=== PATIENT | female | born 1970 | race Caucasian/White ===

== ENCOUNTER 2022-02-18 15:47 | Emergency (ER) | payer OTHER ==
--- OUTSIDE RECORDS SUMMARY | 2022-02-18 15:50 | XMS REPORT | Continuity of Care Document ---
:1970 Author Organization [facility] t Address [address] [place] [address] Care Team Providers Name Role Phone JAMIE Attending Clinician Unavailable Jamie MOY Attending Clinician Payers Payer Name Policy Type Policy Number Effective Date Expiration Date [facility] [id number] Problems This patient has no known problems. Allergies, Adverse Reactions, Alerts Allergy Allergy Status Severity Reaction(s) Onset Inactive Treating Comm ents Source Name Type Date Date Clinician Oxycodon Propensi Active Percodan [facility] ty to 5-25 College n adverse 00:00: of reaction 00 Medicin s to e drug Codeine Propensi Active [facility] ty to 3-23 College adverse 00:00: of reaction 00 Medicin s to e drug Opioid Propensi Active [facility] Analgesi ty to 3-23 College cs adverse 00:00: of reaction 00 Medicin s to e drug Penicill Propensi Active [facility] ins ty to 3-23 College adverse 00:00: of reaction 00 Medicin s to e drug MORPHINE DRUG Active N/V 2019- Univers [facility]I 01-22 ity of 00:00: [place] 00 [facility] PENICILL DRUG Active Unknown-Cmnt Un tisha IN INGREDI 01-22 ity of 00:00: [place] 00 Medical Branch OXYCODON DRUG Active N/V 2019- Univers E 01-22 ity of HCL-OXYC 00:00: [place] ODONE- 00 Medical A Branch Morphine Propensi Active Nausea Univer s ty to and/or 01-22 ity of adverse Vomiting 00:00: [place] reaction 00 Medical s Branch Penicill Propensi Active Unknown - Was told U tim in ty to See comments 01-22 as a ity of adverse 00:00: child [place] reaction 00 Medical s Branch Oxycodon Propensi Active Nausea Univer s e ty to and/or 01-22 ity of Hcl-Oxyc adverse Vomiting 00:00: [place] odone-As reaction 00 Medica l a s Branch Codeine Propensi Active Nausea Univers ty to and/or 01-22 ity of adverse Vomiting 00:00: [place] reaction 00 Medical s Branch CODEINE DRUG Active N/V Univers INGREDI 01-22 ity of 00:00: [place] 00 Medical Branch Social History Social Habit Start Date Stop Date Quantity Comments Source History [facility] Alcohol Std Drinks of Med icine History [facility] Alcohol Binge of Medicine History [facility] Alcohol Comment of Medici ne Alcohol intake 2022-02-01 2022-02-01 Ex-drinker [facility] Col lege 00:00:00 00:00:00 (finding) of Medicine Cigarette 2021-12-21 2021-12-21 [facility] pack-years 00:00:00 00:00:00 of Medicine Tobacco use and 2021-12-21 2021-12-21 Smokeless tobacco [facility] exposure 00:00:00 00:00:00 non-user of Medicine Exposure to 2021-10-11 2021-10-[address] [facility] e SARS-CoV-2 (event) 00:00:00 09:45:00 of Med icine History [facility] 2020-10-19 2020-10-19 1 [facility] ge Alcohol Frequency 00:00:00 00:00:00 of Medi cine Sex [birth year] [facility] [employer]lege 00:00:00 00:00:00 of Medicine Smoking Status Start Date Stop Date Source Unknown if ever smoked [facility] Never smoked tobacco [facility] Lana ege of Medicine Medications Ordered Filled Start Stop Current Ordering Indication Dosage Frequency Signature Comments Components Source Medication Medication Date Date Medication? Clinician (SIG) Name Name melecioadilsonamanda- 2022-0 Yes 1{tbl} Take 1 [facility] acetaminoph 7-06 Tablet by Col lege en-caffeine 13:57: mouth of (FIORICET, 31 every 6 Medici n ESGIC) hours as e 50-325-40 needed for MG per Headaches. tablet cyclobenzap 2-0 Yes 5mg Take 1 [facility] rine 7-06 Tablet by [place] (FLEXERIL) 00:00: mouth of 5 MG tablet 00 daily as Medi simone needed. e meloxicam 2022-0 Yes 15mg Take 1 [facility] (MOBIC) 15 7-06 Tablet by Lana ege MG tablet 00:00: mouth of 00 daily. Medicin e leflunomide 2-0 Yes 20mg Take 1 [facility] (ARAVA) 20 7-06 Tablet by Lana ege MG tablet 00:00: mouth of 00 daily. Medicin e Adalimumab 2-0 Yes 40mg Inject 0.4 [facility] (HUMIRA 7-06 mL into College PEN) 40 00:00: the skin of MG/0.4ML 00 every 14 Medicin PNKT days. e Adalimumab 2022-0 Yes 40mg Inject 0.4 [facility] (HUMIRA 7-06 mL into [place] PEN) 40 00:00: the skin of MG/0.4ML 00 every 14 Medicin PNKT days. e butalbital- 2021-0 Yes 1{tbl} Take 1 [facility] acetaminoph 5-25 Tablet by Col lege en-caffeine 14:51: mouth of (FIORICET, 16 every 6 Medici n ESGIC) hours as e 50-325-40 needed for MG per Headaches. tablet leflunomide 2022-0 Yes 20mg Take 1 [facility] (ARAVA) 20 5-25 Tablet by Lana ege MG tablet 00:00: mouth of 00 daily. Medicin e omeprazole 2022-0 Yes [id number] 40mg Take 1 [facility] (PRILOSEC) 5-25 capsule by Col lege 40 MG 00:00: mouth of capsule 00 daily. Medicin e meloxicam 2022-0 Yes 15mg Take 1 [facility] (MOBIC) 15 5-25 Tablet by Lana ege MG tablet 00:00: mouth of 00 daily. Medicin e omeprazole 2022-0 Yes [id number] 40mg Take 1 [facility] (PRILOSEC) 5-25 capsule by Col lege 40 MG 00:00: mouth of capsule 00 daily. Medicin e leflunomide 2021-2021- No 20mg Take 1 [place] [facility] (ARAVA) 20 5-25 -06 Tablet by Col lege MG tablet 00:00: 00:00 mouth of 00 :00 daily. Medicin e meloxicam 2021-2021- No 15mg Take 1 [facility] (MOBIC) 15 5-25 07-06 Tablet by Col lege MG tablet 00:00: 00:00 mouth of 00 :00 daily. Medicin e butalbital- Yes 1{tbl} Take 1 [facility] acetaminoph 3-29 Tablet by Col lege en-caffeine 15:28: mouth of (FIORICET, 29 every 6 Medici n ESGIC) hours as e 50-325-40 needed for MG per Headaches. tablet leflunomide 0 Yes 20mg Take 1 [facility] (ARAVA) 20 3-03 Tablet by Lana ege MG tablet 00:00: mouth of 00 daily. Medicin e leflunomide 2021-0 2021- No 20mg Take 1 [place] [facility] (ARAVA) 20 3-03 05-25 Tablet by Col lege MG tablet 00:00: 00:00 mouth of 00 :00 daily. Medicin e butalbital- 0 Yes 1{tbl} Take 1 [facility] acetaminoph 3-01 Tablet by Col lege en-caffeine 13:20: mouth of (FIORICET, 02 every 6 Medici n ESGIC) hours as e 50-325-40 needed for MG per Headaches. tablet meloxicam 0 Yes Take 1 or [place] [facility] (MOBIC) 7.5 3-01 2 pills Colle ge MG tablet 00:00: orally of 00 once a day Medicin e methotrexat 2021-0 Yes [id number] 20mg Take 8 [facility] e 3-01 Tablets by [place] (RHEUMATREX 00:00: mouth of ) 2.5 MG 00 every 7 Medicin tablet days. e folic acid 0 Yes [id number] 1mg Take 1 [facility] (FOLVITE) 1 3-01 Tablet by Col lege MG tablet 00:00: mouth of 00 daily. Medicin e meloxicam 0 Yes Take 1 or [place] [facility] (MOBIC) 7.5 3-01 2 pills Colle ge MG tablet 00:00: orally of 00 once a day Medicin e methotrexat 2021-0 Yes [id number] 20mg Take 8 [facility] e 3-01 Tablets by [place] (RHEUMATREX 00:00: mouth of ) 2.5 MG 00 every 7 Medicin tablet days. e folic acid 2021-0 Yes [id number] 1mg Take 1 [facility] (FOLVITE) 1 3- Tablet by Col lege MG tablet 00:00: mouth of 00 daily. Medicin e meloxicam 2021-0 2021- No Take 1 or [facility] (MOBIC) 7.5 3- 05-25 2 pills Lana ege MG tablet 00:00: 00:00 orally of 00 :00 once a day Medicin e methotrexat 2021-0 2021- No [id number] 20mg Take 8 [facility] e 3- 05-25 Tablets by [place] (RHEUMATREX 00:00: 00:00 mouth of ) 2.5 MG 00 :00 every 7 Medicin tablet days. e folic acid 2021-0 2021- No [id number] 1mg Take 1 [facility] (FOLVITE) 1 3- 05-25 Tablet by Co llege MG tablet 00:00: 00:00 mouth of 00 :00 daily. Medicin e meloxicam 2021-0 Yes Take 1 or [place] [facility] (MOBIC) 7.5 1-24 2 pills Colle ge MG tablet 00:00: orally of 00 once a day Medicin e methotrexat 2021-0 Yes 10mg Take 4 [facility] e 1-24 Tablets by [place] (RHEUMATREX 00:00: mouth of ) 2.5 MG 00 every 7 Medicin tablet days. e methotrexat 2021-0 Yes [id number] 15mg Take 6 [facility] e 1-24 Tablets by [place] (RHEUMATREX 00:00: mouth of ) 2.5 MG 00 every 7 Medicin tablet days. e folic acid 2021-0 Yes [id number] 1mg Take 1 [facility] (FOLVITE) 1 1-24 Tablet by Col lege MG tablet 00:00: mouth of 00 daily. Medicin e methotrexat 2021- No [id number] 15mg Take 6 [facility] e 08-22 Tablets by [place] (RHEUMATREX 00:00: 00:00 mouth of ) 2.5 MG 00 :00 every 7 Medicin tablet days. e meloxicam 2021- No Take 1 or [facility] (MOBIC) 7.5 08-22 2 pills Lana ege MG tablet 00:00: 00:00 orally of 00 :00 once a day Medicin e folic acid 2021- No [id number] 1mg Take 1 [facility] (FOLVITE) 1 08-22 Tablet by Co llege MG tablet 00:00: 00:00 mouth of 00 :00 daily. Medicin e methotrexat 2021- No 10mg Take 4 [place] [facility] e 08-22 Tablets by [place] (RHEUMATREX 00:00: 00:00 mouth of ) 2.5 MG 00 :00 every 7 Medicin tablet days. e methotrexat 2021- No [id number] 10mg Take 4 [facility] e 10-22 Tablets by [place] (RHEUMATREX 00:00: 00:00 mouth of ) 2.5 MG 00 :00 every 7 Medicin tablet days. e folic acid 2021- No [id number] 1mg Take 1 [facility] (FOLVITE) 1 10-22 Tablet by Co llege MG tablet 00:00: 00:00 mouth of 00 :00 daily. Medicin e ibuprofen 2020- No 600mg Take 600 [facility] (MOTRIN) 3-23 03-23 mg by [place] 200 mg 21:51: 00:00 mouth of tablet 18 :00 every 6 Medicin hours as e needed for Pain. omeprazole Yes [id number] 40mg Take 1 [facility] (PRILOSEC) 3-23 capsule by Col lege 40 MG 00:00: mouth of capsule 00 daily. Medicin e naproxen Yes [id number] 500mg Take 1 [facility] (NAPROSYN) 3-23 Tablet by Lana ege 500 MG 00:00: mouth 2 of tablet 00 times Medicin daily e (with meals). omeprazole 2020-0 Yes [id number] 40mg Take 1 [facility] (PRILOSEC) 3-23 capsule by Col lege 40 MG 00:00: mouth of capsule 00 daily. Medicin e naproxen 2020-0 Yes [id number] 500mg Take 1 [facility] (NAPROSYN) 3-23 Tablet by Lana ege 500 MG 00:00: mouth 2 of tablet 00 times Medicin daily e (with meals). omeprazole 2020-0 Yes [id number] 40mg Take 1 [facility] (PRILOSEC) 3-23 capsule by Col lege 40 MG 00:00: mouth of capsule 00 daily. Medicin e omeprazole 2020-0 Yes [id number] 40mg Take 1 [facility] (PRILOSEC) 3-23 capsule by Col lege 40 MG 00:00: mouth of capsule 00 daily. Medicin e omeprazole 2020-0 2021- No [id number] 40mg Take 1 [facility] (PRILOSEC) 3-23 05-25 capsule by Co llege 40 MG 00:00: 00:00 mouth of capsule 00 :00 daily. Medicin e naproxen 2020-0 2021- No [id number] 500mg Take 1 [facility] (NAPROSYN) 3-23 03-01 Tablet by Col lege 500 MG 00:00: 00:00 mouth 2 of tablet 00 :00 times Medicin daily e (with meals). predniSONE 2020-0 1- No [id number] Take 3 [facility] (DELTASONE) 3-23 04-14 Tablets by Mary Alice pino 5 MG tablet 00:00: 04:59 mouth of 00 :00 daily for Medicin 7 days, e THEN 2 Tablets daily for 7 days, THEN 1 Tablet daily for 7 days. Vital Signs Vital Name Observation Time Observation Value Comments Source Systolic blood 2022-02-01 18:57:00 121 mm[Hg] [facility] pressure Medicine Diastolic blood 2022-02-01 18:57:00 85 mm[Hg] [facility] Medicine Heart rate 2022-02-01 18:57:00 85 /min [facility] Body temperature 2022-02-01 18:57:00 36.61 [facility] Respiratory rate 2022-02-01 18:57:00 16 /min [facility] Body height 2022-02-01 18:57:00 149.9 cm [facility] C [facility] Body weight 2022-02-01 18:57:00 92.262 kg [facility] C ollege of Medicine BMI 2022-02-01 18:57:00 41.08 kg/m2 [facility] ollege of Medicine Oxygen saturation in 2022-02-01 18:57:00 97 /min [facility] of Arterial blood by Medicine Pulse oximetry Systolic blood 2021-12-21 19:51:00 110 mm[Hg] [facility] of pressure Medicine Diastolic blood 2021-12-21 19:51:00 78 mm[Hg] [facility] Medicine Heart rate 2021-12-21 19:51:00 90 /min [facility] ollege of Medicine Body temperature 2021-12-21 19:51:00 36.61 Brun[facility] Respiratory rate 2021-12-21 19:51:00 13 /min [facility] Body height 2021-12-21 19:51:00 149.9 cm [facility] ollege of [facility] Body weight 2021-12-21 19:51:00 91.808 kg [facility] ollege of [facility] BMI 2021-12-21 19:51:00 40.88 kg/m2 [facility] ollege of Medicine Oxygen saturation in 2021-12-21 19:51:00 93 /min [facility] of Arterial blood by Medicine Pulse oximetry Systolic blood 2021-10-25 20:26:00 114 mm[Hg] [facility] pressure Medicine Diastolic blood 2021-10-25 20:26:00 82 mm[Hg] [facility] pressure Medicine Heart rate 2021-10-25 20:26:00 100 /min [facility] C ollege of Medicine Body height 2021-10-25 20:26:00 149.9 cm [facility] C ollege of Medicine Body weight 2021-10-25 20:26:00 92.534 kg [facility] C ollege of Medicine BMI 2021-10-25 20:26:00 41.20 kg/m2 [facility] C ollege of Medicine Oxygen saturation in 2021-10-25 20:26:00 97 /min [facility] of Arterial blood by Medicine Pulse oximetry Systolic blood 2021-09-27 19:13:00 126 mm[Hg] [facility] pressure Medicine Diastolic blood 2021-09-27 19:13:00 84 mm[Hg] [facility] Medicine Heart rate 2021-09-27 19:13:00 79 /min [facility] ollege of [facility] Body temperature 2021-09-27 19:13:00 36.89 Brunilda [facility] Body weight 2021-09-27 19:13:[facility] BMI 2021-09-27 19:13:00 42.54 kg/m2 [facility] ollege of [facility] Oxygen saturation in 2021-09-27 19:13:00 99 /min [facility] of Arterial blood by Medicine Pulse oximetry Systolic blood 2021-08-22 14:49:00 128 mm[Hg] [facility] Medicine Diastolic blood 2021-08-22 14:49:00 88 mm[Hg] [facility] Medicine Heart rate 2021-08-22 14:49:00 89 /min [facility] ollege of [facility] Body temperature 2021-08-22 14:49:00 36.44 Brunilda [facility] Respiratory rate 2021-08-22 14:49:00 16 /min [facility] Body weight 2021-08-22 14:49:00 93.985 kg [facility] BMI 2021-08-22 14:49:00 41.85 [facility] Oxygen saturation in 2021-08-22 14:49:00 96 /min [facility] Arterial blood by Medicine Pulse oximetry Systolic blood 2020-10-19 20:40:00 114 mm[Hg] [facility] Medicine Diastolic blood 2020-10-19 20:40:00 81 mm[Hg] [facility] Medicine Heart rate 2020-10-19 20:40:00 91 /min [facility] ollege of Medicine Respiratory rate 2020-10-19 20:40:00 16 /min [facility] Body height 2020-10-19 20:40:00 149.9 cm [facility] Body weight 2020-10-19 20:40:00 95.981 kg [facility] BMI 2020-10-19 20:40:00 42.74 kg/m2 [facility] Oxygen saturation in 2020-10-19 20:40:00 98 /min [facility] Arterial blood by [facility] Pulse oximetry Diastolic blood 2020-01-23 17:11:00 84 mm[Hg] Unive rsity of pressure [facility] Heart rate 2020-01-23 17:11:00 108 /min [facility] Body temperature 2020-01-23 17:11:00 37.44 [facility] 2020-01-23 17:11:00 22 /min [facility] height 2020-01-23 17:11:00 149.9 cm Universi ty [facility] Body weight 2020-01-23 17:11:00 90.719 kg Universi ty [facility] BMI 2020-01-23 17:11:00 40.40 kg/m2 [facility]i [facility] Oxygen saturation in 2020-01-23 17:11:00 99 /min [facility] Arterial blood by [facility] Pulse oximetry Branch Systolic blood 2020-01-23 17:11:00 150 mm[Hg] Univer sit of [facility] Procedures This patient has no known procedures. Plan of Care Planned Activity Planned Date Details Comments Source Future Scheduled 2022-05-04 COMPREHENSIVE METABOLIC Expected: [facility] Test 00:00:00 PANEL [code = 76916-9] 05/04/2022, of Mi dicine Expires: 08/04/2022 Future Scheduled 2022-05-04 C-REACTIVE PROTEIN Expected: [facility] Test 00:00:00 [code = 1988-5] 05/04/2022, of Medicine Expires: 08/04/2022 Future Scheduled 2022-05-04 CBC W/AUTO DIFF WITH Expected: [facility] Test 00:00:00 PLATELETS [code = 05/04/2022, of Medicin e 74498-1] Expires: 08/04/2022 Future Scheduled 2022-05-04 SEDIMENTATION RATE Expected: [facility] [employer] Test 00:00:00 MODIFIED KATELYNN 05/04/2022, of Medic ine [code = 4537-7] Expires: 08/04/2022 Future Scheduled 2022-02-03 COMPREHENSIVE METABOLIC Expected: [facility] College Test 00:00:00 PANEL [code = 37611-0] 02/03/2022, of Me dicine Expires: 06/23/2022 Future Scheduled 2022-02-03 C-REACTIVE PROTEIN Expected: [facility] [employer] Test 00:00:00 [code = 1988-5] 02/03/2022, of Medicine Expires: 06/23/2022 Future Scheduled 2022-02-03 CBC W/AUTO DIFF WITH Expected: [facility] [facility] Test 00:00:00 PLATELETS [code = 02/03/2022, of Medicin e 50025-6] Expires: 06/23/2022 Future Scheduled 2022-02-03 SEDIMENTATION RATE Expected: [facility] [employer] Test 00:00:00 MODIFIED KATELYNN 02/03/2022, of Medic ine [code = 4537-7] Expires: 06/23/2022 Future Scheduled 2022-02-01 Screening for malignant [facility] Test 14:52:55 neoplasm of colon of Medicin e (procedure) [code = 745677607] Future Scheduled 2022-02-01 Screening for malignant [facility] Test 14:52:55 neoplasm of breast of Medici ne (procedure) [code = 752764401] Future Scheduled 2022-02-01 COVID-19 Vaccine (#1) [facility] Test 14:52:55 [code = COVID-19 of Medicine Vaccine (#1)] Future Scheduled 2022-02-01 TETANUS SHOT (ADULT) [place] [facility] Test 14:52:55 [code = TETANUS SHOT of Medi cine (ADULT)] Future Scheduled 2022-02-01 BMI FOLLOW UP PLAN [facility] [employer] Test 14:52:55 [code = BMI FOLLOW UP of Med icine PLAN] Future Scheduled 2022-02-01 Human immunodeficiency [facility] Test 14:52:55 virus screening of Medicine (procedure) [code = 726808093] Future Scheduled 2022-02-01 Screening for malignant [facility] College Test 14:52:55 neoplasm of cervix of Medici ne (procedure) [code = 520197416] Future Scheduled 2022-02-01 ZOSTER VACCINE (1 of 2) [facility] Test 14:52:55 [code = ZOSTER VACCINE of Me dicine (1 of 2)] Future Scheduled 2022-02-01 FLU VACCINE > 6 MONTH[facility] 14:52:55 [code = FLU VACCINE > 6 of M edicine MONTHS] Future Scheduled 2021-12-[address] [facility] Test 15:36:00 neoplasm of colon of Medicin e (procedure) [code = 916013380] Future Scheduled 2021-12-[address] [facility] Test 15:36:00 neoplasm of breast of Medici ne (procedure) [code = 870371160] Future Scheduled 2021-12-21 COVID-19 Vaccine (#1) [facility] College Test 15:36:00 [code = COVID-19 of Medicine Vaccine (#1)] Future Scheduled 2021-12-21 TETANUS SHOT (ADULT) [facility] Test 15:36:00 [code = TETANUS SHOT of Medi cine (ADULT)] Future Scheduled 2021-12-21 BMI FOLLOW UP PLAN [facility] College Test 15:36:00 [code = BMI FOLLOW UP of Med icine PLAN] Future Scheduled 2021-12-21 Human immunodeficiency [facility] Test 15:36:00 virus screening of Medicine (procedure) [code = 075387875] Future Scheduled 2021-12-[address] [facility] Test 15:36:00 neoplasm of cervix of Medici ne (procedure) [code = 644855745] Future Scheduled 2021-12-21 ZOSTER VACCINE (1 of 2) [facility] Test 15:36:00 [code = ZOSTER VACCINE of Me dicine (1 of 2)] Future Scheduled 2021-12-21 FLU VACCINE > 6 MONTH[facility] 15:36:00 [code = FLU VACCINE > 6 of M edicine MONTHS] Future Scheduled 2021-11-25 COMPREHENSIVE METABOLIC Expected: [facility] Test 00:00:00 PANEL [code = 37497-9] 11/25/2021, of Me dicine Expires: 04/27/2022 Future Scheduled 2021-11-25 C-REACTIVE PROTEIN Expected: [facility] Test 00:00:00 [code = 1988-5] 11/25/2021, of Medicine Expires: 04/27/2022 Future Scheduled 2021-11-25 CBC W/AUTO DIFF WITH Expected: [place] [facility] Test 00:00:00 PLATELETS [code = 11/25/2021, of Medicin e 57406-1] Expires: 04/27/2022 Future Scheduled 2021-11-25 SEDIMENTATION RATE Expected: [facility] [employer] Test 00:00:00 MODIFIED [facility]25[facility], of Medic ine [code = 4537-7] Expires: 04/27/2022 Future Scheduled 2021-10-28 COMPREHENSIVE METABOLIC Expected: [facility] Test 00:00:00 PANEL [code = 39698-6] 10/28/2021, of Me dicine Expires: 03/30/2022 Future Scheduled 2021-10-28 C-REACTIVE PROTEIN Expected: [facility] [employer] Test 00:00:00 [code = 1988-5] 10/28/2021, of Medicine Expires: 03/30/2022 Future Scheduled 2021-10-28 CBC W/AUTO DIFF WITH Expected: [place] [facility] Test 00:00:00 PLATELETS [code = 10/28/2021, of Medicin e 85937-6] Expires: 03/30/2022 Future Scheduled 2021-10-28 SEDIMENTATION RATE Expected: [facility] [employer] Test 00:00:00 MODIFIED 10/28/2021, of Medic ine [code = 4537-7] Expires: 03/30/2022 Future Scheduled 2021-10-25 Screening for malignant [facility] Test 16:10:58 neoplasm of colon of Medicin e (procedure) [code = 297509557] Future Scheduled 2021-10-25 Screening for malignant [facility] Test 16:10:58 neoplasm of breast of Medici ne (procedure) [code = 004860289] Future Scheduled 2021-10-25 COVID-19 Vaccine (1) [facility] Test 16:10:58 [code = COVID-19 of Medicine Vaccine (1)] Future Scheduled 2021-10-25 TETANUS SHOT (ADULT) [facility] [facility] Test 16:10:58 [code = TETANUS SHOT of Medi cine (ADULT)] Future Scheduled 2021-10-25 BMI FOLLOW UP PLAN [facility] [facility] [employer] Test 16:10:58 [code = BMI FOLLOW UP of Med icine PLAN] Future Scheduled 2021-10-25 Human immunodeficiency B [facility] Test 16:10:58 virus screening of Medicine (procedure) [code = 045145244] Future Scheduled 2021-10-[address] [facility] Test 16:10:58 neoplasm of cervix of Medici ne (procedure) [code = 522856695] Future Scheduled 2021-10-25 FLU VACCINE > 6 MONTHS B [facility] Test 16:10:58 [code = FLU VACCINE > 6 of M edicine MONTHS] Future Scheduled 2021-10-25 ZOSTER VACCINE (1 of 2) [facility] Test 16:10:58 [code = ZOSTER VACCINE of Me dicine (1 of 2)] Future Scheduled 2021-09-[address] [facility] Test 13:17:36 neoplasm of colon of Medicin e (procedure) [code = 363272876] Future Scheduled 2021-09-[address] [facility] Test 13:17:36 neoplasm of breast of Medici ne (procedure) [code = 581065373] Future Scheduled 2021-09-27 COVID-19 Vaccine (1) [facility] Test 13:17:36 [code = COVID-19 of Medicine Vaccine (1)] Future Scheduled 2021-09-27 TETANUS SHOT (ADULT) [facility] Test 13:17:36 [code = TETANUS SHOT of Medi cine (ADULT)] Future Scheduled 2021-09-27 BMI FOLLOW UP PLAN [facility] Test 13:17:36 [code = BMI FOLLOW UP of Med icine PLAN] Future Scheduled 2021-09-27 Human immunodeficiency B [facility] Test 13:17:36 virus screening of Medicine (procedure) [code = 132105335] Future Scheduled 2021-09-[address] [facility] Test 13:17:36 neoplasm of cervix of Medici ne (procedure) [code = 251873754] Future Scheduled 2021-09-27 FLU VACCINE > 6 MONTHS B [facility] Test 13:17:36 [code = FLU VACCINE > 6 of M edicine MONTHS] Future Scheduled 2021-09-27 ZOSTER VACCINE (1 of 2) [facility] Test 13:17:36 [code = ZOSTER VACCINE of Me dicine (1 of 2)] Future Scheduled 2021-09-22 COMPREHENSIVE METABOLIC Expected: [facility] Test 00:00:00 PANEL [code = 32291-3] 09/22/2021, of Me dicine Expires: 02/19/2022 Future Scheduled 2021-09-22 C-REACTIVE PROTEIN Expected: [employer] Test 00:00:00 [code = 1987-5] 09/22/2021, of Medicine Expires: 02/19/2022 Future Scheduled 2021-09-22 CBC W/AUTO DIFF WITH Expected: [employer] Test 00:00:00 PLATELETS [code = 09/22/2021, of Medicin e 07141-5] Expires: 02/19/2022 Future Scheduled 2021-09-22 SEDIMENTATION RATE Expected: [employer] Test 00:00:00 MODIFIED WESTERGREN 09/22/2021, of Medic ine [code = 4537-7] Expires: 02/19/2022 Future Scheduled 2021-08-22 COMPREHENSIVE METABOLIC Ordered: [facility] [employer] Test 09:57:22 PANEL [code = 03685-2] 08/22/2021 of Me dicine Future Scheduled 2021-08-22 C-REACTIVE PROTEIN Ordered: [employer] Test 09:57:22 [code = 1988-5] 08/22/2021 of Medicine Future Scheduled 2021-08-22 CBC W/AUTO DIFF WITH Ordered: [employer] Test 09:57:22 PLATELETS [code = 08/22/2021 of Medicin e 58544-0] Future Scheduled 2021-08-22 SEDIMENTATION RATE Ordered: [employer] Test 09:57:22 MODIFIED WESTERGREN 08/22/2021 of Medic ine [code = 4537-7] Future Scheduled 2021-08-22 QUANTIFERON TB GOLD Ordered: [employer] Test 09:57:22 PLUS 4 TUBES [code = 08/22/2021 of [facility] 49418-7] Future Scheduled 2021-08-22 Screening for malignant [facility] [employer] Test 08:49:58 neoplasm of colon of Medicin e (procedure) [code = 089683619] Future Scheduled 2021-08-22 Screening for malignant [employer] Test 08:49:58 neoplasm of breast of Medici ne (procedure) [code = 552118837] Future Scheduled 2021-08-22 COVID-19 Vaccine (1) [employer] Test 08:49:58 [code = COVID-19 of Medicine Vaccine (1)] Future Scheduled 2021-08-22 TETANUS SHOT (ADULT) [facility] Test 08:49:58 [code = TETANUS SHOT of Medi cine (ADULT)] Future Scheduled 2021-08-22 BMI FOLLOW UP PLAN [facility] Test 08:49:58 [code = BMI FOLLOW UP of Med icine PLAN] Future Scheduled 2021-08-22 Human immunodeficiency B [facility] Test 08:49:58 virus screening of Medicine (procedure) [code = 028947497] Future Scheduled 2021-08-[address] [facility] Test 08:49:58 neoplasm of cervix of Medici ne (procedure) [code = 124002428] Future Scheduled 2021-08-22 FLU VACCINE > 6 MONTHS B [facility] Test 08:49:58 [code = FLU VACCINE > 6 of M edicine MONTHS] Future Scheduled 2021-08-22 ZOSTER VACCINE (1 of 2) [facility] Test 08:49:58 [code = ZOSTER VACCINE of Me dicine (1 of 2)] Diagnostic Test 2020-11-19 COMPREHENSIVE METABOLIC Expected: [facility] Pending 00:00:00 PANEL [code = 86565-7] 11/19/2020, of Me dicine Expires: 04/21/2021 Diagnostic Test 2020-11-19 CBC W/AUTO DIFF WITH Expected: [facility] Pending 00:00:00 PLATELETS [code = 11/19/2020, of Medicin e 64940-1] Expires: 04/21/2021 Future Scheduled CCP AB (IGG/IGA) [code Ordered: [facility] Test = 36339-9] 10/19/2020 of Medicine Future Scheduled SEDIMENTATION RATE Ordered: [facility] Test MODIFIED WESTERGREN 10/19/2020 of Medic ine [code = 4537-7] Future Scheduled COMPREHENSIVE METABOLIC Ordered: [facility] Test PANEL [code = 94043-7] 10/19/2020 of Me dicine Future Scheduled CBC W/AUTO DIFF WITH Ordered: [facility] Test PLATELETS [code = 10/19/2020 of Medicin e 08385-2] Future Scheduled C-REACTIVE PROTEIN Ordered: [facility] Test [code = 1988-5] 10/19/2020 of Medicine Future Scheduled HEPATITIS B SURFACE AB Ordered: [facility] Test QUANT [code = 85455-8] 10/19/2020 of Me dicine Future Scheduled HEPATITIS B SURFACE Ordered: [facility] or [place] Test ANTIGEN [code = 5196-1] 10/19/2020 of M edicine Future Scheduled HEPATITIS C ANTIBODY Ordered: [employer] Test [code = 98884-9] 10/19/2020 of Medicine Future Scheduled Screening for malignant [facility] Test neoplasm of breast of Medici ne (procedure) [code = 482608653] Future Scheduled TETANUS SHOT (ADULT) [employer] Test [code = TETANUS SHOT of Medi cine (ADULT)] Future Scheduled Hepatitis C screening [employer] Test (procedure) [code = of Medic ine 580166696] Future Scheduled [facility] Test virus screening of Medicine (procedure) [code = 546774058] Future Scheduled Screening for malignant [facility] Test neoplasm of cervix of Medici ne (procedure) [code = 443551799] Future Scheduled FLU VACCINE > 6 MONTHS [employer] Test [code = FLU VACCINE > 6 of M edicine MONTHS] Future Scheduled XR HAND BILATERAL 1 Occurrences [employer] Test (COMPLETE) [code = [place] [address]] 10/19/2020 until 10/19/2021 Future Scheduled XR FOOT BILATERAL 1 Occurrences [employer] Test (COMPLETE) [code = [place] [address]-1] 10/19/2020 until 10/19/2021 Future Scheduled XR CHEST PA AND LATERAL 1 Occurrences [facility] [employer] Test [code = 77923-9] starting of Medicine 10/19/2020 until 10/19/2021 Encounters Start End Encounter Admission Attending Care Care Encounter Source Date/Time Date/Time Type Type Clinicians Facility Department ID 2022-02-01 2022-02-01 Office SHAHEEN ESPINOSA [id number] [facility] 13:45:46 16:24:16 Visit [employer] 350.1.13.21 College Y 0.2.7.2.686 of [id number] Medi simone 370 e 2021-12-21 2021-12-21 Office SHAHEEN Espinosa [id number] [facility] 15:00:00 15:34:36 Visit [employer] 350.1.13.21 College Y 0.2.7.2.686 of [id number] Medi simone 370 e 2021-10-25 2021-10-25 Office [facility] [id number] [facility] 16:00:00 16:11:02 Visit [employer] 350.1.13.21 College Y 0.2.7.2.686 of [id number] Medi simone 370 e 2021-09-27 2021-09-27 Office [facility] [id number] [facility] 13:00:00 14:13:06 Visit [employer] 350.1.13.21 College Y 0.2.7.2.686 of [id number] Medi simone 370 e 2021-08-22 2021-08-22 Office [facility] [id number] [facility] 09:15:00 10:36:22 Visit [employer] 350.1.13.21 College Y 0.2.7.2.686 of [id number] Medi simone 370 e 2020-10-25 2020-11-05 Outpatient [facility] [id number] [facility] 12:06:09 09:24:06 Colleg e of Medicin e 2020-10-25 2020-10-28 Outpatient [facility] [id number] [facility] 12:06:32 11:08:06 Colleg e of Medicin e 2020-10-25 2020-10-28 Outpatient [facility] [id number] [facility] 12:05:45 11:06:54 Colleg e of Medicin e 2020-10-19 2020-10-19 Office [facility] [id number] [facility] 15:35:50 16:53:50 Visit [employer] 350.1.13.21 College Y 0.2.7.2.686 of [id number] Medi simone 370 e 2020-01-23 2020-01-23 Emergency [facility] [id number] [employer] 12:13:59 14:51:00 [place] 350.1.13.10 i ty of [place] 4.2.7.2.686 [facility] [id number] [facility] [address] 2020-01-23 2020-01-23 Emergency X [facility] ERT [id number] [employer] 12:13:59 12:13:59 ity of [facility] Results This patient has no known results.
[2022-02-18 16:51] LABS: Absolute Lymphocytes (CBC) 1.7 K/uL (0.7-4.9); Hematocrit 42.6 % (36.0-45.0); Lymphocytes % 19.5 % (15.3-44.8); MPV 7.6 fL (7.6-11.3); RBC Red Blood Cell Count 5.13 M/uL (3.86-4.86)
[2022-02-18] MEDS ORDERED: HYDROMORPHONE HCL 0.5 MG/0.5 ML INJ ONE (17:00)
[2022-02-18] MEDS ORDERED: NA CHLORIDE 0.9% 1,000 ML ONE (17:01)
[2022-02-18 17:55] LABS: Albumin 3.4 g/dL (3.4-5.0); Bilirubin Total 0.3 mg/dL (0.2-1.0); Potassium 3.8 mmol/L (3.5-5.1); Protein, Total 6.9 g/dL (6.4-8.2)
[2022-02-18] MEDS ORDERED: ONDANSETRON 4 MG/2 ML VIAL ONE (17:58)
[2022-02-18 18:16] LABS: Urine Blood Trace-lysed (Negative); Urine Glucose Negative (Negative); Urine Protein Negative (Negative); Urine Specific Gravity >=1.030 (1.005-1.030)
--- NOTE | 2022-02-18 18:37 | RAD REPORT ---
EXAM DESCRIPTION: RAD - Chest Single View - 02/18/2022 6:29 pm CLINICAL HISTORY: epigastric pain COMPARISON: No comparisons FINDINGS: Lines: None. Lungs: No evidence of edema or pneumonia. Pleural: No significant pleural effusions or pneumothorax. Cardiac: The heart size is within normal limits. Bones: No acute fractures. Other: IMPRESSION: No acute cardiopulmonary disease.
[2022-02-18 18:42] LABS: Urine Bacteria 20-50 /HPF (<20); Urine Mucus 1+ /HPF (None Seen); Urine RBC <5 /HPF (None Seen)
--- NOTE | 2022-02-18 20:00 | RAD REPORT ---
EXAM DESCRIPTION: CTAbdomen Pelvis W Contrast - 02/18/2022 7:33 pm CLINICAL HISTORY: Epigastric pain COMPARISON: No comparisons TECHNIQUE: CT of the abdomen and pelvis was performed. All CT scans are performed using dose optimization technique as appropriate and may include automated exposure control or mA/KV adjustment according to patient size. FINDINGS: Lower chest: No acute abnormality. Liver: No acute abnormality or suspicious lesions. Biliary: No biliary ductal dilatation. Stomach: No significant focal abnormality. Duodenum: No significant focal abnormality. Pancreas: No significant abnormality. Spleen: No significant abnormality. Adrenal: No suspicious lesions. Kidney/ureter: No hydronephrosis. No renal calculi. Too small to characterize and/or benign appearing renal lesions are noted. Retroperitoneum: No retroperitoneal adenopathy. Vascular: No aneurysm. Bowel: No significant focal abnormality. Normal appendix. Peritoneum: No ascites or free air. Small fat containing umbilical hernia. Bladder: Grossly unremarkable. Reproductive: No adnexal masses. Bones: No acute fracture. Other: n/a IMPRESSION: No acute intra-abdominal or pelvic finding. Normal appendix.
[2022-02-18] MEDS ORDERED: FENTANYL CITR 100 MCG/2 ML ONE (20:08)
[2022-02-18] MEDS ORDERED: LIDOCAINE VISCOUS 2% SOLN 15 ML UDC ONE (20:24)
[2022-02-18] MEDS ORDERED: NA CHLORIDE 0.9% 50 ML ONE (20:24)
[2022-02-18] MEDS ORDERED: CEFTRIAXONE 1000 MG/VIAL ONE (20:24)
[2022-02-18] MEDS ORDERED: MAGNES/ALUMIN/SIMET 30ML UCUP ONE (20:24)
--- NOTE | 2022-02-18 21:43 | ER ---
Nurse's Notes [facility] Name: Gabrielle Felix Age: 51 yrs Sex: Female : 1970 Arrival Date: 02/18/2022 Time: 15:49 Bed 16 Private MD: Lucas Michel E Diagnosis: Epigastric pain Presentation: 02/18 16:16 Chief complaint: Patient states: started having sever cramping after eating at [employer] tp1 at 2pm, [place] 10/10 epigastric pain. CO nausea, but denies vomiting and diarrhea. Coronavirus screen: Vaccine status: Patient reports being unvaccinated. Ebola Screen: Patient denies exposure to infectious person. Patient denies travel to an Ebola-affected area in the 21 days before illness onset. Initial Sepsis Screen: Does the patient meet any 2 criteria? No. Patient's initial sepsis screen is negative. Does the patient have a suspected source of infection? No. Patient's initial sepsis screen is negative. Risk Assessment: Do you want to hurt yourself or someone else? Patient reports no desire to harm self or others. Onset of symptoms was February 18, 2022 at 14:00. 16:16 Method Of Arrival: Ambulatory tp1 16:16 Acuity: JENNIFER 3 tp1 Triage Assessment: 16:19 General: Appears in no apparent distress. uncomfortable, Behavior is calm, cooperative. tp1 Pain: Complains of pain in epigastric area Pain radiates to back Pain currently is 10 out of 10 on a pain scale. Quality of pain is described as crampy. GI: Abdomen is round non-distended, Reports nausea. 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 - Social history:: Smoking status: Patient denies any tobacco usage or history of. Screenin:47 Abuse screen: Denies threats or abuse. Denies injuries from another. Nutritional jg9 screening: No deficits noted. Tuberculosis screening: No symptoms or risk factors identified. Fall Risk None identified. Assessment: 16:48 GI: Bowel sounds present X 4 quads. Abd is soft X 4 quads Abd is non tender X 4 quads jg9 Reports upper abdominal pain, nausea, Pain is 10 out of 10 on a pain scale. 17:50 Reassessment: Patient reports nausea and not feeling well after getting pain jg9 medication-patient does not use pain medication frequently. 19:40 Reassessment: Patient reports pain returning to epigastric area; Provider notified. lp1 19:40 Reassessment:. General: Appears uncomfortable, Behavior is restless. Neuro: Level of lp1 Consciousness is awake, alert, obeys commands. Respiratory: Respiratory effort is even, unlabored. Derm: Skin is pink, warm \T\ dry. 21:52 Reassessment: Patient appears in no apparent distress at this time. Patient appears to lp1 be more comfortable at this time; states readiness for discharge. Vital Signs: 16:16 BP 109 / 87; Pulse 99; Resp 18; Temp 98.1; Pulse Ox 100% on R/A; Weight 92.08 kg; tp1 Height 4 ft. 11 in. (149.86 cm); Pain 10/10; 19:15 BP 110 / 80; Pulse 102; Resp 18; Pulse Ox 94% on R/A; lp1 20:15 BP 131 / 93; Pulse 92; Resp 18; Pulse Ox 100% on R/A; lp1 21:30 BP 140 / 95; Pulse 91; Resp 18; Pulse Ox 98% on R/A; Pain 4/10; lp1 16:16 Body Mass Index 41.00 (92.08 kg, 149.86 cm) tp1 ED Course: 15:49 Patient arrived in ED. mr 15:50 Lucas Michel MD is Private Physician. mr 16:19 Triage completed. tp1 16:28 Shelli Pickering, KINGSLEY is Primary Nurse. jg9 16:29 Sebastian Agee PA is PHCP. cp 16:29 Concetta Markham is Attending Physician. cp 16:30 Inserted saline lock: 20 gauge in left antecubital area, using aseptic technique. Blood jg9 collected. 16:47 Arm band placed on right wrist. jg9 16:48 Patient has correct armband on for positive identification. Bed in low position. Call j9 light in reach. Side rails up X 1. 18:31 XRAY Chest (1 view) In Process Unspecified. EDMS 19:35 CT Abd/Pelvis - IV Contrast Only In Process Unspecified. EDMS 20:17 No provider procedures requiring assistance completed. lp1 21:30 US Abdomen Limited In Process Unspecified. EDMS 21:43 Lucas Bonilla MD is Referral Physician. cp 21:54 IV discontinued, No redness/swelling at site. Pressure dressing applied. lp1 Administered Medications: 16:59 Drug: Dilaudid (HYDROmorphone) 0.5 mg Route: IVP; Site: left antecubital; j9 17:49 Follow up: Response: Marked relief of symptoms; RASS: Drowsy (-1) 9 16:59 Drug: NS 0.9% 500 ml Route: IV; Rate: bolus; Site: left antecubital; j9 17:49 Follow up: IV Status: Completed infusion; IV Intake: 500ml j9 17:49 Drug: NS 0.9% 500 ml Route: IV; Rate: 125 ml/hr; Site: left antecubital; j9 18:05 Drug: Zofran (Ondansetron) 4 mg Route: IVP; Site: left antecubital; 9 18:15 Follow up: Response: No adverse reaction; Nausea is decreased 9 20:05 Drug: fentaNYL (PF) 25 mcg Route: IVP; Site: left antecubital; lp1 20:30 Follow up: Response: Pain is decreased lp1 20:26 Drug: Rocephin (cefTRIAXone) 1 grams Route: IV; Rate: calculated rate; Site: left lp1 antecubital; 21:15 Follow up: IV Status: Completed infusion; IV Intake: 50ml lp1 20:26 Drug: GI Cocktail without - (Maalox Suspension 30 ml, Lidocaine Liquid 2 % 15 lp1 ml) Route: PO; 21:51 Follow up: Response: No adverse reaction lp1 21:51 Not Given (Patient Refused; Reports she will take her medication at homee): Ketorolac lp1 15 mg IVP once Medication: 20:17 VIS not applicable for this client. lp1 Point of Care Testing: Urine : 18:15 hCG Reading: Negative; Control Reading: Positive; jg9 Intake: 17:49 IV: 500ml; Total: 500ml. jg9 21:15 IV: 50ml; Total: 550ml. lp1 Outcome: 21:43 Discharge ordered by . cp 21:54 Discharged to home ambulatory, with friend. lp1 21:54 Condition: good 21:54 Discharge instructions given to patient, Instructed on discharge instructions, follow up and referral plans. medication usage, Demonstrated understanding of instructions, follow-up care, medications, Prescriptions given X 2. 21:59 Patient left the ED. lp1 Signatures: Dispatcher [employer] CINDYGA HandyRupa Laura RN RN lp1 Sebastian Agee PA PA cp Parker, Tiffany, RN RN tp1 Shelli Pickering RN RN jg9 Corrections: (The following items were deleted from the chart) 21:54 19:40 Reassessment: Patient reports pain returning to epigastric area; Provider lp1 notified lp1
--- NOTE | 2022-02-18 21:43 | EDPHYS ---
Physician Documentation [facility] Name: Gabrielle Felix Age: 51 yrs Sex: Female : 1970 Arrival Date: 02/18/2022 Time: 15:49 Bed 16 Private MD: Lucas Michel E ED Physician Concetta Markham HPI: 02/18 17:15 This 51 yrs old Female presents to ER via Ambulatory with complaints of Abdominal Pain. cp 17:15 The patient presents with abdominal pain in the epigastric area. cp 17:15 Onset: The symptoms/episode began/occurred suddenly, today. The symptoms radiate to cp back. Associated signs and symptoms: Pertinent positives: nausea, Pertinent negatives: chest pain, constipation, diarrhea, fever, shortness of breath, vomiting. 17:15 The symptoms are described as constant. Patient reports pain started suddenly while cp eating at [employer] this afternoon. 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 - Social history:: Smoking status: Patient denies any tobacco usage or history of. ROS: 17:20 Constitutional: Positive for body aches, chills, fever, poor PO intake. cp 17:20 Eyes: Negative for injury, pain, redness, and discharge. cp 17:20 ENT: Negative for drainage from ear(s), ear pain, sore throat, difficulty swallowing, difficulty handling secretions. 17:20 Cardiovascular: Negative for chest pain, edema, palpitations. 17:20 Respiratory: Negative for cough, shortness of breath, wheezing. 17:20 Abdomen/GI: Positive for abdominal pain, nausea, Negative for vomiting, diarrhea, constipation. 17:20 Back: Negative for injury or acute deformity. 17:20 Neuro: Negative for altered mental status, dizziness, headache, weakness. cp 17:20 All other systems are negative. Exam: 17:25 Constitutional: The patient appears in no acute distress, alert, awake, cp non-diaphoretic, non-toxic, well developed, well nourished. 17:25 Head/Face: Normocephalic, atraumatic. cp 17:25 Eyes: Periorbital structures: appear normal, Conjunctiva: normal, no exudate, no injection, Sclera: no appreciated abnormality, Lids and lashes: appear normal, bilaterally. 17:25 ENT: External ear(s): are unremarkable, Nose: is normal, Mouth: Lips: moist, Oral mucosa: pink and intact, moist, Posterior pharynx: Airway: no evidence of obstruction, patent. 17:25 Chest/axilla: Inspection: normal, Palpation: is normal, no crepitus, no tenderness. 17:25 Cardiovascular: Rate: normal, Rhythm: regular. 17:25 Respiratory: the patient does not display signs of respiratory distress, Respirations: normal, no use of accessory muscles, no retractions, labored breathing, is not present, Breath sounds: are clear throughout, no decreased breath sounds, no stridor, no wheezing. 17:25 Abdomen/GI: Inspection: obese Bowel sounds: active, all quadrants, Palpation: soft, in all quadrants, moderate abdominal tenderness, in the epigastric area, voluntary guarding, is elicited in the epigastric area. 17:25 Back: ROM is normal, CVA tenderness, is absent. cp 17:25 Neuro: Orientation: to person, place \T\ time. Mentation: is normal. Vital Signs: 16:16 BP 109 / 87; Pulse 99; Resp 18; Temp 98.1; Pulse Ox 100% on R/A; Weight 92.08 kg; tp1 Height 4 ft. 11 in. (149.86 cm); Pain 10/10; 19:15 BP 110 / 80; Pulse 102; Resp 18; Pulse Ox 94% on R/A; lp1 20:15 BP 131 / 93; Pulse 92; Resp 18; Pulse Ox 100% on R/A; lp1 21:30 BP 140 / 95; Pulse 91; Resp 18; Pulse Ox 98% on R/A; Pain 4/10; lp1 16:16 Body Mass Index 41.00 (92.08 kg, 149.86 cm) tp1 MDM: 16:44 Patient medically screened. cp 21:42 Data reviewed: vital signs, nurses notes, lab test result(s), radiologic studies, CT cp scan, plain films. 21:42 Test interpretation: by ED physician or midlevel provider: plain radiologic studies. 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 Response to treatment: the patient's symptoms have markedly improved after treatment. Special discussion: Based on the patient's Hx, exam, and Dx evaluation, there is no indication for emergent surgery or inpatient Tx. It is understood by the patient/guardian that if the Sx's persist or worsen they need to return immediately for re-evaluation. 02/18 16:29 Order name: CBC with Diff; Complete Time: 18:09 02/18 16:29 Order name: CMP; Complete Time: 18:09 02/18 16:29 Order name: Lipase; Complete Time: 18:09 02/18 16:29 Order name: Urine Microscopic Only; Complete Time: 19:12 02/18 19:12 Interpretation: Normal except: UBACT 20-50; ANGELITO Cx 1+. 02/18 18:16 Order name: Urine Dipstick-Ancillary; Complete Time: 18:20 [facility] 02/18 16:47 Order name: XRAY Chest (1 view); Complete Time: 19:12 02/18 18:11 Order name: CT Abd/Pelvis - IV Contrast Only; Complete Time: 20:13 02/18 18:45 Order name: Urine Culture [facility] 02/18 20:56 Order name: US Abdomen Limited 02/18 16:29 Order name: IV Saline Lock; Complete Time: 16:47 02/18 16:29 Order name: Labs collected and sent; Complete Time: 16:47 02/18 16:29 Order name: Urine Dipstick-Ancillary (obtain specimen); Complete Time: 18:15 02/18 16:29 Order name: Urine Test (obtain specimen); Complete Time: 18:15 02/18 16:56 Order name: Labs - recollect needed: recollect green top/ hemolyzed; Complete Time: eb 17:49 Administered Medications: 16:59 Drug: Dilaudid (HYDROmorphone) 0.5 mg Route: IVP; Site: left antecubital; jg9 17:49 Follow up: Response: Marked relief of symptoms; RASS: Drowsy (-1) j9 16:59 Drug: NS 0.9% 500 ml Route: IV; Rate: bolus; Site: left antecubital; jg9 17:49 Follow up: IV Status: Completed infusion; IV Intake: 500ml j9 17:49 Drug: NS 0.9% 500 ml Route: IV; Rate: 125 ml/hr; Site: left antecubital; jg9 18:05 Drug: Zofran (Ondansetron) 4 mg Route: IVP; Site: left antecubital; jg9 18:15 Follow up: Response: No adverse reaction; Nausea is decreased j9 20:05 Drug: fentaNYL (PF) 25 mcg Route: IVP; Site: left antecubital; lp1 20:30 Follow up: Response: Pain is decreased lp1 20:26 Drug: Rocephin (cefTRIAXone) 1 grams Route: IV; Rate: calculated rate; Site: left lp1 antecubital; 21:15 Follow up: IV Status: Completed infusion; IV Intake: 50ml lp1 20:26 Drug: GI Cocktail without - (Maalox Suspension 30 ml, Lidocaine Liquid 2 % 15 lp1 ml) Route: PO; 21:51 Follow up: Response: No adverse reaction lp1 21:51 Not Given (Patient Refused; Reports she will take her medication at homee): Ketorolac lp1 15 mg IVP once Point of Care Testing: Urine : 18:15 hCG Reading: Negative; Control Reading: Positive; jg9 Disposition Summary: 02/18/22 21:43 Discharge Ordered Location: Home cp Problem: new cp Symptoms: have improved cp Condition: Stable cp Diagnosis - Epigastric pain cp Followup: cp - With: Lucas Bonilla MD - When: 2 - 3 days - Reason: Recheck today's complaints Discharge Instructions: - Discharge Summary Sheet cp - Abdominal Pain, Adult cp - Gastroesophageal Reflux Disease, Adult cp Forms: - Medication Reconciliation Form cp - Thank You Letter cp - Antibiotic Education cp - Prescription Opioid Use cp Prescriptions: - Carafate 1 gram Oral Tablet - take 1 tablet by ORAL route 4 times per day take on an empty stomach, beginning cp on waking and last dose at bedtime. Dissolve tablet in small amount warm water prior to ingestion; 100 tablet; Refills: 0, Product Selection Permitted - Zofran 4 mg Oral Tablet - take 1 tablet by ORAL route every 12 hours As needed; 20 tablet; Refills: 0, cp Product Selection Permitted Signatures: Dispatcher [employer] EDEmily Roberto, RN RN lp1 Sebastian Agee PA PA Haydee Chu Tiffany RN RN tp1 Shelli Pickering RN RN jg9 Concetta Markham2
--- NOTE | 2022-02-18 22:10 | RAD REPORT ---
EXAM DESCRIPTION: US - Abdomen Exam Limited - 02/18/2022 9:28 pm CLINICAL HISTORY: EPIGASTRIC PAIN COMPARISON: Abdomen Pelvis W Contrast dated 02/18/2022 FINDINGS: The gallbladder demonstrates no gallstones. No pericholecystic fluid or gallbladder wall t hickening. The common bile duct is normal measuring 4 mm. Small gallbladder polyps, largest measuring 5 millimeters. The liver demonstrates no findings of intrahepatic biliary dilatation. IMPRESSION: Negative for cholelithiasis, acute cholecystitis, or biliary duct dilatation. Small 5 mm gallbladder polyp. Recommend six-month follow-up right upper quadrant ultrasound.
[2022-02-18 22:35] VITALS: TEMP 98.1
[2022-02-18 22:41] VITALS: BP 140/95; O2SAT 98
== END 2022-02-18 21:59 | disposition home or self-care (01) ==
LOC: ER 15:47
DX: R10.13 Epigastric pain (principal); R11.0 Nausea; Z88.0 Allergy status to penicillin; Z88.5 Allergy status to narcotic agent
CPT/HCPCS: 96365; 96361; 87088; 85025; 87086; 36415; 83690; 80053; 74177; 71045; 76705; 96375; 99284; Q9967; J3010; J1170; J7030; J2405; 81003; 81015

== ENCOUNTER 2023-06-08 08:49 | Observation (INO) | payer BC, OTHER ==
--- OUTSIDE RECORDS SUMMARY | 2023-06-08 08:55 | XMS REPORT | Continuity of Care Document ---
:1970 Author Organization [facility] t Address [address] [place] [address]. [address] [place] [address] Care Team Providers Name Role Phone YARI ZHANG Attending Clinician Unavailable Vicente MOY, Yari Barnes Attending Clinician Ken Mims MD Attending Clinician Fritz RANDALL, Vasu Stock Attending Clinician CHARITY AYALA Attending Clinician Unavailable Charity Ayala MD Attending Clinician Unavailable Kishore MOY MPH, Tristan Ni Attending Clinician [phone] TRISTAN NOVAK Attending Clinician Unavailable LIZ HERNANDEZ Attending Clinician Unavailable YARI ZHANG Admitting Clinician Unavailable Payers Payer Name Policy Type Policy Number Effective Date Expiration Date S lissette [facility] POS [id number] 2021 00:00:00 [employer] CHOICE Problems Condition Condition Condition Status Onset Resolution Last Treating Co mments Source Name Details Category Date Date Treatment Clinician Date Morbid Morbid Disease [facility]ur[facility] Obesity, Obesity, Disease Recurre [facility] Class III, Class III, nce Jessica kes BMI BMI Medical 40-49.9 40-49.9 Center (morbid (morbid obesity) obesity) Rheumatoid Rheumatoid Disease Recurre [facility] arthritis arthritis nce [facility] Metabolic Metabolic Disease Active [facility] syndrome syndrome [facility] Elevated Elevated Disease Active [facility] liver liver [facility] enzymes enzymes [facility] Hyperlipid Hyperlipid Disease Active [facility] emia emia [facility] Prediabete Prediabete Disease Active [facility] s [facility] Allergies, Adverse Reactions, Alerts Allergy Allergy Status Severity Reaction(s) Onset Inactive Treating Comm ents Source Name Type Date Date Clinician Pregabal Drug Active Nausea And [facility] Int[facility]iting 3[facility] Strawber Drug Active Itching, [facility] ry Allergy Rash 15 [facility] PREGABAL Allergy Active Med N\\T\\V [facility] IN 3-15 [facility] Center STRAWBER Allergy Active Med Itching [facility] RY 3-15 [facility] Codeine Drug Active Other (See 2021-[address] Intolera Comments) 2- vity [facility] Center Hydrocod Drug Active Other (See 2021-[address] one Intolera Comments) 2- vity [facility] Center Morphine Drug Active Other (See 2021-[address] [facility] Allergy Comments) 2- speak [facility] Center Penicill Drug Active Other (See 2021-07 "was told [facility] in Allergy Comments) 2-21 by mom Terrence 00:00: never to Medical 00 take it" Center unknown reactions CODEINE Allergy Active Med Other 2021-[address] [facility] -21 [facility] HYDROCOD Allergy Active Med Other 2021-[address] [facility] ONE - [facility] Center MORPHINE Allergy Active Med Other 2021-[address] [facility] -21 [facility] Center PENICILL Allergy Active Med Other 2021-[address] [facility] IN - [facility] 00:[facility]: Medical 00 Center Codeine Propensi Active 2021-[address] [facility] ty to 09-19 [facility] adverse 00:00: Medical reaction 00 Center s Hydrocod Propensi Active 2021-[address] [facility] [facility] one ty to 2-21 [facility] adverse 00:00: Medical reaction 00 Center s Morphine Propensi Active 2021-[address] [facility] ty to 2-21 [facility] adverse 00:00: Medical reaction 00 Center s Penicill Propensi Active 2021-[address] [facility] in ty to 2-21 [facility] adverse 00:00: Medical reaction 00 Center s Codeine Propensi Active Nausea 2020-0 [facility] ty to and/or 01-22 ity of adverse Vomiting 00:00: [place] reaction 00 Medical s Branch CODEINE DRUG Active N/V 2020-0 [facility] INGREDI 01-22 ity of 00:00: [place] 00 Medical Branch MORPHINE DRUG Active N/V 2020-0 [facility] INGREDI 01-22 ity of 00:00: [place] 00 Medical Branch PENICILL DRUG Active Unknown-Cmnt 2020-0 Un tisha IN INGREDI 01-22 ity of 00:00: [place] 00 Medical Branch OXYCODON DRUG Active N/V 2020-0 Univers E 01-22 ity of HCL-OXYC 00:00: [place] ODONE- 00 Medical A Branch Morphine Propensi Active Nausea 2020-0 Univer s ty to and/or 01-22 ity of adverse Vomiting 00:00: [place] reaction 00 Medical s Branch Penicill Propensi Active Unknown - 2019-0 Was told U nivers in ty to See comments 01-22 as a ity of adverse 00:00: child [place] reaction 00 Medical s Branch Oxycodon Propensi Active Nausea 2020-0 Univer s e ty to and/or 01-22 ity of Hcl-Oxyc adverse Vomiting 00:00: [place] odone-As reaction 00 Medica l a s Branch Family History Family Member Diagnosis Comments Start Date Stop Date Source Natural father Diabetes [facility] Natural mother Lung disease [facility] Natural mother Sjogren's syndrome [facility] Paternal uncle Bone cancer [facility] Social History Social Habit Start Date Stop Date Quantity Comments Source History SDOH [facility] Alcohol Comment Medical C enter History SDOH [facility] Alcohol Std Drinks Medica l Center History SDOH [facility] Alcohol Binge Medical Lisa ter Exposure to 2022-10-14 2022-10-[address] [facility] SARS-CoV-2 (event) 00:00:00 11:51:00 Medica Center Alcohol intake 2022-10-24 2022-10-[address] [facility] 00:00:00 00:00:00 non-drinker Medical [facility] r (finding) Tobacco use and 2022-07-19 2022-07-[address] [facility] exposure 00:00:00 00:00:00 non-user Medical Center History SDOH 2022-07-19 2022-07-[address] [facility] Alcohol Frequency 00:00:00 00:00:00 [facility] Center Sex Assigned At [address] [facility] Jessica kes 00:00:00 00:00:00 [facility] Center Smoking Status Start Date Stop Date Source Unknown if ever smoked [facility] Never smoked tobacco [facility] Medications Ordered Filled Start Stop Current Ordering Indication Dosage Frequency Signature Comments Components Source Medication Medication Date Date Medication? Clinician (SIG) Name Name ondansetron 2022- No 4mg Take [address] [facility] (ZOFRAN-ODT 3-30 -28 tablet (4 Jessica kes ) 4 MG 15:32: 00:00 mg total) Medic al disintegrat 01 :00 by mouth Cent er ing tablet every 8 (eight) hours as needed for Nausea. ondansetron 2022- No 4mg Take [address] [facility] (ZOFRAN-ODT 3-30 03-28 tablet (4 Jessica kes ) 4 MG 15:32: 00:00 mg total) Medic al disintegrat 01 :00 by mouth Cent er ing tablet every 8 (eight) hours as needed for Nausea. ondansetron 2022- No 4mg Take [address] [facility] (ZOFRAN-ODT 3-30 03-28 tablet (4 Jessica kes ) 4 MG 15:32: 00:00 mg total) Medic al disintegrat 01 :00 by mouth Cent er ing tablet every 8 (eight) hours as needed for Nausea. ondansetron 2022- No 4mg Take [address] [facility] (ZOFRAN-ODT 3-30 03-28 tablet (4 Jessica kes ) 4 MG 15:32: 00:00 mg total) Medic al disintegrat 01 :00 by mouth Cent er ing tablet every 8 (eight) hours as needed for Nausea. ondansetron 2023-0 2023- No 4mg Take [address] [facility] (ZOFRAN-ODT 3-30 03-28 tablet (4 Jessica kes ) 4 MG 15:32: 00:00 mg total) Medic al disintegrat 01 :00 by mouth Cent er ing tablet every 8 (eight) hours as needed for Nausea. ondansetron 2023-0 2023- No 4mg Take [address] [facility] (ZOFRAN-ODT 3-30 03-28 tablet (4 Jessica kes ) 4 MG 15:32: 00:00 mg total) Medic al disintegrat 01 :00 by mouth Cent er ing tablet every 8 (eight) hours as needed for Nausea. ondansetron 2023-0 2023- No 4mg Take [address] [facility] (ZOFRAN-ODT 3-30 03-28 tablet (4 Jessica kes ) 4 MG 15:32: 00:00 mg total) Medic al disintegrat 01 :00 by mouth Cent er ing tablet every 8 (eight) hours as needed for Nausea. ondansetron 2023-0 2023- No 4mg Take [address] [facility] (ZOFRAN-ODT 3-30 03-28 tablet (4 Jessica kes ) 4 MG 15:32: 00:00 mg total) Medic al disintegrat 01 :00 by mouth Cent er ing tablet every 8 (eight) hours as needed for Nausea. ondansetron 2023-0 2023- No 4mg Take [address] [facility] [facility] (ZOFRAN-ODT 3-30 03-28 tablet (4 Jessica kes ) 4 MG 15:32: 00:00 mg total) Medic al disintegrat 01 :00 by mouth Cent er ing tablet every 8 (eight) hours as needed for Nausea. ondansetron 2023-0 2023- No 4mg Take [address] [facility] (ZOFRAN-ODT 3-30 03-28 tablet (4 Jessica kes ) 4 MG 15:32: 00:00 mg total) Medic al disintegrat 01 :00 by mouth Cent er ing tablet every 8 (eight) hours as needed for Nausea. ondansetron 2023-0 2023- No 4mg Take [address] [facility] (ZOFRAN-ODT 3-30 03-28 tablet (4 Jessica kes ) 4 MG 15:32: 00:00 mg total) Medic al disintegrat 01 :00 by mouth Cent er ing tablet every 8 (eight) hours as needed for Nausea. omeprazole 2023-0 Yes 40mg Take 1 [facility] (PriLOSEC[facility] 3-29 [facility] 40 MG 15:32: (40 mg Medical capsule 38 total) by Center mouth as needed. omeprazole 2023-0 Yes 40mg Take 1 [facility] (PriLOSEC) 3-29 capsule [facility] 40 MG 15:32: (40 mg Medical capsule 38 total) by Center mouth as needed. omeprazole 2023-0 Yes 40mg Take 1 [facility] (PriLOSEC) 3-29 capsule [facility] 40 MG 15:32: (40 mg Medical capsule 38 total) by Center mouth as needed. omeprazole 2023-0 Yes 40mg Take 1 [facility] (PriLOSEC) 3-29 [facility] 40 MG 15:32: (40 mg Medical capsule 38 total) by Center mouth as needed. omeprazole 2023-0 Yes 40mg Take 1 [facility] (PriLOSEC) 3-29 [facility] 40 MG 15:32: (40 mg Medical capsule 38 total) by Center mouth as needed. omeprazole 2023-0 Yes 40mg Take 1 [facility] (PriLOSEC) 3-29 capsule [facility] 40 MG 15:32: (40 mg Medical capsule 38 total) by Center mouth as needed. omeprazole 2023-0 Yes 40mg Take 1 [facility] (PriLOSEC) 3-29 capsule [facility] 40 MG 15:32: (40 mg Medical capsule 38 total) by Center mouth as needed. omeprazole 2023-0 Yes 40mg Take 1 [facility] (PriLOSEC) 3-29 [facility] 40 MG 15:32: (40 mg Medical capsule 38 total) by Center mouth as needed. omeprazole 2023-0 Yes 40mg Take 1 [facility] (PriLOSEC) 3-29 [facility] 40 MG 15:32: (40 mg Medical capsule 38 total) by Center mouth as needed. omeprazole 2023-0 Yes 40mg Take 1 [facility] (PriLOSEC) 3-29 [facility] 40 MG 15:32: (40 mg Medical capsule 38 total) by Center mouth as needed. omeprazole 2023-0 Yes 40mg Take 1 [facility] (PriLOSEC) 3-29 [facility] 40 MG 15:32: (40 mg Medical capsule 38 total) by Center mouth as needed. scopolamine 0 2023- No 1.5mg Place [address] (TRANSDERM- 3-29 03-28 patch (1.5 L ukes SCOP) 1 mg 00:00: 23:59 mg total) M edical over 3 days 00 :00 onto the Cent er patch skin every third day. scopolamine 2022-0 2023- No 1.5mg Place [address] (TRANSDERM- 3-29 03-28 patch (1.5 L ukes SCOP) 1 mg 00:00: 23:59 mg total) M edical over 3 days 00 :00 onto the Cent er patch skin every third day. scopolamine 2022-0 4- No 1.5mg Place [address] (TRANSDERM- 329 03-28 patch (1.5 L ukes SCOP) 1 mg 00:00: 23:59 mg total) M edical over 3 days 00 :00 onto the Cent er patch skin every third day. scopolamine 2022-0 4- No 1.5mg Place [address] (TRANSDERM- 3-29 03-28 patch (1.5 L ukes SCOP) 1 mg 00:00: 23:59 mg total) M edical over 3 days 00 :00 onto the Cent er patch skin every third day. scopolamine 2022-0 4- No 1.5mg Place [address] (TRANSDERM- 3-29 03-28 patch (1.5 L ukes SCOP) 1 mg 00:00: 23:59 mg total) M edical over 3 days 00 :00 onto the Cent er patch skin every third day. scopolamine 2022-0 2024- No 1.5mg Place [address] (TRANSDERM- 3-29 03-28 patch (1.5 L ukes SCOP) 1 mg 00:00: 23:59 mg total) M edical over 3 days 00 :00 onto the Cent er patch skin every third day. scopolamine 2022-0 4- No 1.5mg Place [address] (TRANSDERM- 3-29 03-28 patch (1.5 L ukes SCOP) 1 mg 00:00: 23:59 mg total) M edical over 3 days 00 :00 onto the Cent er patch skin every third day. scopolamine 2023-0 2024- No 1.5mg Place [address] (TRANSDERM- 3-29 03-28 patch (1.5 L ukes SCOP) 1 mg 00:00: 23:59 mg total) M edical over 3 days 00 :00 onto the Cent er patch skin every third day. scopolamine 2023-0 2024- No 1.5mg Place [address] (TRANSDERM- 3-29 03-28 patch (1.5 L ukes SCOP) 1 mg 00:00: 23:59 mg total) M edical over 3 days 00 :00 onto the Cent er patch skin every third day. scopolamine 2023-0 2024- No 1.5mg Place [address] (TRANSDERM- 3-29 03-28 patch (1.5 L ukes SCOP) 1 mg 00:00: 23:59 mg total) M edical over 3 days 00 :00 onto the Cent er patch skin every third day. scopolamine 2023-0 2024- No 1.5mg Place [address] (TRANSDERM- 3-29 03-28 patch (1.5 L ukes SCOP) 1 mg 00:00: 23:59 mg total) M edical over 3 days 00 :00 onto the Cent er patch skin every third day. gabapentin 2023-0 2023- No 600mg Q.5D Take [address] [facility] (NEURONTIN) 3-28 capsules [place] es 300 MG 00:00: 23:59 (600 mg Medical capsule 00 :00 total) by Center mouth in the morning and 2 capsules (600 mg total) before bedtime. Do all this for 30 days. gabapentin 2023-0 2023- No 600mg Q.5D Take [address] [facility] (NEURONTIN) 3- 04-28 capsules [place] [facility] 300 MG 00:00: 23:59 (600 mg Medical capsule 00 :00 total) by Center mouth in the morning and 2 capsules (600 mg total) before bedtime. Do all this for 30 days. gabapentin 2023-0 2023- No 600mg Q.5D Take [address] [facility] (NEURONTIN) 3- 04-28 capsules [place] [facility] 300 MG 00:00: 23:59 (600 mg Medical capsule 00 :00 total) by Center mouth in the morning and 2 capsules (600 mg total) before bedtime. Do all this for 30 days. gabapentin 2023-0 2023- No 600mg Q.5D Take [address] [facility] (NEURONTIN) 10-25-28 capsules [place] [facility] 300 MG 00:00: 23:59 (600 mg Medical capsule 00 :00 total) by Center mouth in the morning and 2 capsules (600 mg total) before bedtime. Do all this for 30 days. gabapentin 2023-0 2023- No 600mg Q.5D Take [address] [facility] (NEURONTIN) 10-25- capsules [place] [facility] 300 MG 00:00: 23:59 (600 mg Medical capsule 00 :00 total) by Center mouth in the morning and 2 capsules (600 mg total) before bedtime. Do all this for 30 days. gabapentin 2023-0 2023- No 600mg Q.5D Take [address] [facility] (NEURONTIN) 10-25- capsules [place] [facility] 300 MG 00:00: 23:59 (600 mg Medical capsule 00 :00 total) by Center mouth in the morning and 2 capsules (600 mg total) before bedtime. Do all this for 30 days. gabapentin 2023-0 2023- No 600mg Q.5D Take [address] [facility] (NEURONTIN) 10-25- capsules [place] [facility] 300 MG 00:00: 23:59 (600 mg Medical capsule 00 :00 total) by Center mouth in the morning and 2 capsules (600 mg total) before bedtime. Do all this for 30 days. gabapentin 2023-0 2023- No 600mg Q.5D Take [address] [facility] (NEURONTIN) 10-25-28 capsules [place] [facility] 300 MG 00:00: 23:59 (600 mg Medical capsule 00 :00 total) by Center mouth in the morning and 2 capsules (600 mg total) before bedtime. Do all this for 30 days. gabapentin 2023-0 2023- No 600mg Q.5D Take [address] [facility] (NEURONTIN) 10-25-28 capsules [place] [facility] 300 MG 00:00: 23:59 (600 mg Medical capsule 00 :00 total) by Center mouth in the morning and 2 capsules (600 mg total) before bedtime. Do all this for 30 days. gabapentin 2023-0 2023- No 600mg Q.5D Take [address] [facility] (NEURONTIN) 10-25-28 capsules [place] [facility] 300 MG 00:00: 23:59 (600 mg Medical capsule 00 :00 total) by Center mouth in the morning and 2 capsules (600 mg total) before bedtime. Do all this for 30 days. gabapentin 2023-0 2023- No 600mg Q.5D Take [address] [facility] (NEURONTIN) 10-25-28 capsules [place] [facility] 300 MG 00:00: 23:59 (600 mg Medical capsule 00 :00 total) by Center mouth in the morning and 2 capsules (600 mg total) before bedtime. Do all this for 30 days. acetaminoph 2023-0 2023- No 1000mg Take [address] en 10-25 04-08 tablets [facility] (TYLENOL) 00:00: 23:59 (1,000 mg Me dical 500 MG 00 :00 total) by Center tablet mouth every 6 (six) hours for 10 days. acetaminoph 2023-0 2023- No 1000mg Take [address] en 10-25 04-08 tablets [facility] (TYLENOL) 00:00: 23:59 (1,000 mg Me dical 500 MG 00 :00 total) by Center tablet mouth every 6 (six) hours for 10 days. acetaminoph 2023-0 2023- No 1000mg Take [address] en 10-25 04-08 tablets [facility] (TYLENOL) 00:00: 23:59 (1,000 mg Me dical 500 MG 00 :00 total) by Center tablet mouth every 6 (six) hours for 10 days. acetaminoph 2023-0 2023- No 1000mg Take [address] en 10-25 04-08 tablets [facility] (TYLENOL) 00:00: 23:59 (1,000 mg Me dical 500 MG 00 :00 total) by Center tablet mouth every 6 (six) hours for 10 days. acetaminoph 2023-0 2023- No 1000mg Take [address] en 10-25 04-08 tablets [facility] (TYLENOL) 00:00: 23:59 (1,000 mg Me dical 500 MG 00 :00 total) by Center tablet mouth every 6 (six) hours for 10 days. acetaminoph 2023-0 2023- No 1000mg Take [address] en 10-25 04-08 tablets [facility] (TYLENOL) 00:00: 23:59 (1,000 mg Me dical 500 MG 00 :00 total) by Center tablet mouth every 6 (six) hours for 10 days. acetaminoph 2023-0 2023- No 1000mg Take [address] en 10-25 04-08 tablets [facility] (TYLENOL) 00:00: 23:59 (1,000 mg Me dical 500 MG 00 :00 total) by Center tablet mouth every 6 (six) hours for 10 days. acetaminoph 2023-0 2023- No 1000mg Take [address] en 10-25 04-08 tablets [facility] (TYLENOL) 00:00: 23:59 (1,000 mg Me dical 500 MG 00 :00 total) by Center tablet mouth every 6 (six) hours for 10 days. acetaminoph 2023-0 2023- No 1000mg Take [address] en 10-25 04-08 tablets [facility] (TYLENOL) 00:00: 23:59 (1,000 mg Me dical 500 MG 00 :00 total) by Center tablet mouth every 6 (six) hours for 10 days. acetaminoph 3-0 2023- No 1000mg Take [address] en 10-25 04-08 [facility] (TYLENOL) 00:00: 23:59 (1,000 mg Me dical 500 MG 00 :00 total) by Center tablet mouth every 6 (six) hours for 10 days. acetaminoph 2023-0 2023- No 1000mg Take [address] en 10-25 04-08 [facility] (TYLENOL) 00:00: 23:59 (1,000 mg Me dical 500 MG 00 :00 total) by Center tablet mouth every 6 (six) hours for 10 days. ondansetron 3-0 2023- No 8mg Take [address] [facility] (ZOFRAN-ODT 10-25 04-05 tablet (8 Jessica kes ) 8 MG 00:00: 23:59 mg total) Medic al disintegrat 00 :00 by mouth 2 Ce nter ing tablet (two) times daily as needed for Nausea for up to 7 days. ondansetron 2023-0 2023- No 8mg Take [address] [facility] (ZOFRAN-ODT 3-29 04-05 tablet (8 Jessica kes ) 8 MG 00:00: 23:59 mg total) Medic al disintegrat 00 :00 by mouth 2 Ce nter ing tablet (two) times daily as needed for Nausea for up to 7 days. ondansetron 3-0 3- No 8mg Take [address] [facility] (ZOFRAN-ODT 3-29 04-05 tablet (8 Jessica kes ) 8 MG 00:00: 23:59 mg total) Medic al disintegrat 00 :00 by mouth 2 Ce nter ing tablet (two) times daily as needed for Nausea for up to 7 days. ondansetron 3-0 3- No 8mg Take [address] [facility] (ZOFRAN-ODT 3-29 04-05 tablet (8 Jessica kes ) 8 MG 00:00: 23:59 mg total) Medic al disintegrat 00 :00 by mouth 2 Ce nter ing tablet (two) times daily as needed for Nausea for up to 7 days. ondansetron 3-0 3- No 8mg Take [address] [facility] (ZOFRAN-ODT 3-29 04-05 tablet (8 Jessica kes ) 8 MG 00:00: 23:59 mg total) Medic al disintegrat 00 :00 by mouth 2 Ce nter ing tablet (two) times daily as needed for Nausea for up to 7 days. ondansetron 3-0 3- No 8mg Take [address] [facility] (ZOFRAN-ODT 3-29 04-05 tablet (8 Jessica kes ) 8 MG 00:00: 23:59 mg total) Medic al disintegrat 00 :00 by mouth 2 Ce nter ing tablet (two) times daily as needed for Nausea for up to 7 days. ondansetron 3-0 3- No 8mg Take [address] [facility] (ZOFRAN-ODT 3-29 04-05 tablet (8 Jessica kes ) 8 MG 00:00: 23:59 mg total) Medic al disintegrat 00 :00 by mouth 2 Ce nter ing tablet (two) times daily as needed for Nausea for up to 7 days. ondansetron 2023-0 2023- No 8mg Take [address] [facility] (ZOFRAN-ODT 3-29 04-05 tablet (8 Jessica kes ) 8 MG 00:00: 23:59 mg total) Medic al disintegrat 00 :00 by mouth 2 Ce nter ing tablet (two) times daily as needed for Nausea for up to 7 days. ondansetron 2023-0 2023- No 8mg Take [address] [facility] (ZOFRAN-ODT 3-29 04-05 tablet (8 Jessica kes ) 8 MG 00:00: 23:59 mg total) Medic al disintegrat 00 :00 by mouth 2 Ce nter ing tablet (two) times daily as needed for Nausea for up to 7 days. ondansetron 2023-0 2023- No 8mg Take [address] [facility] (ZOFRAN-ODT 3-29 04-05 tablet (8 Jessica kes ) 8 MG 00:00: 23:59 mg total) Medic al disintegrat 00 :00 by mouth 2 Ce nter ing tablet (two) times daily as needed for Nausea for up to 7 days. ondansetron 2023-0 2023- No 8mg Take [address] [facility] (ZOFRAN-ODT 3-29 04-05 tablet (8 Jessica kes ) 8 MG 00:00: 23:59 mg total) Medic al disintegrat 00 :00 by mouth 2 Ce nter ing tablet (two) times daily as needed for Nausea for up to 7 days. ondansetron 2023-0 2023- No 4mg Take [address] [facility] (ZOFRAN-ODT 3-28 03-28 tablet (4 Jessica kes ) 4 MG 14:48: 00:00 mg total) Medic al disintegrat 12 :00 by mouth Cent er ing tablet every 8 (eight) hours as needed for Nausea. omeprazole 2023-0 Yes 40mg Take 1 [facility] (PriLOSEC[facility] 3-28 [facility] 40 MG 11:12: (40 mg Medical capsule 35 total) by Center mouth as needed. omeprazole 2023-0 Yes 40mg Take [address] (PriLOSEC) 3-15 by mouth [facility] 40 MG 11:34: as needed Medical capsule 54 . Center ondansetron 2023-0 Yes 4mg Take [address] (ZOFRAN-ODT 3-15 by mouth Luke s ) 4 MG 11:34: every 8 Medical disintegrat 54 (eight) Cente r ing tablet hours as needed for Nausea. omeprazole 2021-07 Yes 40mg QD Take [address] (PriLOSEC) 2-21 by mouth [facility] 40 MG 12:31: daily. Medical capsule [address] [place] [address] omeprazole 2021-07 Yes 40mg QD Take [address] (PriLOSEC) 2-21 by mouth [facility] 40 MG 12:31: daily. Medical capsule [address] [place] [address] omeprazole 2021-07 Yes 40mg QD Take [address] (PriLOSEC) 2-21 by mouth [facility] 40 MG 12:31: daily. Medical capsule [address] [place] [address] omeprazole 2021-07 Yes 40mg QD Take [address] (PriLOSEC) 2-21 by mouth [facility] 40 MG 12:31: daily. Medical capsule [address] [place] [address] omeprazole 2021-07 Yes 40mg QD Take [address] (PriLOSEC) 2-21 by mouth [facility] 40 MG 12:31: daily. Medical capsule [address] [place] [address] omeprazole 2021-07 Yes 40mg QD Take [address] (PriLOSEC) 2-21 by mouth [facility] 40 MG 12:31: daily. Medical capsule [address] [place] [address] golimumab 2021-07 Yes 50mg Inject [address] [facility] [address] (Simponi) 1-22 mg [facility] 50 mg/0.5 00:00: subcutaneo Me dical mL PnIj 00 usly every Center 30 (thirty) days . golimumab 2021-07 Yes 50mg Inject [address] [facility] [address] (Simponi) 1-22 mg [facility] 50 mg/0.5 00:00: subcutaneo Me dical mL PnIj 00 usly every Center 30 (thirty) days . golimumab 2021-07 Yes 50mg Inject [address] [facility] [address] (Simponi) 1-22 mg [facility] 50 mg/0.5 00:00: subcutaneo Me dical mL PnIj 00 usly every Center 30 (thirty) days . golimumab 2021-07 Yes 50mg Inject [address] [facility] [address] (Simponi) 1-22 mg [facility] 50 mg/0.5 00:00: subcutaneo Me dical mL PnIj 00 usly every Center 30 (thirty) days . golimumab 2021-07 Yes 50mg Inject [address] [facility] [address] (Sim[place]oni) 1-22 mg [facility] 50 mg/0.5 00:00: subcutaneo Me dical mL PnIj 00 usly every Center 30 (thirty) days . golimumab 2021-07 Yes 50mg Inject [address] [facility] [address] (Sim[place]oni) 1-22 mg [facility] 50 mg/0.5 00:00: subcutaneo Me dical mL PnIj 00 usly every Center 30 (thirty) days . golimumab 2021-07 Yes 50mg Inject [address] [facility] ([place]oni) 1-22 mg [facility] 50 mg/0.5 00:00: subcutaneo Me dical mL PnIj 00 usly every Center 30 (thirty) days . golimumab 2021-07 Yes 50mg Inject [address] [facility] ([place]) 1-22 mg [facility] 50 mg/0.5 00:00: subcutaneo Me dical mL PnIj 00 usly every Center 30 (thirty) days . golimumab 2021-07- No 50mg Inject [address] ([place]) 1- 03-29 mg [facility] 50 mg/0.5 00:00: 00:00 subcutaneo M edical mL PnIj 00 :00 usly every Center 30 (thirty) days . golimumab 2021-07- No 50mg Inject [address] ([place]) 1-22 03-29 mg [facility] 50 mg/0.5 00:00: 00:00 subcutaneo M edical mL PnIj 00 :00 usly every Center 30 (thirty) days . golimumab 2021-07- No 50mg Inject [address] ([place]) 1-22 03-29 mg [facility] 50 mg/0.5 00:00: 00:00 subcutaneo M edical mL PnIj 00 :00 usly every Center 30 (thirty) days . golimumab 2021-07- No 50mg Inject [address] ([place]) 1-22 03-29 mg [facility] 50 mg/0.5 00:00: 00:00 subcutaneo M edical mL PnIj 00 :00 usly every Center 30 (thirty) days . golimumab 2021-07- No 50mg Inject [address] ([place]) 1-22 03-29 mg [facility] 50 mg/0.5 00:00: 00:00 subcutaneo M edical mL PnIj 00 :00 usly every Center 30 (thirty) days . golimumab 2021-07- No 50mg Inject [address] ([place]) 1- 03-29 mg [facility] 50 mg/0.5 00:00: 00:00 subcutaneo M edical mL PnIj 00 :00 usly every Center 30 (thirty) days . golimumab 2021-07- No 50mg Inject [address] ([place]) 1- 03-29 mg [facility] 50 mg/0.5 00:00: 00:00 subcutaneo M edical mL PnIj 00 :00 usly every Center 30 (thirty) days . golimumab 2021-07- No 50mg Inject [address] ([place]) 1- 03-29 mg [facility] 50 mg/0.5 00:00: 00:00 subcutaneo M edical mL PnIj 00 :00 usly every Center 30 (thirty) days . golimumab 2021-07- No 50mg Inject [address] ([place]) - 03-29 mg [facility] 50 mg/0.5 00:00: 00:00 subcutaneo M edical mL PnIj 00 :00 usly every Center 30 (thirty) days . golimumab 2021-07- No 50mg Inject [address] ([facility] 1- 03-29 [facility] mg/0.5 00:00: 00:00 subcutaneo M edical mL PnIj 00 :00 usly every Center 30 (thirty) days . golimumab 2021-07- No 50mg Inject [address] ([facility]) - 03-29 [facility] mg/0.5 00:00: 00:00 subcutaneo M edical mL PnIj 00 :00 usly every Center 30 (thirty) days . Vital Signs Vital Name Observation Time Observation Value Comments Source HEIGHT 2022-10-24 06:00:00 149.9 cm WEIGHT 2022-10-24 06:00:00 90.4 kg HEIGHT 2022-10-11 11:39:00 149.9 cm WEIGHT 2022-10-11 11:39:00 93.441 kg HEIGHT 2022-10-24 06:00:00 149.9 cm WEIGHT 2022-10-24 06:00:00 90.4 kg HEIGHT 2022-10-11 11:39:00 149.9 cm WEIGHT 2022-10-11 11:39:00 93.441 kg HEIGHT 2022-10-24 06:00:00 149.9 cm WEIGHT 2022-10-24 06:00:00 90.4 kg HEIGHT 2022-10-11 11:39:00 149.9 cm WEIGHT 2022-10-11 11:39:00 93.441 kg Diastolic blood 2020-01-23 17:11:00 84 mm[Hg] Unive rsity [facility] Heart rate 2020-01-23 17:11:00 108 /min [facility] Body temperature 2020-01-23 17:11:00 37.44 [facility] 2020-01-23 17:11:00 22 /[facility] Body height 2020-01-23 17:11:00 149[facility]9 [facility] Body weight 2020-01-23 17:11:00 90.719 kg [facility] BMI 2020-01-23 17:11:00 40.40 kg/m2 [facility] Oxygen saturation in 2020-01-23 17:11:00 99 /min [facility] Arterial blood by [facility] Pulse oximetry Branch Systolic blood 2020-01-23 17:11:00 150 mm[Hg] Univer sity [facility] Heart rate 2022-10-25 12:03:23 83 /min [facility] Respiratory rate 2022-10-25 12:03:23 18 /min [facility] Oxygen saturation in 2022-10-25 12:03:23 95 /min [facility] Arterial blood by Medical nt Pulse oximetry Body temperature 2022-10-25 12:03:04 36.72 Brunilda [facility] Systolic blood 2022-10-25 12:02:15 99 mm[Hg] [facility] Diastolic blood 2022-10-25 12:02:15 60 mm[Hg] [facility] Heart rate 2022-10-24 15:13:00 102 /min [facility] Body temperature 2022-10-24 15:05:00 35.83 Brunilda [facility] Respiratory rate 2022-10-24 15:04:53 19 /min [facility] Oxygen saturation in 2022-10-24 15:04:53 96 /min [facility] Arterial blood by Medical Ce nter Pulse oximetry Systolic blood 2022-10-24 15:04:00 113 mm[Hg] [facility] Diastolic blood 2022-10-24 15:04:00 76 mm[Hg] [facility] Body height 2022-10-24 06:00:00 149.9 cm [facility] Body weight 2022-10-24 06:00:00 90.4 kg [facility] BMI 2022-10-24 06:00:00 40.23 kg/m2 [facility] HEIGHT 2022-10-11 11:39:00 149.9 cm WEIGHT 2022-10-11 11:39:00 93.441 kg Body height 2022-10-11 11:39:00 149.9 cm [facility] Body weight 2022-10-11 11:39:00 93.441 kg [facility] BMI 2022-10-11 11:39:00 41.61 kg/m2 [facility] Systolic blood 2022-07-19 11:45:00 135 mm[Hg] [facility] Diastolic blood 2022-07-19 11:45:00 84 mm[Hg] [facility] Heart rate 2022-07-19 11:45:00 83 /min [facility] Body temperature 2022-07-19 11:45:00 36.61 Brunilda [facility] Body height 2022-07-19 11:45:00 149.9 cm [facility] Body weight 2022-07-19 11:45:00 94.212 kg [facility] BMI 2022-07-19 11:45:00 41.95 kg/m2 [facility] Oxygen saturation in 2022-07-19 11:45:00 98 /min [facility] Arterial blood by Medical Ce nter Pulse oximetry Procedures Procedure Date / Time Performing Clinician Source Performed LAPAROSCOPY, WITH TARUN-EN-Y 2022-10-24 11:30:00 MatYari liz [facility] GASTROENTEROSTOMY [facility] EGD 2022-10-24 11:30:00 MatYari liz [facility] (ESOPHAGOGASTRODUODENOSCOPY) [facility] TISSUE EXAM 2022-10-24 08:23:00 MatYari liz [facility] LAPAROSCOPY, WITH TARUN-EN-Y 2022-10-24 07:30:00 MatYari liz [facility] GASTROENTEROSTOMY [facility] EGD 2022-10-24 07:30:00 MatjessicarYari [facility] (ESOPHAGOGASTRODUODENOSCOPY) [facility] LAPAROSCOPY, WITH GASTRIC 2022-10-24 07:20:00 MattarYarii katherine [facility] BYPASS [facility] Center EGD 2022-10-24 07:20:00 MattarYariil [facility] (ESOPHAGOGASTRODUODENOSCOPY) [facility] POCT , URINE 2022-10-24 06:13:00 Yadiel Malcolm [facility] POCT-GLUCOSE METER 2022-10-24 05:55:[address] [facility] HEMOGLOBIN 2022-10-12 12:52:00 Sae [facility] ELECTROLYTES 2022-10-12 12:52:00 Quevedo [facility] BUN AND CREATININE W/RATIO 2022-10-12 12:52:00 Marilyn Quevedo [facility] ECG 12-LEAD 2022-10-12 12:49:47 [facility] ECG 12-LEAD 2022-10-12 12:49:47 Unknown, [facility] ECG 12-LEAD 2022-10-12 12:49:47 Unknown, [facility] COMPREHENSIVE METABOLIC 2022-07-19 13:17:00 [facility] BILIRUBIN, DIRECT 2022-07-19 13:17:00 [facility] CBC W/PLT COUNT & AUTO 2022-07-19 13:17:00 Kishore [facility] HEPATITIS A ANTIBODY, IGG 2022-07-19 13:17:00 Tristan Novak [facility] HEPATITIS A ANTIBODY, IGM 2022-07-19 13:17:00 Abbie Novakse [facility] HEPATITIS B SURFACE ANTIGEN 2022-07-19 13:17:00 [facility] HEPATITIS B SURFACE ANTIBODY 2022-07-19 13:17:00 Ottoniel Novak [facility] HEPATITIS B CORE ANTIBODY, 2022-07-19 13:17:00 Kishore [facility] HEPATITIS C ANTIBODY 2022-07-19 13:17:00 [facility] IRON, TIBC, % SAT. (WITHOUT 2022-07-19 13:17:00 [facility] F[facility] FERRITIN 2022-07-19 13:17:00 [facility] CERULOPLASMIN 2022-07-19 13:17:00 Kishore [facility] ANTI-NUCLEAR ANTIBODY (NIDHI) 2022-07-19 13:17:00 Kishore [facility] ACTIN (SMOOTH MUSCLE) 2022-07-19 13:17:00 [facility] IGG [facility] MITOCHONDRIA M2 ANTIBODY 2022-07-19 13:17:[address] [facility] (IGG) [facility] ALPHA FETOPROTEIN (AFP), 2022-07-19 13:17:00 AlbanroselineTristan lao I [facility] TUMOR MARKER [facility] NIDHI TITER AND PATTERN 2022-07-19 13:17:00 DionyemmettTristan [facility] S [facility] CBC W/PLT COUNT & AUTO 2022-07-19 13:17:00 [facility]jim [facility] DIFFERENTIAL [facility] PROTHROMBIN TIME/INR 2022-07-19 13:13:00 [facility] [id number]\\, SERUM 2022-07-19 13:13:00 [facility] Plan of Care Planned Activity Planned Date Details Comments Source Future Scheduled 2025-05-22 Lipid panel (procedure) [facility] 00:00:00 [code = [id number]] Medical Ce nter Future Scheduled 2025-05-22 Lipid panel (procedure) [facility] 00:00:00 [code = [id number]] Medical Ce nter Future Scheduled 2025-05-22 Lipid panel (procedure) [facility] 00:00:00 [code = [id number]] Medical Ce nter Future Scheduled 2025-05-22 Lipid panel (procedure) [facility] 00:00:00 [code = [id number]] Medical Ce nter Future Scheduled 2025-05-22 Lipid panel (procedure) [facility] 00:00:00 [code = [id number]] Medical Ce nter Future Scheduled 2025-05-22 Lipid panel (procedure) [facility] 00:00:00 [code = 14973137] Medical Ce nter Future Scheduled 2025-05-22 Lipid panel (procedure) [facility] 00:00:00 [code = 96904188] Medical Ce nter Future Scheduled 2025-05-22 Lipid panel (procedure) [facility] 00:00:00 [code = [id number]] Medical Ce nter Future Scheduled 2025-05-22 Lipid panel (procedure) [facility] 00:00:00 [code = [id number]] Medical Ce nter Future Scheduled 2025-05-22 Lipid panel (procedure) [facility] 00:00:00 [code = 67702422] Medical Ce nter Future Scheduled 2025-05-22 Lipid panel (procedure) [facility] 00:00:00 [code = 97780799] Medical Ce nter Future Scheduled 2025-05-22 Lipid panel (procedure) [facility] 00:00:00 [code = 56616401] Medical Ce nter Future Scheduled 2025-05-22 Lipid panel (procedure) [facility] 00:00:00 [code = 37168731] Medical Ce nter Future Scheduled 2025-05-22 Lipid panel (procedure) [facility] 00:00:00 [code = [id number]] Medical Ce nter Future Scheduled 2025-05-22 Lipid panel (procedure) [facility] 00:00:00 [code = 00496929] Medical Ce nter Future Scheduled 2025-05-22 Lipid panel (procedure) [facility] 00:00:00 [code = 46214624] Medical Ce nter Future Scheduled 2025-05-22 Lipid panel (procedure) [facility] 00:00:00 [code = 44910994] Medical Ce nter Future Scheduled 2025-05-22 Lipid panel (procedure) [facility] 00:00:00 [code = 10933867] Medical Ce nter Future Scheduled 2025-05-22 Lipid panel (procedure) [facility] 00:00:00 [code = [id number]] Medical Ce nter Future Scheduled 2023-10-[address] [facility] 00:00:00 Counseling and Screening Med ical Center (12+) [code = Tobacco Cessation Counseling and Screening (12+)] Future Scheduled 2023-10-[address] [facility] 00:00:00 Counseling and Screening Med ical Center (12+) [code = Tobacco Cessation Counseling and Screening (12+)] Future Scheduled 2023-10-[address] [facility] 00:00:00 Counseling and Screening Med ical Center (12+) [code = Tobacco Cessation Counseling and Screening (12+)] Future Scheduled 2023-10-[address] [facility] 00:00:00 Counseling and Screening Med ical Center (12+) [code = Tobacco Cessation Counseling and Screening (12+)] Future Scheduled 2023-10-[address] [facility] 00:00:00 Counseling and Screening Med ical Center (12+) [code = Tobacco Cessation Counseling and Screening (12+)] Future Scheduled 2023-10-[address] [facility] 00:00:00 Counseling and Screening Med ical Center (12+) [code = Tobacco Cessation Counseling and Screening (12+)] Future Scheduled 2023-10-[address] [facility] 00:00:00 Counseling and Screening Med ical Center (12+) [code = Tobacco Cessation Counseling and Screening (12+)] Future Scheduled 2023-10-[address] [facility] 00:00:00 Counseling and Screening Med ical Center (12+) [code = Tobacco Cessation Counseling and Screening (12+)] Future Scheduled 2023-10-[address] [facility] 00:00:00 Counseling and Screening Med ical Center (12+) [code = Tobacco Cessation Counseling and Screening (12+)] Future Scheduled 2023-10-[address] [facility] 00:00:00 Counseling and Screening Med ical Center (12+) [code = Tobacco Cessation Counseling and Screening (12+)] Future Scheduled 2023-10-[address] [facility] 00:00:00 Counseling and Screening Med ical Center (12+) [code = Tobacco Cessation Counseling and Screening (12+)] Future Scheduled 2023-10-[address] [facility] 00:00:00 Counseling and Screening Med ical Center (12+) [code = Tobacco Cessation Counseling and Screening (12+)] Future Scheduled 2023-10-[address] [facility] 00:00:00 Counseling and Screening Med ical Center (12+) [code = Tobacco Cessation Counseling and Screening (12+)] Future Scheduled 2023-07-[address] [facility] 00:00:00 Counseling and Screening Med ical Center (12+) [code = Tobacco Cessation Counseling and Screening (12+)] Future Scheduled 2023-07-[address] [facility] 00:00:00 Counseling and Screening Med ical Center (12+) [code = Tobacco Cessation Counseling and Screening (12+)] Future Scheduled 2023-07-[address] [facility] 00:00:00 Counseling and Screening Med ical Center (12+) [code = Tobacco Cessation Counseling and Screening (12+)] Future Scheduled 2023-07-[address] [facility] 00:00:00 Counseling and Screening Med ical Center (12+) [code = Tobacco Cessation Counseling and Screening (12+)] Future Scheduled 2023-07-[address] [facility] 00:00:00 Counseling and Screening Med ical Center (12+) [code = Tobacco Cessation Counseling and Screening (12+)] Future Scheduled 2023-07-[address] [facility] 00:00:00 Counseling and Screening Med ical Center (12+) [code = Tobacco Cessation Counseling and Screening (12+)] Future Scheduled 2023-03-30 INFLUENZA VACCINE (Season [facility] 00:00:00 Ended) [code = INFLUENZA Med ical Center VACCINE (Season Ended)] Future Scheduled 2023-03-30 INFLUENZA VACCINE (Season [facility] 00:00:00 Ended) [code = INFLUENZA Med ical Center VACCINE (Season Ended)] Future Scheduled 2023-03-30 INFLUENZA VACCINE (Season [facility] 00:00:00 Ended) [code = INFLUENZA Med ical Center VACCINE (Season Ended)] Future Scheduled 2023-03-30 INFLUENZA VACCINE (Season [facility] 00:00:00 Ended) [code = INFLUENZA Med ical Center VACCINE (Season Ended)] Future Scheduled 2023-03-30 Influenza Vaccine (Season [facility] 00:00:00 Ended) [code = Influenza Med ical Center Vaccine (Season Ended)] Future Scheduled 2023-03-30 Influenza Vaccine (Season [facility] 00:00:00 Ended) [code = Influenza Med ical Center Vaccine (Season Ended)] Future Scheduled 2023-03-30 Influenza Vaccine (Season [facility] 00:00:00 Ended) [code = Influenza Med ical Center Vaccine (Season Ended)] Future Scheduled 2023-03-30 Influenza Vaccine (#1[facility] [code = Influenza Vaccine Me dical Center (#1)] Future Scheduled 2023-03-30 Influenza Vaccine (#1) [facility]00 [code = Influenza Vaccine Me dical Center (#1)] Future Scheduled 2023-03-30 Influenza Vaccine (#1) [facility]:00 [code = Influenza Vaccine Me dical Center (#1)] Future Scheduled 2023-03-30 Influenza Vaccine (#1) [facility]00 [code = Influenza Vaccine Me dical Center (#1)] Future Scheduled 2022-07-[address] [facility] 00:00:00 (12+) [code = DEPRESSION Med ical Center SCREENING (12+)] Future Scheduled 2022-07-[address] [facility] 00:00:00 (12+) [code = DEPRESSION Med ical Center SCREENING (12+)] Future Scheduled 2022-07-[address] [facility] 00:00:00 (12+) [code = DEPRESSION Med ical Center SCREENING (12+)] Future Scheduled 2022-07-[address] [facility] 00:00:00 (12+) [code = DEPRESSION Med ical Center SCREENING (12+)] Future Scheduled 2022-07-[address] [facility] 00:00:00 (12+) [code = DEPRESSION Med ical Center SCREENING (12+)] Future Scheduled 2022-07-[address] [facility] 00:00:00 (12+) [code = DEPRESSION Med ical Center SCREENING (12+)] Future Scheduled 2022-07-[address] [facility] 00:00:00 (12+) [code = DEPRESSION Med ical Center SCREENING (12+)] Future Scheduled 2022-07-[address] [facility] 00:00:00 (12+) [code = DEPRESSION Med ical Center SCREENING (12+)] Future Scheduled 2022-07-[address] [facility] 00:00:00 (12+) [code = DEPRESSION Med ical Center SCREENING (12+)] Future Scheduled 2022-07-[address] [facility] 00:00:00 (12+) [code = DEPRESSION Med ical Center SCREENING (12+)] Future Scheduled 2022-07-[address] [facility] 00:00:00 (12+) [code = DEPRESSION Med ical Center SCREENING (12+)] Future Scheduled 2022-07-[address] [facility] 00:00:00 (12+) [code = DEPRESSION Med ical Center SCREENING (12+)] Future Scheduled 2022-07-[address] [facility] 00:00:00 (12+) [code = DEPRESSION Med ical Center SCREENING (12+)] Future Scheduled 2022-07-[address] [facility] 00:00:00 (12+) [code = DEPRESSION Med ical Center SCREENING (12+)] Future Scheduled 2022-07-[address] [facility] 00:00:00 (12+) [code = DEPRESSION Med ical Center SCREENING (12+)] Future Scheduled 2022-07-[address] [facility] 00:00:00 (12+) [code = DEPRESSION Med ical Center SCREENING (12+)] Future Scheduled 2022-07-[address] [facility] 00:00:00 (12+) [code = DEPRESSION Med ical Center SCREENING (12+)] Future Scheduled 2022-07-[address] [facility] 00:00:00 (12+) [code = DEPRESSION Med ical Center SCREENING (12+)] Future Scheduled 2022-07-[address] [facility] 00:00:00 (12+) [code = DEPRESSION Med ical Center SCREENING (12+)] Future Scheduled 2022-03-30 INFLUENZA VACCINE (#1) [facility]00 [code = INFLUENZA VACCINE Me dical Center (#1)] Future Scheduled 2022-03-30 INFLUENZA VACCINE (#1) [facility]:00 [code = INFLUENZA VACCINE Me dical Center (#1)] Future Scheduled 2022-03-30 INFLUENZA VACCINE (#1) [facility]:00:00 [code = INFLUENZA VACCINE Me dical Center (#1)] Future Scheduled 2022-03-30 INFLUENZA VACCINE (#1) [facility]:00:00 [code = INFLUENZA VACCINE Me dical Center (#1)] Future Scheduled 2022-03-30 INFLUENZA VACCINE (#1) [facility]:00:00 [code = INFLUENZA VACCINE Me dical Center (#1)] Future Scheduled 2022-03-30 INFLUENZA VACCINE (#1) [facility]:00:00 [code = INFLUENZA VACCINE Me dical Center (#1)] Future Scheduled 2022-03-30 INFLUENZA VACCINE (#1) [facility]:00:00 [code = INFLUENZA VACCINE Me dical Center (#1)] Future Scheduled 2022-03-30 INFLUENZA VACCINE (#1) [facility]:00:00 [code = INFLUENZA VACCINE Me dical Center (#1)] Future Scheduled 2022-03-30 INFLUENZA VACCINE (#1) [facility]:00:00 [code = INFLUENZA VACCINE Me dical Center (#1)] Future Scheduled 2021-12-07 SHINGLES VACCINES ([address] [facility] 00:00:00 2) [code = SHINGLES Medical Center VACCINES (1 of 2)] Future Scheduled 2021-12-07 SHINGLES VACCINES ([address] [facility] 00:00:00 2) [code = SHINGLES Medical Center VACCINES (1 of 2)] Future Scheduled 2021-12-07 SHINGLES VACCINES ([address] [facility] 00:00:00 2) [code = SHINGLES Medical Center VACCINES (1 of 2)] Future Scheduled 2021-12-07 SHINGLES VACCINES ([address] [facility] 00:00:00 2) [code = SHINGLES Medical Center VACCINES (1 of 2)] Future Scheduled 2021-12-07 SHINGLES VACCINES ([address] [facility] 00:00:00 2) [code = SHINGLES Medical Center VACCINES (1 of 2)] Future Scheduled 2021-12-07 SHINGLES VACCINES ([address] [facility] 00:00:00 2) [code = SHINGLES Medical Center VACCINES (1 of 2)] Future Scheduled 2021-12-07 SHINGLES VACCINES ([address] [facility] 00:00:00 2) [code = SHINGLES Medical Center VACCINES (1 of 2)] Future Scheduled 2021-12-07 SHINGLES VACCINES ([address] [facility] 00:00:00 2) [code = SHINGLES Medical Center VACCINES (1 of 2)] Future Scheduled 2021-12-07 SHINGLES VACCINES ([address] [facility] 00:00:00 2) [code = SHINGLES Medical Center VACCINES (1 of 2)] Future Scheduled 2021-12-07 SHINGLES VACCINES ([address] [facility] 00:00:00 2) [code = SHINGLES Medical Center VACCINES (1 of 2)] Future Scheduled 2021-12-07 SHINGLES VACCINES ([address] [facility] 00:00:00 2) [code = SHINGLES Medical Center VACCINES (1 of 2)] Future Scheduled 2021-12-07 SHINGLES VACCINES ([address] [facility] 00:00:00 2) [code = SHINGLES Medical Center VACCINES (1 of 2)] Future Scheduled 2021-12-07 SHINGLES VACCINES ([address] [facility] 00:00:00 2) [code = SHINGLES Medical Center VACCINES (1 of 2)] Future Scheduled 2021-12-07 SHINGLES VACCINES ([address] [facility] 00:00:00 2) [code = SHINGLES Medical Center VACCINES (1 of 2)] Future Scheduled 2021-12-07 SHINGLES VACCINES ([address] [facility] 00:00:00 2) [code = SHINGLES Medical Center VACCINES (1 of 2)] Future Scheduled 2021-12-07 SHINGLES VACCINES ([address] [facility] 00:00:00 2) [code = SHINGLES Medical Center VACCINES (1 of 2)] Future Scheduled 2021-12-07 SHINGLES VACCINES ([address] [facility] 00:00:00 2) [code = SHINGLES Medical Center VACCINES (1 of 2)] Future Scheduled 2021-12-07 SHINGLES VACCINES ([address] [facility] 00:00:00 2) [code = SHINGLES Medical Center VACCINES (1 of 2)] Future Scheduled 2021-12-07 SHINGLES VACCINES ([address] [facility] 00:00:00 2) [code = SHINGLES Medical Center VACCINES (1 of 2)] Future Scheduled 2021-12-07 SHINGLES VACCINES ([address] [facility] 00:00:00 2) [code = SHINGLES Medical Center VACCINES (1 of 2)] Future Scheduled 2021-07-[address] [facility] 00:00:00 (12+) [code = DEPRESSION [facility] SCREENING (12+)] Future Scheduled 2016-12-07 Lipid panel (procedure) [facility] 00:00:00 [code = 35516751] Medical Ce nter Future Scheduled 1992-12-07 Screening for malignant [facility] 00:00:00 neoplasm of cervix Medical C enter (procedure) [code = 669006634] Future Scheduled 1992-12-07 Screening for malignant [facility] 00:00:00 neoplasm of cervix Medical C enter (procedure) [code = 559495440] Future Scheduled 1992-12-07 Screening for malignant [facility] 00:00:00 neoplasm of cervix Medical C enter (procedure) [code = 779255349] Future Scheduled 1992-12-07 Screening for malignant [facility] 00:00:00 neoplasm of cervix Medical C enter (procedure) [code = 358531708] Future Scheduled 1992-12-07 Screening for malignant [facility] 00:00:00 neoplasm of cervix Medical C enter (procedure) [code = 140143027] Future Scheduled 1992-12-07 Screening for malignant [facility] 00:00:00 neoplasm of cervix Medical C enter (procedure) [code = 170610551] Future Scheduled 1992-12-07 Screening for malignant [facility] 00:00:00 neoplasm of cervix Medical C enter (procedure) [code = 800787992] Future Scheduled 1992-12-07 Screening for malignant [facility] 00:00:00 neoplasm of cervix Medical C enter (procedure) [code = 379916941] Future Scheduled 1992-12-07 Screening for malignant [facility] 00:00:00 neoplasm of cervix Medical C enter (procedure) [code = 830362760] Future Scheduled 1992-12-07 Screening for malignant [facility] 00:00:00 neoplasm of cervix Medical C enter (procedure) [code = 068796126] Future Scheduled 1992-12-07 Screening for malignant [facility] 00:00:00 neoplasm of cervix Medical C enter (procedure) [code = 688536704] Future Scheduled 1992-12-07 Screening for malignant [facility] 00:00:00 neoplasm of cervix Medical C enter (procedure) [code = 828822552] Future Scheduled 1992-12-07 Screening for malignant [facility] 00:00:00 neoplasm of cervix Medical C enter (procedure) [code = 673507250] Future Scheduled 1992-12-07 Screening for malignant [facility] 00:00:00 neoplasm of cervix Medical C enter (procedure) [code = 734796581] Future Scheduled 1992-12-07 Screening for malignant [facility] 00:00:00 neoplasm of cervix Medical C enter (procedure) [code = 891810008] Future Scheduled 1992-12-07 Screening for malignant [facility] 00:00:00 neoplasm of cervix Medical C enter (procedure) [code = 023142007] Future Scheduled 1992-12-07 Screening for malignant [facility] 00:00:00 neoplasm of cervix Medical C enter (procedure) [code = 743503219] Future Scheduled 1992-12-07 Screening for malignant [facility] 00:00:00 neoplasm of cervix Medical C enter (procedure) [code = [id number]] Future Scheduled 1992-12-07 Screening for malignant [facility] 00:00:00 neoplasm of cervix Medical C enter (procedure) [code = 728688106] Future Scheduled 1992-12-07 Screening for malignant [facility] 00:00:00 neoplasm of cervix Medical C enter (procedure) [code = [id number]] Future Scheduled 1990-12-07 DTAP/TDAP/TD VACCINES ([address] [facility] 00:00:00 - Tdap) [code = [facility] Cent [facility] DTAP/TDAP/TD VACCINES (1 - Tdap)] Future Scheduled 1990-12-07 DTAP/TDAP/TD VACCINES ([address] [facility] 00:00:00 - Tdap) [code = [facility] Cent er DTAP/TDAP/TD VACCINES (1 - Tdap)] Future Scheduled 1990-12-07 DTAP/TDAP/TD VACCINES ([address] [facility] 00:00:00 - Tdap) [code = [facility] Cent [facility] DTAP/TDAP/TD VACCINES (1 - Tdap)] Future Scheduled 1990-12-07 DTAP/TDAP/TD VACCINES ([address] [facility] 00:00:00 - Tdap) [code = [facility] Cent [facility] DTAP/TDAP/TD VACCINES (1 - Tdap)] Future Scheduled 1990-12-07 DTAP/TDAP/TD VACCINES ([address] [facility] 00:00:00 - Tdap) [code = [facility] Cent er DTAP/TDAP/TD VACCINES (1 - Tdap)] Future Scheduled 1990-12-07 DTAP/TDAP/TD VACCINES ([address] [facility] 00:00:00 - Tdap) [code = [facility] Cent [facility] DTAP/TDAP/TD VACCINES (1 - Tdap)] Future Scheduled 1990-12-07 DTAP/TDAP/TD VACCINES ([address] [facility] 00:00:00 - Tdap) [code = [facility] Cent [facility] DTAP/TDAP/TD VACCINES (1 - Tdap)] Future Scheduled 1990-12-07 DTAP/TDAP/TD VACCINES ([address] [facility] 00:00:00 - Tdap) [code = [facility] Cent [facility] DTAP/TDAP/TD VACCINES (1 - Tdap)] Future Scheduled 1990-12-07 DTAP/TDAP/TD VACCINES ([address] [facility] 00:00:00 - Tdap) [code = [facility] Cent [facility] DTAP/TDAP/TD VACCINES (1 - Tdap)] Future Scheduled 1990-12-07 DTAP/TDAP/TD VACCINES ([address] [facility] 00:00:00 - Tdap) [code = [facility] DTAP/TDAP/TD VACCINES (1 - Tdap)] Future Scheduled 1990-12-07 DTAP/TDAP/TD VACCINES ([address] [facility] 00:00:00 - Tdap) [code = [facility] Cent [facility] DTAP/TDAP/TD VACCINES (1 - Tdap)] Future Scheduled 1990-12-07 DTAP/TDAP/TD VACCINES ([address] [facility] 00:00:00 - Tdap) [code = [facility] DTAP/TDAP/TD VACCINES (1 - Tdap)] Future Scheduled 1990-12-07 DTAP/TDAP/TD VACCINES ([address] [facility] 00:00:00 - Tdap) [code = [facility] DTAP/TDAP/TD VACCINES (1 - Tdap)] Future Scheduled 1990-12-07 DTAP/TDAP/TD VACCINES ([address] [facility] 00:00:00 - Tdap) [code = [facility] DTAP/TDAP/TD VACCINES (1 - Tdap)] Future Scheduled 1990-12-07 DTAP/TDAP/TD VACCINES ([address] [facility] 00:00:00 - Tdap) [code = [facility] Cent er DTAP/TDAP/TD VACCINES (1 - Tdap)] Future Scheduled 1990-12-07 DTAP/TDAP/TD VACCINES ([address] [facility] 00:00:00 - Tdap) [code = [facility] er DTAP/TDAP/TD VACCINES (1 - Tdap)] Future Scheduled 1990-12-07 DTAP/TDAP/TD VACCINES ([address] [facility] 00:00:00 - Tdap) [code = [facility] DTAP/TDAP/TD VACCINES (1 - Tdap)] Future Scheduled 1990-12-07 DTAP/TDAP/TD VACCINES ([address] [facility] 00:00:00 - Tdap) [code = [facility] Cent er DTAP/TDAP/TD VACCINES (1 - Tdap)] Future Scheduled 1990-12-07 DTAP/TDAP/TD VACCINES ([address] [facility] 00:00:00 - Tdap) [code = [facility] er DTAP/TDAP/TD VACCINES (1 - Tdap)] Future Scheduled 1990-12-07 DTAP/TDAP/TD VACCINES ([address] [facility] 00:00:00 - Tdap) [code = [facility] DTAP/TDAP/TD VACCINES (1 - Tdap)] Future Scheduled 1989-12-07 HEPATITIS C SCRE[facility]ING [facility] 00:[facility]:00 [code = HEPATITIS C [facility] SCREENING] Future Scheduled 1986-12-[address] Human immunodeficiency [facility]00 virus screening [facility] (procedure) [code = [id number]] Future Scheduled 1986-12-[address] Human immunodeficiency [facility]:00 virus screening [facility] (procedure) [code = 715160573] Future Scheduled 1986-12-[address] Human immunodeficiency [facility] 00:[facility]:00 virus screening [facility] (procedure) [code = [id number]] Future Scheduled 1986-12-[address] Human immunodeficiency [facility] 00:00:00 virus screening [facility] (procedure) [code = 651990945] Future Scheduled [address] [facility] 00:00:00 Counseling and Screening [facility] ical Center (12+) [code = Tobacco Cessation Counseling and Screening (12+)] Future Scheduled 1972-06-09 COVID-19 VACCINE (#1) [facility] [code = COVID-19 VACCINE [facility] (#1)] Future Scheduled 1972-06-09 COVID-19 VACCINE (#1) [facility]:00 [code = COVID-19 VACCINE [facility] (#1)] Future Scheduled 1972-06-09 COVID-19 VACCINE (#1) [facility]:00:00 [code = COVID-19 VACCINE [facility] (#1)] Future Scheduled 1972-06-09 COVID-19 VACCINE (#1) [facility]:00 [code = COVID-19 VACCINE [facility] (#1)] Future Scheduled 1972-06-09 COVID-19 VACCINE (#1) [facility]:00 [code = COVID-19 VACCINE [facility] (#1)] Future Scheduled 1972-06-09 COVID-19 VACCINE (#1) [facility]:00 [code = COVID-19 VACCINE [facility] (#1)] Future Scheduled 1972-06-09 COVID-19 VACCINE (#1) [facility]:00 [code = COVID-19 VACCINE [facility] (#1)] Future Scheduled 1972-06-09 COVID-19 VACCINE (#1) [facility]:00 [code = COVID-19 VACCINE [facility] (#1)] Future Scheduled 1972-06-09 COVID-19 VACCINE (#1) [facility]:00 [code = COVID-19 VACCINE [facility] (#1)] Future Scheduled 1972-06-09 COVID-19 VACCINE (#1) [facility]:00:00 [code = COVID-19 VACCINE [facility] (#1)] Future Scheduled 1972-06-09 COVID-19 VACCINE (#1) [facility]:00 [code = COVID-19 VACCINE [facility] (#1)] Future Scheduled 1972-06-09 COVID-19 VACCINE (#1) [facility]:00 [code = COVID-19 VACCINE [facility] (#1)] Future Scheduled 1972-06-09 COVID-19 VACCINE (#1) [facility]:00 [code = COVID-19 VACCINE [facility] (#1)] Future Scheduled 1972-06-09 COVID-19 VACCINE (#1) [facility]:00:00 [code = COVID-19 VACCINE [facility] (#1)] Future Scheduled 1972-06-09 COVID-19 VACCINE (#1) [facility]:00 [code = COVID-19 VACCINE [facility] (#1)] Future Scheduled 1972-06-09 COVID-19 VACCINE (#1) [facility]:00 [code = COVID-19 VACCINE [facility] (#1)] Future Scheduled 1972-06-09 COVID-19 VACCINE (#1) [facility]:00 [code = COVID-19 VACCINE [facility] (#1)] Future Scheduled 1972-06-09 COVID-19 VACCINE (#1) [facility]:00 [code = COVID-19 VACCINE [facility] (#1)] Future Scheduled 1972-06-09 COVID-19 VACCINE (#1) [facility]:00:00 [code = COVID-19 VACCINE [facility] (#1)] Future Scheduled 1972-06-09 COVID-19 VACCINE (#1) [facility]:00 [code = COVID-19 VACCINE [facility] Center (#1)] Future Scheduled 1971 Screening for malignant [facility] 00:00:00 neoplasm of colon Medical Ce nter (procedure) [code = 472305164] Future Scheduled 1971 Sigmoidoscopy [code = [facility] Sigmoidoscopy] [facility] Future Scheduled 1971 Screening for malignant [facility] 00:00:00 neoplasm of breast Medical C enter (procedure) [code = 518265412] Future Scheduled 1971 CT Colonography (combo) [facility] 00:00:00 [code = CT [facility] ([facility])] Future Scheduled 1971 Screening for malignant [facility] 00:00:00 neoplasm of colon Medical Ce nter (procedure) [code = 818669301] Future Scheduled 1971 Screening for malignant [facility] 00:00:00 neoplasm of colon Medical Ce nter (procedure) [code = 543330991] Future Scheduled 1971 Screening for malignant [facility] 00:00:00 neoplasm of colon Medical Ce nter (procedure) [code = 580130445] Future Scheduled 1971 Screening for malignant [facility] 00:00:00 neoplasm of colon Medical Ce nter (procedure) [code = 474833851] Future Scheduled 1971 Sigmoidoscopy [code = [facility] Sigmoidoscopy] [facility] Future Scheduled 1971 Screening for malignant [facility] 00:00:00 neoplasm of breast Medical C enter (procedure) [code = 050749403] Future Scheduled 1971 CT Colonography (combo) [facility] 00:00:00 [code = CT Colonography [facility] (combo)] Future Scheduled 1971 Screening for malignant [facility] 00:00:00 neoplasm of colon Medical Ce nter (procedure) [code = 059573584] Future Scheduled 1971 Screening for malignant [facility] 00:00:00 neoplasm of colon Medical Ce nter (procedure) [code = 233591488] Future Scheduled 1971 Screening for malignant [facility] 00:00:00 neoplasm of colon Medical Ce nter (procedure) [code = 619211691] Future Scheduled 1971 Screening for malignant [facility] 00:00:00 neoplasm of colon Medical Ce nter (procedure) [code = 774956407] Future Scheduled 1971 Sigmoidoscopy [code = [facility] S[facility]oidoscopy] [facility] Future Scheduled 1971 Screening for malignant [facility] 00:00:00 neoplasm of breast Medical C enter (procedure) [code = 691565602] Future Scheduled 1971 CT Colonography (combo) [facility] 00:00:00 [code = CT [facility] ([facility])] Future Scheduled 1971 Screening for malignant [facility] 00:00:00 neoplasm of colon Medical Ce nter (procedure) [code = 782874307] Future Scheduled 1971 Screening for malignant [facility] 00:00:00 neoplasm of colon Medical Ce nter (procedure) [code = 298179572] Future Scheduled 1971 Screening for malignant [facility] 00:00:00 neoplasm of colon Medical Ce nter (procedure) [code = 488533882] Future Scheduled 1971 Screening for malignant [facility] 00:00:00 neoplasm of colon Medical Ce nter (procedure) [code = 708498085] Future Scheduled 1971 Sigmoidoscopy [code = [facility] Sigmoidoscopy] [facility] Future Scheduled 1971 Screening for malignant [facility] 00:00:00 neoplasm of breast Medical C enter (procedure) [code = 706203637] Future Scheduled 1971 CT Colonography (combo) [facility] 00:00:00 [code = CT Colonography [facility] (combo)] Future Scheduled 1971 Screening for malignant [facility] 00:00:00 neoplasm of colon Medical Ce nter (procedure) [code = 437105608] Future Scheduled 1971 Screening for malignant [facility] 00:00:00 neoplasm of colon Medical Ce nter (procedure) [code = 667453547] Future Scheduled 1971 Screening for malignant [facility] 00:00:00 neoplasm of colon Medical Ce nter (procedure) [code = 839950584] Future Scheduled 1971 Screening for malignant [facility] 00:00:00 neoplasm of colon Medical Ce nter (procedure) [code = 276807781] Future Scheduled 1971 Sigmoidoscopy [code = [facility] S[facility]oidoscopy] [facility] Future Scheduled 1971 Screening for malignant [facility] 00:00:00 neoplasm of breast Medical C enter (procedure) [code = 096332646] Future Scheduled 1971 CT Colonography (combo) [facility] 00:00:00 [code = CT [facility] ([facility])] Future Scheduled 1971 Screening for malignant [facility] 00:00:00 neoplasm of colon Medical Ce nter (procedure) [code = 044083483] Future Scheduled 1971 Screening for malignant [facility] 00:00:00 neoplasm of colon Medical Ce nter (procedure) [code = 116130051] Future Scheduled 1971 Screening for malignant [facility] 00:00:00 neoplasm of colon Medical Ce nter (procedure) [code = 949262889] Future Scheduled 1971 Screening for malignant [facility] 00:00:00 neoplasm of colon Medical Ce nter (procedure) [code = 984501025] Future Scheduled 1971 Sigmoidoscopy [code = [facility] S[facility]oscopy] [facility] Future Scheduled 1971 Screening for malignant [facility] 00:00:00 neoplasm of breast Medical C enter (procedure) [code = 674919877] Future Scheduled 1971 CT Colonography (combo) [facility] 00:00:00 [code = CT [facility] ([facility])] Future Scheduled 1971 Screening for malignant [facility] 00:00:00 neoplasm of colon Medical Ce nter (procedure) [code = 002747571] Future Scheduled 1971 Screening for malignant [facility] 00:00:00 neoplasm of colon Medical Ce nter (procedure) [code = 750944497] Future Scheduled 1971 Screening for malignant [facility] 00:00:00 neoplasm of colon Medical Ce nter (procedure) [code = 482608317] Future Scheduled 1971 Screening for malignant [facility] 00:00:00 neoplasm of colon Medical Ce nter (procedure) [code = 363099599] Future Scheduled 1971 Sigmoidoscopy [code = [facility] S[facility]oidoscopy] [facility] Future Scheduled 1971 Screening for malignant [facility] 00:00:00 neoplasm of breast Medical C enter (procedure) [code = 584392188] Future Scheduled 1971 CT Colonography (combo) [facility] 00:00:00 [code = CT Colonography [facility] (combo)] Future Scheduled 1971 Screening for malignant [facility] 00:00:00 neoplasm of colon Medical Ce nter (procedure) [code = 824041895] Future Scheduled 1971 Screening for malignant [facility] 00:00:00 neoplasm of colon Medical Ce nter (procedure) [code = 975169625] Future Scheduled [address] Screening for malignant [facility] 00:00:00 neoplasm of colon Medical Ce nter (procedure) [code = 722224990] Future Scheduled 1971 Screening for malignant [facility] 00:00:00 neoplasm of colon Medical Ce nter (procedure) [code = 497139100] Future Scheduled 1971 Sigmoidoscopy [code = [facility] Sigmoidoscopy] [facility] Future Scheduled 1971 Screening for malignant [facility] 00:00:00 neoplasm of breast Medical C enter (procedure) [code = 183035665] Future Scheduled 1971 Screening for malignant [facility] 00:00:00 neoplasm of breast Medical C enter (procedure) [code = 004466679] Future Scheduled 1971 CT Colonography (combo) [facility] 00:00:00 [code = CT [facility]ography [facility] (combo)] Future Scheduled 1971 Screening for malignant [facility] 00:00:00 neoplasm of colon Medical Ce nter (procedure) [code = 430178326] Future Scheduled 1971 Screening for malignant [facility] 00:00:00 neoplasm of colon Medical Ce nter (procedure) [code = 252802706] Future Scheduled 1971 Screening for malignant [facility] 00:00:00 neoplasm of colon Medical Ce nter (procedure) [code = 542422226] Future Scheduled 1971 Screening for malignant [facility] 00:00:00 neoplasm of colon Medical Ce nter (procedure) [code = 375358881] Future Scheduled 1971 Sigmoidoscopy [code = [facility] S[facility]oidoscopy] [facility] Future Scheduled 1971 Screening for malignant [facility] 00:00:00 neoplasm of breast Medical C enter (procedure) [code = 572204034] Future Scheduled 1971 CT Colonography (combo) [facility] 00[facility]00:00 [code = CT [facility] ([facility])] Future Scheduled 1971 Screening for malignant [facility] 00:00:00 neoplasm of colon Medical Ce nter (procedure) [code = 880552492] Future Scheduled 1971 Screening for malignant [facility] 00:00:00 neoplasm of colon Medical Ce nter (procedure) [code = 427558325] Future Scheduled 1971 Screening for malignant [facility] 00:00:00 neoplasm of colon Medical Ce nter (procedure) [code = 797484074] Future Scheduled 1971 Screening for malignant [facility] 00:00:00 neoplasm of colon Medical Ce nter (procedure) [code = 195658236] Future Scheduled 1971 Sigmoidoscopy [code = [facility] S[facility]oidoscopy] [facility] Future Scheduled 1971 Screening for malignant [facility] 00:00:00 neoplasm of breast Medical C enter (procedure) [code = 790969049] Future Scheduled 1971 CT Colonography (combo) [facility] 00:00:00 [code = CT [facility] ([facility])] Future Scheduled 1971 Screening for malignant [facility] 00:00:00 neoplasm of colon Medical Ce nter (procedure) [code = 210643615] Future Scheduled 1971 Screening for malignant [facility] 00:00:00 neoplasm of colon Medical Ce nter (procedure) [code = 058670662] Future Scheduled 1971 Screening for malignant [facility] 00:00:00 neoplasm of colon Medical Ce nter (procedure) [code = 022324464] Future Scheduled 1971 Screening for malignant [facility] 00:00:00 neoplasm of colon Medical Ce nter (procedure) [code = 920912909] Future Scheduled 1971 Sigmoidoscopy [code = [facility] S[facility]oidoscopy] [facility] Future Scheduled 1971 Screening for malignant [facility] 00:00:00 neoplasm of breast Medical C enter (procedure) [code = 457839371] Future Scheduled 1971 CT Colonography (combo) [facility] 00:00:00 [code = CT [facility] (com[facility])] Future Scheduled 1971 Screening for malignant [facility] 00:00:00 neoplasm of colon Medical Ce nter (procedure) [code = 791535389] Future Scheduled 1971 Screening for malignant [facility] 00:00:00 neoplasm of colon Medical Ce nter (procedure) [code = 327417816] Future Scheduled 1971 Screening for malignant [facility] 00:00:00 neoplasm of colon Medical Ce nter (procedure) [code = 944270647] Future Scheduled [address] Screening for malignant [facility] 00:00:00 neoplasm of colon Medical Ce nter (procedure) [code = 443053871] Future Scheduled 1971 Sigmoidoscopy [code = [facility] S[facility]oidoscopy] [facility] Future Scheduled 1971 CT Colonography (combo) [facility] 00:00:00 [code = CT [facility] (com[facility])] Future Scheduled 1971 Screening for malignant [facility] 00:00:00 neoplasm of breast Medical C enter (procedure) [code = 936373831] Future Scheduled 1971 CT Colonography (combo) [facility] 00:00:00 [code = CT [facility] (com[facility])] Future Scheduled 1971 Screening for malignant [facility] 00:00:00 neoplasm of colon Medical Ce nter (procedure) [code = 376819995] Future Scheduled 1971 Screening for malignant [facility] 00:00:00 neoplasm of colon Medical Ce nter (procedure) [code = 973295389] Future Scheduled [address] Screening for malignant [facility] 00:00:00 neoplasm of colon Medical Ce nter (procedure) [code = 657128083] Future Scheduled 1971 Screening for malignant [facility] 00:00:00 neoplasm of colon Medical Ce nter (procedure) [code = 746063559] Future Scheduled 1971 Sigmoidoscopy [code = [facility] S[facility]oidoscopy] [facility] Future Scheduled 1971 Screening for malignant [facility] 00:00:00 neoplasm of breast Medical C enter (procedure) [code = 259277848] Future Scheduled 1971 CT Colonography (combo) [facility] 00:00:00 [code = CT Colonography [facility] (combo)] Future Scheduled 1971 Screening for malignant [facility] 00:00:00 neoplasm of colon Medical Ce nter (procedure) [code = 025589916] Future Scheduled 1971 Screening for malignant [facility] 00:00:00 neoplasm of colon Medical Ce nter (procedure) [code = 591728138] Future Scheduled [address] Screening for malignant [facility] 00:00:00 neoplasm of colon Medical Ce nter (procedure) [code = 640189198] Future Scheduled [address] Screening for malignant [facility] 00:00:00 neoplasm of colon Medical Ce nter (procedure) [code = 652329535] Future Scheduled 1971 Sigmoidoscopy [code = [facility] S[facility]oidoscopy] [facility] Future Scheduled 1971 Screening for malignant [facility] 00:00:00 neoplasm of breast Medical C enter (procedure) [code = 740078701] Future Scheduled 1971 CT Colonography (combo) [facility] 00:00:00 [code = CT [facility]ography [facility] (combo)] Future Scheduled 1971 Screening for malignant [facility] 00:00:00 neoplasm of colon Medical Ce nter (procedure) [code = 437899823] Future Scheduled 1971 Screening for malignant [facility] 00:00:00 neoplasm of colon Medical Ce nter (procedure) [code = 480722694] Future Scheduled [address] Screening for malignant [facility] 00:00:00 neoplasm of colon Medical Ce nter (procedure) [code = 836527166] Future Scheduled 1971 Screening for malignant [facility] 00:00:00 neoplasm of colon Medical Ce nter (procedure) [code = 476676239] Future Scheduled 1971 Sigmoidoscopy [code = [facility] S[facility]oidoscopy] [facility] Future Scheduled 1971 Screening for malignant [facility] 00:00:00 neoplasm of breast Medical C enter (procedure) [code = 601151255] Future Scheduled 1971 CT Colonography (combo) [facility] 00:00:00 [code = CT Colonography [facility] (combo)] Future Scheduled 1971 Screening for malignant [facility] 00:00:00 neoplasm of colon Medical Ce nter (procedure) [code = 524779001] Future Scheduled 1971 Screening for malignant [facility] 00:00:00 neoplasm of colon Medical Ce nter (procedure) [code = 888619213] Future Scheduled 1971 Screening for malignant [facility] 00:00:00 neoplasm of colon Medical Ce nter (procedure) [code = 827985626] Future Scheduled 1971 Screening for malignant [facility] 00:00:00 neoplasm of colon Medical Ce nter (procedure) [code = 034788453] Future Scheduled 1971 Sigmoidoscopy [code = [facility] S[facility]oidoscopy] [facility] Future Scheduled 1971 Screening for malignant [facility] 00:00:00 neoplasm of colon Medical Ce nter (procedure) [code = 671303861] Future Scheduled 1971 Screening for malignant [facility] 00:00:00 neoplasm of breast Medical C enter (procedure) [code = 519773604] Future Scheduled 1971 CT Colonography (combo) [facility] 00:00:00 [code = CT Colonography [facility] (combo)] Future Scheduled 1971 Screening for malignant [facility] 00:00:00 neoplasm of colon Medical Ce nter (procedure) [code = 109686380] Future Scheduled 1971 Screening for malignant [facility] 00:00:00 neoplasm of colon Medical Ce nter (procedure) [code = 362301401] Future Scheduled 1971 Screening for malignant [facility] 00:00:00 neoplasm of colon Medical Ce nter (procedure) [code = 326430412] Future Scheduled 1971 Screening for malignant [facility] 00:00:00 neoplasm of colon Medical Ce nter (procedure) [code = 266260320] Future Scheduled 1971 Sigmoidoscopy [code = [facility] S[facility]oidoscopy] [facility] Future Scheduled 1971 Screening for malignant [facility] 00:00:00 neoplasm of breast Medical C enter (procedure) [code = 490819227] Future Scheduled 1971 CT Colonography (combo) [facility] 00:00:00 [code = CT Colonography [facility] (combo)] Future Scheduled 1971 Screening for malignant [facility] 00:00:00 neoplasm of colon Medical Ce nter (procedure) [code = 751847138] Future Scheduled 1971 Screening for malignant [facility] 00:00:00 neoplasm of colon Medical Ce nter (procedure) [code = 330030993] Future Scheduled 1971 Screening for malignant [facility] 00:00:00 neoplasm of colon Medical Ce nter (procedure) [code = 281937850] Future Scheduled 1971 Screening for malignant [facility] 00:00:00 neoplasm of colon Medical Ce nter (procedure) [code = 513201498] Future Scheduled 1971 Sigmoidoscopy [code = [facility] S[facility]oidoscopy] [facility] Future Scheduled 1971 Screening for malignant [facility] 00:00:00 neoplasm of colon Medical Ce nter (procedure) [code = 814653857] Future Scheduled 1971 Screening for malignant [facility] 00:00:00 neoplasm of colon Medical Ce nter (procedure) [code = 129939360] Future Scheduled 1971 Screening for malignant [facility] 00:00:00 neoplasm of colon Medical Ce nter (procedure) [code = 603734484] Future Scheduled 1971 Sigmoidoscopy [code = [facility] Sigmoidoscopy] [facility] Future Scheduled 1971 Screening for malignant [facility] 00:00:00 neoplasm of breast Medical C enter (procedure) [code = 742885286] Future Scheduled 1971 CT Colonography (combo) [facility] 00:00:00 [code = [facility] ([facility])] Future Scheduled 1971 Screening for malignant [facility] 00:00:00 neoplasm of colon Medical Ce nter (procedure) [code = 011776357] Future Scheduled 1971 Screening for malignant [facility] 00:00:00 neoplasm of colon Medical Ce nter (procedure) [code = 486953837] Future Scheduled 1971 Screening for malignant [facility] 00:00:00 neoplasm of colon Medical Ce nter (procedure) [code = 693308145] Future Scheduled 1971 Screening for malignant [facility] 00:00:00 neoplasm of colon Medical Ce nter (procedure) [code = 537269859] Future Scheduled 1971 Sigmoidoscopy [code = [facility]] [facility] Future Scheduled 1971 Screening for malignant [facility] 00:00:00 neoplasm of breast Medical C enter (procedure) [code = 034960618] Future Scheduled 1971 CT Colonography (combo) [facility] 00:00:00 [code = CT Colonography [facility] (combo)] Future Scheduled 1971 Screening for malignant [facility] 00:00:00 neoplasm of colon Medical Ce nter (procedure) [code = 382023635] Future Scheduled 1971 Screening for malignant [facility] 00:00:00 neoplasm of colon Medical Ce nter (procedure) [code = 683087064] Future Scheduled 1971 Screening for malignant [facility] 00:00:00 neoplasm of colon Medical Ce nter (procedure) [code = 194652533] Encounters Start End Encounter Admission Attending Care Care Encounter Source Date/Time Date/Time Type Type Clinicians Facility Department ID 2022-10-24 2022-10-25 Inpatient [facility] Surgery [id number] [facility] 05:03:00 15:32:00 SAMER 2022-10-24 2022-10-25 [facility] [id number] 05:03:00 15:32:[address] [facility] 2022-10-24 2022-10-25 [facility] [id number] 05:03:00 15:32:[address] [facility] 2022-10-24 2022-10-[address] [facility] [id number] 07:30:00 11:31:00 Event [facility] 2022-10-24 2022-10-24 Anesthesia Ken Mims [facility] [id number] 07:30:00 11:31:00 Event Fritz [facility] 2022-10-24 2022-10-[address] [facility] [id number] 07:30:00 11:15:00 [facility] 2022-10-24 2022-10-[address] [facility] [id number] 07:30:00 11:15:00 [facility] 2022-10-24 2022-10-24 Travel [facility] [id number] [facility] 00:[facility]00 00:00:00 [facility] 2022-10-24 2022-10-24 Travel [facility] [id number] [facility] 00:[facility] 00:00[facility]00 [facility] 2022-10-12 2022-10-12 Outpatient EL JAMIE, SLEH [facility] [id number] [facility] 12:13:33 23:59:00 [facility] 2022-10-12 2022-10-[address] [facility], [facility] [id number] 12:13:33 23:59:00 Encounter [facility] 2022-10-12 2022-10-12 [facility], [facility] [id number] 12:13:33 23:59:00 Encounter [facility] 2022-10-12 2022-10-12 Outpatient EL SLEH SLEH [id number] [facility] 12:12:07 12:12:07 2022-10-12 2022-10-12 [facility] [id number] 12:11:44 12:12:[address] [facility] 2022-10-12 2022-10-12 [facility] [id number] 12:11:44 12:12:[address] [facility] 2022-10-12 2022-10-12 Outpatient NALINI ZHANG, SLE SLEH [id number] [facility] 12:11:44 12:12:00 [facility] 2022-10-12 2022-10-12 Orders [facility] [id number] 00:00:00 00:00:00 Only [facility] 2022-10-12 2022-10-12 Orders [facility] [id number] 00:00:00 00:00:00 Only [facility] 2022-10-11 2022-10-11 [facility] [id number] 10:00:00 10:00:[address] [facility] 2022-10-11 2022-10-11 Travel [facility] [id number] [facility] 00:[facility]00 00:00:00 [facility] 2022-10-11 2022-10-11 Travel [facility] [id number] [facility] 00:[facility] 00:00:00 [facility] 2022-07-19 2022-07-19 Office Kishore [facility] [id number] 11:00:00 12:00:00 Visit [facility] 2022-07-19 2022-07-19 Office NALINI Novak [facility] [id number] 11:00:00 12:00:00 Visit [facility] 2022-07-19 2022-07-19 Outpatient NALINI NOVAK [facility] [id number] [facility] 10:35:07 10:35:07 TRISTAN 2022-06-01 2022-06-01 Outpatient HERNANDEZ, MHSE MHSE [id number] 13:33:00 20:20:00 [facility] 2020-01-23 2020-01-23 Emergency [facility] [id number] [facility] 12:13:59 14:51:00 [place] [id number] i [facility] [id number] [facility] [id number] [address] 2020-01-23 2020-01-23 Emergency X [facility] ERT [id number] [facility] 12:13:59 12:13:59 ity of [facility] Results Test Description Test Time Test Comments Results Result Comments Source Tissue Exam 2022-10-25 14:45:35 Test Item Value Reference Range Interpretation Comme nts Case Report (test code = 104) Surgical Pathology Report Case: [id number] Authorizing Provider: Yari Zhang MD Collected: 10/24/2022 08:23 AM Ordering Location: [facility] Received: 10/24/2022 11:19 AM SERVICES Pathologist: Dorene Khan MD Specimens: A) - Biopsy, Liver, LIVER BIOPSY B) - Biopsy, Liver, LIVER BIOPSY DIAGNOSIS (test code = 3220) t4lxoISsTOMnq2ixHBYrxNQbMtHiQuHfXrTbMp qMSiVGzgpoAlFAbhkAhiPVZzVYAcFM0fmQvmhFf2 jApvDQBycpW4dTFeZOipn8wuNHT2m9lvvsibSCWt IZsbTs0zxFQqrBrtPaGmHPHrDCd3iX16QGQnlP7b gCSnIQv9CXCvkGIwgiOlQsQfINKxnBJvfGC7LLKu TV9cwrymQFsiJGunOHYxgxJ4ILCnuURtS3YrCFGz GI6ionwsYOH4IJmrNIYnQPH8JtBjMTQhk8Dbzrf9 MjBccGFyZFxwbGFpblxmczIwIEEuICBMSVZFUiwg AiUUYM4ZNO5GMZDLEGCCN4GFIYCLU2NLELrgOIBt ELT8Ow1duYhlGYvelMd5MGRloMUoAJ2ljWcnNPQw q9TpOSThfOPqvZanmtohKUDvWE2kbPPbdBAsgh5o vPMgoQ5gaKBkfE96c3l7gC5hBXTiuSZdsFhuSDHn lTpqHNBqqS3lVYVhNM0dUOlpdQB7a3O3vQMoLJMj abCvMG2faFDueU8wcDpitkLxyiKsQD5xORAvm23e fTLcVM2LyfGcDYJigmt4qASjZDWnwTevs57aYWJr AEYcbX4eiARygrCnn7NnFWxvLUWwJC3kEPWuK18u DymmTP97MNYqptScgZFkigKtDQ5pEGLth94gaFHr AL9JccYehGcohAIkF8WwhJZhzPYxx1BxxwAzo3Dm ZFxwYXJccGFyIEIgTElWRVIsIFJBTkRPTSBORUVE RLGjU16OOCLGDN8IM2clQm4VDXVUS2TDAvAVAUOg kiUfANsnndMcXV7mgUSheTDgWHsvVWX2vTyry9Ot pMZty4IxetZjVBEbC1lpFK0kYJPuwMIzxkK0MHMl TUWhCJRtguXpFOXufn30OQW2TqJzz8P6AZF8BYTe GRMbx3pqJXJdlCLzBvSmTrXvVfDpGwlmsGQtCTFh EjKis7lrw311nILjq4egCKRwUdW0aTTbEIJppCBr Z701AMIkPZwsi1bgf1YuPDScmIHng2C6VHQXslvu aFn8vJlcM99vu5L2SuffD2zxDKTgXNDqB4EoCK3u KLKuZer2NZH7FPE4UAHeFLZlR8KoQG8sROPjuKBk JFr3p2cnkZgzJMLaVYZ6f6xvOYyubvKeQB6jmc3l mCv2b2bazlWqPRPkPSXmbCMBLYLaR3GjgCfwBh9r lGx6rYarGruqIGL5Olj6VY8sxq14pfo8rOdnAUVn lpxnQaM8JQvaCFMiangaFXv6YPdlIWEwsOL4VRAu kDGaS3LhIPTaME0jlvi5RXP5ZDssNCLeXfL6UUYw uSLdWGFefWmgIUcgs003SOD3SkBzFO7bX6Myv2B8 aG9ceMSzUQZulVRqOqYjZVVhga8gsXSlSLytp9El GUB8dyM6wDOwiTHmTCJoEvR9KCzhWL4jxg10JXUc DRP7jf0ffZSkjJdpolCouELrXXiqW2VuIUXxe848 QWGyS6ApDKIeo0O1qyVqZtCsGULzfCE2opP5QBBs OG5cexvba1axTZyxTAvgEYBfhfE8jrD1NFCklFEz D3WkyI5nMIGiDI9nnwjby0xaGEE9ADdjOJVhVFA5 FsNeWZCwv0Cemfd2WeOgb5WzeKVhBWmeA08qt783 FPRvafZjR8weuKXdwcrxgPJnecnpPCnbtyN4OJWn QIvkchufFDVcQAneN5bgJyQeBTNgvOjbKTuqn9Xz NFKrFNCkUnBywHFoINQaOql4GSZdfIHnJJNwOyWj F4oujesyRxEGTWYft0rtD7dxdGZOzSZiZ0ZhOCib jeVjTTabSRplLhEaXKb6KW50YuIpOOVxdh07 CPT Code(s) (test code = 1007) w1mzfUTaCDGxtHEaGDUuZWmkbhVlPVHcnKYw Z3Bh yrumYPhgNQ0zCE3gkXvdfNRxrBAzSOUcIzEqt7yh c602sFVgw4woPRCNowwvbVw8bBpeH84es6E4Brmi P50kjFFeJCN6DXUuXMLbwLAdLHFyEDI7HCAhcZNk P5grONElUZ4khdtrTUmrWJpdUADsdPC6WOTxxBDl W8QdDHPySBpnTYKqqld2WyQuBy5vfNUprRuoZCce COSnFQYaGCeeBRPbAnUaSKaiFGzeoWIgYPs1XcEw eDRccGFyfQ== CLINICAL HISTORY (test code = 3356) p2xffCCgHTFxoOOpLJKkHQfwflKkTXP fzUJiC6Qg ihfwWXrfRM4fZR3cnQamiLMejLBkNQNlEoYfh8oq y761pFKax2sqNOYFPPigGABUUJl5k4fcZTBHmmva eVv3dRyeS01kq3M8KuygS51fuSRcPRX2VDXvEWDw bGIaLIGvNMA6JDQqnGLaG6inPAGvMG6iouyfYZdy OJquSPKbvAD8FHKwaPXaH8UsWRAaTZrkEBImitn6 EgCgQv7lyCElmYgsXVeuEYNyAWZjSGlaKTAtWPNj SdZbSQ5oWzogOB0wXFSwsFyiRSYbEHQjAON2V7Wo vwTxWTmwhblcxtifAe3haJInCHJxCBnbFJD4SGZ9 LtTjUYsnCYPnTOMnvXuhO7QemODwEOXdjYvkB1Dd sPGpBERhxMtaFUaaUEXqMVZ9kDTaDCHxt5AkYXwv dGlzXHBhcn0= GROSS DESCRIPTION (test code = r7qyrUTuYJIrlTKSZCFcKXUpIX1qtBqmrJd3 cGd [id number]) [file] DQpcbHRycGFyXGxpbjBccmluMFxzYjMwXGVwaWNY v1SbTVWJQfxuyiUcOCDwJ3AlgmRqYGCcMSIdXDby PeHdDCYbe8e0yGU4nQCfaVJ1aOPxpCogFtPsDL2v dBYqYZ7jWWhySPrrtlMgq3FaSB26zJUlhpHxzdLg VoDvy1GwvEwmcFp0BFXaNXqpWDQxAK1cMEYmTByo ZSghscz8aNM7MB6gqfLdQJJoQpHxlIqvk5GoMSIb gcGwWAOSuLIuo6OfN2jbHE4ggPLyS6a8UW2tcT7k wzFeXLLlU2zsOYLZmgDrIKZ1eB5gccFjqlKov7Ad oOc2sLZlXJuty7FkAN6ifWtjYTXklhFLCkopVdEe RDEvQ9twYbYxSJguvLPcKB0WIIJpFkYaJVUkB9nq CBKqTQ2ME7xxmRIwOCVSjjO0hbckQPzSTEIOLHSg NCOFTRyniY8PAMEixOMNDVG6RA3sVTlqTCQtC5Tm J3RxroR0x6keeShoz0GwtHBzLY6ckCAaAU1JIEEw cmQgDQpcZnMyMiANCn0= MICROSCOPIC DESCRIPTION (test code = p4sytBLuQVRpyFRgRILmIXpptuSoRR [place] [id number]) [file] MNEaBWZvue0mMeSiKGSpet8= SPECIAL STUDIES (test code = 3376) l3omrZHwVUAhy9wcYXOaeRWqCgWcTjZr ZnRuYmpc tLGzJRqowqTkAEwtb7JxZ9FdPlJnQTvmgjYaBCBv AghqmifbAJLvYCV5woQrYJAdARcrYBHoMGxtXh4o dSHfcMnaFmDhNBAyf7uzwgEPninhdWg3q9dcODQm GnH3jRIzTNszE5hwceUcsFFhK5YjlJIczWo1e6fs AvFxXqK7dDEqUNjcE6lhpaOjbHQtRHXiPRu4sD64 GKWihK8ivQNjEWdnuvVkMoQ7HHqnLMQsLeJ0OIYk xSGeAEGlI3pmUDVeJHwrQMScKBajxFTdWRX6vPsw v8C2hQNwlCIqqQfaYaEsYtLfTsJFj8HqLUq5fAxd F5IjHCBoLnE5ePEvISOhFXyfLIHfBVRihcX0gSxw efLsh40dkCPxXNIiKMRgYfBdhDucOAFwJTZTx7Oy yPpnYHI2vIb5sIdfDoqcIHH2Zro2LS1tch49maf6 yQbmMKIactipXpO8FWmfXJZarpuzKWk4UTodYESd wOI9XNTtxGUwT4SkVEBrUZ3katp8MMF0OSocZZAa HqB7MPVxbLMdXCDkwNhcQIpij905HWB7RvDtUK9h D6Dok0K5uT9olEXfNNAplFGsYjWwXBJlya9sqTVo VXdaj6KzAJA2phW8tPSnnLByNXLnUS83Ldbkx5Zj Qgkcx3LyL66hjOM8CSkmk4ruSU1sEkP4aoMzXIef p5jilE9kQfZ2DYivLG4aZF1dXONelX8fknkoIYZb OnCtulunYMCdiHeayjLnHw0olVtdVYR0BZxyG0qj lU9iEsK5JBpsL3wwgL6sAMz3CTvgqWF4TYTveP2m RP5jydcgn2ynVPyaYQnrBZRjzmH5rjU1LPSmgDWf O8PkqS1pQKEsEY6nyagdi6eyUVD0ICuuTVXgAFU7 KpKwSCJxk5Kevwz2StLpl1NksQShPJgdU91fq826 NAWyilPqD2xfnFZhxysphPIzwtgmOTmmlfO4FCPa XHBsYWluXGYxXGZzMjJcbGFuZzEwMzNcaGljaFxm OBewEbGcLLEuZNgeX7rbIhZiT7CtOYFjFdMiXStv UYptmYHrxYNzxDF1eI3cYI5wDCMmiACtE8JzBBAj tcJxoTPaWWB7uHXcdFQhZX6zTLdvbGQuu9luy4Hq F3ohvVmwkQD2KX4rEIEdKZXfWIcoi9LmsY9lUltj zJSaqpfgNNgtkuJdCBhjbrojFHQrWDhfO9xaNlCq TOBepYmgWChsf3DrYJQpQWHyZogmxiKpUMh0jgUy UJOqzwotMYAojYrnvB7cFjErKgCfClopPM7iEBTe O5unqANfGXAiBSSjU8acXrOxuK6uzTjsTNnyZxVt KpCeUwMGc523op3rHTFiyHJtohTAtHHhbP6iSRhu PVddGCuokTIgOZkuw8sxKEVzv0r5kANbAOVkgpDl g1uiFWngivXlBFDhaCUfuXRiHLIit34vOOcpuLtc eGgmIZEhm3VfbDkiw5LvEqNlRNahv0JkI40wuUUl bTOhsZsoRICywrJoMXLtf05kl5hdSBUrYuU0jHAz tLY3gBNvdWRgd2RuaSisAOWrf5yyGIGwdz2csygl qLLoo3QinO8lnpiqEVqkxAUaolCoESBvu1e6nQEh CJUmTUXfTIuvwIb6ZZXxt009te2qurO7gDGcWVT9 YWlsYWJsZSBhcmUgZXZhbHVhdGVkXHBsYWluXGYx XGZzMjJcbGFuZzEwMzNcaGljaFxmMVxkYmNoXGYx TQhpJ4eeVcUyX5JuQVEeNcGrdGPzX1hhkOItHZKr YWluXGYxXGZzMjJcbGFuZzEwMzNcaGljaFxmMVxk HaHxLXOdZBrdE0xfSiScG6VkMXEtQtEzFKgttGXi efntKRjgauTlMXihzdmqWJLdFMfqH0abFeEqRMBb hWduXDrnr1ZjPXKjVGFgWbsymrZsNDh7wxOrAMIl icswkQYvqlxiOEtgqyQzFTqskuqkBIZsRQxfU5qo [file] IcusZMS9bV== Gross assessment was performed at (test [facility] enter, code = 2777) Department of Pathology, [address] [place] [id number], Technical component was performed at [facility] er, (test code = 2778) Department of Pathology, [address] [place] [id number], Professional component was performed at [facility] enter, (test code = 2779) Department of Pathology, [address] [place] [id number], [facility] [id number] 14:45:35 Test Item Value Reference Range Interpretation Comments Case Report (test code Surgical Pathology = 104) Report Case: [id number] Authorizing Provider: Yari Zhang MD Collected: 10/24/2022 08:23 AM Ordering Location: [facility] Received: 10/24/2022 11:19 AM SERVICES Pathologist: Dorene Khan MD Specimens: A) - Biopsy, Liver, LIVER BIOPSY B) - Biopsy, Liver, LIVER BIOPSY DIAGNOSIS (test code = b5ixoYDrPDOuq2uhKBJltFT 3220) uZzEwMzNcZnRuYmpcdWMxIH tccnRmMVxlcGljMTAyMDVcY F0zxUrnrZz1sRoiERUwweN2 oVKcSPtfo5jzLPM2r0tcmrc dRZQdUQufMc2gwFPipSppIs YdCCViJNw0eB53ESCxuM8yp YPrCKh4SCAmvXHjevAoHpPu SVOwcREorKA8RSYbEK9jcyk nECmgMHbeKUTcxgE7NITohB PrS4QzSKWxCK7eiehcMKS9S UkmEEGnTPT1BwBwGQViv3Hs lht6BhOouKRdJGrmlRFemlg mczIwIEEuICBMSVZFUiwgUk RPEZ6TAK4ERFZZNHRRT1UGA BVLF4FPSSseWUMxZTI9Mr1m oLlzZXnapAo4JEGrdUYtPB2 oeCwwMYDha5RbPJYabYHhfT tnsutmMGJzWB7rqPBudDQiu t3osYWerN3puOUwhG34d5j4 pK7gQNInsAOcdPpiSIChcSg sADRyyV7sZZDhQZ3cESmnrY J7t3D3yMUoYIMcwyGpTU6ub IHmpP6umPnhapGfpqUrGX8y KYIig24emSPgOJ9FrsUaNAQ zvmu0kUOlLFWsnJzfg11pWC UfFGCjbV5udUCzimXtd5SjY ZxySNThZV1vMWTkJ12aIlbi CB42KMZrvkHwhJAyczVlJY1 tAIDxg45mbYIaOL4QuoFqqT luuKWtW2EtdNRvdPMpk5Xnx lWqh8RbBPzbUZLmaFHnGIQz TElWRVIsIFJBTkRPTSBORUV RVMGjK46TWSEUUH8IX9lrJa 2FWSNCV6RVYgSKBSZlslHrC YbaheSsPP4lkEAbsOUsRBrt YHM3xFoip6FneTZgy0DdykQ kYLSpK8ixTY2oTHWfwSNgbv O1EZWmYVJqVDFjtlPpNYQhm b61CBB5AlAjf4Z4QSU2HNXf GVSkc8nuEYGuhFLvArJkWtX cZnRuYmpcdWMxXGRlZmYwe1 yxj717nGHyk6swUGFhZoQ4s NIgJZUlhTZlO225HALaLWkb k4ter0DjRIHirYQox2R2OKB AxhlegQb5nIffG13bm3H9Ee iiA9iuXYSsXKFiF2LrTI5mO NPlLav8DTM4MOC6XREwSATr B3RqUX2oICMgoEBuPLp0l6o yfSbcODOhBEI7g9ajPOqydp SjCE9qcq3wqBj0u2vbngHfW NQjUDOajWRKQGToJ2SjaCrx Do2laEy0eGmbDbkaDGB6Nra 3MA6fye95wat1gIwcJOUbmi eyYgM7KVmuQUWmchueCKx7O AjoBGLpyRO2NUHdwQIyA8Bm RSBuDO9mtck9VLI1XLqpGHD nCiO4WCGcrFKbDKYalSgwXJ fwl772PIG7JiHzJJ4sT6Tmu 2G9tH2caYVnBTDqaDHzGbZr SYFoco5wmTCgUNeen1VrJRJ 2qeA0vUTnqHAvZTErIaA5HQ ewKN9jqt03NHAzXZC7pt3ig CZlbAtjkmGwoOZdVUvnS5Lv OIAmi153GGMyU4SyHSDad1G 6lhUjNfItPUKtiIO1idH8FG MbZY6mmitqr8qlQCsgKDubF OBoerL9idG1CHCdmKJfU9Gc yZ8fLOAyBH4kbwxrn3sxWUY 6FBwbSPDpGBE4QoAkDAIhx6 Kcljj7BnMlj6QbaDLpBFzdS 90tx473ALBntrZkQ4qwoNKv ysdyvEWkjtavCNtschH5BLS cIYbqbvttMDClYVokD9rwQc AiWZEooCavBBouo6JaHBJqA SZvKoNmyBSlDMFgJlh5CNBz rOInOGNeMgTgN2fvjwgoFpW NOVXgp0keI3pghNLEkESgF5 QgUGhvbmUgTGluZTogNzEzL Za7ZX62UqWlPGJyql38 CPT Code(s) (test code m5lbhANcAOAqxAWuQTAsMOn = 3357) ewgErYCXaaGIhK8GitgjmYE meOT9yCT6zsVbuwBAduOOiV ISoCfRay4dye348iCRfp0zg NQXGyxpwbNt0yGvuX80hk8G 9SgxwX76rcDOjDYA0DBBpAB RsrYRfLYNsRAA7XCWtuLRtH 7czPCNfHC1bkmeiEIdaLJtz UGXmySO9YDPtmAEzJ2ZvPMS zNVipDXBgywb0SbRwUe1zsB VyeTcyMFxwYXJkXHBsYWluX GZzMjAgODgzMDdccGFyIDg4 MzEzeDRccGFyfQ== CLINICAL HISTORY (test k8vmbZMvVMJrpCDlDLZpWYg code = 3356) sixBqJRTzyBXjS0OuzgmtAJ joFH8lMZ4lcMbklDMlgSMnF WAsHyRnh4yvl802wDHmv6ix CKWCXRutOMTRFGi8x6wfKZZ QdsihaYi5cRxvI38po4I8Vi oyN15ltVHuXXQ7WZGcGZFge ZHqFHIzMKV0TFDjeOJyS3yv SBVbCD2rwrhdLEvkIGqxMWS khUX9DPDseGZeM2XyPMFyVI vsRKRqvcj8KtVcVo0dlADeh TcyMFxwYXJkXHBsYWluXGYx SQWeWmFyGX3pZpjnZQ9sKET gpDfoSIBaCUCjNEN7K5Gish CmLGqwfyyuytxkYx3tiRRqU ZHtQXecXMQ7CNT6LaSmFSdy TEDtLBGiqYedO1RiwRPvRSC doQhlF8XsfTHsCZNyrIbnLR poUUIjPKD7pPVqUSCzl2UjQ WdpdGlzXHBhcn0= GROSS DESCRIPTION d6dxvPBpLCUmyTXYEJOwCCD (test code = oBJ0sjUplbKt4wQlvCMQfyn [id number]) S3sAPzUMwzq4yjWMA2e1cul xGYAivmWZKvQV0pVTtsARRm OE1tBzKgBFOxWaYaVYHhtPA rfeBrLxHnEIIneNTefJA6NG HnEF3zdfmxFEjgVJxcUEZeo pS2HOKnvYGzK3GiESWiVC6l rupwMKR6BAQEUyilLf0ywQO ibHtcZjFcZmNoYXJzZXQwXG HnbVlyVSVbLUu1bH8HOswwS 38fc4K5Vve2SOIlYRWyV4Xn NW8sQIHriVJrI17QZupjCRQ 5KXIPJphaRizciOdff9CciU BcXHNnIFxcaWQgNTEwMDAgX CfrBiQMZfOkUyS8ElY5QpR2 OkX7QXp7LTIZKEMiHAI8QqM 8FuS3UGk2WWRfFV6eQZybcB GtPBswSsfcVNeeC521UJmzK UCpP4BuF3CnPLogPoNqIHmo ZEMyKHLpHYdxAIUkR3QFSFP jSKWxKMe2IcSdLAy5XJfdN9 GDGIRcRKEzIxi2FSw1KtD5M Vy9KMOMJo0aMcFiKIedXFLj VSH6CVyhRYehkUPxRKwko8I aUhAaFBBxRErdyvU4GZSomf DrNSbdgJwupP0yZrPdEmXCG fICzT9at9scRDylbqKnUBFx dvXZXepzPHYqCC6JCMMbZFo rTHHdNxRrfXMtO1vtNEXyQ8 7dk9QSz1LpOE6HGXy4ihUhg bwnqW9uJHDivxEoYYohV9Ay EHPuIuHiYuUyRIx8NLZotN3 vGh3feVUtxA7gbGEjFVwqYC C6xVVaFSFgNSFaKEAeAB87S CdCNHMgbmFtZSwgbWVkaWNh bCByZWNvcmQgbnVtYmVyIGF jZKMpcDylDdAzGOr8C7Lnf9 YjbRveePn2OSHtAZizYBBkK R0tUXVdEOsePPgqrui6mKT3 CV3jt30tfSB6pKRteSVvY55 aFPRnpCRaqYQ8MLEqfF4ydR 36gaYnwnZEKV4ogOTjSS0KH HBhciANClxzYTMwXGVwaWNY i8VmPZRVSyqhOkUuDkSkNeL QMzpofJdcVeTezVKzCeQ2RF LruKYeSXE9TY7ovMbhXIXsZ Tm3UTuvSXXcR0CxW6TfTLra ZyBcXGlkIDUxMDAyIFxcZGI xS9GSWZPbUJVbKMd2MlFfTE k3EDasQ2CBRQJjGTPxCkl9U CXxAjD2CBk8JMUSEb0mEcKc RwO9MGJsHTE6LAwnTYuszML rFWkse9JkAeJvOBYcDRcjdn P3FCMxfePjr1JjKFJeELFoQ 3koWwZoZKIZQkSfSZBpq4Sn kYucTZt8DGZqvXEeFY6DZEK vxwZbRIjeuBduvI3euNJgY5 hcZnMyMlxlcGljTmVzdERvY zEgDQpcbHRycGFyXGxpbjBc bfjuZMckLtMdJSTusHFSx2U fMOMBAyahliEoNBTwY9Icbj VkIGZyZXNoIGxhYmVsZWQgd 4v8aBU2sYPepYX5cJHtxAdd SrCkVU8kfBKxBY6nHZvmSDd exmXxl5AlEX63pSXuamUffu XmXeTpv9MisKrubLp0JJFvC JekLPQsEH0qIXUlDIeqDFzp eal5jXP7YZ2ksjFuFJXsJsY urIyej2ZqOHFdzpEbPTWRxA Kzf1YxG7weRF3qjVFwB9c8V O1rmZ9vfpVhNGAuV7ycOOUJ xqNfCOX4nH4dqzVwouMhr3U oiRk8fZXfMSgji0KuRT8lyM kuXHBhciANClxzYjBcZXBpY 1puEgJoEVojuFJeHG8RLLXg XsSkWUNgD9fjGCTfUO9NQ2o jtQMbLBKCmvJ0qqxdGKwKEB PFKVFbNQYXKLkjmA2UJCHwx WNZPSF7TM8eYAlbXYSbE1Rl L1BepyY1h9tllEkie6YawEX uKY5eiLAyGF1SFIGplsXdIS pcZnMyMiANCn0= MICROSCOPIC b9iwuFMlFDTxyCVqXAOfNOd DESCRIPTION (test code jcbChRNEtuTQcB9YpgnuuMI = 3371) gtJO7dCT2epMpsbMLncOLoL BMaEmFew6zin031lRJry7sr BZIHkufyhQz4lEytJ31jc0R 4FbvlJ36yfPGsVVW8MMQyQK TvpYTqZBChKSG1YOEaoWLjY 3zeKRUfSP7knexlSPgrZLbu XWDvmUU4XUCygDOeG2NgNXQ jCDogPQTeqqm1LtEkQb5rlS VyeTcyMFxwYXJkXHBsYWluX TAaHlXcF5hkE7pzLPSiHY71 SOX5AeKpzSO2pRQuHFgzqlN dOCMcahWmf5t9gYOffUNye9 mlkJS5VJr2PUUrzA9xwHPfT QBhrDFvpzBqnuLdrYQjt2Cn yrMgYFtvvLL6dGCjqWLxCW0 kxYydUG5aQIIkNAYiWZzkBK 1spATqhJBbqi9jiBBnbY6bw OHouy18ZBBasK48s5y7kF1c IGFwcHJveGltYXRlbHkgMTA jdQ6vOQNeDG4eGFQpKJIiFY KeyG6hgADqtgEewrYxg10tr jDslWu8TScqQKAoGHIdWG76 bsIrSNBryoPwMMHhzB9hYJY ow79rGKASzbSwYDUzxgm7iE LhHQTviLngn41tEUXvZLRla E4ztIBeuaHkd9VzPK2eOQQd JGQnWXesVS9fbFZyiE3klWj nzsJnsqBdAA1gUHKnp96aE6 0syZHhk1TrPW4qSNc3sVGro 3X2hUWlCLagx8Qeb3T2oWEn RLzgaRhrG8Dgb2paYZywVFN kMK6zS3MbnXeqM6MaYaTkSB oaegEqvRFwuFqbYYXeeK50q 92fNOJcWYRtcXK5HOAyk59l yz61AXHgjD1csKsfSROnjsZ sOJvyynVseCjiyoH3a58fMg NjCI2pbBMcJATlCMX2jlQjm Z52rvRvuKilHF7badAeXXGh ZmljIHBvcnRhbCBpbmZsYW1 qFHZqb30eOJDJpZIhUOEdgf OetjBlcQanwIBmG0NbgUVzd vHsovDsI0KplZSwKUHjxKrn OI6zpAZmEdBdLKgzSOQhlUN gZHVjdHMgYXQgdGhlIHBvcn CyjOR8ysbcRZUjwVZiWTGxC AFdIUYtNRGrDOHwyjHxZD2t NQHviNJhfw3jMYRvqCPuukA avW61zwUkxxEnhQlruLXyO8 JvbEUxcIVgb5Nkfo6cQZXye YmgfYzkdlPnfGOihvWyaA70 rbNizsVtXAT7ZFIkiMDfMRK tSvLCCOXydlZzcM2aSmTxTH FTRCBzdGFpbiBpcyBuZWdhd Qu1NAHdn2DcINuwxMUrJVAs yvHftZW6yTSnrdUgxS9roQi hkz7xXKxww42cz3PvvF6bkB QixhGcWCSnmwMeYx6cWPzdG 4NgWMYuMFZhrh9nRfKvQSQk cn0= SPECIAL STUDIES (test t9mzfIJvPDUcb8buSFGtgWE code = 3376) uZzEwMzNcZnRuYmpcdWMxIH ribyFsLXvvb4EdW7DbPjBjH FxhbnNpXGRlZmxhbmcxMDMz UZF0asGpXMYnHBhrLALbQPv pTh4gwFBdaIdlEiVoAWIrw9 dtzdBRnkjctNa4q7liOKGcF sY1iCTtSPryV9jicuHxxKGu G3GmsOTfsJy7t2pkCwNkCeH 1vCHuVKtjV2jshfGxwZMfWR IqVCb1mW94MAGmlT8hmALjN AntpsLjPvH0XGgfICSbSpZ1 KVMsuJGxYSSqG1hkVSBxPRy cFFNuPKsmxCGoAEC3vEdki7 H6dFWtaCFmmQzgSfUfNnIwQ zKCx2AySNu7hXpnZ6SbIOGt MaI7sWZiXZEzBWmrJUNoRGD egiX1hEyuweEkn65acRMuRA YwXGZzMjBcbGkwXHJpMCBDb 9FezKwqWOG7uPf5gEddFmmr JQH0Ghq8YI3jqy32ksn7aLp aSWVnsxogAxT9KUdoHBVgyl wpJJy0OPrdCHEyvJA4VZHfc VKmD5YePVYvXS1nlti0HZH1 PSikDJBlRyM9OSFukRDnHHQ txSbkAFnsa756SFS9VqDfEM 4sQ8Uwz9I5wK2fnETyIPAvp QGaWcZtCSLjss3ozIDpDAym k4BvKSO8pxR4vPPozMOsIVQ fHB15Qjuyz0GtUslxw6StC4 8yrRW1SPczy0dxCN6tBgU6l yAzUUncd5bvmQ4mVtL6FXtk OF9zIJ1lTLYtlM0fiqafCOF nYnJkcmhlYWRccGdicmRyZm 2daXmlJOO1YKmlY3rgxG7vL lL6RWoeN9ouzH4bNMw4BLmr wMK1XJKewO9cMV8fnccsh5v xJFgrQIbwBJHtdvJ1wxX4IN ZlvEFuK0WieD1sCUVoBZ7wi jldx3kjTBS3AGlkAWKrFAY1 JdUaRZIiw6Ilree8WaNco4H gwMVhDGxtT14sp560ESJitr MvX3aclTAbdmhpzYOqocagD OdfogR1MQNzKEJjZSmkKWIi XGZzMjJcbGFuZzEwMzNcaGl jaFxmMVxkYmNoXGYxXGxvY2 lmPaEqA6RbHIVtMzGjKJwwN EjjwJSgpNYslOF3fI8eFQ5p EHShxPNbY6AwCVIohgWkrYA uYVG7iHRguXKnIV4fBHwelM Apn8tpf3MrV1yttQuzsBI1R W2gPRDpHOXfSSupp3ZceF4a LlxwbGFpblxmMVxmczIyXGx ralyfNCJlEBdgK2srFsDfRU OuwZttGIvgu4CvNYPoFZZnP rdblrLhZUi1baMwGKBrehwh NCRbkZyrnQ1tZpDqMhCaUii pNP2fVMPgF0bhrINpOSZkAE LiH7lfOkZasV4ypEqtIUavH pTgNjKfPeSBz238do6nUROe tTThlqQHiPYukM0dXSlaKFc nEFeuaBFdVCpym6ewQEKja9 q9oMBbTSGxssKrl1aiGJbfi bPxJEKjhYPrjTGyRJMwk08s TPssdJgriQnjIGBwc3JjzLa al5GfMvJeRTbjq8TnF65cdM JvbCBzbGlkZXMgcnVuIGFsb 50hn8dpGXDpNhT2rMQxkHS5 gZTeqTRxf8OibCafQPDog0c eSTErdi3sblnaoAUxn8XbhJ 5pbmcuIEludGVybmFsIHBvc 7p2cNXtONZaLSJsBNdijGx8 HPWbo120ef0mynO9cEQaJLD 2YWlsYWJsZSBhcmUgZXZhbH VhdGVkXHBsYWluXGYxXGZzM jJcbGFuZzEwMzNcaGljaFxm GZfwOrLpTUShFHlsG7whHkH iH5UoAFTaYnEynYRmZ6gywY FyXHBsYWluXGYxXGZzMjJcb GFuZzEwMzNcaGljaFxmMVxk TqAjYUApIFdfB2xcWyArX2V yXGZzMjIgIFxwbGFpblxmMV xmczIyXGxhbmcxMDMzXGhpY 3hmMqJrNJMpiYznXCwfl3Yf LCGpWUAnLwmecfIaSRj8jwD oXHBhclxwbGFpblxmMVxmcz BfCLwiyqehIBXzVHlgI8zrP oPjAJUriVpoGXpma1YcGTMf IFJnDlioiuQyMJumyICot5r tf6XdJ8karSjesAV3DZMeX7 lbbMDtnIQ4GVM7lU0rXFhql hYkXFPcb0VpRCBwFCNlVgB0 gE3fYZP6ZpGLwRclRRMqMQl uXGYxXGZzMjJcbGFuZzEwMz NcaGljaFxmMVxkYmNoXGYxX UaeK2xrVuGcA8PtDFVeIfSn zWfrCAjzIZs5PokpjDRfqdp mMVxmczIyXGxhbmcxMDMzXG ssN7loLkZwLEEnuDfqVSiky 2NoXGYxXGNmMlxmczIyIHMg TZIijKDptTYNCT18AXAlHNP kzXeqzS0onPZZVDHafqO2i6 V1RZvpZRJyHRr1LCyvtzFmH XYfqU0nEVBwRU6xXXn5mmFk KUDba7DxTF7mSPVwgUQjLGE 5JRWrq3OaV5Xua4UdSBBaYO Ojuu1enoDfLwQUbYXwFUCvy q18DNFaYH1aF1dvQTHbWGFx szCdoGNjv5KgGUFvtEJ0zPZ gXH4RZrHOa36xGHCdZPBDoi VlPVTmrLkrnSL5adJ1jI6gY iBUaGUgRkRBIGhhcyBkZXRl om5yksCnLZFeFXVyp0MbxEZ ywRBvoqKmD1Obc3NaXRDunv 99TSeocIYkki60IC6yL4Yas 4QeoW5dYIyvJOWgg7CejKIo wXOyLKTvd3AzJ4sxcrekEVb hrWNhbT0hNOXqFKw1OIPwp0 LxYTBkk0BmFrSrvcYoEEWwO WWvEXLfuR08NBN6vPjurFdn dxHdQK8sITDvtwIbHWRoPEU ibU5pPJruheZmSBQhdwZ4p7 V0VVxvVCCydcTlQnkzIJR3n pUwrvQ1aEOoO8vwpdplWVtp PCMyo8ChvY9geRCLsDRwk0U ktPQfpRLPkVHhXE7wgpOwCM 1bFDQ2IWsvOPAYVPEzVGvfG LVuVIF1LBxqKkjtZMK9lvQl QSKib5HwZSilR2apG68feNs saPd9sIEuuCvdyUBdfZBsKE CxjdH4y8N5AYTtq7GffrfiH HBsYWluXGYyXGZzMjJcbGFu ZzEwMzNcaGljaFxmMlxkYmN xCXPyICilN6mtRyDwQoJgNj msCCF8uN== Gross assessment was [facility] performed at ([facility], code = 2777) Department of Pathology, [address] [place] [id number], Technical component [facility] was performed at ([facility], code = 2778) Department of Pathology, [address] [place] [id number], Professional component [facility] was performed at ([facility], code = 2779) Department of Pathology, [address] [facility], [place] [address], [facility] [id number] 14:45:35 Test Item Value Reference Range Interpretation Comments Case Report (test code Surgical Pathology = 104) Report Case: [id number] Authorizing Provider: Yari Zhang MD Collected: 10/24/2022 08:23 AM Ordering Location: [facility] Received: 10/24/2022 11:19 AM SERVICES Pathologist: Dorene Khan MD Specimens: A) - Biopsy, Liver, LIVER BIOPSY B) - Biopsy, Liver, LIVER BIOPSY DIAGNOSIS (test code = [id number] [id number]) uZzEwMzNcZnRuYmpcdWMxIH tccnRmMVxlcGljMTAyMDVcY R0odYwnqVh3bTtcTFBuijL8 jIOrWRavc7rzCCR7w6vyyso lVVMyAMbvNv9xlGHdiMqlKn UmTNXiVRe0gF41XMKxeF8ds FPdNBq6WRGhkFBsnnRfByBw HQGfzBOifMH8DRSzFI7iogc eUIywPJjkRHJnjvS7PEMfgK FkU6ByVPIpSU4ysbbkFSI9V SupWHLfYBT9YaFpCXSbd1Cb fef2NmQitQQoCQtwjBMarlr mczIwIEEuICBMSVZFUiwgUk RRUC9SOF1BOWPTMCYQN2QCY RQJO6TRPZrnRWZuMNV4Gt8h yBaxJFurwIj6SBKjsUEyLI2 nwPltAPEpu4LlYSWmeDQceR svexqxRCScJT3lwSJfrFRsg h6utAXxaQ6bhIZakA80u9r6 iV4nWKGqyKIreJyiPATmmOk fNANblF1hWAMuQN5bOZciaQ F7j3D9qRIrUWLvvcUqWO5ng DYnbN7soStfceRultHtCK3a YVEmz75ffHFeDN9CyvNwLDX jgjn4dZVfURZuaCrwt65wMT CxZLJwkE0jjUZnpsPsp0CcJ QcaXTQrKD6dQVDpG88dYqac SC28PAHdfiJxkLHvynLqDJ4 kPZAez75msVTvPZ9MtnDpnF rvvYIqJ5IjiIXyxKFiy0Pot dCax2YmSWchXPXztEAfIJNe TElWRVIsIFJBTkRPTSBORUV JXSUtX08MKQYLQB2DU6fsBk 0QVIGMK0TKAoKIBWCmelGdK ElzalVqEX3foTZguZLdIIvc QWH5xRmaz8FooEOwr8XtbqP zHLYfR2ueZM0dKWKjkZFhyg K8UFBiFJZnLMLvloKkZJMfi i94SIQ8EnOty7O5MGL4NFNb QCDee8feYUIwbHOmEmXbFqB cZnRuYmpcdWMxXGRlZmYwe1 gie867aGFnz9gzLDZlGeT4e QPnRCSrpNKiX231WORaBLox l2iqk0YzUYNblKPaq1H3UHJ DjxkdbNy9zExkL24hu3Y9Hq hoQ2rkNPDkYLUrY4OrKD5cI ANaGtv7EDH1RVQ5XAXqUQTs T9HvBM9aUCFkzHWbGVx6b6c ifYfzNFVeZPU4x4fhLLqxux GaVK3zoe5lgNo7l6hifkQjP QAtLZSxyEZMWAPqI7VpsBvd Bm8fnMy2pZhfYxfvLLL6Gcg 4PA3iir62cyd9lPjgUNJpwc giFaL4QKarEKVidnkxVBp2D IdfEQQkhNH8QIUlfWXtT1Sz QISmVC5ccum1FRV4BEjgCOB gWqR4MCPeuHNpVRQyhOuiLJ fea430RVJ6VwUzVW6dH7Jpg 7S6dP8kjUVnRBCevQYrLxPf HYRyub2zrQEhTYrmk4SiSYV 7zlM9eHKtzPYbMAZqHpB9QU gePP7fgp41AVRpQWF5nd4dq WKedZqjjjOpgMJyGNjpY9Ue IUXgu872FXWtO8IxHHXqx3Q 3ghZoIwEtCQKhxKR6frY3FO WhHO5qeahjb3fsONglDMebX VBfagN0fnN9EIGfaLEzU0Us wG1vUEWjWD0fyaytn6osKMW 5BKxrMJRcTKI8ToUhDUJyo2 Qlrrq0IlZcv7NtnVAsYIvyY 86iq876RTViwxAkJ1dbaMVv qljykPNrjdwtLFsxfnU6YXG qEIejudxzEAReOYtsV9wrUb GgLUBasAwgCHwla4KvWMLeD OLgTrJsyJUwMTNtMzs3MLPh dLAuSZPkYoWqG4dewwhxYfV DALXax1enC2lvzUNEjYVdO8 QgUGhvbmUgTGluZTogNzEzL Bm6QK02DsWmLMYpzg76 CPT Code(s) (test code u1kccEHaQCOgrAYbDVOkRHm = 3357) ripWfUHJtfKHtX2CdggfyPR brPY9xTS4aoOqdeINqhFGrU IUlLkPeg2fzg100gJOzx7te UCEKmtoxuHn9aQojQ88jv6H 3LhpjZ89ogFBdXGT3ZFXrGA GgwPTtZWSzZAZ5ADGmbFBuD 7jmVIIaWQ7baxzkRVvqBErl OOGwiVF1PLQseOVeM2LyCJE tCChkKXCtywx7UkUvJh4wfP VyeTcyMFxwYXJkXHBsYWluX GZzMjAgODgzMDdccGFyIDg4 MzEzeDRccGFyfQ== CLINICAL HISTORY (test b0cbiXAiEBFedARiAOOqBXm code = 3356) jvbPbLLJalKKvJ3FbecorYS kzAJ6iKG4fiGwvhXTuxDDzH XOtHyTzy3mhb967dIMkd7mb NGCGNSudNFJFWPj8x9glRLJ LrsbzwOo1uWklQ12wa0B6Ye uaB79swXZqWAQ6WEZmHISaa YGtQNStPQQ3VUCvaKRqV0qh CESsTL1psouzFNplNNinEUM zgPN2TARflSWqC2UhUDXrRM bsFSJfeje1FqVzKd2gbMLdr TcyMFxwYXJkXHBsYWluXGYx EVHyUmHmBC3yYcruXO7qAMB dyBbpOTVcTBAtUUW1M5Kozz KpKYgxebaxoowuUu6maIRuZ AJoIOweZCS1IBP5LcAjQVaj MWUoKYPzhWwtF2PwwLDrDFM qpVdiW5SzhNRhZKUsoAumZV ivJMImJLQ4iNGfRAInt6AxN WdpdGlzXHBhcn0= GROSS DESCRIPTION y0xzsDOaGRDmaWPBMUMzUKE (test code = mKC9qyOonrRe9vCkkFVEgyb [id number]) Z6wGHlAWywa8vvROF1o0wro gSCUjglSXZcUJ5cEDnwRCUi CP6aRmPoLZJkQjWyJDCqfVF gwsYuOaUqTABbhBXlrDS7SG QqRA7hfdzrNAzuMLseUWKkx aI6KWMwyDEdJ8JtLOXoPJ4x vcgiKFS5FDSUHusfFh2ieHY ibHtcZjFcZmNoYXJzZXQwXG GtzPshATQjASu3cL0WUlozT 03gq1Q3Kvs7ZMWbKRUnD6Vl YD5gEZTidZOtZ10RTzvfATQ 7WCLQQfpaWuriwBqmp8ArxR BcXHNnIFxcaWQgNTEwMDAgX LesYlQYVgTeXkU0CkR0OkY1 JiZ5JOw3XTJOLRXqDZA0XvL 5SfQ9CJt9XBJgIE8eOEtnuO LtYSqoSfxiWQinC093EUxdU CNeI0XcD1EvWRqkCbBhIPjy WUMxZJOfEIxcUGNyI9MAVQW kLDKqTKp5RgCiZUl5AKxtP0 VQTRBwFJLpChp5PZy9SfN0E Tv4RXVXXs4fYyWnVSzsMPBr IRZ5UXryQOfhbYZxCShch6G tBkEdVJUwAAfokhO6RUBdeh WfCXjulAbmeI9yWmQsAuHCP aKKeC1gn4hvUDoyghXkUEDd kkHDDtfiEVBtAJ2SVPUlJIg dTAPfNeSoxEYaW5qnZWDcD5 3rd9EZj1YkSC7HWDj9qxNgh uudzO8uTBOdmpNwMKpwW7Qj LOUkTbDfKiKpUIr1DROmtB6 eHc8daTInmV5opONlJOktKT L6vLElZLTnSEIuARZuOJ86Z CdCNHMgbmFtZSwgbWVkaWNh bCByZWNvcmQgbnVtYmVyIGF jBJPtaYwrVhOkDOt1L4Nzo7 DilLhwkFg0BKJtZGgaPMMoU U4jAWOeDKddNTpkppe2pET0 AQ0wa86gsMP5xVWicPHoN00 iTXCitJYyaPQ1DZNixC3jkA 66bwVuyvSHWN0lbAZoOP3WH HBhciANClxzYTMwXGVwaWNY q3AjOAHOPjbhPqFdZpJoJcA XKkgkkGqkLwWyjVYfTlL3SG CddHYrQAJ1YU1hsOvuZTUnQ Bg3POxcBKFhM8TdD4DcUKck ZyBcXGlkIDUxMDAyIFxcZGI nB6YFDCOlSEWxDCa1ZoYgZT s2IWgnY9AGAHBoRKRyGhi3R GQcOdC3QRh9YHDLEk0jSsIc AwN7PGRtDVQ2HVqgJMgspCA wVTacr9EjWvGmDGOwMKgizp S9JFYrucUew3XqIDIwGPSsN 3hsNuUzDWJGRpHbXHHgn5Ck iKkqXNp9JSEdvSNwDR2LXKA mpmMgGUsbtJfoqI9cfBCbM8 hcZnMyMlxlcGljTmVzdERvY zEgDQpcbHRycGFyXGxpbjBc lrueZHpwIiOoGYFyuOPDw5B lRYOJJvtlhjCmMRDfL9Tatx VkIGZyZXNoIGxhYmVsZWQgd 6y4fTQ1sSXbjIL4bPUyeBqp YyJxYZ0blMXnWE7rBVmsKBi oeuNrk7WgEP73rWPgbwXvbv TvNbTkm4HuvLsqxUz4TLFjL CauGEYhNQ1nOLYlEHotIWns fkc4mNU1HZ8stkVnSPTcAaW wpDzkd4StTDMqsnYpDCAMdN Iqy7WaO8gcQF8nlOVwR5e4H G6guM7kfhRxTXTfV6qdLORJ tqYuCIN7cJ0twxOnzoEtf2B ufCt1rNAoZQqti0NwJC4ndR kuXHBhciANClxzYjBcZXBpY 1wnHcNjMAjaiQFdGQ2VTBDm FuCtIXGfE7tdQSYlZK8YK1u jfGZpXRNDtxN6buxoTFpWVK OAWSQmZONNZCynpE8MDWNsp GDLDAH0BQ3kGVkpHRIwA2Lx J0RvryK9q9vjfJapa9QhsNC pSG1vbBPqSD5BJQItryXjMV pcZnMyMiANCn0= MICROSCOPIC d8vthAMzHALubXQcQCKpCEs DESCRIPTION (test code zneLxUFMklWZoF0XqgdlhBR = 3371) cqHZ0sXE4ugAqsnPRjxMGkZ QSsRsVyv4zay508rDMzs5nn EFJFqrozhYn4bCspW84bg5H 2EfbzZ67evDZzFOM5WIFpQY CdmQRgJLXgLQO6WIEblCLgQ 0ryWLIiSJ6rfosiXCfzJFhm DBUhbRD2DFYetHLrU2IoBHV iQRjcJTMwvzo0HnQvOg6flY VyeTcyMFxwYXJkXHBsYWluX RYeXpJmG5xcC9xcJPKqJI89 UXG4RmHuiQK2gHSsUOzkpuZ bHKRsuiHcd8d4rJVcgVTcb7 wyhYY0LLy6RDHjaG7auOXaS COzhYElqkIsgrJieQHfr7Yu skPiURwebTR5yDHkbPHmJV8 ewXlmJR3dYVRbBPAoDVkwGQ 5isABfrDLjek5rrPYhyZ4uw RBoju76QILonR96j1l0wO9o IGFwcHJveGltYXRlbHkgMTA uyT1yLBRlPS8qCIUkXNLvAT UjhN9kkAYiccSaosNop15mn nRoaWp4CSjsWVWnNJBlAQ06 oySeZFOakbSyLZHctF4nAPP id76jVKPQhwOuJNYrlns3wS OxQEWwkVhym92cHNEwWSPxm Y1paQBttrIpt2EhED2nJTNm IZKrPNjrXD9ytMGpeA6jeOq pgwGgspIoYL5uVACav92rW6 2qtKZcb3RlUP6lAMk0rPUod 9G1iQBkMSznl8Olv9Q1vXQs ZVjqxCfoA8Ywp0zySVinLBS zOO7bB2FnfFlhN9RtYgWtJA gsnnZveMZpsAinAMBxyH52g 74hKAOgOXOhiIU0YKVji02g gm12EZHirX1ljViaHDQmgkD kQUzmoiInqOdxvrQ8r52hXu XrTK4sjTOySTQmXAX2lvFtj S70eoYzrFrlLL1hvpTnHUCf ZmljIHBvcnRhbCBpbmZsYW1 sCHEry51eZDWYvMZzGCJsur AolzRlqQharCDrX9CgbMFvn xOtssPaU1YyaXHbRRWprOww NL9xgGKtKcXmOYomHYOmiHF gZHVjdHMgYXQgdGhlIHBvcn HtnRK9blvbNTYttTPvHYShY DOgSSQvCOMfZTNbofDdRJ0w SAStzIQsod5gCIUluQWpxaV ycY34xpVjpfJwhNxoxPXsX3 SlbIBjkUJjb0Cruq0dGQOrb SiqmZbqnzWxaJUbvsIstC79 ppZwacXcJPY6STFfrKXgXYR wGmZSQXOaidTygB5lEcJnTR FTRCBzdGFpbiBpcyBuZWdhd Xr7NTElf8MhRXwonZVgJAIw moVkiKY5lLEtqrLoaW6lbOy ppt9cZQwdt27bz4XioF6fcF JmqnXmKTBerwSvLp3mYCheE 3BhSNYeWQKpho0tNeFwJABf cn0= SPECIAL STUDIES (test y7pvmIZzOTVbp5iwHECnoWI code = 3376) uZzEwMzNcZnRuYmpcdWMxIH neehXmETxpl0IjJ6GjBuOnI FxhbnNpXGRlZmxhbmcxMDMz EXK6xvFpACHkMJeqPOXiJBs oJi0hqVFhqSklAiHoDWTdf6 kityIIkmhniCt0x0czYORyL wI3oFJuZSevC2oratJhxFCr P3LpvEHeaEt4g3pyPaNeDxF 1nMStCOtrJ7jgzyXnqCPqMS PsLDu5dJ94ICTlqJ9oyBNaQ FmhczCtUzC0NJfpCGQyZxC5 DVXxtOQbUHStR5rlGPDuUQy nAFSlDThqsIHyCBO9yYvds5 D0qLZehAXjpFlnUrZmMmXpV dBKz3KjKYy4kBdeW1KeWRKk ZzM9jXEmLYYmCLovDWAyOUS uzuW3nRhmahAix89uaLWlYG YwXGZzMjBcbGkwXHJpMCBDb 4KfoXwfLOQ0uNz9kOpmTnpz JKC2Fkq8MU4ppf94ewk0aWm gUCUccthwCaL6LNjuLPYdru otYFe9COxwISNnvUZ1DXCou OJiY3OwGTMoPB9ajcj1AJO8 ETflGINlSsF0AKVkeFJjJXL rhGmwJJrfr895JNK2RtPvLG 5bM6Toq2G5oQ9pwZQeNHQdd UEuFiLjYNWfdm9owISnTAqh z9YrFJZ5rkT9tUKeuWQjICB cFP02Raclm0EbNeqve5RtM4 7cjFY2IHzrd1gtII3hWpV9s rYlFGhwm1dowA5nHzE2EQos LX3iHM8bVDRlaZ0kftswXRI nYnJkcmhlYWRccGdicmRyZm 5tsDknZNW5KKvqO2xlkP3iS aD1DGquD9jelX7fJFs1RGqv rHA6STYzqR3vAI4gxulut2g tOBopVYdfSUDiykD4pnI8RP XrbPNfE9GviJ9gXFAhNL6es bazc1trFZA7SRciXYIrVNR2 SgDuZVYxt1Qvmjo7DrCoi6F lsNUjDOevM22dh427ZBWtew XpH3dxjZXvjudhgFKlfbovK KczwrZ1VLSsKWMyCZisNBTc XGZzMjJcbGFuZzEwMzNcaGl jaFxmMVxkYmNoXGYxXGxvY2 auQnVaX4YdCDVsWxCdEPdtF UjvkLWlwGZllHJ9mA8tFF6n XJBagCBoA0LbEVWugoMqoMO cNFC5hWGtiYLkDO7tUMmvtU Rbc9evz5BiB2vqaMqvcWA1C I7sYGFiNFDpRJart5GrhJ4q LlxwbGFpblxmMVxmczIyXGx cwypeGKSeSWboH2qwYuTyDA YohCmpQYoip4ViMIGiZSDeY aqredYiOCa7avRgPPHmcjgu GGHntFenvP4oRfBrFhZzLlw oJK0cTVKaK8itbUZwGGQsZF IfD8bwSyEfrG8imLsxLJtrS sViKqNjCiBHq501fx6rHBEn cSOnugIRnNSpxU6qWBmeJDg sMVqpiMFlDSnsq1uwVHAev2 k1xQRdOFUvpbJct5vyMBfik tVbVVYtzFTpiMPcSJPdj56r BGfmkZymiKxtOGXvy6KtzLn zp7ArGhZtLIxmi6HdL81mqK JvbCBzbGlkZXMgcnVuIGFsb 41pc8zmPJFlWkF0jDTvcJK0 kGLhtEMzu8UyfDkqWONcj8u rHCWvvg9kgfaetPPlo4EbgC 5pbmcuIEludGVybmFsIHBvc 2l7oZSlTVEdIXHcGNeuiPy3 RRQda549hn5mziY7xXYhGRN 2YWlsYWJsZSBhcmUgZXZhbH VhdGVkXHBsYWluXGYxXGZzM jJcbGFuZzEwMzNcaGljaFxm LFvoMnQgJTXuTHvcF4ywDcC oC9GnHHHjXbJqjOHfI4wfsC FyXHBsYWluXGYxXGZzMjJcb GFuZzEwMzNcaGljaFxmMVxk SfGtLTVjXRceQ6vwZkSyV7S yXGZzMjIgIFxwbGFpblxmMV xmczIyXGxhbmcxMDMzXGhpY 7vxEqFvOCXwsFabQZgan8Eq AUVjSGBgAttktaTpJNq8oxN oXHBhclxwbGFpblxmMVxmcz WjHKmwfguyPMAnIRztF2mqV oKyAWAysZnzOJlbq0PkICPn FSNxHrquipDdDChuyXSrs4n od9NoX7rqdPtwyKS9CJQdV8 retKFmoQE3YAM6oQ9mXZskx iYeWAJgh5IyKLAmTFNhAuX2 vO5tSDW3SdWPnZtcHBUwQNa uXGYxXGZzMjJcbGFuZzEwMz NcaGljaFxmMVxkYmNoXGYxX LrvI4efUyXdM7ZrYHHmJsIi tWqnSJvxNCh0IxgvuPBszvz mMVxmczIyXGxhbmcxMDMzXG ahA1ovMyJeWYXbpHaeELnsa 2NoXGYxXGNmMlxmczIyIHMg FWYqcZIkgFJVIJ76AAImAUZ utRzscT0ybGBJQQSwwbL1t6 K9IIbmOZOqFFa6EDpjriGvR VRlrG6vXJTiRJ1cWLv7qzIx EFQeq0NsFG4rQFSzsBObWTX 3RFXhm6LmN2Kjs6UoQYMxVE Umwy8ddyFuYzYJcWMoFNFet r62VPCjHL5dD4xvYPZxXZLw aiIbvIVns8LsVGImwTZ0iQE gZH2XBjVBw72yIZVnANSMgl WuHRGahTwhuAS2ovV7qR7tB iBUaGUgRkRBIGhhcyBkZXRl yl7yaqWjHMYkYROqy1ZhyRV guLFbegDoJ9Zgc2DfBIZdxh 73XQgkgGGpaa16JN0dM1Tlu 2EpnW9fZVkwLSJhm2HfmJUr cRHsMNSvy4EyN5wxldncRBy xySRflL3oSQWhZMt8HTUoc2 TiNSKsx5XkMkByraBdIVVoU IJcQAVamH64YNF6wGpmbLry fyPdCK1aEDXsnxAsQVDxFJZ viL9rHRevvpBcCINnbgY7v3 C9MLgkFACkxdSiWcviPCD9g qLxwqU6cTTlS0fgqxinIRuf INQoq7GbuT2gbIQIlPEow4I efAXjdRGQxYLoNL7yhnVqHB 9pDZD8YYdlSDQCNMCrNIjhI UWhOJT1JDxzMmoiCSN2zpSi MHVzg2QwTLhpK7ydX57uhWs rsUj1wCHgmRfazYJgtFUoEQ UtvmM1z5R3ULWgk5HcohsfJ HBsYWluXGYyXGZzMjJcbGFu ZzEwMzNcaGljaFxmMlxkYmN gTLIjCBggJ7poYiQaSoPgIv zrTAK8yA== Gross assessment was [facility] performed at ([facility], code = 2777) Department of Pathology, [address] [place] [id number], Technical component [facility] was performed at ([facility], code = 2778) Department of Pathology, [address] [place] [phone], Professional component [facility] was performed at ([facility], code = 2779) Department of Pathology, [address] [place] [id number], [facility] [id number] 14:45:35 Test Item Value Reference Range Interpretation Comments Case Report (test code Surgical Pathology = 104) Report Case: [id number] Authorizing Provider: Yari Zhang MD Collected: 10/24/2022 08:23 AM Ordering Location: [facility] Received: 10/24/2022 11:19 AM SERVICES Pathologist: Dorene Khan MD Specimens: A) - Biopsy, Liver, LIVER BIOPSY B) - Biopsy, Liver, LIVER BIOPSY DIAGNOSIS (test code = [id number] 3220) uZzEwMzNcZnRuYmpcdWMxIH tccnRmMVxlcGljMTAyMDVcY Y6rkNwpcNg0qSowDMJeoqI8 lMYgQBwrx9dpYUS9k8rbjbk lXPWyCFhmMi7boIMnbWiiLq ObBLNhYHh1kE42DCMplB6tj OZaTSu2RMYaiMOnrjGvBhWo VFYykJTtcUT2LONwHO3qsxx hMTvkKHufGBYphuP1AZOftP IgJ6DrTFKzMV3nltyoXZA6I WvwQFZwKCK0RcPeZUTsz3Ck cij4JuLhgHCqMJqlcQMdinu mczIwIEEuICBMSVZFUiwgUk UZSY5HCP0HPEAXDDYPM4XCG KGMY4YNZDjyLOAgJBX4Ps7f aCvbJFgkuXc3USAezQEpFI3 zhMaiPOJak5RuDBNzyONnkQ zelzdrDPNrEB5umZQodFXlw z8skBIqaH4ncUQknB87s8r8 hU5mISXucJKqrXrtTMFxtTa xINBlgQ5gPCIsYP6sXXdaaZ I6e6O1fSRyNKOzqlKqMB2ja QPzbH3zqUsrguYggjUvWX7o EEBpg56wkIArMF1FxoKnLPV joif2bGUxEHCxfKmgu46eVD SxOFFidI3gpBOnefByb2OzH NdmRGMxCK4bMAScI45hPnxq PC44CSJenxIsqPNpxnYfXD5 rJYFvn73apKSlOH2GvfNvcY ywgRDlV3DitXKgxLXas2Rwp aBgv8RfOFrcZPIheEIuLQYn TElWRVIsIFJBTkRPTSBORUV FTSEsL08KVRIKLH0RN9opZg 6YSDEKF0XWJwRNVYNxctLzZ LvsxiGqEK5tlYUugOMqAYhx KIX0uZezn3AwsTWes4GoxtK qCGPeI5wbAY0zHUBzkNBfbp A3XDXgXZLrOKLiaeQuYRIki h79ERI0AtUhj3V3XXU3VEFz QCTrc3nlDXRlgWDyAoHaPdC cZnRuYmpcdWMxXGRlZmYwe1 idz773kZUfl5hkKFXjEgO2u GUbZMIheWLkE222BGRvGDec z7lyw2FgZDForEHbo8D3PTK WtebrzHp5nDhzC25ip1I3Fz xuP0vuCUDxQKWhJ3DnIY6sY TRxKqe5ETO9SBO2WBUzJWBi Q4WbCG0jRUTkzFUxAAp4n2o yqYefTTZgCHJ3f4gfQKuudn WiLD8tsh9zdWy9a4jbakNpW RMxYVIqtHQVJDBdX9IrhQid Qw7ajCp1qGcqOddlKTU0Ihe 8TE8auu59vwl2sJqcSAWkpo ydVkS5TNhfWRYzerurEHz3Q LvaGEKpcWK0CXSoqJTeR9Kw NIWtOW9zslc1DCP7JUhxUTN uMqW2UBPrfOZmUMWfwZpvME ewd714MWR0DfNjLI9gI8Ltv 0S9cX2acTMaGSFjfVSeBnIv MDXwfh0lzEPoHRlwr6NsECA 8frV4vALgqHDxYMVvLkZ4AN wwOZ8qvb92MDNlZAJ6ot7ib LYujNnbheZohHTcKZirO9Ki IXYiq141MLZjB9ZyJUIge3N 1ejQhUyTdWQOiaVE0dwL3WB RoHP8ofkzug7pbBQyjCMwpQ AYfbqJ0ipX5LIOcuPQjG8Cz iM1pRCQtKD2ybuwxc1lrRJS 7SBnjIEBjZVY2BzEcIJLgi2 Vvxjf0RvCbt0NrvHSnDKuvG 51nx850XGHmcbFnV1qrmBQo jccmgRUeriojEKkxosR8OQH oGZblymhhNLMjWUnmL2mrHs WsQDJsxIfaVUndl8AhKNYfK SWzUoQrxJKqQTQqDlz8XTCo mQVkPOBeBaBuY2ruyhvqZhA OPCIkr9mhR1ihyKPCrZOvW5 QgUGhvbmUgTGluZTogNzEzL Iq4DQ80LkEnGSOyml13 CPT Code(s) (test code r8pfhKRfLYJbsRYfFAYiROc = 3357) ezxLdNWYyhJMlR8JvwucpDZ gvKR5cJL3vmBftvCQtpOVzO VNcGbYiz3hhb541jPZlb8ei OWBKyoupgZp2kGjdK73lj8O 7AqvqY81jeGXqMMK6RZCtPS EaqNCgTAJjRCP5WEGgeGUhL 6thPWFwLU9uszbuGSgaQSre VFXfvVV5QHWmwVIkF2PhFXF gLDueCRGqxbw9SsFrLz7xyD VyeTcyMFxwYXJkXHBsYWluX GZzMjAgODgzMDdccGFyIDg4 MzEzeDRccGFyfQ== CLINICAL HISTORY (test d1hccORsJBSndUFvZCFxWAt code = 3356) yuyMuLDGmrQDzJ8ZjhmxuAO ilDD3dER1uiIbdxKBxhRYnT IYhBnOpl5oqh775rYEth3hn JQWXIJuaFXROHQb3t8fcQID MlzhufKa0tOgoK63hz6T6Qu msS09cvCDbNWM7OTIgGHKiy EZcOENbLZH0FYUimGQyS2ho EDJyPR1dukahBUwfRQmaPLG joMG9BXZrsRKoO6KsCAVhLG ptPZBnuel7HvNkLe1ycWAas TcyMFxwYXJkXHBsYWluXGYx JVXgKtDjPL0dFhtmLD9qLCY swRmxNYIxFHZmZLU6D1Idgb VzAQurwlqyyxteNt9fcQCpP MEdPQjxWWO6QNY0JyNhCRbk FVGxRUAegGvcS1FhoSLaQHJ pbYnoE4PkdZYbSQGlqAwkJN sqSYJdYCF1yNPvWKYsa4YzK WdpdGlzXHBhcn0= GROSS DESCRIPTION u8nerVPfRWMeeXAUVGDhUKM (test code = sSU6ckZwhtVs4uHvjIOHrrq [id number]) C8jFNxBQiki8boITW5f9xxh rMUYyboQEDbOQ7tPCqmWEZe QM1fKkAmBLTzPcWyLHHctZS niuWbEcEuXTRrpWMgrEL7VW CuXJ9autftPQwlWSgvRTDbb sU7RQOisUNdB0WrLLClOA6c zdxkFJZ0HGWJXcjkGp6xlFN ibHtcZjFcZmNoYXJzZXQwXG NshJkvKKJvCVn0hE3SRstqH 52xq8J8Qzt5NVNmGRDrH0Ye EN2aXPWymENdL04IAnubVOQ 5CNDRDquqNfcveYlkt4XqdM BcXHNnIFxcaWQgNTEwMDAgX RrkZsTNUsIxXqQ0GaQ0MbG3 RnU1ADe1LKMBSFIsGOX7FmH 2PvB9IAj5WISlIZ8tWCmxdY KdPLerRdclBBqkW226RPeiP EVxO2IxM9ZoGBabLjKkBFwm NCNtENClHGuxGGIqM4BFEJZ hXXAgLCr5UyPkKSe4HXxxD3 LZJHTjYKBhZho6YOd5TkE2Z Yo4WKEISw7oYuLgMPfcMQFq DDQ0PZdvXMwgxTUjYZzde6Q xPiFhTPQjZPlmhqB7ZPXdge JvETzfgIbreB2zTdOaCcAAU rUUvM0qd3amJNftmeSlXMZv hbUKHxgnZIGnGA0QBDOeHQg fTUPvYhZedRAdY8cdDWIbT5 0ha7QKf1JyDB7UXZp6eoKge ergfP1sHDDmysOoAFeiD9Up BPJhOyYbWiEtTZd6ZCOwbC0 nUh8qiDRtfM2hpWUiBRvxEB Q6gISzZWIrFEGuWOMuZU91N CdCNHMgbmFtZSwgbWVkaWNh bCByZWNvcmQgbnVtYmVyIGF bLERrdNshDcAuEEu3Z5Nua5 KosPxydYu2CBRdIDqvUSPvG K7zUZVcJTtyEFqkidr3eUD9 UN5zx23woUS6qCYdvFLqB59 cZJOyyZEcvHL3WKSxdU7fnE 02kvCwbvROKG7ysVTtRQ4SX HBhciANClxzYTMwXGVwaWNY s6QpFVJRVmwfFtXeMzHvPjU CTdjeaTgrSdMknEXhYcJ6GR IxqTKqSXE3VC1dwLixZIIgX Ef0OWynKNNgP6TsR4RhMKzx ZyBcXGlkIDUxMDAyIFxcZGI sY4KOWVNeMGQvQSb7NzNtOT g0KVnsM3FNVPIzBYNnIfi9I DJwIpZ6GDw8BJAGAq9rGhVp SeB1WKLbXBE1TXleKIjasYV uBTrec3JjXoOiWAWcBGqliy R0QEEsaqWnf3NwXVVlDKBuI 3vhRlBoAIKVYiYcZJYle7Ui jDouIKn6TMDahEJvSF3WFEY exxTcZVjtsYyroK8yyIIuU8 hcZnMyMlxlcGljTmVzdERvY zEgDQpcbHRycGFyXGxpbjBc yhmuAGszJjUhTAUyaUPLs4N aSXXYSeonddPjKEPbI3Yiey VkIGZyZXNoIGxhYmVsZWQgd 0t8dWA5pIBzlPC9zJPjjIkp JwSoFA5biALmYG7nJHhqBWe fnkZrq6LnTG22yJSueoQsje CcXdHqu7MphAelbXc7WGKkE WahAUMzUC4cAMXlFGizBYrv oks5eRQ6RC3jjaYgBPPzFwU uxUozj4NjJYFlrtPrEEEWpP Qym5BfK5wzDQ8nhRAiK4h0M R4ybJ9fnmVpANYuK9tuRLYK rfXbRHB4cQ0uweSvvqTvm0D fkUh8qWEqKDwjv7GlVO7wkO kuXHBhciANClxzYjBcZXBpY 8loYuSqUAhtoZPbVX7QXZZr FiUjLGZlT0fuHQMbJS7JT5n kkFLyURWVcvL3ykiyBXcOHX RGIIWkAXRVHNhalA8BPAQeq MNSNDK3AX5tJKjzUBIaW1Lj S3PzvjD2q7iguRbyl7CftYZ fFZ4spYDkTZ8FCEPemgWwSB pcZnMyMiANCn0= MICROSCOPIC a3tbgPIjXTLulBMlSTXrGQr DESCRIPTION (test code ljpWxADSlfKIrE9EagnslMP = 3371) uqSI5lTM6afZsebLXxhAIxS UIgYeJgp8fch727tZUwh0bl LDBPfotuyWp3xEhrJ82vg7Y 3JcehN70uzFFaIRG8GSMeMQ JdlCNkHNYwGPX2EKGtpCYaS 2xfFBAdEE6hhblkHKzjTVxy TKGnuHK3PKJitMYeE9IoVPY gIMdfEJJrfey1FaHmTt8elL VyeTcyMFxwYXJkXHBsYWluX WMbXwJjW1sgX1qjEUUjDB91 QHU0EqNnxDF4xCLnKEoevtP nIDJfbeLxx9s9qHMdkTXfl5 iapLH2LJp9IXCvuY5tcGUoX CVwjLHwkuCwmcEncAFau8Dz kuFgSZsghPJ2iWTpfSSaLK4 xpEneAM8bWNJiFGSoSMiaCS 5iwBEkdNKdam1twQDujF3uo RZqfu95SFFuxU94p1s5uB0q IGFwcHJveGltYXRlbHkgMTA owZ7gQXLdXE6kIOWeLEXhSN QmiL8lpCRyhwMohkRjd87ab qAisJw6IKwmYGVdTUIiIG12 vaEdAIJzehDgJOZamD4jFAZ os94iNAGLewMsIKIrdtw8nR ZlZDDdxFvdh57aZIEoJHDwa W6qpXTbddBro3ExWZ0sQTDn HMGvNPsiUJ0obHEcbE0rrVd hnmNfvjKmIZ4aGXGno65yB0 3oiVNzy2RcPJ3iNPr3bXPrn 5J4kOSbHIwgh3Smy8E5qSEk ATjksBrgE9Mtn3zbBTpsTRV pVL4pB6VbgEwyG9DxQwTfRE ifuhXyuLOeaZfyCKKjqH12h 95sVHEuBCRrcFB6UHMrv93l qc85ZWAtuY7eiXuwLDOhlrP fMJmjqvJgyMfvgcW3r66lYf AySQ4siFHzNNOdXVS9snLuv M77bfPkkHnpJT3nmnJoPANz ZmljIHBvcnRhbCBpbmZsYW1 eQHGzf63aBNQZyBGfONVhbz GmwvGbkYbqaIUyB1GapOKxd vHxpdSeV3NebABgSZHyrFmg UC9ojXTxQlPcYWmkFZXrqNL gZHVjdHMgYXQgdGhlIHBvcn XdbAN5degdCSNrfRCsHIHfY KEjEEJjVQQtDYMkkiFlNZ1d MQOsbVKodw9nNRHygUSckmZ qvR46asIzuaDhxBvqrATgJ5 MxoUGcqYGtm4Bedm6zPACdj KmdvFzytjQmwHTxzvEwmM99 vkNfnfZwNLH0CYUrwFPgMHZ iXaDSJUGlllVlwK6zIwJhPG FTRCBzdGFpbiBpcyBuZWdhd Cp7DNPff2UqZLqjyDMgXUEb mnUcnMN4mWCuxeKmgO9irFm itc5uJCuyf43jh6FmdY1whX JaggLxYTKystNbNq8fUXijT 0JzSWCiAAAxkv9qBnYzPPBb cn0= SPECIAL STUDIES (test m2kkwMQbTEYjn9gjIENqjTF code = 3376) uZzEwMzNcZnRuYmpcdWMxIH vineUaTLsew7EpR7JrEmNsF FxhbnNpXGRlZmxhbmcxMDMz COG7czMsFGPjTAjyGGScCTd uVe2xaPWsvBnhHrRgZYFof5 ccdsCGakwilVy7d1deZSHoV kM9iBJoPKivJ6rcrvYfzKNf Z8BblCUgjNz8w9adXmOzCbW 9jMLlZGgzX7sbfyMmqYJoWD AwGIn6dS13XNDrkT0hlUEvB VvvfaZlScW0IPygQZNrGcZ6 FMDlyGYyHNYjP6mkPQBtSFb jOVIdRWkvoLUsNHW1iTusb9 C1nIFcfHTcnDzkSsFgHmZdN pLVy2XkUAu2cBfgP1EaQKUu TkD4iPHeAKKrXZuoGCDpZOP solD3hOruepBhn64jfRKxBF YwXGZzMjBcbGkwXHJpMCBDb 9HrlEsqZKH1eAy4oEroJfci YHP1Fcg9FF8cnk76ebe2qFm oTRXgbgdzYvJ7IAizZKTepn xvAHy6DKczCILoiOR8JHJlp XBlI6KuJZAsFU5onrr0QVR3 ENkaWEJsIzX4BWBprQQwZUL wpKzmKGout496BGQ6BcAiPF 5fO9Uwl4P3lL1aqUWaBUKbx VIlIzTyKFYqfc0yaQZoCCaw a5OcAEJ0peS7gTOxxUNzYNO kLG43Qsyhj4YaUztcq4CyY6 9jzHV8OLajn8pvOI1hKfB6c sOlGPpkc2onnS7eGkF0IWra MY9xGF3yYZUarF9iyvauMNU nYnJkcmhlYWRccGdicmRyZm 7gyVwzTIW0MVatB2canF5aR kV3RRarA4rmsH0tNBf7CBec dAS8PVFywZ2yAR5ymhlrm8j uMVbpAQogPLXypyD5dhR6JS LdxKMxJ5DgqF4lQUZrEW4rt oair0kdLFQ7KYmxJIDlTUQ4 XiHqRUIfl4Hnjkw8EeIys3O rzRZhFFupL19ed370MOVary OfV1rlnQYdgspurZGhzvifK BqvytR0CVQwHRPwVBmuQZYu XGZzMjJcbGFuZzEwMzNcaGl jaFxmMVxkYmNoXGYxXGxvY2 nrPdYhU3ZsVJZiTkPvQKszI KewlREutBPqaFC6nJ1zTY9f LAZfsBIxY0LtJEYmthTgxDS aQAV9oVOlgLFmTL9dIGcexS Zyx6sia0QkF6niyNbplAD1M D0tVTVoUXKvFXkjv7XinB8q LlxwbGFpblxmMVxmczIyXGx ymvyqHXJlINwhY0wwXeBbMO AbiJhrVXptb2WvRXZbSWGjY vuzjdCdSIk0wzTrCODowfex QMFixDmvaO7pWpAtPsRkFlq kEQ4xHCGdT2jtuVZcZDOyAT OnD3hjRbBbsA1qoVdnAAykX wChJzOrGvYDy422io7tXQBr xVXtnqFPhJOjzZ7yYGuoAQb mAEvxfQDgNVycm8umDIDdw1 e1zVGqJIKetfBzy8dpYRxkz qHiRDRfzSZqpYJjPGTag52s ZMadhOtduGehJNAlb6NufYk ob9PtFwRwVCbno8UwA17njO JvbCBzbGlkZXMgcnVuIGFsb 65xz4wlOLLuTfN2nGIgkDO1 oMAezYAtu9DluSwsMSBms9t vQPCzdp8lghowtMPla8ZhrX 5pbmcuIEludGVybmFsIHBvc 9y9nQRgSUAoPXKlZZwrxMp1 GXDgg182ie3roeG7tWIbIAX 2YWlsYWJsZSBhcmUgZXZhbH VhdGVkXHBsYWluXGYxXGZzM jJcbGFuZzEwMzNcaGljaFxm TJeyMxKsVQQuMLaoW4vcZfD mA5WxEXUjGyQwnEAhA8jseV FyXHBsYWluXGYxXGZzMjJcb GFuZzEwMzNcaGljaFxmMVxk LeOiVPBfXNnmR9lbMyMyP4O yXGZzMjIgIFxwbGFpblxmMV xmczIyXGxhbmcxMDMzXGhpY 9zdQkQhHESnuAvlDHuch3Wx DDPgJGJqZcvqapAkMFw9mhW oXHBhclxwbGFpblxmMVxmcz GqMBulxmqqSYCmVBwjW3biN nTuZWPztWvvLMikx0XsIRAo LWGpDtrqckWyWToubIFky0x oo0IlL6pqpQukvWK0POPcL8 gclYEjrWJ4YGR8nI4jTNkqh yCdKXWck8AtJNAnCZMfZsM1 oV5cHWX5EkIRuYscBKOkUHh uXGYxXGZzMjJcbGFuZzEwMz NcaGljaFxmMVxkYmNoXGYxX VtmQ6pdNlQdB5BcQAOuWuMr pBhqZKneZGs9DgfzlRSxnin mMVxmczIyXGxhbmcxMDMzXG jhX7iyEiGuYDIckQlyPLdeg 2NoXGYxXGNmMlxmczIyIHMg BVKueHFlhNTWKP86UUCtJLF lsJtnsO0qcKJPJEQjdcO5g7 Q5ZEoyGRPdMUz6MQuufqGbP HOvoN3vNKNwIX2bFTi5eeUh BSAeu0RjXG7dTZCotGZwTQY 3SZIrg2GlP3Pxl2UpXRKcYW Ufwo8iohYlSrWMnGGySOZmg u98TTReEE8xT3ctMHVrFJTt guFjvKBzr8NuIFPjuZG2kOP cFX3TVpBVr16mIEXtZEJDcm CeIVCcdAxaePM7tyM3gM8lC iBUaGUgRkRBIGhhcyBkZXRl za5zljMcWZBvHSHpo7FpgMQ yaBSairNnB8Seb9IkWASicm 83DQrxjYDejc72LR2oW7Wlj 2SfdS1kDDwtPMXjc3PiuBOz qJYoZIVpw0WfA3aykjpdYWf pdLEcdR7nHSAlFWf4AFSba1 GxEEWua5OlHjIbjxGyAUTyB UWnKFNqtU58ECL1pXlapDsh ccSqZO1sAAZfdcMyOCZcMTU oeE2dWIuarkObJYLnrjO5x9 I4QSozYYBiqmRxQiwiOYJ2w fYthwS5mZAzQ5xaktikQIcr CXJrx4LbaQ3smWJNcKHwj3C mcHUonCDNuCFnDC1nowPwKK 8qTTU7TIerCBFGDMEqCVjoQ QVhMXZ6GPksEyyzMVJ2qvWh ABQur7FiUJdzL3zyA99rkMh jhKk6kIScvFxjwZAlrFFkPM AqkyG1b9Y5EVUam4TstiuvQ HBsYWluXGYyXGZzMjJcbGFu ZzEwMzNcaGljaFxmMlxkYmN zSLVlDAdoY4hvJbMaWcOmPy [id number]== Gross assessment was [facility] performed at ([facility], code = 2777) Department of Pathology, [address] [place] [address], Technical component [facility] was performed at ([facility], code = 2778) Department of Pathology, [address] [place] [id number], Professional component [facility] was performed at ([facility], code = 2779) Department of Pathology, [address] [place] [address], [facility] [id number] 14:45:35 Test Item Value Reference Range Interpretation Comments Case Report (test code Surgical Pathology = 104) Report Case: [id number] Authorizing Provider: Yari Zhang MD Collected: 10/24/2022 08:23 AM Ordering Location: [facility] Received: 10/24/2022 11:19 AM SERVICES Pathologist: Dorene Khan MD Specimens: A) - Biopsy, Liver, LIVER BIOPSY B) - Biopsy, Liver, LIVER BIOPSY DIAGNOSIS (test code = x4eekZKdRBZmy4ubTPBngQU 3220) uZzEwMzNcZnRuYmpcdWMxIH tccnRmMVxlcGljMTAyMDVcY W4qnOdehMq7bVuqGEPmltX4 jTAnMPstm8dmMWJ0k2smtcb sZTQkDLltHg6azFQugMdgXa BqHWOrJZx7hK75QYMapI0nl RBaZZt3DYUbiMTaumVoUcHp KYCluDFriEQ1FHTrUB9mvyr mPJwtDSeiEJArdbE7QVZliR QxV8KwDTAwEV8cewngVUQ2P MjrRIDdQTQ0YvVqXUXee5Bv lkg1QsGuxEKtPPsuxDEgojx mczIwIEEuICBMSVZFUiwgUk IGPO3FYR6JFWUWFMZRM0JML LCLG3GNPZlbDUCrGEZ2Jg5f rArmLSjmgRg1JVKokLZkCR0 vlPlsBCDzx7LySDNuzTYqlS madtqkEVFzJN6qaIVafVFzw t3saGAvuZ9qsHYwvX28s2d6 eG9hXPBqfRErlJxsUEBpfIn bLURicU9cYWUoJT6wGIitqS X5c3P7fWTlFCGuzvOtXQ3zo IVyhB9irZuifuQgmvRyWM5r PKPwa48lzIOyJA4DjqZfMWD valw5wALsJCVlxJvxw28iPD OkCUVyrJ9vkUPbyuBzf3LrZ SeaMSTjHB0wEGTaV27mQmps US83AVVfwvUucVYrufVhMC0 nCTIps62ruCDtCJ1WtrBrtF safGNtC8TreXXuqQKln1Fdd eNcv3CvKNeySJAmiRFuYGVx TElWRVIsIFJBTkRPTSBORUV DDZFxY01DNQENGM5TW1pjXz 8QEVOXI3KZTzPIJCMzgePfQ ElfvwJmBP1uuQHgdYQpIVqa RCB1rTech7HdnARke4BamaO tPLGdH2ipWP7iJMNsoBKjhy Z3MFQvLUYnSRLmvrVnHCOrg s53DZA1GnTtg4G7WDL6SRNm RWMes8qsQTHpoCDhYbJaZmV cZnRuYmpcdWMxXGRlZmYwe1 evq493pASjm7agGIZiDmM2v JNaSBCkxPQgT913OYLgBNli z1syw1DcSFXtbCWjg0T9DMU XoixnzXd3pCctD41db7G8Bk rmS5wuHCCkBNPgF7WiLT7cV CWxAmx0CQF8QVT5AEMhKKPb B4FxAY5lBYFlkVVuDUs3s1r xaAjkJQTjWAF2h9mlHWkmjk IuCT5soj3nxDa7o8vqxlVoT EBdXKBasTFFRBTaS7JkbYzc Ry6kpNa8fLcyRktwRET5Vho 7ZQ6kba23eeu5vYcmZRIybc zjXjK3EVjeHZTvbyjsBIb1T LyoFKWwjFL7NGSexLWyJ9Xk UFVxRV4dxqr1APR6ACjxPMO sMaK5SDQcsXGfQOZcfZlrIM kcx487OKV5SmDxXN1nX3Uhu 0C9mG6jfMAbTCXviBKkZdQd TQEhsi2ptSVwVBufb1NtOIA 5jfB5hZPfbPBfQSZtIoF5DR qkJA1vkz09PFCxWGX2ap8re AKehZctmqYfqTToLUxsL8Wv DCUfa142MTLtR9GmNSJol8S 0whNhBzIcXOYgeIR2enO3UV IjDA6zmrtri4jrCJteTJheR KYmeaM3guE2HWVktXRrS3Ej dX7hCRUsGO7ljaqnd0ltCBG 3BZojMBNnWGN4RbLjZBXnw0 Yonxy1EkUug1RbkQVaDAzkG 69sn826BECsgcLtB4klmGQh afuwtNTuxkjmXFlpzwT0NMK aXKgxraifEHWoXXkhQ7tcLy NqWLThtIypEAfiz6KzNYYbQ HPxKsVmrTEaOPPwVmz9IOHn fRRkNBXtHwYtP0jjtscoVdG SHGUae5lkQ8yrdHKRcCKjE6 QgUGhvbmUgTGluZTogNzEzL Zo5JI45LuLxHLUxku87 CPT Code(s) (test code x3hjjTKiVMPbvILlNFNcOWq = 3357) ssyVbKXAwsZViK0BcobkzLL gaHE8nIQ6dqSgyjHPisOWlW BFmHhHyp2ujk452tXXtj2df EHJCdmslwDw5aUbxE63ho7I 2PrxiA48veBHxTVW8HNHqWS DrsNZtDVOeCHH6EKDohALyA 0ibDDMoHP4ppimsSBnjYYlz LYBknZJ3LBNjtESoK2BhLNJ wEOxtNFRsarm0HjCwYp9ynS VyeTcyMFxwYXJkXHBsYWluX GZzMjAgODgzMDdccGFyIDg4 MzEzeDRccGFyfQ== CLINICAL HISTORY (test r3nmbKUeGOWitTPmAZEfMGi code = 3356) hhvOoEBHicSAzP6DirpucJG vwGM5nQZ4rxGekwPJrpRDxU MLhOuKho4xqz305gHSsy7gi DTVWWMatVICSAMb2t8oaDZV SozgxoCq6lPrrL16jq4K6Ol fuW41wrQUgAOB7MOLpAVPvw HEwKYMjZIL6DGPlpNBdD2bg TRSgCV3jupenUQonGQadKMZ gwNI0EPJafFEvW8WzCSPlHH jaAIHbxda4PgQcYq0vrQUtm TcyMFxwYXJkXHBsYWluXGYx UTBsQwZfUU9rEpuaRX2cPRY axQkbFETpPAEgTYO7G9Uizt FhLZjystrowfktSv8keZPcJ LZjWRwbQGH0EMW6ZsHmFBwf PMTvWJKtzWutI7JfdBDaAEU ojYldM4MwpSKwTJJoiJuiCW geFCSlWBR5qLZdJCSaj6SuI WdpdGlzXHBhcn0= GROSS DESCRIPTION n4jweTUvGUXjqQJKTHPjVZN (test code = kBH9uoZtkqEj2gBqxJDXxri [id number]) H8sMWvVUwfb8uzWFV8l1wzh rEUHgtlQSBxYD9kIXmsDOYp WI3bFoUpKRVwIlZyEZGvoWU gseSpQjSgODApcNKfrYC1JM KcHN4cycdcXLisBEyuPCRdj fZ1FDQovDCrF0BoFCMnVX7z lmrwXKH4JQNWCvfpLa7kfMQ ibHtcZjFcZmNoYXJzZXQwXG QbfQnkLGGlRMh7qS9NMpnmW 67uf5L2Rxl8GGDwCBVzF1Uu MB2eIUSowAXqK90SAzveEPA 9HAQIZbziTkgixQfvs1IcbX BcXHNnIFxcaWQgNTEwMDAgX RkbStFTMaCbAnZ7PvO7WpZ9 QtG8HPd4RNIEYRGjBZP9BuY 8YqF8VVb2UBLeKX2gQAdieS GlNHoaRejzYMvoA572VTyqW IPjR7CcT8YtVMblTuFlYSef LLRsTKCrPXxvPDMqH0KAKEF bOZEiNTl4LbCjUMb7QKlyP3 OEPGTtOIGkPgv0EUk4SeB2W Sh4DUDQHy8vCrCrYNsuSNQh OYO7JBhdSThxqNMiKGbzj3I dCmToHERfZCdxpqZ0IPVjoj ZcGFbhvExjeD3hHfLqKmCGX xLVaK2hb9gvKQnybxLuSXJi qbNAEpepZNUmPZ4NYVEiCRd bZYXsIrAxqKKcP6snWOSfU0 0qz6KPr9AuTC3KSTt8rsNwb vvoaP7cYXCficFyGQnpH4Rz RCSeRtIlSpHgXWp3FMLadO7 qQe1xaIXnaZ4bhGCsLZjrJN U1eGRbCVFcCCZlBCRaLO09H CdCNHMgbmFtZSwgbWVkaWNh bCByZWNvcmQgbnVtYmVyIGF pMYKbcHafQbHtWAb2B3Lyd9 GsvZgxhLr2NZSfXXcmTTBwK B5xVERkFRkgSMxvaxq2oVT6 IN3tu59goRW1vUPicSKaH25 oPPJmhDXltVF6QBFmqL5ejB 83qwMhgmGYLA2wwTPoZQ9TN HBhciANClxzYTMwXGVwaWNY l0ArFADVOzcgMnImMnVmEuZ QQvyvsUpdHdUgzEQuOkF4SJ DrcPKvKAW3YU9yxCodTUUxP Pf8VMqjQZXlE5CfU8HqOYlw ZyBcXGlkIDUxMDAyIFxcZGI jC1OVEWPnBIOdXDg9SeOcVM r3SJmjK7EYQKIaSHTsYzb8Z PLqOtE6AMs4YARTXe1pJgBm KtL6BAGiIEA6XGnaRMuazKJ eRApxe7QeZiKiCPVpTAyjro V2UKGqidAyo1AvKSIxFLBbN 0kmWvWbHVFDZzVxZVOke0Ld rWnsMCa3HYBqeCZcYS7TRUX hgxLoXZxvoTudaK7icTZoU1 hcZnMyMlxlcGljTmVzdERvY zEgDQpcbHRycGFyXGxpbjBc ngaaVZzeYbLnKSAjpIVQa5U nZWGGDinitiQjDCDvF2Gega VkIGZyZXNoIGxhYmVsZWQgd 3n8kIA0zJYqgOY7dXHcjKtg HbSpDV7qvVCwRC1zAJzjNQw enxUxx5ReFO39jNGxbbIjpp HvCmIvf5WnnOffhBg8LRZzK MaeWSWbRZ0eVEIuNGnsSMei rev5dIT5WR3sgeSuKQNnWuO qtXhxh7SlGVBetbBbGUIZgW Ihr5CiC4jgRY3piOSyU6x0U I0mnY2fyoBcSUXeK4lePOQP ueMuZCQ1kY9gycQpfbYeo0C syKx0xADrTLyma1GxPV3qxS kuXHBhciANClxzYjBcZXBpY 8feZeNpSLcesWApIS8CCPNx RzZgCDNuS0cbRTTeBZ9NF8q qbFGySYZHzqU9dhsqNEkYNP NXJVMsNUENXTdocU4RKZTzc FDKLIG0YX0kXDdrYFUqI3Nw H9JdeyX4a1krdKunk3JptDC dLB4rrOOdYS4TLOBpypQuVY pcZnMyMiANCn0= MICROSCOPIC u3dtcMGyUESvoTVzBUXoKPv DESCRIPTION (test code tqbAkCACflBEcH4PghjxcDB = 3371) bsGW1vQB6lgZgjeYJiwMSwW FJuYdMro3xoc112eHZsx7rm YJLDaydezGr8qDclY62cz9L 8FygkF36jrOGtKMA2PDTfYW VfeKJsMPLxNYL3EZZgkIAyM 5frZHSuVU9xifsqHHdrGMok OZDdxZN3EOSdgSAzZ9SuPVL kKTxxTSYzpvf2CaRvIk3coO VyeTcyMFxwYXJkXHBsYWluX ZZsQqFaP0imY0pnCTJvPG74 MRQ6FxJqbQT2iFWqSYmhkhH iPDJsytAzs5u3sZZdfLEfd6 jvpZA7OJj1DUAevP6vhCDuX BWuhIMwzaKphtQirVCbw8Uz fyDwEZfggYP2vWYfkBTdTT9 cyItoRD3vNWBuRYQsNAvqIM 4klFUemTTrvn0aaZYzcD0kz ZEcqp55ZWGvjA71g3q7sX4q IGFwcHJveGltYXRlbHkgMTA wuH7xGIPvRH4qHRFgQVDnWR FxxC4axLXkxhSmgoHgx94bs wLduPf0TWglKQJxTTQoJG18 gfNqXDUowlEsMHGmhE6gJHW eb31sZLPOcoJgLXIqgbn5jS PkWUOkmZlce14qSLPnBBTsd F8afCQhsvYhq5YwXY6vCFDj TYJlGEjeDE5jjPDqsO7pnCx mznIchtPjQX3wYMUny02fJ7 9ydKOrw0VvMD9yQVx7nQSba 5F8mAIpNOmtn8Uwu6I6kPGv PVpepIpjV4Qpp4dbLUtwRXC tDQ6vZ3TfzDupE6JqFoDtSQ bgxgDpzHLvlVbsQXHahE87d 01rJWJdGZJhmRQ3WIEdi64h vk17AZYugO5shHceZZWxhiI tPKyuofXihTtiufI9t36wOa RaBG1zrPOoCGQuDTG6rgGqe Z12tmNnyJujSY2qpvJiCBFh ZmljIHBvcnRhbCBpbmZsYW1 fWKGxi87hFGFUqBKuULSxnc VgwyNvrSbayOEpR4MuwBRku iZtycNgH6MabBVtRSGidQpf XV2kwEUbLrOtIIfiTYSisGU gZHVjdHMgYXQgdGhlIHBvcn CigEP6dimhWLTvfZMmWMQgC HFuQUWrKPYwPZIvblYoEH8z KADwkZHexs1sKMHzmRKdxgS qrP15elFrzsHspCyvgYSwM9 DnzBBsqENiu5Eddo6aFQDfo YqztXhjysLykXTsmdMtlP58 mrLgpvNwHHO4ULFymUHzAJL dMkSBZNEyhnWmiC1tDfBsPW FTRCBzdGFpbiBpcyBuZWdhd Eb2XFOpr1VwDEqmqGOyOUQl zjXthFJ8iKYvcaZyeG5sqAf why9sQUoke93ly6DrtN7qcG SjymYnDMZwsiWlQh9nWTzkB 9WbIEOvZSThbz5eLlZmCKOa cn0= SPECIAL STUDIES (test c8lchLUfNGIij2ieWGHovHR code = 3376) uZzEwMzNcZnRuYmpcdWMxIH vuozCwRFflf1AbB2VzKiSxP FxhbnNpXGRlZmxhbmcxMDMz GKW8jlHkOPVaHOrpIECsWRf cHn1oaJIrzVvvXiZoWWRzz6 hywlVTmsegaGr0c1qoBDPfW tH4vNDwNJljU9vflgCgxXCn W9TnpMYkzId1e7rnBnUkPjL 8aUShZWtfU6jzdlXbyYNzZU OpJQw1pC01POLutK2daGGmG IxlarOgIbB5ENjkTKSlUkL5 NKYyfFXrWEBvY0ypQUViBEv hDNZfXCasxSGmMVD2mEbra3 A0jZPbhUBweQdcMbMuYmNzY iFGn0CeYAk8sCzaA5OdUYEe MyG3sXWmSYPzCGqtOVPaPTN fawF2nLjcdhDyt79uxQXiRP YwXGZzMjBcbGkwXHJpMCBDb 7JteYwiQTC9hDf0cVkrBqkn WUM6Cej1EC6jgx69aej0iQd tVTOctnkdYqG0YOhsFBHgsy puAFd9DCqeIZMvzLL2UWOqq XKaT8ZvLSNsLO3mhiz9ITI6 HUxsWWItVqM1BMYzmFBnLKK beFhsOTefl646YZN5DdBsQD 8zR8Oow1B9eE3vfZAnIADsg YAsPrSwQDGgdd0xkJXcTLow f2QhNYJ6jqM0qRKdxYMzJFK sJY52Ouxag2EsIqzub3HjN2 8ueXX4UEvsf4xqZA1pEiU9p ySiOJvps9vbpD4aVnN5YFbm MT1hZQ8lFLYzaT4hflvwRUZ nYnJkcmhlYWRccGdicmRyZm 1ptUfsRJR9CEjjM8pgcT5kI qU3JRiaW7eguQ5dHMn7SChz rTG7EAMyxM4iZQ3mbunez8d dEOnqARxzNNYrmmX4zuX1TS MreTBkR2BfzN0rNDAmZA3uo lxjo3jcXZJ4QWyrXKJoYZI4 LhLvSSAab2Oxvvu8ZaXnm2P fbOPmSGckS78rg353IVLfes HkT4rsdRGybrhozXZouvkkT RcpyxX4URLdBPHsTEzrCTJz XGZzMjJcbGFuZzEwMzNcaGl jaFxmMVxkYmNoXGYxXGxvY2 gmXsYbX6WiPFUeTrKrSQrdT AczuYJxmJNbmTR7bC0dPD7n IVMlkFLsB0JyIMDrmiRtyVK hGZE1bVJauMOnQJ9wUIucwP Ban9rfv2FfW8ntpKhnnYC9G C4rYBCeTNGfYHvsi1FbbE4e LlxwbGFpblxmMVxmczIyXGx hzstsEPPfSSxbA3uwUsWkXI EcnTjrSXgxg6MgMFDyFJXfM pngfnEoAEj7onSiHGLyfqob QJRrjBgftD6zOgFbMsKwMyy sVH7uMYHdS9svcAMnJBGlPM FyQ5qlGoCblV8boIilLSlfB xMkTnPeOtSRc442cx9eWMGo dACkblTSiCTlrD9eKGmyIXz uHVaggNOaFHrzk0pjWZGav5 d7lTOiHASfxmIbq8hyDQywe vJhKVGmmVPxmDFfCKQuu02n KWuhoFddvGfnCJDbj7XkiQd xy0NuXgQhEAffm8NdY94jjF JvbCBzbGlkZXMgcnVuIGFsb 54ip0wsDZVbSrY5oZMezKU2 tIAxcAOys1XvyIgcXXPfw7q bCLBhha5wsscsvYDpi6QinJ 5pbmcuIEludGVybmFsIHBvc 8e8wMIrBHCvWAPvQMkhxOw8 WSSnm899ml6lthF7zGNaCMQ 2YWlsYWJsZSBhcmUgZXZhbH VhdGVkXHBsYWluXGYxXGZzM jJcbGFuZzEwMzNcaGljaFxm HIyuEsRyFHCsGEepF9lgMhD sM8NeFGVyLwXlwMAcX0ebnY FyXHBsYWluXGYxXGZzMjJcb GFuZzEwMzNcaGljaFxmMVxk LtQtATCaGAbvE2vwBjRtI1I yXGZzMjIgIFxwbGFpblxmMV xmczIyXGxhbmcxMDMzXGhpY 0jtPtUtJQGdqJyhZEbvt7Sl UBDlTLXwPjnvsqXhREo2qsF oXHBhclxwbGFpblxmMVxmcz YdHVtsvfybWMLsBTnpR7swS yQpJGAxoPsdKBlkq3IjIEBn SMStMtzzocQkAJnlyLErx8i xy4UiS4rvuHhcuPV6ORJyG4 rydQChoSY6NRJ9qQ1zWBxkp vDwTOFyj5ZzJBWbQEBqThS9 oJ8bSMB3XhQItSfmPZClGHw uXGYxXGZzMjJcbGFuZzEwMz NcaGljaFxmMVxkYmNoXGYxX MmnO4dtXeFtL1VcDZKdFyDk qVykDOeaNNy5AmpkgTXpopf mMVxmczIyXGxhbmcxMDMzXG lvL4lbHrDvTPCfbAzlPHbzp 2NoXGYxXGNmMlxmczIyIHMg XPUupJPprHGNIM52NNDvKZC crRpooU2ldYLCHHVjyaC1d0 G4LLadURLtQVa6VXdugvMkY KOxgL4bKBBtKP5nAYx5keWd NQZvw0JiAO0uSICdwOMrAHF 4EAAek6QrX9Eze6OqAIDrZH Qsob1mycDpZfKSsBCsUTMzd s49LRAxDX0pY5exBHHiTQXt yvQitILgx1AvQHYgpHY4pZH jAC9RGpSVd05oYXTfZMVJrv HvIRIjmIfquAX4moZ9jT1mE iBUaGUgRkRBIGhhcyBkZXRl fh4cwhDySSArRQEov4GjhFW cwVHtzoCjX3Hpt5XwGGDykc 35JLkepOKbqj33IU9aB4Ycf 4YzbZ5yODuiYWVwt6XchEJc fIPwACApm0KuW8nqrxxiOEb mfKYnbG2tWXHbJEa8FQHfg7 CuORDrg8XvXnEtwcJuGLOpU NUlJJCkuA33CJS0cEbvuVsg xrJsEC2dRQUjsgIaWNQzQMQ dgS4wSTbiftNaGIYtsrF0z1 N2WObgHQLwibGtDdhdPVD3u jBxngJ5fVVtV3vpujyaLUnx NRGhi4WhsP6roUXAiAPvg7M vwHGbwYXVuAFcKZ3kiyEiIP 8uTEW7ULphXHBRHLMiQSrxF SVyXWD4IWtdNddaDVG9yiRn GBCto8LhIQvhB2ycY53ekLd dqEj7cYYdnDurtXXajFSkYS ZmbkQ5m5H8TXTqk0UfnszbH HBsYWluXGYyXGZzMjJcbGFu ZzEwMzNcaGljaFxmMlxkYmN hZAIuLOmcG0fqNhVyHoShFf qbYYS3rF== Gross assessment was [facility] performed at ([facility], code = 2777) Department of Pathology, [address] [place] [address], Technical component [facility] was performed at ([facility], code = 2778) Department of Pathology, [address] [place] [address], Professional component [facility] was performed at ([facility], code = 2779) Department of Pathology, [address] [place] [address], [facility] [id number] 14:45:35 Test Item Value Reference Range Interpretation Comments Case Report (test code Surgical Pathology = 104) Report Case: [id number] Authorizing Provider: Yari Zhang MD Collected: 10/24/2022 08:23 AM Ordering Location: [facility] Received: 10/24/2022 11:19 AM SERVICES Pathologist: Dorene Khan MD Specimens: A) - Biopsy, Liver, LIVER BIOPSY B) - Biopsy, Liver, LIVER BIOPSY DIAGNOSIS (test code = [id number] 3220) uZzEwMzNcZnRuYmpcdWMxIH tccnRmMVxlcGljMTAyMDVcY T0zvKqxxWc2pMumDGYdqlX1 aDBoGFsxt7yfKEV9z2xboit sYZHaHMzyRq8enFOwdVvpFc ZzONQtRMw9qE92LQLctM6rt PPwSCc4WZMtoQUgyzQtZjNz NFRjdUStcHC0ZPXoXB7njiw cHDphPZfiUHGcreM9RPTreO KtZ4JcAZUfAU7wmmngOLD3Q LmkCRLrCUM7TxJxSQSqk6Fa hgm8IrNsbTWkEReroAWjvdv mczIwIEEuICBMSVZFUiwgUk PZCO3XYK2JQXDTUREJA3AXE YMPZ8MENSekNARaDIB3Sz5u bJcjVKcghKh4JYMtiVOuTU1 sgFrbGQXzi3QgMNOieYQqpF epfdnlNTCaFA7euDGnoMJqi z5arPWcjU3brDJfxP68e8b9 jK7eAKFyzYEfxIwfUMHpjVt tRROflJ7yNPUhPX7yWBeokR H5d4D1rXOaAIOxphLgFC9dt PSfpQ8obVnblhGiuwEwYD8s VWNry83elIMmNZ5BlaHnNQN tqhf4xRKbCZKdvQzxm19mFH FpRAZtpL8waGGdxxPkv3NdI XahAOOmPD6eQRStV58jKdqn UY59IGDsxiSejNPomrXeKW3 iFMWmb14idMCpVO0IihJneG shfOFiW2CpcXUyuRPwu5Pea dGby4GiMIqzKRGduADeSUJo TElWRVIsIFJBTkRPTSBORUV XNCAaH12ITLVKLN9JL1zhYc 7CDWCEK0NTYfMRXAIvblJmV IbdhvDyFU3jkRSrbFLmDVjy ACE6fSfhr9VarPQyp2NnkmN mAMJmU9bzJU3fILZhaEBbyk B2UPMzDYBfPQZevwKiOSHeb u85CSO3FsKvy1N3OEN5VWZj EDUoz0ugSWKbuUBbFiPmDmW cZnRuYmpcdWMxXGRlZmYwe1 rsu045aZGqs0yhRGBsUoF1t CAbBBDhtLOaY468HPZpOUee z5kyw4KwHPDyfSWtu4Z4VYP LzajctJx5eIowG62sv2V3Fl cqI7kjDUYvQSSsV6NuFG0mS SBbBus1FLY7TEE4FJEuFREb A5CcSO6oUOWheDDlTAi3i8f fxWbpPMQjSHI7q8xkBOaxgg RkGU9rbg7btEs3h3mzbuCbH GLjGIIqqAANPTZcI9MkwPsu Oa0mkAg9vUnmLqqkHQZ9Ptg 3YI1jrx74vjq2sKhtNIPuol dhEsI9ELfuILIaxhprOAq3D GniPXHnbFO0JKYywAZiW0Ae TXRkYT4dwdy0UTY6WDtyVUB gDqP5PHTkpYUxYMMzbNgnVA ejp974LAX3HrZzCF6kK7Mcl 5W4kO8naGHmWIXyrKYtGvVb QGGxlk3eePWpJLeed7CgAIL 2bgL8qBNtkQOfIZLoBzK5LI ixBB1nfn05BYHwRRT7ya7ml BPezKrlvdSvbJOjFNzsD9Ap CXJza389XRUyK4JqXKMvy6C 1uvKcIyHqGFGcyVD4ghI0WF SiLE7mymkxr3rvRTihSSkyG MMoyzS0bpM8XZLpeFKdO8Gf yQ2vBUClYP2ohehjs1ajLSU 9MFdwVLCeTIG6ObJcCSExt3 Xrswt7HgPgg0LrmZSeSDqvH 74aw513ZSIvayMsQ1oaxJAg drijwJPstczzAErbqhB9KNL yCSpzccdxYFSuPBwsP0pjYc YmTSJllMalCTplq8HoBVYwS IAqHtNbfDKwVBSoNuw1CQCu eONfTVHkPmLlN6rwoffgKjG UOBLhw4afN4mkbJQTcUDeA9 QgUGhvbmUgTGluZTogNzEzL Jz4XU99AzCwYIWeed80 CPT Code(s) (test code g5ymgBNpKANhgLLeIXPtSZn = 3357) kvlCqHRQrtEYhL7AoonsbRP nbGV1nWS1hhQymcPSmnLJvL XRuBeWbl6xyy702mZZcr1if NAEHfnuceIr4iSjjG14ib8J 8XgcyR78jgSQnNUJ5WFOnWD QffZIgCFUvCYG7JQVsfUApX 5shUKPwVQ0ytbarUIjwLHps KTSczMB5SKPtlQRkH6LlFVP jVVvzDGDdsbi6DgUoBj5euH VyeTcyMFxwYXJkXHBsYWluX GZzMjAgODgzMDdccGFyIDg4 MzEzeDRccGFyfQ== CLINICAL HISTORY (test d3cymUZtIVKlpNDqXCMxBAw code = 3356) zbhAfXZFaxDTkT8TppbgbLY psEJ2kEN3bkLbioWKsmRJzP HZyMxDpw2lkn577pXJdn6hc VXNUNNydEVUTYXm0i9tsCGT PuoxugKe6hWquC26mn8U6Lo aiN89gwLCwGDA6NWSvFVFjp HTgNAMsXIA9OKCfyWIeT1mm PKZbHG5mjonnUKrzZXxnHER lbWA8EMZdqSSbE1BaPCJrZY hpRMCvrja2QnSgNh9ouITge TcyMFxwYXJkXHBsYWluXGYx OIEkEqChZN9kAapbBU7hLRS hyCniPGYcWRZsQPL0F8Rgnk MjZWjhyfhdtqmaYe5vyWGgC KYxETthRAZ8LGV4UmScWXhu GHJnHVGqpSqlF9HvzRMtTSA dhIprM5IgqYVgBJWsyLyyQC bsETJuWKL1eWIkPSXkb5QkR WdpdGlzXHBhcn0= GROSS DESCRIPTION l4fliEAhCDYkwTPURILoGDE (test code = rRN3mzOiivYl3oJufDUMzzq 2500407474) W0jEPeQGbcn5eeOUS2e4tag bZYHujmCDIyEZ4zXExcPPEk AB9rZpDwMOVvKaGiNLRmbGE kigEgTbTaRMTfpLOviKG7JT LhBV5kefngSCkgZEtxUNYgr oU4STQnzDZxY3EaOYGeJO9d khwpIIR3GPZCDvohDu3bgNA ibHtcZjFcZmNoYXJzZXQwXG VugHkmRGWjGSv4dJ2JKhryX 63bp2N6Nth9EJJzXMZfB5Po PF0qAUWjuCYzI92PKpwiWCQ 0TXGZIgdwJdncrKgsq3BxuB BcXHNnIFxcaWQgNTEwMDAgX EkjJjFVZbAsJzT7DhA0BmR5 DlV6YWp7ECULYFPsUVK4BrA 7IxM3BVe9NDFuGM2cRJfnxQ YfPLbsJhkuZZwoZ966NRhtL GFcV9YvM6MqWLlfNoZtRTuw YWZkCXXgFGttIDKjS3UZJYV xJQHcJDl3SkXaLHw4DYqxA2 WCBGTkZFSxWys0ECk0EuH5K Ne7MKPESy9kMxRsHVmiWVPk MCR9ISjeWJxhbPBeSQhfj7M mCoLsMWAcNErcpbP0NBNtgw PwMWwgqUhcwY1zArLqWpASD tUPlY5st4zfOAkdqoPpBRCx gkAVMkiqTRMzDA8JTRTtKGq bINEpFjOfhIBpL6rtWZVhY4 3yc1ZEx1IrQN4DCMw5crOrl avzbD1aZPSnlkFrZJbgF1Ou CMSeFlVwBxZjFVc9LSBynK3 wJv1ciEQuvH9wlHEtYLxeLF B2sEEcHASwPJYzFTLhAU00H CdCNHMgbmFtZSwgbWVkaWNh bCByZWNvcmQgbnVtYmVyIGF mMLLoqQigLbPeOIy9L1Xen8 AwfZbuhIh0MNYrIUzrQQYeQ N0qIRFlODaqQQlyivh5kUY0 ZT9yc19dkND8oJZtnMNiC53 eQNEuzAFpvPC0FWKwkC5jcC 08hlBavwIYWQ0rzFCwID7MS HBhciANClxzYTMwXGVwaWNY t7IbQAJGKspzDaQfRjHpLsB JLbiqcIykPhDxmKDkNpE9XY VicOLnLEX9GD5tmOvuZXBoW Uj1MPidYBUgN0ToN8XmCYlr ZyBcXGlkIDUxMDAyIFxcZGI nZ8XXLJWgYYFvXVa7UgPmKH l6TAddW0BTZMJsJUUtObk2F HGaLgK7KAh7QASRDb0qLcPh QuK1ETKuCNS0XEgbMPpztDK pGKphw9GoLnAkFUSkNBoywf X2EKPnwjJem9PyLJEgZUJzB 1rlNhHmPYYJYuSlGFHlf6Yl nRcjFBv3ITJcgTGaPO9EGKE aagCqHGstrOiijR5taWCoF9 hcZnMyMlxlcGljTmVzdERvY zEgDQpcbHRycGFyXGxpbjBc wxafIByqDsCbOQOydDVGb9O qFFZEKmxootQyOSBmQ3Fseg VkIGZyZXNoIGxhYmVsZWQgd 9k0pRB6uHJvnSC8rNKmxTqc RxNeGB9ioOLbCO7rQUglVDc wpcPtu7AaLX12qEGbwdPygo SqHwHui9DfnZxptSs3ZBBqN OdeIMHrGY0lSRCtUUesKJpa znx7qLO9OU9gocDtCPHtYgF gfJthq4BwCIKonuAjQXDGbH Ejm3NxS4iiLC2dkWAqG1b2M A6swC3viaZkUYPqN7rtOOZY brLxTLP0gG7rimTyknNbi5B qiGv7zDPyKJijc2ZlFE8svB kuXHBhciANClxzYjBcZXBpY 4quWuBhBQrodJRoPN2UNLZs PrWiSLPuY0usSURtRN7LN7p ipEAoAIDBrgH3htldYIjFFU XMVPGwWCTORLfdbW3RRRTzv JLSGBD4HD7pESmtQFBmL7Ji N8MzemM6u0jttHaym9XdvPA xPD9wgADoKO9SGGZwbnPdRC pcZnMyMiANCn0= MICROSCOPIC p7bvmKHkUCBtlBLuFOGwFKb DESCRIPTION (test code wpdLeEYHdtJLgG1DsjybiQV = 3371) uvZL2yRJ7efYkdgDBdfNGeW VRkUqAcz9mas012qXAvs7on UUBZnwjdbTr4qDuoD28pk1D 9LxnaE85anWTiYTS5VZDhLW UijPOcNVVuLEM0OEEvqMNkO 8ozZXIgQD3ccbhcHKotTTqd YPXguYR1AWAtrUWuJ7HkZVD qLCcwWKMhihm8DfKeVt2ynW VyeTcyMFxwYXJkXHBsYWluX JMaFcBrD7htQ0zsAMPqDR12 VBL8LrYqkLQ1hAJdEHeuntL oPCMepyIzv4q9pLNwdPDkd4 fcdWG7OUu3SOWkhR6aeJVcE SFjvPQnipAehdIzsVSlk1Zs yiOyXXspaTW7vIKqgEVbXA8 myKpyZD0aRPPzADDzFTtlML 6klTWdyDRlpg5wdWPcoY3ka QKasn20GCBjtI60i1f9lP9f IGFwcHJveGltYXRlbHkgMTA zdR6jRQHwLD1uSKVtDALsWU BrkL0heEGpwhLmyqAsk98na sUtlNx9VIbxLHCpRENfEU03 fyMfWAYzreTlKVDrpV1bRML ec36cAVOYopUlAVWsddk4lO MoDBAvnQrni04qKBSmAHKza R0tuEVawiSmc7SiNA2fNJQc NYVvBWtlLF5wuWQtwD4nzKs qrxUcurFeUL7bVJGpo41gG9 6thJAaf4NlNI7nPMf8aGMbs 7U5iOZxHGjhh1Wsk2D4bRNd YYoceVawP6Rgg2qoDApoYCL eTF9tS4MzxIjbR5WsObLbVY lqznSwtUQdoAgnSQCpwC31u 47xLWQnNFOfpGJ0AOMzk51g kp38JSUbkK3aeRlpJTJefuC gOLupazMriTlgkwD2g40xMq SsLI5brRLnNRBxEQU1skSyw S46tgTsgAhhHV1ahpSxZIYb ZmljIHBvcnRhbCBpbmZsYW1 bQWNvf26yWWFFyTGvEDAgym WzxwDvlShrbLHdF7OsoCGsh oIfjhEyZ6VjtOCqMCVqzUsl NR7bfRGtHeBuLMzsAQYjcSE gZHVjdHMgYXQgdGhlIHBvcn RqpOP4rtbkHGIxrTLgUWCsO FHcTVDqJPVdNRRsslPnTU9w ZEAlgIHoia3vWAWjuSWikeY yvA79qwLdtkJlyDgyhFWuQ1 CybKLgeZLfj1Xmbj2cGQVtn KqxlIngejPruBIfcxZysE82 mlKulzLoAVA1VAHlaLEkYLB wXaCGJDPvbrCkdM9wTkQrAP FTRCBzdGFpbiBpcyBuZWdhd Jp5RQDgc5PzADirkLRiHDIu pdTsyBO0nEVanlMyzV5ptWx zcp7eLJvsr25oi4KpzV5smX LvuqCqWUXtdnAmLm7eIByzL 0KgQADiRXRjmw5dOjJjWECh cn0= SPECIAL STUDIES (test p6fvaELoDOSce5aoMLIrmZD code = 3376) uZzEwMzNcZnRuYmpcdWMxIH ueikFtTIhgz6UyC5PzUnRyZ FxhbnNpXGRlZmxhbmcxMDMz UXZ8cpRjGBIkEByvROBzJXq cIe9dtZIazVksJaUbHIZxh2 lainCMlhvgyAo3x8koROWmB uY2fBCvDFhrF9uhynLgfRHh P2CfiFTcxDg3z7wgIvEoZsU 6nPUgPFutH3tiesZnbXGlTK CxEAt6tB38YVShxE9poKDeC YwzpoSdRpS8FDzmUMGpAoU7 XOXunVTrFIQaC6amJSEjRAy yUUKpDDmyeNSxCUC3kEtel8 E6oTPntMRfbFdbJpCkWmXpU iQDp0QrXQe7vRefH6MdTIVc XpO9cHDwFJGpXBiuFQTqDNJ vuzH8zNsbpsKig45qhSAiXQ YwXGZzMjBcbGkwXHJpMCBDb 2PoqDxzEAR4vUy7dIepHuhd YRI2Stw8YZ5xza11vqw4fKc lGWBnxdmsKmU0ECetEYNwaq wzOPr3AScrWYBxvOM7DTEda SCjW6AcIRLrKB1pqhv9FBN6 NHiuYVYtCsW2DWJnsNTfEEC nwPksFFldc093TVX3YpMmIF 7oH8Hpc4P3sS7ssBXpBFQkl MGrEvApBNWvqk2cwLQuQMkj w0VcLDM8csH0aWLkvARpMOP kQC07Klrwh8HmOcyku4ZeW0 3eqNI2ZSrkb5hzVN4uFjJ2q cVlOUadq9mnjG8oTtR9THfa UQ0eTX7aGHFnoU5spontEEO nYnJkcmhlYWRccGdicmRyZm 7ezSnoMTN0ZRdmY8xbhY7dR gV8ZFeiA8wguE1zCDh6PCxi eJC7PSLhfH0vBT4iuzzab7p hXHmlGSweLGTjymA5iyM8VI DmdKFqE2YhpV3xFXIrXP6yv teco2faMUS6PDqoANUtOSX3 IsYkAWEif7Amicx2KuOxr3U fmZTbXBziK64pp932NLWyhg YtM1kmjDEgwydeuEEfdavkU WtdleJ6WPNjGMLhLKkzODUv XGZzMjJcbGFuZzEwMzNcaGl jaFxmMVxkYmNoXGYxXGxvY2 jeCdCwD3KlJSPmZnGfFWtyH TpvgQDfpXGulRS3vC7mRN0g CYQibTAaO8KyBWHnxnHxhTB tWOG7uDLfhKKtBV6uVBkzwS Jbh1jyp9PlU3fxsZftdRF3A K4fPTPpAWJkDJtcs8BnjJ3g LlxwbGFpblxmMVxmczIyXGx mllddLOPyVOwoE1wzNaHuWI WqkFmxEWbwy3ViPCCoLJQxD hkhnjOvASx5dhXvYFOwznsq GIIyqGbwoN2sWnEyYhUbJjg xLX1pCUXjE9lrfOWwIEKpIZ FvQ8ldBfQrwF8owPxbQKqrS zCxCxWsWtYRx988kk3dTXGs zHUfzmXMrAXddJ7mXVwsDGf zPDekkMZwVTlke9vsWCCel8 m7fBAeWMXpjwLvd2bpMPmmq xQbRUHsnPLnmTMsRKKrk96r BDjkeLtutVgnZMJos0MgqXv qu5QnWyHgJDgxt3DyJ38wqP JvbCBzbGlkZXMgcnVuIGFsb 00cr1dyMFXlKdE2iFTgpZW9 mBWxaVEtg9AfuAirMHOho2l cZXZvvw2iofeptOCom7KvnB 5pbmcuIEludGVybmFsIHBvc 5p1eQXgLSVnQAYiNCtxsOi5 MYLii562kl9ocbD0vMXhWJU 2YWlsYWJsZSBhcmUgZXZhbH VhdGVkXHBsYWluXGYxXGZzM jJcbGFuZzEwMzNcaGljaFxm GSsmZdYaQTUhLGkvB5fwNwL lT3VqVSEqMrFqbDOnH5qehZ FyXHBsYWluXGYxXGZzMjJcb GFuZzEwMzNcaGljaFxmMVxk VeXgABYlCXheB4veWbKrR9E yXGZzMjIgIFxwbGFpblxmMV xmczIyXGxhbmcxMDMzXGhpY 9biJoIbAUEqyYeyJUqcz4Hc FWRdOXJzWjjcfiTrCXp7kyD oXHBhclxwbGFpblxmMVxmcz JyBVnkhqreTADtUTouW8dwO rApKAGwqAnbNUnej7XlNOGg DPIcFzlcrdNqYCfudDUvb7e jr2NrU7rsqYrkaGD7EVMrX5 ijmZWfeTM9QDH8qG7dLZnsk mDyMWYhh2PvUABwHTAvFbP4 eO5xSWC2SnSRxBprDZSvEHo uXGYxXGZzMjJcbGFuZzEwMz NcaGljaFxmMVxkYmNoXGYxX PpsR5ulYlLhL0SqWCNqNvJy sZnhMIadWKl9KmtamTVzoqe mMVxmczIyXGxhbmcxMDMzXG wqP1ngLbBcGRPsmYeoSOspz 2NoXGYxXGNmMlxmczIyIHMg IHYstSDxkSMNPP15ARUrOSS okFqbvW0gtUXCELOnsaT6q7 N2GIkoKTRdGIg3IXlgbjHyL ESosT4rKMCmRP4lGTs5hkGg KZGzs4McGQ7jXPHhzRWwHYS 0ZVNfd6UtW6Wse9AqNZTeGL Crha6unaIsSuIBxHEeJZFyb e70RKUoSB4aC3asRIBaTUXu diQriZXzk7BoZKGrwUA1hCH zHQ7LJtDIy48uHCQkHPOJch XcECQfwIikgOY3tpE0rP3hU iBUaGUgRkRBIGhhcyBkZXRl jb2eqdYqYPGpSOBda9SrwWD kaPGkxmIjC9Pav6OpVXClnk 60ZXkgmFTazv81HY5sM8Xoh 2PfcX4aYFcsPUUcg1ImuFBl lLBhVFDco0IdP7oogwzsMKu kkJJfkL8iVTOvBRc5BUNgx0 DwBCMyn8UzYbDzagCeHKVmQ TYhWYWxxX29LUU4bGvtrRuq pqHdZB7tBJMitqRdQPLvIZS zuW5yOLmbazKuKBOcsmG7n8 M8IOklKUStthGfAepoBGR8y kGwuzD4sSDsA9eyaukcUEkg WIXtr8PbjP4mcZITgYWki5I zdXXaaCAWfLJjHV5dyfWuFE 1gXBS4CQhzOCDVEWDfWCqzF QCtTIM0ZJrzHjdjBXN0fkGo UCOhx7BnKBfkP7ovN41tvVd qbPt2aJEgvJuyaQEpqEGqHE TpytI9o4V2NAQai8HwvmmxU HBsYWluXGYyXGZzMjJcbGFu ZzEwMzNcaGljaFxmMlxkYmN iCQHvPHnaE8ihJrMuMjVzEs veJEH8aR== Gross assessment was [facility] performed at ([facility], code = 2777) Department of Pathology, [address] [place] [address], Technical component [facility] was performed at ([facility], code = 2778) Department of Pathology, [address] [place], [place] [id number], Professional component [facility] was performed at ([facility], code = 2779) Department of Pathology, [address] [place], [place] [id number], [facility] [id number] 14:45:35 Test Item Value Reference Range Interpretation Comments Case Report (test code Surgical Pathology = 104) Report Case: [id number] Authorizing Provider: Yari Zhang MD Collected: 10/24/2022 08:23 AM Ordering Location: [facility] Received: 10/24/2022 11:19 AM SERVICES Pathologist: Dorene Khan MD Specimens: A) - Biopsy, Liver, LIVER BIOPSY B) - Biopsy, Liver, LIVER BIOPSY DIAGNOSIS (test code = [id number] 3220) uZzEwMzNcZnRuYmpcdWMxIH tccnRmMVxlcGljMTAyMDVcY C7rwQvorXf3nCbvVRIgrhB3 eKPoNFrfw4eaZJY6u0oaokw pDPKcAGvhKt8hrHIwoVmyUi KyRNMnNDd7gN76NKNkhP2lz AFpPYy8WDLgeCHhpvPkNbNo FWBaiKLuzJN5OLFdLR4vxse uGGwmOAgfACNcgeV9PTUkrH JjD6NzUDJeWA8ckmhhPES3O HikLQUbIAL0YbZxODPzn4Cx bea8UoYsjIEzQVxjwLUkxgp mczIwIEEuICBMSVZFUiwgUk RYFH8OIS9HBKQEPBPHX4VEW AVTG6QLCJyeGSTeQPT3Gq6c yDzxVUpeeSq1BFJxlWBpVE5 psNwiMEEdp4KsCZUpzTQvpG xmwjvwXRHmUF3poYKixZKgw x6jpDJxsR6wgUCmgI57g1c9 iI6pTNGpkYTxcTkdOOAujQg kFVTauE5nDEKmDA2jZFydvS J8v1N5bPKiUYFcxgPzXY6tn YTaaP4zkMtvdbCupwPqDQ0i GGYbn49tkXGuLC6ApiFgUWK ssss9rBLfUPVswAdmb95kUN NzVBFrrA8ywMHnzyRdf6FaT ArcGGIiOC3cOPRcP28iOjgz BA41HUCbvaLlwCUallHuAW9 aWKBfl95qqERjJM8GxgFuhT vdvPHuC9KkaHZxkWGsd7Dcy oZwg4MoMXibCGIgyRNxBRZp TElWRVIsIFJBTkRPTSBORUV XLLJwU19AFZZQIF8AM4heAu 3CEJYPU9IRRdMMJLLzeyYaD AoklwAqAX0onBJrtIRqLDvr NKU7mSnkr0BquHKcq9RsrnL wZPRyJ4qgWH8tVAFheTKlms U0YAArFAZdRONrovDkFCPly h52FWU8GoTlp8Y7JVO5JWLo MGWsk5imMKOvgOUrKnPjIiV cZnRuYmpcdWMxXGRlZmYwe1 fcc378nJZza8slJOSoQlP7m ZUgXHMaiENkR558HVLlGDek z8tsp0PbRFSfmKCll1W2WKK LzagbtQb2sAgvU53sr6B2Tl bgA2lnVULbKGUzK9QsPW9uA LAlLuk5RES1DZN2SJUuFFMq O2WvWK2lUACqpZYxSPc3o2f vrSonBJKwMWT8j5nzLLusvh YzJA5ogy7ggPx3x6ztujMwS PQuEFCkzXZXULCsL9CgcZpg Qk8ucHg9vVtvFxlsRYF6Pnn 2ZV1fyf90hmv9yFfyYDGbhq mjJiC0CZlaYUKqiwnbCXi9X MbmRIMblCS0FJVmrFFfD7Gd HYGqLZ5yuvs6JMO4RFvyXOG dJsW2WXXqlTZfKBQedZzdHK jnm705UZF9SwLfBY5gC8Tjj 8Z6rG1oqJMfVLFbkZYfPuZe DTBmmz0mtEAsRMesx2FwYUA 7ngT2uMMbxBZyVOSvOpO8PJ xfWR8jkl32SCXcWYS5tz1mm HEsaVugjrOatMDiSUfbM8Dk YDCpy735VKZrD6KcBDLqk7T 9chQcEdQbVARihYT0lsR2EJ BvWS8gbseyo5taHWmwBLeyY HZioeS1qpU3MSSjuHNuW2Gn eX4lLJCcOF6hmammy2pbLMO 0NJxrFWWvYNE8KrWfZCHav9 Jodji4AoLtp4HftAKaTCkaS 21dq882IJEkyrPjJ8dzlCBb ajqodYFsjmejYKzrpsB2HTB dOHwadnakQTZtODfiA2lxYm PfTQMbeCjeSGegt9FcPVXlP HFiAkKcoFWwTTOyMah6ORLw tNLzCQDzWlAqI8yydvjlBlK KXYLtn3qgA8rzmUPKoYQjA2 QgUGhvbmUgTGluZTogNzEzL Uz0PA59PfQqUCDpad74 CPT Code(s) (test code p4lfjZTcLEBqmHEjNIMnOKd = 3357) umpHaIQUmnFQtL3JfjviqSO njQH2gCC5dsOegmVIpnPGmK DScAeLhg2pdf988oLGxm0jj DPWQmlxvqHg7mMzpP78tv1T 1BacgA68bdNXwQLK7NSSdMG IlnEVpEJOhXZM6TNVrmWZdE 6axOTFiSQ4lbfrdGFkbZVuc DTOgzZG0ERReoETcN5FiBSB pLQymPTEfwox0MxRrIq0hmR VyeTcyMFxwYXJkXHBsYWluX GZzMjAgODgzMDdccGFyIDg4 MzEzeDRccGFyfQ== CLINICAL HISTORY (test f0umrFQhPNFjeBLvBZVwOVx code = 3356) swfRvITTgfZIaT7ShpnngTT trWV8mBY0ezRieyHRjlVCjG YGhEdPmx0ojh855kGNvs7pc VDNJAOvgEEZQKUi0m7acSCV SkondrVh3oMdmM35nd2B2Cd clK25ezRIdQSG8YUPyZOYsq HVpNHDfJJA9NLApeDRgF7lp BEBaYB9oarkwYLaqAYgaYKD mpYP3PDVpzLLrF6RrJDAdQT bpLNQynmt4UjBuDq2poJXxi TcyMFxwYXJkXHBsYWluXGYx NPPsKoAdNN5zAzhbWX4bACI weHclXKLkBSSzJNT9M3Qsak NbRWcrphoszmveOs4tlNAfG NJsVPwcEGP2YQU9PuXtXWak BSZlVYWwxYieB0YvbRGtMUC oeZmkS6IxuZOgHYRedXqwXS ulRZAiOUS3mGIrYOVeu7PyV WdpdGlzXHBhcn0= GROSS DESCRIPTION g6ehrQFbALMxrYMZLFKgQGM (test code = oZC7mbEeqfGb1nEyqGWYbkj [id number]) B3iWTbZKavd3ytXEH7q4efw fCUHdbcGBEdEW0uFBzqTQQs FW5bTmLwPYMmMqCwKIKnvIW aiwNsMkBsRRTnoWOczHE4GG IjVL5fmecgCLjnRSarIDHmk bV5WURljJRuW0EoZGFjWP1h roevGTD8FTSMNtibNv8txTV ibHtcZjFcZmNoYXJzZXQwXG VfpBwiPNZsLNe1uR6CMpzpH 86vo6A4Dxm8LCRaXWBpS1Sx HW4wMUItaZUuW05ZBmuxNPV 6MEAULdimLifamLerk0PhoY BcXHNnIFxcaWQgNTEwMDAgX LviXrLLZjOuKlT0RoV5OrB9 MwK4ATx4SMDPDOFxJPL1PoY 9LeI8CTu7JRBiHE2qTFuejH NnYNpaLcpuOUreF387PQajA HKvI2AnI4PoPCsyVfUbRUll VHGiKURgDOeqAMIaF9XGNDR cINOtMKh7PqQfAUh9XLirB5 RRNZUjILRtPpw5QEk4VjY7S Wp7XTSZCu8jTjOpYBbkHGOz RTC8TOruZRrbzUBnQHzcs5G oQuYdRFRgDRghciU6YWOfoc WnEVsbgIakwX5wNxCaHbFCM gSChI2zf6jbTIyclrGgLUUu afRPKweaRCGkHP5JIPFoDRl lVXZfMiJtjRNnD8yiAOMaO9 5tx6ONp4PgBQ8HJTl2gjRng inziS0nOURwhyRuZTrlJ3Sz DFHyKdPiUgYdWYy3ERWjhP6 yXk7luCMnbY9omBAhYNfmXL H1mMCqQJKmTRWlMSRzAY78L CdCNHMgbmFtZSwgbWVkaWNh bCByZWNvcmQgbnVtYmVyIGF zVJWdzKayFfSqSYv2K2Zwh8 ZnuYrurHn2KDQfWNaySXHhA J6qPSJkKNyvXYcobjp8kMK0 IX2tp86jyJN3dQTpoZLpB80 gKJGtaZUnwQX6GMFrfV6ldW 08fnDcuiWVNR2txUWeNO3ZQ HBhciANClxzYTMwXGVwaWNY r1TjKKKYNulfLfMpVyMvTrP RXoabhNhrWnKesLCtMiZ0CI StzTRvCHU2QV9meIziBAMsR En4GCtoAURrD0UmS4WxOZda ZyBcXGlkIDUxMDAyIFxcZGI fM8NNSNXhBCLkUQn4MdNiZT w3DTttM4QFZVHdVTIxOut4A DFhChB2DGc2FDSCIf8uPlZd QfS5XXRySXH2OZkeNFrnxHW gLVrtn1ArKtQfGKRtLHftak D6KGYaqgTra6DlMDVqTKBcH 6exIfVoCGETSfIiFATir8Wp dSmkHVl2PRQdoLAuBS8BWRP qtuGsDRcvqOlocJ7hbVLlN4 hcZnMyMlxlcGljTmVzdERvY zEgDQpcbHRycGFyXGxpbjBc phqsVIocPeBzWIAzhECOk7O lTLDBVmjmslCbPMKpC5Nzyx VkIGZyZXNoIGxhYmVsZWQgd 6c0lNS9zBGerRL0sMVhmNko EjFoJD1hfKKnRH0dEEgzNIk glgUgx5JhAB78zUOvldHyin EtMmEqi9UalMuzrAx3BZKpH YdgLCPpUZ1bWEZaXZcgKLbv gwo9yBG7PJ2rulJxGZQbMgZ lbPwxk9ZxXPXlitKxCETTtN Iva2NvF4zzDU6qrPZuC1y6W K6tzM8nlgWlHLBrF4ksKDIH stHnNNN5hU8itfBzoiGrx0B vwWy8vEJgVBrsj4WoPQ9fuN kuXHBhciANClxzYjBcZXBpY 8fzExHfVLhqrZZzQC8AFLAd YxUiSXGbE9faILUhQD1AN1u tiOWcBVLWvcI2cfvkJQfRMM CKNWFoJQJQJAwnhU0NOFUwv RHXBLY6JY3eBRqaNNFyW5Kg X6QncsE9s6irqOipp0GrhFV vDI4jgMIvMU6NGFTwniQwQI pcZnMyMiANCn0= MICROSCOPIC n3bdsOFrLXFeoWBsZNTrKJz DESCRIPTION (test code ukbFrGIDbzTOuU6SlfytrUP = 3371) qlTX9aIX6syOnljWWrwQRoZ GXyMpBau6mnj034hFQth3ws MZDZwscurDz3mGwwJ13fr1J 8ZqbdK03lqJFbIOM2AAIeFK MlmQElGOKkNKN2SBKcgQHyV 0kaJLZyTY0mniwwUHxxHMaa HTNeuFS8RHPshYYcM4AfKIN rEPhuKCEgqwl9QkLvGx0ltS VyeTcyMFxwYXJkXHBsYWluX SBmVbCeZ9ypK8mnXGEhTG33 NMP0LbOvzXU5cXToROwpwmJ zHMXbvfEhk1v9hWHewQYcu6 mihAO0HUa2EOVkxQ2ioUSdD DCpvMBnojMcsgRwcCTvh8Jw iuChYVipaGZ4bAYncKBrOU7 diRpvUO2mOQNpVVTpPGreHC 1ogVPfoLFpkh9upCOnzM8rj AIpxp78CCKolI03n8z1jX7w IGFwcHJveGltYXRlbHkgMTA qrK7sLHSnLK2rKEWeTHAnUM PesA8afOFwrlGbxcHie43qv yHaeKc3WNnkCDKuDTDePB64 wcBoQRXklpJiYIYxiB8fHGG tw97oTQYOkwTcZEZilfq1xA WuKTHojCwoo56pIRTqXYXkq U0meAMuvjRrb6IlIL3vBBVl IGNdTEfuGK8wtCKrwR7yoUz ysbTtgpAqKV4wIIHdz22wR1 3sxSPij6TjSC1cZIe6iVUbf 1A3aZKdQFdfx6Vyd6B4nTOj ZZwdaGpqL7Kah3lkSJzpVKB qTU9mE8KurZwmV0UcHkAyIC cmhrBeuXRrzWriZMYamC48g 12kQRPvTBQmlIZ4XOGux24f lo98TIMmqE4plIjkDRDkqqT qWLkrmpEwjRnlteF1t20fGd GzMH5azWNbIQWqHBW0xzHlp L62tqMyvJytAC2tqcHjVZZc ZmljIHBvcnRhbCBpbmZsYW1 kGWPgj04bGKCViZRyCQNsvx WmsrCcyTyfpNUwJ5CxfBCvz wKbrxHqQ9ItlMRtGEKcwWly TU0awKGgSxIyVVeaJHTtfWB gZHVjdHMgYXQgdGhlIHBvcn IviRC7zsidLGSpsBDbWXTsZ YQgTLMdKYKlSZGwxnJgUK8p KSIisTLbvc4yISRprLOsqbZ oeH03ucCruvEhrYdvnCQlY4 RtoBBvtMSzg9Vrmk9qETXur WyedDoaanAvdVNvtsSvqK12 lvGxtqJmTWT0RSLxaTTyVEE oKnIYMIIweqNdpX7zMnGjPT FTRCBzdGFpbiBpcyBuZWdhd Ec1NLGnf5ZbFRqthZJeMILp iyKcqQQ3xQXjazGknU2msYi ptg3rBHfka91qz0YbkT5hpI AxwuXfCFMsjvOtVa8yAKyuA 2NlYYInQKOvuw1cAbFfXTIf cn0= SPECIAL STUDIES (test r5prqXBpBEZvt7isDPYebWA code = 3376) uZzEwMzNcZnRuYmpcdWMxIH wkllDiHQuzh9KtS0HgZgPzX FxhbnNpXGRlZmxhbmcxMDMz MNZ0teXrTHAwLSizOWZmRVz kUb4trDDenCajLiRcQZHnh7 jldjKZhtyhxHf1l1qsVQQpK sN0xMVkYRzcW8snrdZlrZDj H6PebABiwJs7z2diOgMoRtF 4dTJxRZueP4edkqYndTTrYF VdBGz0uF87GRHcdE5qvHOlL KwnswDqPaG3FEvjDLThHxV5 HBPsgCDrHCTvX9atSDPyGMs jBOQvGAmxvNCrCMN2mOorc1 L7yZTvnMTepYyfDpUcAiPsY fMNz0AhYFj5xUobI4NzBSGw RbM0yHNeCZOqSFwgTPEyFAI ukcV0rIiimoGgb01ynWRvFM YwXGZzMjBcbGkwXHJpMCBDb 1RoaWxsNAD2nKx0cBzyTqma QPV1Ohn0UK2peu34aut3fYq hNWApzqbiGcO5KIieMYWxcu ywVOo9UWzrHASlcMX1DBDjx CDzX4WrKNDiRK3ocbp8OYK1 SAnoGEQhVvW4ANNgtOItLEQ rrEmeQIotj444ZFN5QnGjHF 0qX7Vlb9P1eE9zqFBvVTHaz PRgShCuNDRhsp9vkYWlLKne v7EbUKQ9nyN8dUXleYLeBFR tSX20Fjzjv8QxCjthr7SkY5 1anAN8TJtwf0xqCJ4aDrZ5j qMxNLgzh8oziU6vLhW2RTlj OR2sRJ5lXKSlpU6riikzIBE nYnJkcmhlYWRccGdicmRyZm 0pxKfrDOB5GLtkJ3zxxM7bP uR7ZZtpO9pjoY3xSGw1OXuu vXV9SEMneV0lKH4xfjslp5w vAWowUDzcUGCicdI0kyM7YP LfqBGnA0VcrX4vQSGbJT8wl emhc9ghCOS6TLtcVJDpTAI6 TtIxXNQks7Blkwj5FaZnr9C qsUYzYScuU32ov914WWWewn UvW3nzdDVfboabjWXownviK AyfqyO5IYPxUUAfUZcaZAFe XGZzMjJcbGFuZzEwMzNcaGl jaFxmMVxkYmNoXGYxXGxvY2 twIaYgM4WfVXZcRbTlDEabO YxvoEEdwJDbeZM8xI7aUX2e NDPkvZEnB8CfEPVmtdGbgMT yNPU2pAPdaUScPF8rWJkkrW Pxk9kpp8GlT1lboGrfnFK8X K1dEJDtGOKnHOjxv1BxsY4s LlxwbGFpblxmMVxmczIyXGx ejunzWSEmZVjzK2knHkJkUO RftAajDQawq5OnJAWxNTBeU lusaqIiJJf7blPaCOXlqytx JSVykYkuzE9fEsTtJwYyRmf cOE2vDOAvF5vbqYFdIDUsZQ CaU7jaVfSknI7hsWgsEYmtE gHiCeZcVdTVw411op9xXEPp aNFlnaJReBKsaM2hXOkyZFz qBElpmKHjCWfvq0uoUTNbk0 o5mRBePMGkhgXbr1atKGitb kKjZRWnhWZndVRcSZDfs42c RQulbZdqwJbtZBEwc4BlpHp kl6FqXdEzEIrdt5OvP65asW JvbCBzbGlkZXMgcnVuIGFsb 60av7maERDpDdM1aNKcbOP8 vWHrjSJct1LliOylCWNsd3g kMTHqrk9mzqimyLBhn9RsjD 5pbmcuIEludGVybmFsIHBvc 1m9eNNhRLEmYGFxRWomqIo8 DUFxi665vn3mvyQ1kAUlZED 2YWlsYWJsZSBhcmUgZXZhbH VhdGVkXHBsYWluXGYxXGZzM jJcbGFuZzEwMzNcaGljaFxm ZVnhFlQeZDWtJSgmH5uqMjY eN4XbBRXjChCmwNIiY6ospC FyXHBsYWluXGYxXGZzMjJcb GFuZzEwMzNcaGljaFxmMVxk HiZnOLJqFEnuX4hfTvJoA4Z yXGZzMjIgIFxwbGFpblxmMV xmczIyXGxhbmcxMDMzXGhpY 7aiCuUpAGWjcOmvNPaid6Lw WJCrRMEaAcqhgtPvNSr8afW oXHBhclxwbGFpblxmMVxmcz YkQZwflepxYFDzUBsfY7qtH fZyCSPcqKfjGRtoe0HfIKUe BHDnDkzgxuCdQQqroGIso3v ym5EjK3nhzSlgjFD3HPMiY4 qrzAFmtRA3AUU2iK5tASaqg kHyKDRnx9TrGYOkCWYcJxX9 hP0eHWK8JxMSdRhrFYBpPYz uXGYxXGZzMjJcbGFuZzEwMz NcaGljaFxmMVxkYmNoXGYxX SurD6cjJyTbC2EiDKHtTmZv rRvdCAixIEy5IbuhrUWvcqb mMVxmczIyXGxhbmcxMDMzXG heY0niMgThUZCkiKgfRDdru 2NoXGYxXGNmMlxmczIyIHMg GZHqfZFciYXPVQ84YCRlDYS tdCrtoY0ceOFZSZWgolO7o1 F2QWcdTMStGMe9LTluunLyX COlcF9oAAMcZJ5nOBx1aaYq DVYkj7JsAX9wNEUznLUmQLC 4XDIti6EbQ4Lno0RhJZVbYI Tltn5sowCuCdGLwURdDQPyf e95KZAcTB2iG9zpJWKqZHHj tcFgrKOkp4LvLLCkcAQ7lBB wVD2VMhKZu30qJITyKDMUmh WgRLRgwOoezFN0ytP3mO8uQ iBUaGUgRkRBIGhhcyBkZXRl ak2xavDtEJZxKJUuf8EniOQ geEKkqfAeZ1Uiv7QuJOUwsi 93POfaxYJpsv21JL9qH3Yej 1YreA3zLUdtQWXmn2TnvSSf dIHfBKWnm5GhA7oymmmkXIx vtFZosK2pPTVkKDk1FOSyl6 JvFWXjg4KyEaQfdiBlJJUvI YViXIVgvB64IRO3rEchuKkr ykBfBZ6dGPUhydDnJLKgWRU cgE0xSGjdniYqRSSyzhV8w1 T0AJxaWZCdvyDqNehhMOC3z mRvrtQ3tVHgT0zdbeelNQod VOTvn0CllO1oiEFLuVTsb6U dyFDawWSBlHDhLZ9flnMyIM 6ePUV1QNhtHDLWAIYzFBacL YEeSFR8JBouLezxYQJ5dqRj HZNym0ZnLOscC2ouU88clOm awIr9qECzfLxsqLNuvHDbYU QtgnQ6h6L5DXEyk7UfuyphK HBsYWluXGYyXGZzMjJcbGFu ZzEwMzNcaGljaFxmMlxkYmN iSGHtRWpfJ6koGhNtEpLmPx wcWAM3sL== Gross assessment was [facility] performed at ([facility], code = 2777) Department of Pathology, [address] [place] [id number], Technical component [facility] was performed at ([facility], code = 2778) Department of Pathology, [address] [place] [id number], Professional component [facility] was performed at ([facility], code = 2779) Department of Pathology, [address] [place] [id number], [facility] [id number] 14:45:35 Test Item Value Reference Range Interpretation Comments Case Report (test code Surgical Pathology = 104) Report Case: [id number] Authorizing Provider: Yari Zhang MD Collected: 10/24/2022 08:23 AM Ordering Location: [facility] Received: 10/24/2022 11:19 AM SERVICES Pathologist: Dorene Khan MD Specimens: A) - Biopsy, Liver, LIVER BIOPSY B) - Biopsy, Liver, LIVER BIOPSY DIAGNOSIS (test code = [id number] 3220) uZzEwMzNcZnRuYmpcdWMxIH tccnRmMVxlcGljMTAyMDVcY U8biTswjUj3rNxbHFAtafD6 xFAkAZjhl6rzRKW4y3vbofv aHSSxGFxlAz6gjVBdtBkdEf GvDHMhYHf8fI09ASIqtC1kp ZVbWFi7ZMWmpPGirxDqCoFo QVHkuQTxqAS7CGAvNV9tahd wSIhuVModUCRwkuE6GFHdcW SgP8QmCOFhTI4ztqemUMU5S JssOQMtHIF0QhGoINQvy9Gp iwy6TtAmiCWdGTtqxJLojhp mczIwIEEuICBMSVZFUiwgUk DAXK8KLX3ELCIMRTTQI4AYZ MBKH5AKRYhmNVCvRQG9Xw6v rEdpJPqhiMh3JXLubMIoLP6 erEsdLFIze0WvWCCywSTaqH pyryomQDJbUN4xjHCqxCJxl v6ybBZwsV4wgYJhjU47b7q8 cJ1qBCJpqIQbkQulLKVpoGf sCSVjmG1eZWNxVX1hPXibaK J1q4T6wEAqBGOxzxCpXE7tl BAkiV5rgIynlcXxbsUfQX4z KLCej52dcKKfEL7AgiVpNPX eamv8uXYeJPNoaOhhj71dKA JeLKOarD6vpMAuyuHrz5AtQ YivJHBeRM8sBEPlI98eIadg LO26FCFdfeElbBTuurRmHO0 aGNKvv06ksBVgWM7UbzZmdZ ojpNFvO6JapPJmyVHvu3Qyk mEyv3BeAQuaONVlsDMbHCDj TElWRVIsIFJBTkRPTSBORUV RLYJcR62SMRBIAG5ON7gcQi 1PVYGVV4USHfSVSXSopdBaM VlcmeCdWG6whPNacRLyPGkt QIC1sWsxe2HrcBYzj3RtmsW zRZZnH9kmFB7mELMfyXYcao I4HYXxKEDtPMGrpaGdPIOdn c87JNX8GsQfd5V4DUU1PIRf GOUlm1qfQMVtfAHaRaZbBuV cZnRuYmpcdWMxXGRlZmYwe1 xtl878cCDvv1jlZMYjYdZ1i AKlMMExcZOkE667HXSiWOuj w7xzc8GfESRypWApk4Y8ZKV IehtlwQi9bLxaN73iu3U9Sv xhM3mpVIJlLRXrQ6CyOF2fT OQkKrw3NCA0HNJ9ATTfWIHg E0BoBQ0gLPCbfCJkMOg4q1m ocUbsDPTgXEI8n1djSFzxjw UuZW8fux1ekQd3q0shlwMyE FMePWLicKUEUVNkK2PkaAxh Od6muXw3oKzwIlauYMV8Poy 1GB0gpp28ngk9yMlcTXUjvj lrXbR8KFzqAYQgislkCLd7W KjiQZXpoIL7DZUwcYWeN5Cf YGMwZX6vdke8LIP4YPzdENZ cSsG6LKKwvIZtXDFlqQhrDW ale288KEF6KdFcLO6uV0Fdb 6G2iN2jbJCmDESttXJkEdLc QQFpjr5amUVzKEvqc2MbZGF 8dtU1pGKlpRZnDYHjYnZ8OZ erBD4frj96EOEaOKX5kr2pj YJnnAqqfwVvjQIjVJagD5Iu QZPtz830UDStA8TiKRHzd7Z 2bkGmCzPpDHHnaDF1gpH2LN NvKG4dznbsk4rgLUdpWTixV GKueoO0cgL2CLDqtNMkN1Xa jN9uMMGuUQ4jyqeag1pxPGH 2XLphPIOrFWI0XoQfNBDgi1 Dexvv3McMsm8CkvWQtWSofK 27qf081BFTvliEdC8eiqLVx lsfnsAKcnnzxXLiqygS0QOG vNBywqhblYVRmEMwdD8yhOy IvXXZcwNauMRubk1GrFWTzP NFoHrIzbPEaGWTvDqc1GQEe pVVxGJVrXeVyW8bcrvtxBaA JKKXxi1hwC5leyGYNpKWhH1 QgUGhvbmUgTGluZTogNzEzL Sh4WM23JdHnLJVfqj42 CPT Code(s) (test code o1xifCNuSECoyRWfOBGnKCy = 3357) onzOaJATtoMYuZ8UsvignUW mkIY2fUS8ceKbtbEFdmXUhJ NWpPmUiq8opm421eGOco4br IIXXgnbptLp0fDoaZ74tm3S 3UzvrY72ceXBzEZZ7WGLlNL LrhYVxHRDrEVR1PCImyMHvB 1rmPHDkJQ9nocppGNujBLdn MMPzuOO9MKLeqZTeM5WxVIZ tBUssFKTgoms7GyOgJk9wfK VyeTcyMFxwYXJkXHBsYWluX GZzMjAgODgzMDdccGFyIDg4 MzEzeDRccGFyfQ== CLINICAL HISTORY (test e3kmrVQiDOBpvTVkTGTdLNd code = 3356) kpoAgEYXpjZBhL8MzygwvQZ khGN0sFY7zqMvxaOAdgCVvI IGxVuGsi3eoh714rLGjt2fm ATAUMQtrLXLFXZl0f5bgERI SrfdgmWu1wRexF47yr2A5Bm ycW54ugWYcMXS2WSCbYIRoh SQsEQDnKBK6PLMtoMCkM6vj YGGmQP1onhayNRmtNFggVVF aiKC9CLYjbQUnM3SiJSSlRY tjEQJqosq1LlIiOw4ylFQol TcyMFxwYXJkXHBsYWluXGYx BSVlIlSfFX7gXnkcYX7rEOA ruKrrSWWdFXNoGDP2F6Rfyg SqFHryjpamnyboVg3uxFMhK SEoKGehLIE8ZAD6JjRfQDfa ULVuRWXekQikP3GbnOAeUXE ffBnlW5YpyKNnWHJwcMuaPU tcSDXyGCY9tFHlRDLds1NoW WdpdGlzXHBhcn0= GROSS DESCRIPTION q1haiSFgPEDiyPUTKOWbRAL (test code = mQL5wgApspSv0qRizPWYxri [id number]) E6oQLcEBrja4izDOX9t7ebf wVUHpbsBKZyBN5fGHmmSBEw ZA2fGnDeTVQkJeWtJENalAU njsRsJjWbKOAvuEDblSL0OS RgFY3qlainNPywNXtzGMAxt fI3JBCdoEHmX9DgCORrFW7g ziqeIKG0RNWHEdenNd5chTD ibHtcZjFcZmNoYXJzZXQwXG ZskHhnRPOfAFe7hS3NEoddI 44vj3A0Djf4IZWaJJDqQ0Wk JR1jTGQrbIDgA80XQyunIAU 1TYKXZsehSimwiIkkb1SldD BcXHNnIFxcaWQgNTEwMDAgX WqgQnBXVjNmLeY3MrB0WvS4 BtX7KVy6JVGZYKTvNLA1OqQ 2SrS1GRg8OODvRG8lDDfuoU LfMAufUwhpQCpkX038UHehI CUnD8QmU3VcWXshSiHwXQeo ZIXxKKMzERixMNOzG6RNGXB wVYWbTYj2CfJxDNf8YLoeX4 MZIMPuKHJfLdq5RHt1ChE8I Mu2VYGEPl9cPxTiYCzoGCFk LRY3VZegTYbobZAvOOkom8B bLqViHQMwWGpykcA7IWQmdl FaVFboxOsocE5pVuDoWfXYC iNNyG4pq4qoZDygejOsAVEz jlUHJwicMFKfRG4TRNVwFRi vNHEoMcZopFShX7ppHOHbP7 9sz6UHu6GkGI4JBNl0daWnt ahfwZ5kCEMqpvHcQZlsE6Zg VWTbOhHuWmBjKSh1ZOMwgQ8 aOi7qzFJltX4orRZqSLbqXG K6fMHdHKYjBNDmCZGmBA76S CdCNHMgbmFtZSwgbWVkaWNh bCByZWNvcmQgbnVtYmVyIGF jKHLwpJvgBoXwCTo7H7Sdo2 JqaImesHm1QAInUDrgADAcW J9sLNLdTEbgTAngyje3yYL1 FY2gt54nqCZ7ySXjuNVwG84 qOXXexTWmiSN0IKLtgM6gqM 40alAgqgNGZK2vvENsHH2BA HBhciANClxzYTMwXGVwaWNY f5OgSRXRDsrhRaStOoBwIwQ AJlzkaRztHsKbcNCgKbZ2DS GtzSWkSNX3KT2kpEobPUEwL Vb6VRvqQDVfO5SlO3RnSIwy ZyBcXGlkIDUxMDAyIFxcZGI rX1RKWKWcGOTpLUl5MiSaQJ c0SGcaF4LUXQUxPKFlNrz3L FRaLqF4HOs8QOXFQd9iOtDj CyB2ZQOiRGA5DCdzULgneJU bFDgdo2CmKkSvYPFgHWdqcs U2UFOlszNxc1VzXQYaTNMiF 0dcThMwUQZHDkNqWLLje0Gi gBgsOKt8RNZmvUWuNK6DEEL yflWkOJqcmWnxtP7ktNWdM5 hcZnMyMlxlcGljTmVzdERvY zEgDQpcbHRycGFyXGxpbjBc ferdYSitPkVxQBDgdJORp3X vNCNIQtgufjMeDCKzU1Hayj VkIGZyZXNoIGxhYmVsZWQgd 8s0jXC5iOXrbCY9hRCozApz PkRmLW7reNVhSB4gLLgzYCj zdqDgg4JdAT77aBGvidVtbs VdJbUfv8YaqMbcwCi7RBNvX MbsNWNkKL0aANDrAAlxNYxn dug0vZA8AH4bpgGhOMRaZqM hvKiuj6AzZXDrdhFkSUCRlW Jxi4AmB4smML3yeEFgO7j5W N4txS5sgbCxZLQyP1ztYMAE duOjBJF1uC0qxfBcfoYhv3S vgLc0cASvEPoks0ZlJV3uvK kuXHBhciANClxzYjBcZXBpY 4gaZvKdDQyyqHUcHL3SEYKq IuCxCYTpI3yiSKVjXK6NX8u epLFyGUTYnfS0kpftNTqNEU FTWJZcJJJZCSydwK3IGZFyd IJWYPO4CK4aUDeiJTOoS0Kn C8SgncN7p5ytpXuqg8LicJS sKM8ieWYfQB8RSFUcedPpQR pcZnMyMiANCn0= MICROSCOPIC p2tdhNVdKUPenWZmTFDuLCv DESCRIPTION (test code zqoUnEIKknGWvG0QtluxfHZ = 3371) crCO4cBJ8urKtlaQBhgOTkW TOzXeMxv6lmo935pAZud9gz CXCJxifonSg1eAmmC82rp5W 2KrbgW51pjIVlRBS9AMHgJQ VpzBBkWQYkKAT0PSHccAXiO 7ngZNGsDZ5nkaszDUtvGLfp OMChlHX5JUEarKAfH1YySIK sGNorWEJmodg3SrKwLc5drK VyeTcyMFxwYXJkXHBsYWluX BSiXdJpX1dfJ2ssCIDiHP95 WLU2WcWteWG2cKCwXCfcszJ yKUNjyiMjm2m6rLRhjNZuq3 cbrQM4XLt4WOOykX0rxFHaS WUqsSYlvjClvvDjzJWgk5Nw rhMcJGfajXF4jCDepCMhJI7 rdKouBR1yQQOkBGFaBEmsQQ 1gaPQemWRqbg1dwYAmbA1yl OVutg52HBHizG40o5g4nQ7o IGFwcHJveGltYXRlbHkgMTA ysV6uCZHePL0dRPYhNLObRG ZumU1prCIkbmKdkzWow40uz nWlgNc4QHebRHZoQLWrKZ23 nyQlGVTkabCiWJAfbI9uZRB bw43cFIDThgAyBKHouva9zG JqVRXgjZynw67qCILtEFDpe J1xfGNltdLgf8SiWO3xFAWa VIRfMKklQX8jkHBadQ7vaSt zfqPjyfRePB9sFZXvr20hM8 2qbRUct4RuWU5qYFe2qDCxa 6U2eDGqTSzlp3Hox5Q2oTCl HSzbhHrbK1Lot2mxPJxhVWR lKU0fI4RurPgaM2NeStIgTT fwhaFheEBwzLmlJILecC16h 14zCYKuJDAcvHW6ACIax83a eq85DXLjfF9txEblJLAmvjV gPKggztFewKjziyQ6c54fFu ImSS2cuYVwPSBoDZM3seHgi M72cmFrjNxqQT5ezaRpBVPx ZmljIHBvcnRhbCBpbmZsYW1 xRWAqn54gRXGDmBPdSWRrxy JjhwMjnWofpIKnF6IxwCIbx wKqqyCiE9BxeAJdDKZohUpt BC2lcORpBdGqMHsaLXPhhCL gZHVjdHMgYXQgdGhlIHBvcn MjdXN7qzodATEooAVyQXOxN EWuIRLzTMWkIMWpsxLoMU0k BQVizEOkly2nDQTdhJEawmR moH32lzMlzuBcgRqwqIVpT9 RglUPakITqf4Egyz1tDYTla UzmhXsoniZblIHmqwDtjH92 kcRrgfJjOIY7WTKrqYVyYJW cSeVHJKYudwGhqR2dGqWeGV FTRCBzdGFpbiBpcyBuZWdhd Ge0DTQfa4FsKXjdlDZjSROo ybJvsOE8vRPhmcZxfS4reHr emb2aSQoyv30xr3NsqT5bfH PcxvPdDUBxqdBcWi5pFTbwJ 4KdSWYlYULlru6iXaDaFUFp cn0= SPECIAL STUDIES (test o0ryzQOiFMJtv2etBGDepXT code = 3376) uZzEwMzNcZnRuYmpcdWMxIH alsuIsBBhvw9XoB7SaOgEuO FxhbnNpXGRlZmxhbmcxMDMz FDN0heDdPFChLIvjJYXpEFv pSm1sqUImqLynLxAwSHDqv1 mtwvCJqdqqvFi5f6sgCRJpG bE7iIEfRWzzJ2nrnpGjvADo S7HyuSYqqNc0a2loOzIgGsA 3wHFlYNpdK5qcwmRppDZmGN GdOOy8bT74GRNyyT2kaNXuD WbfqiBoRfU3XRyeANXfAlJ9 QOGrdOQaRAObV1ntYSTgYOh lKPYuJQxhtSVwOWU0oRspt0 Z3wUXwpYDpyVpiYhOwXjIvR rPMk4KjKKk2jDywR6XzJMOt KrM1cZIcRQPeLQdjMLEnRLX tkvD0uArmyfSom32pbDVvBT YwXGZzMjBcbGkwXHJpMCBDb 3OyuTlaJIZ4iBw0uPoiYwqs QTV4Hmd9AL0kxh24tst8jZl zGEYxlcgiAwJ3PDukDNOtmx oeLOn8QWfbFIDlfPR4CONuy XFtI0BqRYGtIT0ncqb4KJE6 UDazXXFdPxG2LANauMRfOMQ zvAnoILdju213CEI1GnMeLO 8zX0Kux2C2aE6gwTCqAXLwf EJlSuRvQBMpsg1rzHAiDZjo t3VpCMT5prA1sPJlfHIgZFI hXI86Ofyik9DaEpdap4ZcT3 6uzKO0RAtwx4ceYF4iJsD9t yQtDOsnt0mdeH2pPgC6YJwz BS2hRX9wMUBcvW2terlhGFE nYnJkcmhlYWRccGdicmRyZm 2hwFgfLMR2BKyeY7mqeI0mX rU7DPtqE7smaJ7hPRj5SHmy rIX9WMKnhC2qJC6blrcfy7v mKCqwBBveEBShggK7bkO4QT OsoNVvB7NweJ5hRRKfOA3vc vjud1ouUYN1ZIkuAGCpYKK1 DqCzGEDqo4Jycwp8DjRhs9O geVCvXUwdZ52bz163UYQhim YpB9gzbUKeavejuUUmkmbmZ ZobckC2UUMhHCWfZOfuVSCi XGZzMjJcbGFuZzEwMzNcaGl jaFxmMVxkYmNoXGYxXGxvY2 epLeRtL7XlOCMaDjUtVWifU JqaoVTrnFTppZO4uS9oLH1z KTQfqVHtG5YaFILzpjSroFD zALG6aDWtvLBwTA5oGUwqcH Vxw2hsn1FcK5fkrThwtVT1J X3rBPLyXZFvWOwfj0RkiJ7z LlxwbGFpblxmMVxmczIyXGx maadySZIjDDhuA7lwLpMjZQ SvmNkmFGjpm7XfAPQmPNQzM gxgvoVgIJk8oxJtBZFgsakr ZJBesStfqM3nOuNxVkIvEkt eIF4vZRRvA4ikzEYaTLQiOY HeS1veOgRaoS4zjZfmBHxtR wHaYqDpGoGEm413yp2xOLBx zEEscqYMmSUzhF9hFOsySJw qGNefcALbRGxjq2cjFCGuo8 e6dNBtCMYydzDgg1ofLYhka bXwPCHcrXRboXHgUVWos26x IKsfyYofhDqlSSRxi2FylHp sq9IfJlNaCSugj2YjT31vmW JvbCBzbGlkZXMgcnVuIGFsb 53ao2ooYYVuIaH8iLInqKF0 hYZhdPEkn2QxjEctHIWvw4n hSSDyyu1kvpnvtTLna2VekF 5pbmcuIEludGVybmFsIHBvc 2w3zOZrPDRmWXZwDWtauXz2 PDMej495lp9omwD6jDAqOMB 2YWlsYWJsZSBhcmUgZXZhbH VhdGVkXHBsYWluXGYxXGZzM jJcbGFuZzEwMzNcaGljaFxm RVngUwAfLSPnBZysV9tsSwB cJ9JoSJMhKtXeyJLtR3nrpS FyXHBsYWluXGYxXGZzMjJcb GFuZzEwMzNcaGljaFxmMVxk BgLsVNIoCDeyI1nwJuAfG4Y yXGZzMjIgIFxwbGFpblxmMV xmczIyXGxhbmcxMDMzXGhpY 3qhXmZaTSRuoLbiXYvsk6Ds KTAqMEVlFceszcZyUOj7piL oXHBhclxwbGFpblxmMVxmcz ZmZAjqrgpjCYJeTTlaD7kdT aJbZRMbpJslUWjki5MlGWDy IYTxFpknfqEyQKuhzVSzk2w uk5YkK4znuFrqyNV9FUQgQ6 axrKDxmFS1VJM0iQ4qXLfee cDsCRPgr0SpCYOsGMDgVsI1 xI2uROA3ZrAFxAwiEFQtETu uXGYxXGZzMjJcbGFuZzEwMz NcaGljaFxmMVxkYmNoXGYxX OyjR9yqAwTcZ8GlNQMuIvBc nWtnBQunHCi2WejiyZAepin mMVxmczIyXGxhbmcxMDMzXG woP5baHiOtEOZktVbgHKyrk 2NoXGYxXGNmMlxmczIyIHMg YWQbmWZnkGPAYS42ZCNkVGV clMcpeW0yqYFEYMBahoY6t1 V5LDzaXDYiFIw2NWusnpVoP OJnuJ0zDGWkQW1zLAd6yfGw JGIct2QoXP1uEIIkyJUoCTV 0SSBst6TbP2Law2LaTRCxML Donk8xgrLvKjSKoZSxQYJlr i46JCZzBT4vK5wgCXUvXTWn scLrvFJnf7QnKADnzFL0sKG pEY1MNvRTe76pDYRxAITNxo LpXGWqqLzejQF0iqR5pX3tU iBUaGUgRkRBIGhhcyBkZXRl gi3bqhOnVIDmEYKdy6VrpIU miBLwqvTgK2Ggk1IkUTMdcf 33NFgtnBVxfx05MT5sX0Snc 1PxlE8nZCnbBLYfk5KpvDSb gRAtPMNzb2GhD0uoxcteMJa jsLVtpS4uAWUlKGd0DABay7 CjQQUtb2PzAkPkcmMmTIBgM HOgLARqdC65DSA7jAeflWeq hhBsSY0gFXXdqwKtFZSpOSX cfO1dOTizuhHmYXQxatG0s8 M6TYodTSRfbdUlTpdiTXW1a zAkkxV3aWPcA4wkzwnrTTnl NEVln4EpqM1jmZYBkEHri6C kbTEpvCYRbFXpEC4judSwUY 1tQVR7YIhfONASAVYtKHwnG GVaPEK3YArfEwmkBEI9zsTc FWPws5WpVGttT6fvV79zpIh cvDb5vETrgXuegNVtbKXuEG OicyW5z3S8EARwl1IxjodcO HBsYWluXGYyXGZzMjJcbGFu ZzEwMzNcaGljaFxmMlxkYmN bDPOpYDyoA4eqMyFyYlKoRq giLCU2pL== Gross assessment was [facility]'s performed at Psychiatric, code = 2777) Department of Pathology, [address] [place] [address], Technical component [facility] was performed at ([facility], code = 2778) Department of Pathology, [address] [place] [id number], Professional component [facility] was performed at ([facility], code = 2779) Department of Pathology, [address] [place] [id number], [facility] [id number] 14:45:35 Test Item Value Reference Range Interpretation Comments Case Report (test code Surgical Pathology = 104) Report Case: [id number] Authorizing Provider: Yari Zhang MD Collected: 10/24/2022 08:23 AM Ordering Location: [facility] Received: 10/24/2022 11:19 AM SERVICES Pathologist: Dorene Khan MD Specimens: A) - Biopsy, Liver, LIVER BIOPSY B) - Biopsy, Liver, LIVER BIOPSY DIAGNOSIS (test code = [id number]) uZzEwMzNcZnRuYmpcdWMxIH tccnRmMVxlcGljMTAyMDVcY A0qiZuzoRx2fJfkHTNykoP6 eSRgQNyqz2npXPX4g0slkcf rIIAyDNzgVt5fnVSjhKkqAk AkPYPrJGp1gC95FJYotD5bm JNqTGy8UAWlkAPmwiCnRtYn ONCqySGizFU8KRGfXV2dbch cRCdqQJrmELAvorO9PVLenJ ZrD6MuUZOrSR7cdkdsMHJ3N EjiWWWsOUE1DcJkWZOnd0Ms mcg5InQjaQJmOTwnzBKbjxb mczIwIEEuICBMSVZFUiwgUk HTLC8VWZ6LMUAFUMFMN1FHR VXLY3VLAZelXSLrINA5Pw9t qXfxVJdfvTr9ZVZkiYOfSF5 bmFjzRWTjh3GlXWDehYRtdY nrixznUHBiKZ4mcGQetLKci d6srTQbwC4fcYTiyN35n0z4 lG0cFHEveKMuaZzkXKPcyEx bRBTmfT3tAREiQJ5mCFijjM G6n2U1oAMsYKIqukHbZY5za OXrqZ7jbBudemLoaoAsNS4s OOZko28olYLiKA8MfkHgIGT dlbl7vPAmBQQvdIyzs77rUP WjNXYodR6uxZAaopBly3ZvS QpzNIEgJL5eVIPrN89fRgmf OU22XLRxffRxbXJsmfGjPA7 qASCrx31msHUgVY1MvbUqvP vfhDYyU1XytXEfwFIlr9Xxg aHje9DwVXtvFLMkkYIoNNMf TElWRVIsIFJBTkRPTSBORUV USPTfR76DMFOKDI0KX2fzAf 7OSWTHW7SHCbVKLTAyruWnH YkicwSzEQ6woIWswQIsACjl TVV0zKtnr1UvvHIvx4KitfO eDIZfF6cdVD6qCMGexGUaau N9LPYkNHErULQaccGgSFGpa x18YKY4FbBrv8H0FMI2FFCx PEHzu1eyMWXqoGTnEnCpWaC cZnRuYmpcdWMxXGRlZmYwe1 xaj521lLNid6xgHCLlYfC7g PGaBZGbtAAoB245VIIfKZwd h0czd8HsSHClgRVfz7T1KGU ZdigauPu7cZbkA88cf6D1Oc mwH0ihZJSwVXNxO2EvQG7bB VShXhp3WLI4KQA9BSMuWZFp N7StCH0qKKStyMRmBSa7x0j iuLozOMKkGZB9t0lpZVcwjq UvQP8uwc0luVv4y4svrgEeE NJvNGZoiIZBBTCjQ5NdvNro Xp7gtGg1qKruPblhMVG8Mue 8FK9xmj99oby7yRqpMJBbnu neGrW5ROcxLFSztdwxXAe7R BdwZGRpbCJ1YYCfqZMeA6Ud PIEgJH6urvs6EEJ1DQlaOAB wAsB4LFTzfOOsXFJmmNgiFC wvt603REF3EpGkHW0vR7Vjl 1A0jN9pgXTfEMKekUJyZrEf FRMabb4ozDHrDGbfh5ImEUT 7wfQ8uPXdfPImYHZpTqC0IN zoUF8plr33GLNlBYX2nm9tp ZSmvBrwajVidXNdJNvyE3Hq GUYqu581MDPkF5NgNPXnz5B 2fyZrZuStRDQicUF0qsD5JC CrSK1kwmhiw7rlCDwqTXivJ KMcmtN2ydK3IEPiuEVnT2Jc vC6wHWYlNK0tiycdb8pmYWP 5OTldYNQyIME5RoQxUJWhe8 Wmsyo2DmFyg1OmpVIoDYzeP 44yn760WVAagsUbC7gewYJn frqdyZEkpkbnGXuqniZ9LOV eIMhjrwkqCTIyIRhyA8ttTy YxWKWatOlkJKmdr1PqIQKqB REuWjHsrJBnVQZhPis3KILz aMMkLMSjMhOcX0aajavuChQ HTUHkz7tuN2omtYELbKKcB1 QgUGhvbmUgTGluZTogNzEzL Cq1UC81BqJyLSVxkz14 CPT Code(s) (test code p4qdpATsHZVvkYNuAJRePRq = 3357) oagWmHCBkgSTxX7WnuocxFI ooDN2bGL0vkAbloDIuwZFkZ HRfJrEld9nbx634kOQpo8ok RFWWbvrlrUn6nTztB68xe5L 4AdbzZ19peLEbDMM8RQGdCF IynMLoYJEjBAJ1NKLzlIMrZ 9fwNWMkOI9ygxqvISuoSVgl WIQseDR3ALIpuJXyU9AiMRL kQQefZXUgnvt4NgOwMu5kcL VyeTcyMFxwYXJkXHBsYWluX GZzMjAgODgzMDdccGFyIDg4 MzEzeDRccGFyfQ== CLINICAL HISTORY (test d1ltoIYdMZNhrOBvRYOsWVi code = 3356) xxzBcJSLysNLiQ1UkewurFW ibYS6tIZ4kpAtpkWJvuMGzF KWqVrIpq4ear420jZHbc1ym MZXSADkrDKNOMLq4n2kfFJH OomhbwCn5pCuhK95ht1L0Ax mgY78opANmGXB7DESnIOEvi SUgLTPaIWS9QSHynMImR0dg WVHoZE5yowkbSVehAIruSUL pzBA8JCXjdQHjN3PoCXLcUQ uiIEJefvi6MxAjJd2ubNOif TcyMFxwYXJkXHBsYWluXGYx XABcSlQqFR3pKqnlSV2tJSZ wbDkoLKVgMSUoJCM9Z4Nmho SiCXqcwtlyquqfAx3boEJyJ REtSDovYHR3MSE1BkFcXNda RKHxEQVgoGrhY8ZupWDkXSE sbAkzY9McmAIyKIHdhXndLE pkUDCiOGN5tOBrHXRlk9KpG WdpdGlzXHBhcn0= GROSS DESCRIPTION d1vtcSUiEHKzuLZEOBAeQUW (test code = hSI0nsFkgcPf8eIxxFFQddc [id number]) W1lWUbDLbdn1jlVZF1k5vwt zQENdtdAYDaEG4iIJixPZWh TH0eRfNiKGFoYsKcKSGpyOI gtcOgJsDwRKDafECzwYX6WE KaVT8habmiBCpyJDaiDUBob eP8KPKljKPaA5DkDWEkLR5x ybgvDOV8LSNDNsnvUk2vbMD ibHtcZjFcZmNoYXJzZXQwXG DxlImvJNCkUQm2gW5ZMrevQ 00ox6T6Bgk4NNVrSISlS9Uq VF1fERTzzNUuC11QEcrvVZH 2QIBDQgjrHccsrSfsp8WklU BcXHNnIFxcaWQgNTEwMDAgX FiuBtLIRlKwVsH1IlW2RjO8 ItO5YRm7SINTEIZzHLV5LfH 1HzI0WFo8MSNcWQ3tVIzhlL KpWVviPmjqGTsqT729MVwqJ KIlN4SsN8LqCYgrEkRcBTcd SMQuUEDdPUzsSPQhO0SIKRC dZUKuQKh7AlFvRAk9ZQedG2 LAANGiUOMcWjg2GPo6CpR2I Kd2PLQVUe0kJoTkAEmvENTg TOQ6DExzGWlgsOCaKVkpl3G nYlOrJSVnPFdbdpM4TYBpio VjDYugfFohtB1jXrQsEcWRD gMJvO3ub8aqJNronqRyZTGa msWZSkjaGTImJV5QDMTuSSj eRRVrPnRfnSOgN7ehEEXxT9 9pm6NLt5LjQO8AWBi5hgFkl elojN5fYRNcqfOnANksN7Cu QBAyLeJuYkQnYDt9DPMbqL3 dWn4teJYcfZ9obRClSHhgZN R3mQMnYXWmGIBbWQKtZE93E CdCNHMgbmFtZSwgbWVkaWNh bCByZWNvcmQgbnVtYmVyIGF qRXQnqKboNiQlBDv6N0Wcs7 MwyUvejTc8SGGuXZosRDEpE C8bDCWjJFajXGvdcei8dVL8 XD5pm75jvXR1qESioOHtI89 tDNRqwEWsxOR0KGBihL1ulC 13yqXobvJLEX3kiYFxOR7EF HBhciANClxzYTMwXGVwaWNY l1XeBNQTSebzIbVtEvDyOiR ONmkqzEajYbPhiHHaKpG2QD BkfDSrUAT0HP4jaKedXIKmD Oo5DDlhQIVuM3UtV8JbXKeu ZyBcXGlkIDUxMDAyIFxcZGI jA4RLFXPjFPBuFHa0IcXtXE u4TSsrG9EDKRAlHGGdAis1G QCoXkF5AOa9SDPIGs0fLpUx DcG6SDJkCZQ4WGtoOBxphSG nUScyv9EqXuZaRQUoGVodbm S4WANxagVff5TcUIOyRLVaZ 1upXqAwMFBSXhKhBADeh0Bd vIaaELv3IEQuoUMrZH3TOXG mgtFxGHdmjCccuJ7ekXCrJ7 hcZnMyMlxlcGljTmVzdERvY zEgDQpcbHRycGFyXGxpbjBc xrrrLJpmLvOoZXFekRQUz9K gQHNJOhbpbhOvNMXmY8Odmi VkIGZyZXNoIGxhYmVsZWQgd 7u5sQO5tBUycUA4oKGitWje VrJhHJ6qoTYdKQ8mNJvjHUq tgbBhk9FiKT02fKNgvlMpyh VzOcAyq6ZhwXdkrHu2LSRaA DyxOMPfWQ7zURKtXOncOLwx fxt0kOI5MY7vwcZgVIOjAtT vzKtkw7FsJXZtrdLfBBXRhO Znv2HxR1plNJ6vwSVuW0y0W T0zuW5hrdSiEAKeU5ihZQSX giHlCGA3iL1qdyQaayDeg0J ezLq0pVCzFHypo7VgSV2syL kuXHBhciANClxzYjBcZXBpY 3ovWnOqYMddqBEwQW5JMKGy GpNvYRDjU7jbVKMjLB5AZ8p erYOlBVDSxuJ2cwnbUJpTKS QHHQOpUNUSDTmgcZ1TIGCzm LAWZEE4VM5eGGlrKZIyB4Tq V9FawbM4u7fvkUosi7YidDS mEB2vmAMeWT4HHVUkwqJgTL pcZnMyMiANCn0= MICROSCOPIC v5zxlCTdBTVntCUtGRMoNHu DESCRIPTION (test code smvAfGPTtvSYkZ1RsfdczUL = 3371) fgVZ3iNF6rkBnpsSIjhCTyF KIrVkMnu5ixo362hDQxz2oe KJICzhbaiTb7rWvwY41qq8P 3LarsQ24cnYRyDMC7IEQsJS JneMGbVKYkAER0CNWkjNGnH 7toGDDjFY2aysagKCrlDHab KBUpfUE7FTBthBTvU8RgVDH qBTepSHKfuul8QrTvVa7bqX VyeTcyMFxwYXJkXHBsYWluX KOpYfQbR6qxS8ixKTJkDS78 UZM3SyYxpSG9oOTrHZxpyiS jXBCkvzSqo3y0sYGdzEJeb8 vxxNP4HXh5WDZcbA0olCEvN FNmwNEbapVnarNgbGGii4Cy deKuRQezeEN9jNHfoZHiZU6 koCiaOF3wAZSmSLJwLBefYW 1hhNZbsFWbrs6jzTBnxS0bc HNdpa49EVGdkW74i1q4eN5a IGFwcHJveGltYXRlbHkgMTA cqW0rBSZjKX8rSTQcVTSdAC WpoQ4uaOHnalZsegRvy47ni lNayPh7CHhgFVBqEYWeHG59 giLhMAQvlkEmIJPlvK7tXZU bt80bUECOomLjDRMbqbp2cE QhIEMqmEjkw88zHVOuWYFnj A0qsFFxkgIhu9UpVH4mWXPh JVDgURpmJP9uiFTanB3ymDn zneZttwLjXJ7pDHHsg34wF8 5rzOFip9KyPB1aBJr3yQGsp 7U6mJRrZAlyo1Lqo4I7aZMo IMjlvCduR1Gco8xlZNaqKOS iNR8zI1XhaFtzS4SvYyEaOP tbrvBnfAJpdQxgJPEooS24g 48hTDKqXLDoqNC7VOOpj07u gg41YOUpcN1eoNttLTWinyJ wWEmhvaCowSmogfN9r42hHr IiUT3reZCxHLIeBXI4umSfc E86ytVdvIlqCQ8brsHuEKZk ZmljIHBvcnRhbCBpbmZsYW1 lZXJag69uSAMReKVpJYTpvm AieeWsqPvqwJLhF7BhmJXuq iZzdxWfL7PkdHUpKTKvpQhd RB5kvSQtKxFlEZplXMKjrTH gZHVjdHMgYXQgdGhlIHBvcn SqtYS3jlppCEEmiMDkVRBmJ RBmHLVcSLEbEFSfbhZbPN2o FDYopRDkqi6vORVwoHFckrK xsA51kgLljaCrdIonlIRqZ0 AcqPYbsRJgx0Ehpg9fYARen ZvbiFulyaTgsGStkzJewR92 uhMazlFdMZW0TGWrzXOmISD fBlDIZDMfkhUukR4bTrXlDU FTRCBzdGFpbiBpcyBuZWdhd Bl8DXIhf6UuLLzxbAZfNKEl odJucLK4fCNruvYkyM9zbTg lho7bFAofd64dz4HyuC4cfW MwyfCcOTPvobPvTu8wTRxtZ 9LaJSTiYGBfps1fNoRwCXTs cn0= SPECIAL STUDIES (test l0gzyYTeTMCzo0opBNPnkRF code = 3376) uZzEwMzNcZnRuYmpcdWMxIH pwanHjFMtgs5IyQ0ScPsPoO FxhbnNpXGRlZmxhbmcxMDMz UAO6rhJqRKVfMGteOBQyKYc nIa9gkIEyaMeaHfJeFOSal8 fihsWLtvrfzKq1y3ihHJMdU mC4rSXgUWafP5vujuWcjPYg W4BjiHEtmPu0q2wqSjPcDwA 6sGMwIQkaF9euxaAuyMMjIZ BtZFl6xR23HGExzJ4paCLwD SphryQjAlZ3LWteRDPmLjX0 OUVsyBZmQSYiA9grISHpNGr iKNIvIPmeqDWnZCL2kUkpl6 K7qGRxtCFvgJyvAvWzFuQiB vKUl7LhVVs2yTspX3DtQEIg XkD6pYXzPSPhLPivNHMmCVK ygqT9qHefnyXlw51ueJPxKX YwXGZzMjBcbGkwXHJpMCBDb 0ZkaTgjBWI4rEm2cLlfLqko UTY6Oca8DM2rha24lva0cEu rTUVrsfxnBeF2OSpuZOVwkz rkKEn2ONgnUABsiFD4XLIcm PClK4HfICBuSC9gmje5OHS9 NFfdBISzVsX9OEOkrGZsJFB hwSbkLUmce874TOE0XzWjHV 3yN6Tqp0K6nK7hjUCgDEZtl LPtOfLxUBFqvg9drRJrQUci z2LuFYB1tcB6hXDmsSEjEFM jRA48Wzdjx4NoGeqrt7BrC2 1qoTI7LApxf8xjQY2xSdQ1s gEhDQygm0dpdT8gEaI5IFhg DK4dKU1tGHMuaO5rxohbSCM nYnJkcmhlYWRccGdicmRyZm 7rtUrbVNW4TRxpY8jyjY9kD kE9RBisF5mnuY0xFLr8MWud mRU6QTYmaV9tLA9vwbnou0l qGChvGGcwDIJaysC5bfM8NL FtvWQgN7LdtL7pFXEqXF4ak qwfe0yyCML4PTtlNPXeFRI8 AgXuYOKwf4Ahqbs1CkEud0D xdJJlRIxxW04mj543CYMjtq ZpT1pikFQvgnnpsZVfbtkfW DtqjxB5HDQlAEHoJVuqYRJr XGZzMjJcbGFuZzEwMzNcaGl jaFxmMVxkYmNoXGYxXGxvY2 apYyIqE4AqCTXvEtLhVUrwF CaomLXwmDFvaLC6uC0cQU0g AXOfmPRbS8YvPFBfnnQdfIM gVKU4sWXtuSEvOD6eMBopcV Hqg3vfq8RqA3kisWiicYM3I J8nSIZuWOJbQFrkl3EgoL6p LlxwbGFpblxmMVxmczIyXGx afdxpELGvEPavY2bwMbYlIQ KfoQwbGAxwn7XqFYAnMSOoP azaecNqAMf3jhElVIXqxnox VVLtpSrhtZ8wEqVjBhViVgh oQQ4mSAHzH4przRNqRYAfRE JuN4nbNxOnhU2caSkwNZhnI wYzNqWkJgFNa218va7jFBXa jFOllnSHbIZbgV3kRNdgDSy fXWmvqFHiPOpwm3haXYSrf4 t4yMHnBGEjmiTao0snTPmng mTrZNIzwXAxeZYcTVSpe92d DOocdByhcGekSPMaf6YqeDd fc6ByPeUxCLtqc9LwO94erI JvbCBzbGlkZXMgcnVuIGFsb 51ha1xfZOYlKbK6aBGjnCB3 yPZjmXUze9PwiEnxCPBwl6r xTDGuwh6owrsneKDip3KnuM 5pbmcuIEludGVybmFsIHBvc 0p9wEYcSTCyQWVcQVdchNc9 JHPdz083os5bsbS7fKZaIIG 2YWlsYWJsZSBhcmUgZXZhbH VhdGVkXHBsYWluXGYxXGZzM jJcbGFuZzEwMzNcaGljaFxm QBolRpFjDYTdYDcjW6yvShY aD1BjPTKnDpZruKZoX8faxP FyXHBsYWluXGYxXGZzMjJcb GFuZzEwMzNcaGljaFxmMVxk KxGvOBQaIMexO8vkLsUbR5W yXGZzMjIgIFxwbGFpblxmMV xmczIyXGxhbmcxMDMzXGhpY 6siKfDdLCLtjTjsBWpmu8Fj RUFkXBUlJvjoreClLOs1tyD oXHBhclxwbGFpblxmMVxmcz LxIKxbutajXUYfERkuK1cpW rLaZNOnaPayYSnhx4PkBOTh JQNsNfevqcAuCYlehZSaa2l mx6TqU0tdsFuafWO0JPSiA6 znhBAxjWT4QMY0iQ1kKDgbf wOeYYSep5GqXUMzINXcXdG6 nP9wLCI2TzDWzPbqIFIfOEo uXGYxXGZzMjJcbGFuZzEwMz NcaGljaFxmMVxkYmNoXGYxX FmgI5uwCoLuE0RoYAKtJjPn xXowVLlaRDx5OuhcaIUutkb mMVxmczIyXGxhbmcxMDMzXG jkN9waCxSbHCEelIabBKibq 2NoXGYxXGNmMlxmczIyIHMg JBSriRGsvQAYQL81LKYeGNW szRdedV3sdTNQWCHjfkH2x5 F9HIchHOQrWYh0KIbdwqOxV WHvrC1uQDWdRW6mUAc4ejMf PPGmi4VhLW9dKPTmaPKkAKG 5YBSje8ZaN0Why3RgURBtAN Hxvw0mvsDxWmFIpIMjLVTxe w18SCRaWX5zI3tzSZLmZYRh uqAbtMCsy7EpCVQyaZY9eNL cCI1VGsRKv79mZZCtLPRUft NmKVYkaIqebQS3dwK2oO1sM iBUaGUgRkRBIGhhcyBkZXRl yg1iygDuTDOaAEWww6IodTO yuGHgyqHsV8Dht2TbWRSbku 38IOnjnUWpoh98CF9fO4Aws 1WxfS0oTHrlGKTmc9DlyNXt mROcVTXds9NsB7xsmutpKZn isXRkeM6zMJRhYHk1YNXbg0 QsOPYdd1NkHfPqakKnWZMhB SRyGVJbfP81CDA7pUlwkCbu kdStBK4iOPRrrvPxBJEuGQE awC4wIDttjbKkYUNxscR8g1 P8SLdiPDTckrUxIjryOWC5n zUofmW8vEPrE9rqivumRRga ANIer5QiaP2cnQPUqNFdx1L vmPYkhWVMgHLhZY9fewHzLY 0tVPH0NZejZOJUNPIkGOolN ZUjZQU8VYcsRhnjFEM9ryLh ZGSiu4RiIHqxZ6tpJ55hbTh jaNc1kRQclZvhqLXosGNfWY IbuhX5f7P5FHEph9OqhoyyW HBsYWluXGYyXGZzMjJcbGFu ZzEwMzNcaGljaFxmMlxkYmN qTIXeGYstG6ctVvMzFnIyXa hrWET6jC== Gross assessment was [facility] performed at ([facility], code = 2777) Department of Pathology, [address] [place] [id number], Technical component [facility] was performed at ([facility], code = 2778) Department of Pathology, [address] [place] [id number], Professional component [facility] was performed at ([facility], code = 2779) Department of Pathology, [address] [place] [id number], [facility] [id number] 14:45:35 Test Item Value Reference Range Interpretation Comments Case Report (test code Surgical Pathology = 104) Report Case: [id number] Authorizing Provider: Yari Zhang MD Collected: 10/24/2022 08:23 AM Ordering Location: [facility] Received: 10/24/2022 11:19 AM SERVICES Pathologist: Dorene Khan MD Specimens: A) - Biopsy, Liver, LIVER BIOPSY B) - Biopsy, Liver, LIVER BIOPSY DIAGNOSIS (test code = [id number] 3220) uZzEwMzNcZnRuYmpcdWMxIH tccnRmMVxlcGljMTAyMDVcY B1taWxtvTy3jLtkNLOwipC7 tPFqWYgky7xjGXY7z7wrzkn uDVTlOWgyVg4rgQGxfMaxLb ZjXNEtTBg2jA47CEDtgO5it YOwCMv0DZJfjITqwwYySeNs LMDnwDXylBY1TZLbFH9tlam nKBycBIrqPZXvfmB1LIKqlS UeQ4ThITMbKC9pgswnGGR9E OmiDOXtRGL2ZxEjEHXjp5Pc kln9PpCknZSlKZgkbBDbcrx mczIwIEEuICBMSVZFUiwgUk LLKU5DEL7UWEFGHTDZD7AUA CURD7DQICzaRARyINW6Gt7c qRvcJNknoWz1QOJehRRvDU5 yxJpxPRXpy3VhHAVysJGvqQ stjcsdIXUqHZ7hoMByxUXru d6esNNafY5wiEHfcP56l9a5 wS5tPYOclDFsgCbqYJKgpUz yIWOwoM3iKZLwQI4xGOzewN K3z8P4pZBlMINyokAsMR5mx IWgtS0dlUdcykDwqbTjBX1x KFYsm27afWZhYL3FxpSnYZU jeat5nGWxOKKfyMzhe47uTN RkATYrtV5fnBZmtdLlb0LyY FvoFFXbJD6bYAQlV50fNspr KF87ZAQkprIvfYOlujEtRW4 vOEIpi09aePPhRJ8RfvLzmE ohbNCmJ6BjdCNcvPRoc7Uqc kFaz0NwIXjwERXupWLxYEWg TElWRVIsIFJBTkRPTSBORUV MLZKyE23PWJHDFU8BG5euOq 3KVBYEB1TXJbFNSXTwxvEdU IkjmdMePC8whUVilTTwMXpf UVA8aKihy9ZgpCBat0LbbcL sOSVhG7yrWB7fJSBftROuwj A5ISUtFHBlZOElwgNcLWUxu a27ELZ2FuDmh7L8PFD8MIAy INTpf0rhOTRwsDWcQjGzCaV cZnRuYmpcdWMxXGRlZmYwe1 bqc814qTSeo1rxUUQjJoV6g VFlICNjyICrX726IICuANka j2miw2QfRSNjgFHur7D0FCB MuawywZk7uNgcQ10kh0J4Jd lkE1stGVLyMLRcW1WnOH8uP AEzTsq2THJ2OBX2HOYpSDZz K6WdWL8nAEOgaQIlEDl1v4n zdGsbMPVuEVZ7u3ssBUxowi RkWQ3ddb8sdYq3e8hrddHbS PJfVHOgtISQHUQbI2RwgSlt Rt5poGn4wFjoSvknLXS6Ivv 8IF8zqd59ssq7aAkcYTPlle etShX8XKhdTOEixncdMHr3D HbuSJTwcVW4MLJthLYbU5Kz ISPiQX4iovf7JSM8NBwzZYI oKsB3USPmbBDgEXBisFofSM etp901IBB7RwHfZB4uR3Xoz 0N4oD3qiYGxJVPyhRDyMwYe FDTzhs4sqHOkOVfnc8PmHNL 4nuX4gTJeaRPcILNtPdM8ZH xuIJ3yiv48SXFvUSA2gw5vb PPncUbzxaJjiILdMAcnD7Nd RKTsy659VUTjX4DpRRMpb6P 7jfWtFfEsUBHixAG9lzO7IK VcSM9fwkpmj7caHJfeUXniL XXzapS7hoK5JYErxIYeD3Qw jS7mUSWpHR7mzipts8yhOVY 6JTrpZJAhZRM0BpBnMHUzh1 Opvdm0NcTmd2EiwKGdHXbgK 04gc646LSEsslNcM0dyrAWc lvgxpGSxwbyzCGomfyL6ZPR vCGsnzjziPJRdTCkdP1kpKu ZrRTGkbCwgBLmvt6MkPZXrQ JOdTwPqtJKfCCUcExd0ITVy pMXiOKAlBaYhB1plsnobUdJ YSKHic8ayK3rtmIWSzYXlX0 QgUGhvbmUgTGluZTogNzEzL Xp0SU82OcHzVPJmkr96 CPT Code(s) (test code n0rxaIJcWZKhyNQpYEDzUSi = 3357) funXsOUUxvBPpP0EuwtymQR hfBO3yTX2evHjmcOXuvRHlU YAyFaHjk6qmv200rMUhh9me FQBRlkiuiVm1bTwmY01ar7R 0DuyeP37jtVGtKRH9MCQlCZ YlyDYdBSWyBOH7KXLrkLZrM 9ljPJArTS5nttceJExrFXoq LBQgnYY7RKYthNSpT2DtNLV aTOwhFZCbekn0NvBpCk1fuU VyeTcyMFxwYXJkXHBsYWluX GZzMjAgODgzMDdccGFyIDg4 MzEzeDRccGFyfQ== CLINICAL HISTORY (test r4rglHLtOIVkyQHwRGOvVPi code = 3356) sxvBhJOYwlTSaV7FdipruWT clRV9vHP6ovRmxrPCtpYTpX LUkInYsh9gkj559kWTjl9mi SIACXSglVNIIITt3f2lxRTO BzoqepQv7lOktZ31qa5I4Ch qzX60rjWTvDWI8LVHmSYOtn FRpJGOeWRF6ZUYqvLJyK2mj AUPmXN3tqmcaFRlrINidPNF seXD8CZYtrEGnM4LbPILsMM snQVEwlhe9SbEcCu9obMNzs TcyMFxwYXJkXHBsYWluXGYx MVFjBdRgAN8xOafpQK9xFMO odJwaVBIyNQUqKHB8N1Fkxr GhQYdfegxangblLx9uqBOaP OYcQHmaLYN8HCT1NhKkVPqk VKRdJPQabFxmZ1YrnVXnGOR ycXqtW5NnjKRzJNSryIdwSK xxZAYeSFY2tVSrWLDzv2JvF WdpdGlzXHBhcn0= GROSS DESCRIPTION y7zkbJLpHVEyoYYHAOFkEVW (test code = wLL6elZpmiQy4zGvwCNHoxp [id number]) E0rSNpLKaph3oyYFQ0s8yqu eEDAtfbMCVrNX6uOSktUPAf UF4sAyLwPXUiAsWdSYPqsTT xrqEkJsZgRKLjpTAnfNV1PN EqEQ6wgmuwAXunKGvdSLPwu fP0TNDiyUMmD4EzUVYvKF5n fhuhPZA9QFVLJjhsSw3xrSO ibHtcZjFcZmNoYXJzZXQwXG SveQbpANOfYFy7dJ1TSecfD 44nr4I1Azy1YQMtEUJsQ7Yv OV3fLGYqcSMoD87SBdiaQPK 6TCKLHrycLexkzIxkf4GztN BcXHNnIFxcaWQgNTEwMDAgX WisAlEZDpTsMyZ0QuV2PkI6 BtF9LHl3DCPWXGEmHZT3XtX 1AkZ6TWs2MPDfTV5xIUurbJ ZuHYpnVjpyUFbcQ530ZCodI YRkA9KtL9JdPCggZeDhZCyr TXNcZDTjTYcuKPKpY3YHICX bOIByUXf8KsPdMGu4OZqyN5 FCCSEpVEVsJwb8UNj0EpQ8G Kl5XLVZBm0xLhLbQPkgHMHh VRQ8QKzoBWdmpIXhVFmul3O cKsXfNUGwKKzsdoH1EJRxzp RvXPvodTavrI5tAvXdXzIUL eNLxL9nc8acLUntbtCdSRGt glFFVvvlKDUpFY9VWQKyJOz nNNTcOkUpyMCsM2whCIHuA6 8fa6IVv2NwEW5YCOa8pkXmf sqwkD4bQNXyrsLcBQbzT2Wk GEAtVfVfAiSvERv2QBVdiF2 nRc2swAKuuC0svTGlMGmwBL K7aWSgSJQgABHlCARfRS42U CdCNHMgbmFtZSwgbWVkaWNh bCByZWNvcmQgbnVtYmVyIGF vDDOxxKdmFkMoQEx9A5Idu9 RnePfbqWu3AMJfPSjgNBPyJ A4dWGRrIIpdPSnmkzx9iIX2 ZU8ak96giNZ6wNPscZNnG79 mISCxcBAatRV9GOUpgD1whE 44vnCtqwQLNF2tmBFpPN6ZC HBhciANClxzYTMwXGVwaWNY a0ElXWWBOfpjFgYvFeWtEsV NUorzbBscLcOsbRVeUeG0YR KorMBqTEF5YZ2onWwbCSUwT Ph0IByeMKIfC2GyE0EjANiu ZyBcXGlkIDUxMDAyIFxcZGI xJ5VFTZYyAHLwLCg7TpNgMG o5NCzxG8OKQWEkDLKcExc0G XTbRpS3ROb8QUXHMj7lMgNj MsF8CVIcSGC4UYinXNgxtSQ vYVesh4BiEsVcNIHqZTkibz H6FBEkfsUqy0QwOKLbDEOmQ 7xoRiClQTPOAlKzQITlz0Sr vKheFYi3DNWhrVFwCH0ZNPG hxfAaYNzdlBgdeG2osUTmC9 hcZnMyMlxlcGljTmVzdERvY zEgDQpcbHRycGFyXGxpbjBc juskHHapPdSfLNJctYARp2X uUKUGBpdwssBmKXRxW7Qvow VkIGZyZXNoIGxhYmVsZWQgd 1u1lBN7aKLayCA9lQWoiNhu IjQsJS4zrURoOX9yXYwbOCt sufWrr9IpXG02pQHugqVbpm IcEbCnd8KueUfmkOg7VWCrR JwwBTEfGE1xUSHhSGtnMWne par9nYO3YB4vdnGaEMTkOkM ukBnek7BeJYQlehFvKTYUwG Khj5RdE3aeQR7raJQdC9e8V X5tkB1nssKrMUEqJ0nnJLRI ovOvEJR9xA8auiPpjjHhz8K aqRn4wQUfEEokq3XkNO3deT kuXHBhciANClxzYjBcZXBpY 6xfLbIwUAexxBRxPF9ZXHUs QqAzJPIrS4ukLCAnTJ7LB2a kxKNvWYMRxoJ1ltdzAVxBDF CTMEUxEALRQDzduX8ETWCmr JNEZVA4OQ6zKXkkBQWdZ7Df B9XlxaO1i1orjUsks8FgeWP gJA8wzDHzVG4HRATepdXaDR pcZnMyMiANCn0= MICROSCOPIC w7hmhNDsKRHimYJbZRXgQNh DESCRIPTION (test code rzbHuLFAugAMgF6ZdkhfhCV = 3371) yiAR1iXI8ltCblpQYtkANyG LIdVdBxl5mxy429xKAes0ri RVTVsysthPg6aOjrC38qw3X 6YckzS63epZObBIW2TQIgRW LwhKCtSNIcEMJ9OGYenIQrS 4obAXVkQD0ssvtaKHucINji EMOybDU9JHEypXAkM0GiVBX dRUgbLAGvcbw1UrZkUd6siI VyeTcyMFxwYXJkXHBsYWluX QXgRfIdE9eeH9kdOUGgHG24 IUL0NyAoxTM5gCPzOCstojZ zCPBhibKrj3d2pVYxuZNlb7 gefNY2LVf0NZScfO5zlOHvH UUuwMGxbuFmejJiwOKhe3If aoQfTIdsrDA5hSWhhYRoFE3 nqRmrNF9qEKCnQWRiPLbdHX 3axKBduZMuib2goELchV8ch VGddc82NTGzvL35r4s8zL8t IGFwcHJveGltYXRlbHkgMTA bvG8qYIUsCU5aVWHtWVVpSI JqqE0hxFOhlkKhesHjj25hi bPajPm2LRwrYWWlLFZjWG40 ueDzLXExovBePCJtkF4nXAF hu83mSTJPkjTdEGWrijj5aA EtZLOkaNmtq18iATIuIUJnm X1ihTTnluAsk2BhRZ9wARBz ZILdTUzkGR1xvSKxhO0gdTw orsSvwxIaIO8nRXOun32gL0 4oyTKfo2XcTG8lYPs5lZNos 0E6bEPfMWhys3Mne0K8oGYc KMcqjRghT4Wut6ykZStrXGZ dGF0tQ4IpuZpiE2IdFtKqRD jecwEoySFntZgyEHMecZ28d 37cJAQtFLTtbNM3KSWzw56m as69YVVthL0bkGrzPATdycU vKFrwfxEbhSfygqJ3l04vJa LfWP2uvBZuSEPgIHH4prJqq W09sxIlbExhEP1hzxHcQRNj ZmljIHBvcnRhbCBpbmZsYW1 gEMLim51yVAYKtWVeLCGvpy DwmoFrvWbvrZTfT6ZgvXBav dVmmeBpR2PscIDmCSGnoGrf WG0yrMMlKyKqRNtcSNPkfOE gZHVjdHMgYXQgdGhlIHBvcn VwsZH7frafUYHfjPFsOJNjQ DZgRNJsTFSaSDQfhxPcLN9q LMQmbOQdmp2ySPLswCYkuvQ xcA90ptAqvcAesVegwAJrT4 MwrBXfgRKly6Zgvn7mGZPdp AhznEkkbtCddUJqlgCuuD83 abXzczCbKJH1COMtdKPsNCA nFvHQZELmrxIclV2eLkHzQF FTRCBzdGFpbiBpcyBuZWdhd Lz6GGKva1TqAUnmkRSsHFJd obRuyZT4aUXytfUlnS1qpAz dno5jPGqmw46ty4ZuzO3ncU NypmLkZOSzhdYxLd0hXIypD 1ShNPFnPVZfsk8fApJtIUGu cn0= SPECIAL STUDIES (test a3ctgQWjLDChg3hbPITirRE code = 3376) uZzEwMzNcZnRuYmpcdWMxIH ucdkYdPQqag0YwV0BhAuUkV FxhbnNpXGRlZmxhbmcxMDMz DDY1ddEmGPHjOFtaGORxSJd vSe8lxMTqiJdnWdZhVKHna1 qxynNZyjvmvLn8w2xsPQYpQ uK5qFLdGGvjJ3mywoHftHNw Z4CkuQEfuQg2i7gbTmGxLpD 7bKElWBudR5ytnjZcsQGnHR GxFPb7wQ62WBMdeG8wxDXrK NlbefPfUsN2CEirNGLdCuF6 BTRjmRBwHNKbU8jqWCQkPWl pHKPqVWuciWHiZLI4bGtqt8 F7vXAmpTYtvCkqCuUzVbWtI pFZg0RyPGy7dAqmX6DcUPZx CuD5bEEzZAIiARdtQRXxXHE smeI2hHfiaeGlz49aeWOtXS YwXGZzMjBcbGkwXHJpMCBDb 1GwjGikLUM2aQj7sEaaDuqg WNF1Csf0DD4jda52rrs6jIx fDXEdpazlQcN6IAsrGLMrli xiEJz4NZyuFCOcuCW8BQAgl IYjV4OnZMMbOC9uuco1SNY2 GYbtXQIoUlI8QAHclQIeCGW yfRglVYgcd972LWH8SwDmPL 8uG8Srk1I9iW8hyFJvYLZzv DOaImCiRSFhrk5zzTOpTJfg e7XnWNS1eiX0tBYboUHbXVG nNU36Ykhmm7JoTkfqk8IjJ4 8igEP1LFixv9tuPI5fTsO9w pJbVTpod4yfmL5dSjN0IJtn RU0nKJ0yNAOmbX7naggsQFU nYnJkcmhlYWRccGdicmRyZm 5wxXfcYGO4UQbrA1ntlT9lY oL1ILwfT6rhrO9eYYy6EUvw eRD7YOWioZ7iBA2rzkukm0s rWEidGGxoAWMdseS2rfV2MO FroNCyB4CpvW8rOQBlIB8yy orhl9cjMSY9KAfzOAEqZXS7 PxRdEYJqm1Jpwzg1ZqRkj8G dmULoZZmdV31zo455XYIoam IhP6siyIKkeidxkDNdatuvH KywhiV7NOAbOPMwUSbnONOh XGZzMjJcbGFuZzEwMzNcaGl jaFxmMVxkYmNoXGYxXGxvY2 dsUbEdA0XzDUHrYdNsCSlwX OqqgYHpiBFuyUA0sF7kRZ4s HVIkyDMeX4IbGMKvpaAlaCA dXEL4rATjzHPtRN1eZPnwrK Ecw7luc4GeN9vsxNfzgSC3K E2eDZWaUSSmTVkis9YjpM6h LlxwbGFpblxmMVxmczIyXGx upuzdHKRuHAccO5bxAmHlCK KhnVpfUSraa4CqTXPtACJbK womufGdLHq8dxOxOKTfviyp KZIskPttoA2nJkQfFwQpSks aCG6vPOMpR2dacMQfQEKfMY BhO3kxOtRpxD0mxSucEJdpU lBiTmLvUaMNl035md5tLRZd iGNsplTSpPJlnR3sLIifEXg qSRljaBTiYDrsd2qnRNTcj9 b6zBJsALMedpHhs8psUSxoe lSyRTVgeVIgpMPvKOPhm61w BVnqiHrhlMfvZFHgs0HtvRk xb7XaHzDrUHzby1XaL25irQ JvbCBzbGlkZXMgcnVuIGFsb 16qj0bxNQFfItO0qMUihVS0 sUCkdGVfp9QpbSxhHFRab3z bTQLepd0xzsnrsZUzg3DykS 5pbmcuIEludGVybmFsIHBvc 6g9iVGpAAEvKZBdWGbboYi1 NNBxg034de0mnjW3sDXcABA 2YWlsYWJsZSBhcmUgZXZhbH VhdGVkXHBsYWluXGYxXGZzM jJcbGFuZzEwMzNcaGljaFxm POdgMfYaGZZpWDagU1lcMsS eS4YdUYErRtRtqHMfT5cdtS FyXHBsYWluXGYxXGZzMjJcb GFuZzEwMzNcaGljaFxmMVxk PnLkEXYcEJxzQ0knPqIzT4I yXGZzMjIgIFxwbGFpblxmMV xmczIyXGxhbmcxMDMzXGhpY 8ijKeLkFTXhmWtjTJzsb1Xb PMHiBYVaWckqyxNoMYf5veW oXHBhclxwbGFpblxmMVxmcz VfNAusndsgKIFlUVvnF0eyE cErQBAgsRedCRhdm5DdAMUo KHQyTgtchxTkDPxufXAzf0u mj2YmE8ikfUdprBO8QDKnH2 jcoIRehVY9MIC6oP2hZJwbx pEgWMSav7AqXGLvGNPuRwS3 qV0hDGS0WxAJsMrwJPOjTIi uXGYxXGZzMjJcbGFuZzEwMz NcaGljaFxmMVxkYmNoXGYxX JrkU4gkEpXmB0WtYGFuWmKs sKowSBrfWAn5LssnbUDkzvw mMVxmczIyXGxhbmcxMDMzXG beY2tdLuBtKACjdHwjIHwhq 2NoXGYxXGNmMlxmczIyIHMg CBHnaLPjlILLVK00PCMyYOF daVkilM3gqQSQMVKkvdT0a8 A0VDonWOElGKm8LDreixBvP YKrqO8nXFIaXH9xAFd8bpMf GELxg1ZlOB7fJBEtlYUiQED 4BCDow5UmI7Asq6JnDAQlPD Breu7ozgQxRqUBfYNiQNTiv z12VLOjMZ5aB1jePCCeKVRa mrVnmPOzc4OnOKAljDA7sSY gAH8YRcELt23qFKBzMGEPry QyWDEueVlpsRO7akK6sJ1tG iBUaGUgRkRBIGhhcyBkZXRl vw6klgJdSINnNUAfi0KxlSU wrSXnhgIeX4Vie5NaXKOaqb 42VAeunNPcdg08AC0fI7Frq 4MgfZ0zUQpeIAIpo9EpiAYf mSCmWMWmc2FzD4hmhcihFTd blSCpgI7yBLTbRUt0NSNzd6 TpKGUfp9CqMsWiudGkZZOpL ORdRBSdrV79YLC5vVpioQtm ulXtLT8tQOIgtvNiRTRqUAN kzJ9zPJjmnrLgDPNtziW8n4 O3FUwtSALradVtLoxqUEQ4a zJoktK4tEJvY6tkxhjsQHdz SWPms9SdhG3stXLApWLja8Z fvDKuuFNTfQFaSK6xgxEhQU 1kXTV4LQyiWRHQCWTsVUgwJ EZtECD3UGvbYjixVCE9stIa SOAwh5ThVXzoF4jmK72tgPs jvWh3cPTnqNiebBGljHPzSZ EqhmZ4v3Z7MSZsf6CduwtbP HBsYWluXGYyXGZzMjJcbGFu ZzEwMzNcaGljaFxmMlxkYmN zDASoLWjxU7qeAvZzYeHzUm zsHQF3gC== Gross assessment was [facility] performed at ([facility], code = 2777) Department of Pathology, [address] [place] [address], Technical component [facility] was performed at ([facility], code = 2778) Department of Pathology, [address] [place] [id number], Professional component [facility] was performed at ([facility], code = 2779) Department of Pathology, [address] [place] [address], [facility] [id number] 14:45:35 Test Item Value Reference Range Interpretation Comments Case Report (test code Surgical Pathology = 104) Report Case: [id number] Authorizing Provider: Yari Zhang MD Collected: 10/24/2022 08:23 AM Ordering Location: [facility] Received: 10/24/2022 11:19 AM SERVICES Pathologist: Dorene Khan MD Specimens: A) - Biopsy, Liver, LIVER BIOPSY B) - Biopsy, Liver, LIVER BIOPSY DIAGNOSIS (test code = [id number] 3220) uZzEwMzNcZnRuYmpcdWMxIH tccnRmMVxlcGljMTAyMDVcY D3nuIgivOg8fTeqFCWynjS3 fBJzBDvvh8jwYBU9p9eoija hLZAkKOwwOe1nbMImtThiMm SnIYEaRXy1fQ64EBGklS2ol IUqBJh9PGQkrJDypyVfYdUo NGOxmOXnkKV7TPFwYT1wnyw oKQimBGafZUFaitJ2ACGyoG FeY0CaXAKdDY9axumdGSR9S JqdHSOzPNB2ZwQuLLBjh4Sc vee8XrLusAQuJDbufVItwws mczIwIEEuICBMSVZFUiwgUk SLQO0KSI6FFCDXLZTBB9IFB YUZE0NHLHtkHXFaNEF6Vf7k vKjjFBbuzBu2PDQbtYDnZV0 tfTryGIQid9KpLUGvhMZkpA gweotwQLGtRI8lvOOcjOLjm a0lxNRfsD3jdOVksG67p9b5 pU3jJZSleZRtiLecNFRlpVz fSVMzdB6vFSJdGG2eMWdzjE V7w2C4xXXtKAOthrBkNB8ve LQzsK9yaErtgtZtnfHlPV3b JKKvt35ksUQmDN6WioOpSSA lodj2iOHqMESkdWyok13eKH KpUPEhfQ0xbJXvrsNsj5WzN BiyHQDoGO3gBJLhL42yCwsn YM71LIKyoeTwsNDutpAqCF3 iNPGwj26xxXZbSP9WyrHyuZ nsrAPyB7MnsIIvvMLlg3Yuy jXxu4YfKHhsSXPgoRHsVTDa TElWRVIsIFJBTkRPTSBORUV TWMBuO19IQOHFGP7NT1lgWe 8ANMTAM3LOYpPCFLYcseTnJ NwimbYwBJ1zdRCptHDvZNtx VHT9jEvby7VqfDZgn7TvxwQ pOISwF0izMD0vPEHkfQLroc Q6OATkKBVbUIIzfbMvSBCiw u02YAI7VnYhk2L6FCU3HYKj LDMdu7cfWVJupSLoUvTdCbV cZnRuYmpcdWMxXGRlZmYwe1 cac892zLGgh5cnFHFyEtA1n UIbIQGlfPFyZ419WUFoVFte x2pwf2YlVBUigKXaa7K8OBF PccybkRy2pDokE99ei1R8Rx ndK3kcECFsAQOzO5ByEC3lP OQhIzz7STO8UUZ4RKJfQIIs Q9IdAU6kUOGfoQQcKOp1n3p cqYndGQRpTWT0p4xrZIguaz WgTD4hxb3gsYk4s8cxowJfG WNfQLTwvCXCYKJxK7HggPyu Rr7hrSl5pHsgTkuwRLL9Ser 9DH5hez59bqk0vAxiIFIuts uhEbH6TIxdSNRocrlrWBz6Z VkhAJGboWY6RBRgjPRuN6Cd XXBnIK8zbkg2QBE0OKjwEBO cMaV6CADmrKBmXHDgdFgaFP mqc651PUA9OhKjAP0cB4Zeg 0G4cO7hdFPcBRVonJIwFfSo SWVnva3bnUBhAWrdl1GiHWE 1kpG3lCIleSKdBIWcAiD6UQ flYD9yzv08EMQgGJQ6ly7ih HNrtLpqajWtmWSzGCbzO5Vy WMZzv703OQOaR5KjXGUwl3U 4tuZyPwQnYDCyhQJ0etH9LO GzEJ1dxmqnw6dhJWpkDKbaA FUkztT6bpY7DZGxpLSrA2Fe kM5cLMTsUE7qdyszs7uvHMD 4QIpxFYEeFJG5OfLcSNTzf9 Wuqft9WiTqz2QwrMRkIFzfQ 23ns741WCKkdvAaP1ksjFSh ghxxtALdacabQHgzleW0GPK tOAdfckhnJAAbHGjmR3ysGr QqPTNajAqhEIxqf7YoITChZ EFbEhZufUZhUHGsKmh4ETLf sMDyJWFxIqUnW3isofxsBnG JUVVug9guX6fbhBRAoEAbE1 QgUGhvbmUgTGluZTogNzEzL Av5XD12YcRqIENsbh00 CPT Code(s) (test code x8ospAUiMURslSArICNkMWl = 3357) ntrZjGXNlqSEaP0BxaghqAL bfPD8qZM1xpSbgnBWnxOTpR MIoVbTur6zbx308hIQdx2uh ZZKXqnmedUy0kPwdF40lc2W 0JulwZ54oxTJfBVX3ZVLzGM BpgLZaBCWxJRF1UFDdcBUbZ 4usJEChRX7fwjtwKFoiTPmm AEEzhLN8UHLhcNUcA7TkQYG kGIliVGTabec4CfSrJj3ioD VyeTcyMFxwYXJkXHBsYWluX GZzMjAgODgzMDdccGFyIDg4 MzEzeDRccGFyfQ== CLINICAL HISTORY (test j8uwsZDgIKYsxBEjHUVfYDf code = 3356) hqgGpYIFxrDHbE9GzuqvuEI ypZN0iYF7heAsaiSHsmFPvP FEmKzNdg4vrz382oHKnn7nl OYMXIMxlDIOTYQd9h0vzNEZ MxncubNq6yDruB16hg6U6Vw iyG71dlRDaKVK2TBCgKVPxs ZUcFNNlDYF6ATVjuMViR4ez FHJuKQ6bfwjnKWobRXtgAYD cgTI6BNJutZLuY5HrHZEhGX nvGENatut2RsDrIm1ldIDvc TcyMFxwYXJkXHBsYWluXGYx UHBdXtKpMD1gQoejJT4xXPI tsUypZBOrFKRmUZN1N0Jijt ZyQDzszjtrdxodYg5zlQPfT CVsXDijDFY6OMH1DvZsPQml JNBjMWLmfYbyK0HobQMxCSK msJlkN5IxcKWgQAGngPeaGG qgKIAyNJR4dJJpFNIgs3OiG WdpdGlzXHBhcn0= GROSS DESCRIPTION b0ctjPTgPNGlbLUZCAPpPJR (test code = vOT3awOajmPy1gZsgBPKyny [id number]) U3eJPzVKbnl1qlIJX3m5nsc gYRCkciFHYvMA6dSClaUNPp PB9fDdLdKEYuKwYhRGRhmLA pxeWgWbOvSFObqDKwsWN5AY ZaVV0ztkmvIAnnOBqrWEWdc fN4PCAfkOGhW9GqOXGwYS1y hrwwVRV5YCEJIfaxMc6ytFG ibHtcZjFcZmNoYXJzZXQwXG HgxTslXLKwCYg3gE4GNcffX 80av8V2Ztr9IPXpTZKnY2Ux UM7sLKOyvJTlG35QFpehVBF 0QSDOFuqlWgcscMobh7YmsQ BcXHNnIFxcaWQgNTEwMDAgX ZkfXpURTgZfNuL2GiI0DfM5 HeX1BSi0JFZXOIWrRJP7KeZ 4LhI6IXk3VZRdAW2dJNbnaV DbMDhyMxraAGzkX447QGmvS YDbF2AhT6PrXLxtMqIuJIgh LWFlBDMnBNrbQMWbK8NPYFZ sFUQgSFi7RkFnVAc5DFgkB0 CSKTEwCBNkSrh5QWz8EiX3M Nc7IKBXZn6dBeGcBWytRSAb EBH3GXbfFLnveOSeBTcrg3W zImAsFPLfFHsjfaH0XYAbfj SrOFiohOhvhF1dFqVpHpIUD iWSvU6bj4gcKYnjlgCuATBf gxVOAoijKGGuLX4DOXReFDe mCTXcXgKtxQIdB5upZJAtV8 1sq6KGm2BhOO9OFTi4zxZdz nkxoG3bYWMcowGaWXsdD4Xi EDKvUlVmGnOcLXf9DOFbeL8 yXp6kyZJiyH0aiNRyIYbcAY B0yWBpDJEsSHAlKFWkNU65W CdCNHMgbmFtZSwgbWVkaWNh bCByZWNvcmQgbnVtYmVyIGF jVOKpeZsxPhYgKMw0M1Eno0 NfvUhrnMx0VJSgCSmoEHLzD Z6tGMQuCFrfVUchzjl9sFH1 FL3tm31omGB0wRCquFCyB52 fGBChnHClaAD1BNQdjQ8avY 23zzKuljZAZD1ujEDkVR8CH HBhciANClxzYTMwXGVwaWNY p0HeCYUXYbgoGeAdCmZxAiV TNdbdpSkeXxJtfTRwIxO7KS YlfJWxDXS9YV8rgWxfXJZlB Pv4TSsmOMXyT1UfJ1UkTEvk ZyBcXGlkIDUxMDAyIFxcZGI eV8XWPJUqQCBxZUn4DdNnCF e5SJdgJ1WMKTIeTNWbBpf9W VJgIgD9ZMi5HJZOOq3eEhAq YjT8YNHcYCO7GRzfMZticCT iLWurf9DtPjVtJOKyDMsbrx R7WXQdktFzq4OrAOPkECCjZ 3vtYlPfERXIZzNlCQWbn9Mh xJukFWh1CLXzuNJjMH2RDDC ybeEjDKoafOknqX7ubWIrX9 hcZnMyMlxlcGljTmVzdERvY zEgDQpcbHRycGFyXGxpbjBc lebkCCjoGcVgBLLdcYJXj1C yEQABCpsmefQeHTYuP5Luxx VkIGZyZXNoIGxhYmVsZWQgd 4x6mSO7eOKzoGV6eFSiyIwn DrOqRV6zkENdFR2tKCfoXCk dwlAcd2KnRX89zDBfklWgtw BrKaFqg0SsuDgkzBs8GQOaP RdpNDHyJK9oVOYfEExhTSpq hxs2oSB0GR1cuiJvRCCdIhP ovQxab2StGBRczlGxDNXDlQ Rey7EtM0tyRT6evVTgN0u2J P3ymD0sxtGkOAPbH9ufAFUF euLtWPK0gU5cqrNicdKkp1W hgWu9sLXoKXqtq5JpKD9yrD kuXHBhciANClxzYjBcZXBpY 3zoSpHtDCpuhJMiMW0KXYEe AeLpGJBzX9dqHCHtOU8FH3t agALtHOVPwqE9tzisHJiHMG JVTPHqFNPTAJvirQ8IRHOeq IXMPKK6QB0sZDqjDTXdE0Mv P6FzxaR8g0nxaWgfd9BfoKF dVQ5ysDQwGH3CFAXceuGzDR pcZnMyMiANCn0= MICROSCOPIC t8pncUOrWEMyrASeSXUhMPl DESCRIPTION (test code echJwUNUlfVAlI7NiyzmxIP = 3371) wgKT2yPV5koRcarMFvqDTbN WKeIyEon9clv219nSFnm7le IPKHvclxwDu0gTitE31mr8U 0XklaI10owZQtJKJ5UCXyVI AjnXDkUKJuQQB8PLFwnKVsC 0nkVEGxYF9yzuqeUBdiFMoy QEKshAV7FKKzvGVxI2ZyKVG bXBnzGRDukcn1KsVoEx0jmH VyeTcyMFxwYXJkXHBsYWluX JAjSwNhC9akX7cuUDLeID57 WIB3QpEbnVP5gZFyQRoyxjZ wYCUufwNpz8a4qLVwdMJcg2 ubvJR5OSk3OTCdeD2xkIAtO GWxqGUvlgQhwsXzxJYhe6Yv mfAiZRrnrNS7yFKtlDMlTT2 krGnjRW8sATIvGDOnUHzeFN 1bvRYfaHTiuy9opQDgvD3fk DJqxt98OXNipY54q1q7yX7w IGFwcHJveGltYXRlbHkgMTA frG4wQTZqKV0lKAEoABLxJX UyoO3lcPGpyoWarsTew83uz kPtbCr6UAwfLATcTJUaKC83 zgGxUDIveoWgLWQylH4sODL et67uOHAQelSyDWGojmw2eY VgJGMzjGlri38qCEZsJFQdq E3kvOSbrbOwa5DyLJ7fRUMu DPHoRNfpJI1tsIMcrH9xbVe cpnBdvbThIF4fJKCdh82hR8 0geQNvg0OmSX2rOZj4uKVpu 4L6oLMyFMjdw0Ewu0P7uKJf DApmvTlyD1Ufr3jvUWolYGT mKI0xD2PhkThtW7DwSuMjZB zgflFvjSIslJuxCKFwiI29f 30pRKSzNHZeyRU0AKPko47r rw68SATukK2fjVxsBACizrO aNTmavrNvbCbheoC2v20kIb XcKO0kwRRtVOLpBSQ5dmEzi B49zqGtlBtySV2nniCxIWFf ZmljIHBvcnRhbCBpbmZsYW1 kTTIom23aBGGMlYIsXCYlay CbjjJqeXzheKBiC0QroACtv kAawhXgJ3UyeKNkLUXlkCkp MO4izUVyNtSyBWecNDJayLX gZHVjdHMgYXQgdGhlIHBvcn RsnPI0muoeOEBeaDPiBGKsT KHcKBPhQPZeOZQafaCuDU1h QSIexAXjas6nKVYruYUjkhL wuZ43jvIwvvJqfRyjeFJtF1 LxvHNywFNsn3Frmq5sEKUze DrsmOjxqbYubENibpCstU65 mwSpefCxOAW7GOQrcFMhSKW wMlQQYBYnckEwsB2rPtNuLK FTRCBzdGFpbiBpcyBuZWdhd Dz3RZYcs4KxQVwuwYPpQQBr lpXpmLI1vZYggeCpgQ9knZy ibg0bMRijr29fx6UzaF7fmH FqzvOsMRJxuiNkFk6qDKwqV 2QxQKLzZBPnid8kJrHwBFAl cn0= SPECIAL STUDIES (test h2epnOCbPYSnu6nlLFAqdHG code = 3376) uZzEwMzNcZnRuYmpcdWMxIH nsnpOjDAkwq4KfM4OxJbGsM FxhbnNpXGRlZmxhbmcxMDMz IAW6jfUcRNImHXkdVXYuYNw eZp6agYMjjFngCcHwNWIhv5 zpgkZZzxjpsNr7d8agVIMeL iW6yDIkAZzbI2hppdCizBLc D7XmvWWvjKt2x2vqUjClBvM 7xFLpSWbeM6ysykLxwVUlVA SeHTg5nN82BPUrgC9xgROdW CiibxLmNmI0QGioTUAuTgL0 NZZgyLMwLNNjV2voZXYfEYf aCSKpSBznsQNoZTM4oQhjn0 B5fHBaxIAzeMvfDuDvAgDoX mLDw7KdTEw8iWqvN4JlEYDi NwE2xEPsAGMiXGclHHJdPNB zgkF6xMkjcmRzi80emYDlKO YwXGZzMjBcbGkwXHJpMCBDb 0DtwVolLZX7lHw9nVhkFhew FFW5Vqt1SY5lqe46rwp6vCo lYEMrhhfuHfS7RJhzSHEezs jrOTi1KNlfORAthVC8VNBkk GQaY7SgVLUuPG1evjq7KGA4 MDhgRFItIxM1BXMxeHQiACM riPdyKDnbl573HSP6DcQxZX 9kH6Qlv1E6sF5jjOPnIIDfg ALiXxGdCSXitr0lrZCdICme y8HnLWC3fkA7fJYzdFJmWXH tPT31Kqxmy0LnOawta5WuU5 4ypJC4QYacc2rbQT6bSkQ5q fDqLNbcp0ebvF1tVnJ7TMdc NW5xEO9mXAMkxY2dskypASH nYnJkcmhlYWRccGdicmRyZm 9dfOkcMBO3ASqhM3twpP4gK pS8JVjnP0bjbT9bXSu3FEjx aNS7XDTfdI6dBS6dwykwa3x mHRhoALzsVTWrryR0foU5DL SwaXRbN2JmmH9xBAFcTV9gj drng9urNSF6LVzpXYLcUBB1 TmDcFYQie8Lmszz3XxVgb6C urFKaXNbpJ74uk484LEWjsz CnH1rpiVLuacedmYYompcoI FabkmP9RWFaPIIjECgpRFXg XGZzMjJcbGFuZzEwMzNcaGl jaFxmMVxkYmNoXGYxXGxvY2 fhTjHhJ7QbHORsNlJvHSkbJ BjsbHMruUPiqJA1dU7sVE3r RXRwtFZsX3HqINGrgaAanVA jIUQ8qMLamZLcCO4dLYrezT Hbl6owc6QyQ8gprZzgwRR6M L4mGQMtVBYaSWdjn7BntG4n LlxwbGFpblxmMVxmczIyXGx vpjdhPSDjVGfoD9juBlXkAR WlsDruHQitq2XbHSPfLGRkU skqqnFdDOs9enNmQXHfizcp RMIxdSobwT8uCsLgAvVeUjk gIK5vTMXzB2bibSMvYXAzAU GuC2tgSmSjnS4axEbyBOmlS pWnCxVuPvRDh949lb6tYLLb qOQgypJAxSVoxW4gJEbuJOl bPMdwhOFvBNcdu5oxVGGbh3 x2fWDuUOMesyFpj6czQPyox bBeXMZstQThuFNwWMKcv00e TZlupHrtlIsxOFXjj2TnbJb kx9EtDwVnKLozn0QkF77ohN JvbCBzbGlkZXMgcnVuIGFsb 89iv7ooBNVuCvS1lRInmBD6 rKSsmZPwa5MzeNztMYJlk9r lONEegt0wfiwlpMDsl3ZmcK 5pbmcuIEludGVybmFsIHBvc 0a4gSZjTQXjDOExGYkauJs2 PLKbh470fi5wyrS3gAUoMKB 2YWlsYWJsZSBhcmUgZXZhbH VhdGVkXHBsYWluXGYxXGZzM jJcbGFuZzEwMzNcaGljaFxm KSrnQxMhUWWgZRcjO2kjVvX wJ6KeURNuRwEslKAxP3aeiU FyXHBsYWluXGYxXGZzMjJcb GFuZzEwMzNcaGljaFxmMVxk EaNcJBTjUQmlM8wlQfHgU5F yXGZzMjIgIFxwbGFpblxmMV xmczIyXGxhbmcxMDMzXGhpY 8ydTzIcZYYguMayHMrhd4Hz GNVwCMPxQcqklySpABo7mmZ oXHBhclxwbGFpblxmMVxmcz IpKMptorgqVYDlVIyqQ0nxX qQiIGHdoFurYAbcj5WeLYAu UNCbZdzylkDrDBgayTGzo1n de8NiY0uosAfffWI7DLHiG0 yiiOIuhBQ0IBQ1cU4mOSolf iAgQVNdt4LiLSVgOLLnSkK3 oI6eRAX2RcXKsXoyGLHyHHg uXGYxXGZzMjJcbGFuZzEwMz NcaGljaFxmMVxkYmNoXGYxX PggB5wjZiBeK2DxBHOcByRr jEjzLXnvKKm2LqmbcNFtsfw mMVxmczIyXGxhbmcxMDMzXG ckY6paDdFgNZZbcNasLAfen 2NoXGYxXGNmMlxmczIyIHMg LWLddLSygYGVSN46AWHpHUP ihJjuwZ1vzDQDCQJemnO4k7 X4WFpzCSMfEYr8SVpjhbMvT XPuaJ7bWRNrYT2tQEf0ldEj XXAoz1KiWI0gLBElkWFpGUL 3XSWdx0DeH4Vzs2ObRWPeWO Bnxg0qcxCvOdIVwVFrGYIhs x30NWAtZG3nQ9ahOFIrFTGi lsQfbYJzi8PpCBDtqGD2wXW jRO5KTaSMu92tJZUeHHYIbk CmULSwhRzbcKV5hiL6vS0xU iBUaGUgRkRBIGhhcyBkZXRl hx7goeMtZGAhCBQux8ZecOI ncFDdmoAtJ3Omd0EnCWPslv 72ERrmwGXmgx87UL4bZ7Xqo 6DrkS4sMPexWIBne4XlfWBv eOOyFUTlo7AlJ5bkcitfMWi hhUErfJ5zYVTmYKg2HQFde1 GoBHPhs5LgOmHhqeBkLUSeT RJfDDMyxM67YFL9mVueqFjj smNaKE0bGHDoirBwUILyNHL jeW1sAVgxvhHgXSXadrH4s7 G2DArmLYPduzJrAihjLMR2v xCuimV9sCNtX0dlnqvnBMgr XNAgg9GnhU1ooXMZuOQmo9O crWIdpWVOdRJwOI2kxbInWL 4zRLY1KZeyBQFYXJQlYUsbQ DJmTYO4AYgoVxanKYD7khAw VNUda9RfPXcvA0vxA72ksVg yqAp8tXEtaStstNXeaMKsSP FgrtS6g9K9NPMba1EtehbxL HBsYWluXGYyXGZzMjJcbGFu ZzEwMzNcaGljaFxmMlxkYmN mEBByJKoaS1znGoLfGfOuGp yyGMJ6dA== Gross assessment was [facility]. [place]'s performed at ([facility], code = 2777) Department of Pathology, [address] [place] [address], Technical component [facility]. [place]'s was performed at ([facility], code = 2778) Department of Pathology, [address] [place] [address], Professional component [facility]. [place]'s was performed at ([facility], code = 2779) Department of Pathology, [address] [place] [address], [facility] [id number] 14:45:35Surgical Pathology Report Case: [id number] Authorizing Provider: Yari Zhang MD Collected: 10/24/2022 08:23 AM Ordering Location: [facility] Received: 10/24/2022 11:19 AM SERVICES Pathologist: Dorene Khan MD Specimens: A) - Biopsy, Liver, LIVER BIOPSY B) - Biopsy, Liver, LIVER BIOPSYA. LIVER, RANDOM NEEDLE CORE BIOPSY-Suboptimal liver parenchyma for evaluation-Mild macrosteatosis involving approximately 10 to 15% of hepatocytes- Mild lobular inflammation-No definitive ballooned hepatocytes noted-No significant portal inflammation-No significant fibrosis notedB LIVER, RANDOM NEEDLE CORE BIOPSY FOR RESEARCH-This sample is directly sent for research, no slides were prepared SigningPathologist Direct Phone Line: [phone] signed by Dorene Khan MD on 10/25/2022 at 2:45 [id number] obesity due to excess calories, body mass index 45.0- 49.9 adult, gastroesophageal reflux disease with esophagitisA. Biopsy, LiverReceived in formalin labeled with the patient'sname, medical record number and "biopsy, liver" is a 1.0 cm in length lyons soft tissue core submittedin toto in A1.B. Biopsy, LiverReceived fresh labeled with the patient's name, medical record number and "biopsy, liver" is a 1.1 cm in length lyons-red soft tissue core. The specimen is given to research. No sections are submitted-gross only.CAYDEN Emanuel, HOLDEN (ASCP)cmSingle scant subcapsular liver core with approximately 6 portal triads and preserved hepatic parenchyma. There is mild macrosteatosis noted involving approximately 10 to 15% of the hepatocytes predominantly in the central venular location. No definitive ballooned hepatocytes noted. There is mild lobular inflammation comprised of lymphocytes histiocytes with ceroid laden macrophages. There is mild sinusoidal dilatation noted in the central venular zone. Portal tracts shows mild nonspecific portal inflammation. There is no significant interface hepatitis noted. The bile ducts at the portal triad appears to be preserved. Trichrome stain shows no significant fibrosis. Reticulin stain shows preserved hepatic Parenchyma. PASD stain isnegative for alpha-1 antitrypsin globules. Iron stain is negative for increased iron. The interpretation of this case included the use of immunohistochemistry or special stains.Control Slides Examined:In-house known positive controls were evaluated along with the test tissue. These control slides runalongside of the patients sample show appropriate staining. Internal positive and negative controls when available are evaluated Immunohistochemistry technical testing was performed at [facility], Pathology Laboratory where it was developed and its performance characteristics were determined. It has not been cleared or approved by the U.S. Food and Drug Administration. The FDA has determined that such clearance or approval is not necessary. The test is used for clinical purposes. It should not be regarded as investigational or for research. This laboratory is certified under the Clinical Laboratory Improvement Amendments of 1988 (CLIA-88) as qualified to perform high complexity clinical laboratory testing.[facility], Department of Pathology, [address] [place] [address], [facility], [address] [place] [address], [facility], [address] [place] [address], FF[facility] , [id number] 06:13:00 Test Item Value Reference Range Interpretation Comments Test Urine, POC (test code Negative = 0628082) Control line present?, POC (test Yes code = 6726318) Background clear?, POC (test code = Yes 3140518) UPT Cassette Lot #, POC (test code = 0567855) UPT Cassette Expiration Date, POC 7775029 (test code = 3196257) [facility] [id number] 06:13:00 Test Item Value Reference Range Interpretation Comments Test Urine, POC (test code Negative = 1027930) Control line present?, POC (test Yes code = 1778007) Background clear?, POC (test code = Yes 4479051) UPT Cassette Lot #, POC (test code = 4910925) UPT Cassette Expiration Date, POC 4393276 (test code = 7922899) [facility] , [id number] 06:13:00 Test Item Value Reference Range Interpretation Comments Test Urine, POC (test code Negative = 3445501) Control line present?, POC (test Yes code = 8386373) Background clear?, POC (test code = Yes 5965319) UPT Cassette Lot #, POC (test code = 0407875) UPT Cassette Expiration Date, POC 8030039 (test code = 3906529) [facility] , [id number] 06:13:00 Test Item Value Reference Range Interpretation Comments Test Urine, POC (test code Negative = 7163152) Control line present?, POC (test Yes code = 4104908) Background clear?, POC (test code = Yes 6638877) UPT Cassette Lot #, POC (test code = 2984915) UPT Cassette Expiration Date, POC 8190637 (test code = 2471669) [facility] , [id number] 06:13:00 Test Item Value Reference Range Interpretation Comments Test Urine, POC (test code Negative = 8299415) Control line present?, POC (test Yes code = 1561457) Background clear?, POC (test code = Yes 4085083) UPT Cassette Lot #, POC (test code = 0591103) UPT Cassette Expiration Date, POC 1475036 (test code = 5602790) [facility] , [id number] 06:13:00 Test Item Value Reference Range Interpretation Comments Test Urine, POC (test code Negative = 5549014) Control line present?, POC (test Yes code = 0141062) Background clear?, POC (test code = Yes 5227849) UPT Cassette Lot #, POC (test code = 8915840) UPT Cassette Expiration Date, POC 7824603 (test code = 6501559) [facility] , [id number] 06:13:00 Test Item Value Reference Range Interpretation Comments Test Urine, POC (test code Negative = 8546201) Control line present?, POC (test Yes code = 7071414) Background clear?, POC (test code = Yes 4670501) UPT Cassette Lot #, POC (test code = 8550584) UPT Cassette Expiration Date, POC 8453587 (test code = 1702413) [facility] , [id number] 06:13:00 Test Item Value Reference Range Interpretation Comments Test Urine, POC (test code Negative = 6614449) Control line present?, POC (test Yes code = 0707978) Background clear?, POC (test code = Yes 9859302) UPT Cassette Lot #, POC (test code = 2457800) UPT Cassette Expiration Date, POC 9230858 (test code = 2234171) [facility] , [id number] 06:13:00 Test Item Value Reference Range Interpretation Comments Test Urine, POC (test code Negative = 2719364) Control line present?, POC (test Yes code = 0326998) Background clear?, POC (test code = Yes 2222822) UPT Cassette Lot #, POC (test code = 9300779) UPT Cassette Expiration Date, POC 7495926 (test code = 8100957) [facility] , [id number] 06:13:00 Test Item Value Reference Range Interpretation Comments Test Urine, POC (test code Negative = 1500336) Control line present?, POC (test Yes code = 4058069) Background clear?, POC (test code = Yes 6237455) UPT Cassette Lot #, POC (test code = 4957856) UPT Cassette Expiration Date, POC 7617620 (test code = 5321794) [facility] , [id number] 06:13:00 Test Item Value Reference Range Interpretation Comments Test Urine, POC (test code Negative = 9953955) Control line present?, POC (test Yes code = 0341894) Background clear?, POC (test code = Yes 2921964) UPT Cassette Lot #, POC (test code = 8953471) UPT Cassette Expiration Date, POC 6986985 (test code = 4717177) [facility] , [id number] 06:13:00 Test Item Value Reference Range Interpretation Comments Test Urine, POC (test code Negative = 8008603) Control line present?, POC (test Yes code = 5105020) Background clear?, POC (test code = Yes 1377715) UPT Cassette Lot #, POC (test code = 6998333) UPT Cassette Expiration Date, POC 1927661 (test code = 7336971) [facility]-Glucose [id number] 06:06:36 Test Item Value Reference Range Interpretation Comments POC-Glucose Meter (test 113 mg/dL 70-110 H : TE STED AT [facility] code = 1538) 20 [facility], 770 30: Labor Mediator/Techni rafat ID = [id number] for Lopezvito, Jezr eel Lab Interpretation (test Abnormal code = 56324-9) [facility]-Glucose [id number] 06:06:36 Test Item Value Reference Range Interpretation Comments POC-Glucose Meter (test 113 mg/dL 70-110 H : TE STED AT [facility] code = 1538) [address] [place] [address], 770 30: Labor Mediator/Techni rafat ID = [id number] for Lopezvito, Jezr eel Lab Interpretation (test Abnormal code = 48384-8) [facility]-Glucose [id number] 06:06:36 Test Item Value Reference Range Interpretation Comments POC-Glucose Meter (test 113 mg/dL 70-110 H : TE STED AT [facility] code = 1538) [address] [place] [address], 770 30: Labor Mediator/Techni rafat ID = [id number] for Lopezvito, Jezr eel Lab Interpretation (test Abnormal code = 23180-2) [facility]-Glucose [id number] 06:06:36 Test Item Value Reference Range Interpretation Comments POC-Glucose Meter (test 113 mg/dL 70-110 H : TE STED AT [facility] code = 1538) [address] [place] [address], 770 30: Labor Mediator/Techni rafat ID = [id number] for Lopezvito, Jezr eel Lab Interpretation (test Abnormal code = 44967-4) [facility]ucose [id number] 06:06:36 Test Item Value Reference Range Interpretation Comments POC-Glucose Meter (test 113 mg/dL 70-110 H : TE STED AT [facility] code = 1538) [address] [place] [address], 770 30: Labor Mediator/Techni rafat ID = [id number] for Lopezvito, Jezr eel Lab Interpretation (test Abnormal code = 65733-6) [facility]ucose [id number] 06:06:36 Test Item Value Reference Range Interpretation Comments POC-Glucose Meter (test 113 mg/dL 70-110 H : TE STED AT [facility] code = 1538) 20 [facility], 770 30: Labor Mediator/Techni rafat ID = [id number] for Lopezvito, Jezr eel Lab Interpretation (test Abnormal code = 81323-3) [facility] [id number] 06:06:36 Test Item Value Reference Range Interpretation Comments POC-Glucose Meter (test 113 mg/dL 70-110 H : TE STED AT [facility] code = 1538) [address] [place] [address], 770 30: Labor Mediator/Techni rafat ID = [id number] for Lopezvito, Jezr eel Lab Interpretation (test Abnormal code = 64417-4) [facility]-Glucose [id number] 06:06:36 Test Item Value Reference Range Interpretation Comments POC-Glucose Meter (test 113 mg/dL 70-110 H : TE STED AT [facility] code = 1538) [address] [place] [address], 770 30: Labor Mediator/Techni rafat ID = [id number] for Lopezvito, Jezr eel Lab Interpretation (test Abnormal code = 39683-1) [facility] [id number] 06:06:36 Test Item Value Reference Range Interpretation Comments POC-Glucose Meter (test 113 mg/dL 70-110 H : TE STED AT [facility] code = 1538) [address] [place] [address], 770 30: Labor Mediator/Techni rafat ID = [id number] for Lopezvito, Jezr eel Lab Interpretation (test Abnormal code = 74655-0) [facility] [id number] 06:06:36 Test Item Value Reference Range Interpretation Comments POC-Glucose Meter (test 113 mg/dL 70-110 H : TE STED AT [facility] code = 1538) [address] [place] [address], 770 30: Labor Mediator/Techni rafat ID = [id number] for Lopezvito, Jezr eel Lab Interpretation (test Abnormal code = 19555-1) [facility] [id number] 06:06:36 Test Item Value Reference Range Interpretation Comments POC-Glucose Meter (test 113 mg/dL 70-110 H : TE STED AT [facility] code = 1538) [address] [facility], 770 30: Labor Mediator/Techni rafat ID = [id number] for Atif Dorado Lab Interpretation (test Abnormal code = 51760-5) [facility]Glucose [id number] 06:06:36 Test Item Value Reference Range Interpretation Comments POC-Glucose Meter (test 113 mg/dL 70-110 H : TE STED AT [facility] code = 1538) [address] [facility], 770 30: Labor Mediator/Techni rafat ID = [id number] for Atif Dorado Lab Interpretation (test Abnormal code = 92334-7) [facility]-GLUCOSE [id number] 06:06:36 Test Item Value Reference Range Interpretation Comments POC-GLUCOSE METER 113 mg/dL 70-110 H : TESTED A T [facility] 6720 (BEAKER) (test code = [facility], 1538) [address]: Labor Mediator/Techni rafat ID = [id number] for Ilan Payton [id number] 13:41:52 Test Item Value Reference Range Interpretation Comments SODIUM (BEAKER) (test code = 381) 143 meq/L 136-145 POTASSIUM (BEAKER) (test code = 4.9 meq/L 3.5-5.1 379) CHLORIDE (BEAKER) (test code = 382) 105 meq/L 98-107 CO2 (BEAKER) (test code = 355) 29 meq/L 22-29 Labor Mediator ID - SURINDER GBUN AND CREATININE [id number] 13:41:47 Test Item Value Reference Range Interpretation Comments BLOOD UREA 15 mg/dL 7-21 NITROGEN (BEAKER) (test code = 354) CREATININE 0.70 mg/dL 0.57-1.25 (BEAKER) (test code = 358) BUN/CREAT RATIO 21 For a normal individual on (BEAKER) (test a normal diet , the code = reference inter batsheva for the 5555231869) mass ratio rang es between 12:1 and 20:1 ( BUN in mg/dL/creatinin e in mg/dL) EGFR (BEAKER) 105 Interpretatio n of eGFR (test code = mL/min/1.73 values Stage De scription 1092) sq m Result G1 Jami l or high >=90 G2 Mildly decreased 60-89 G3a Mildl y to moderately 45-5 9 G3b Moderately to s everely 30-44 G4 Severl y decreased 15-29 G5 Kidney failure <15Reported eGF R is based on the CKD-EPI 2020 equation that d oes not use a race coefficientEsti mated GFR is not as accur ate as Creatinine Alivia queenie in predicting glom erular filtration rate . Estimated GFR is not appl icable for dialysis patien ts Labor Mediator ID - SURINDER [id number] 13:17:25 Test Item Value Reference Range Interpretation Comments HEMOGLOBIN (BEAKER) (test code = 13.1 GM/DL 11.2-15.7 410) Labor Mediator ID - [id number] TITER AND [id number] 13:18:40 Test Item Value Reference Range Interpretation Comments NIDHI TITER (BEAKER) (test code = >=:2560 1541) NIDHI PATTERN (BEAKER) (test code = Homogeneous 1781) ANTI-NUCLEAR ANTIBODY (NIDHI)2022-07-21 13:18:23 Test Item Value Reference Range Interpretation Comments ANTI-NUCLEAR ANTIBODY (NIDHI) (BEAKER) Positive Negative A (test code = 418) Test performed by IFA method.[id number] 15:54:52 Test Item Value Reference Range Interpretation Comments FERRITIN (BEAKER) (test code = 21.66 ng/mL 5.00-275.00 361) Labor Mediator ID - BSHEPATITIS B SURFACE [id number] 15:20:57 Test Item Value Reference Range Interpretation Comments HEPATITIS B SURFACE ANTIBODY < mIU/mL <8.0 (BEAKER) (test code = 647) Labor Mediator ID - BSALPHA FETOPROTEIN (AFP), TUMOR [id number] 15:20:51 Test Item Value Reference Range Interpretation Comments ALPHA-FETOPROTEIN (BEAKER) (test code < ng/mL <10.0 = 1094) Labor Mediator ID - BSHEPATITIS A ANTIBODY, [id number] 15:19:37 Test Item Value Reference Range Interpretation Comments HEPATITIS A IGM ANTIBODY (BEAKER) Nonreactive Nonreactive (test code = 498) Labor Mediator ID - BSHEPATITIS B CORE ANTIBODY, [id number] 15:19:37 Test Item Value Reference Range Interpretation Comments HEPATITIS B CORE TOTAL ANTIBODY Nonreactive Nonreactive (BEAKER) (test code = 497) Labor Mediator ID - BSHEPATITIS A ANTIBODY, [id number] 15:19:37 Test Item Value Reference Range Interpretation Comments HEPATITIS A IGG ANTIBODY (BEAKER) Nonreactive Nonreactive (test code = 2797) Labor Mediator ID - BSHEPATITIS B SURFACE [id number] 15:16:18 Test Item Value Reference Range Interpretation Comments HEPATITIS B SURFACE ANTIGEN (2) Nonreactive Nonreactive (BEAKER) (test code = 2585) Specimen is considered negative for HBsAg.HEPATITIS C [id number] 15:16:18 Test Item Value Reference Range Interpretation Comments HEPATITIS C ANTIBODY (BEAKER) Nonreactive Nonreactive (test code = 367) Labor Mediator ID - BSIRON, TIBC, % SAT. (WITHOUT FERRITIN)2022-07-19 15:01:33 Test Item Value Reference Range Interpretation Comments IRON (BEAKER) (test code = 547) 68.0 ug/dL 40.0-160.0 TOTAL IRON BINDING CAPACITY 355 ug/dL 250-450 (BEAKER) (test code = 769) IRON % SATURATION (2) (BEAKER) 19 % 20-55 L (test code = 2590) Labor Mediator ID - [id number]-1-[id number] 15:01:16 Test Item Value Reference Range Interpretation Comments ALPHA-1 ANTITRYPSIN (BEAKER) 170.50 mg/dL 90.00-200.00 (test code = 502) Labor Mediator ID - MITCHCOMPREHENSIVE METABOLIC [id number] 15:00:57 Test Item Value Reference Range Interpretation Comments TOTAL PROTEIN 8.0 gm/dL 6.0-8.3 (BEAKER) (test code = 770) ALBUMIN (BEAKER) 4.4 g/dL 3.5-5.0 (test code = 1145) ALKALINE 95 U/L 40-150 PHOSPHATASE (BEAKER) (test code = 346) BILIRUBIN TOTAL 0.4 mg/dL 0.2-1.2 (BEAKER) (test code = 377) SODIUM (BEAKER) 141 meq/L 136-145 (test code = 381) POTASSIUM (BEAKER) 3.7 meq/L 3.5-5.1 (test code = 379) CHLORIDE (BEAKER) 106 meq/L 98-107 (test code = 382) CO2 (BEAKER) (test 30 meq/L 22-29 H code = 355) BLOOD UREA 14 mg/dL 7-21 NITROGEN (BEAKER) (test code = 354) CREATININE 0.75 mg/dL 0.57-1.25 (BEAKER) (test code = 358) GLUCOSE RANDOM 80 mg/dL 70-105 (BEAKER) (test code = 652) CALCIUM (BEAKER) 9.6 mg/dL 8.4-10.2 (test code = 697) AST (SGOT) 40 U/L 5-34 H (BEAKER) (test code = 353) ALT (SGPT) 55 U/L 6-55 (BEAKER) (test code = 347) EGFR (BEAKER) 97 Interpretatio n of eGFR (test code = 1092) mL/min/1.[address] age Description sq m Result G1 Jami l or high >=90 G2 Mildly decreased 60-89 G3a Mildl y to moderately 45-5 9 G3b Moderately to s everely 30-44 G4 Severl y decreased 15-29 G5 Kidney failure <15Reported eGF R is based on the CKD-EPI 2020 equation that d oes not use a race coefficientEsti mated GFR is not as accur ate as Creatinine Alivia jerome in predicting glom erular filtration rate . Estimated GFR is not appl icable for dialysis patien ts Labor Mediator ID - MITCHBILIRUBIN, [id number] 15:00:57 Test Item Value Reference Range Interpretation Comments BILIRUBIN DIRECT (BEAKER) (test 0.1 mg/dL 0.1-0.5 code = 706) Labor Mediator ID - MITCHPROTHROMBIN [id number] 14:44:52 Test Item Value Reference Range Interpretation Comments PROTIME (BEAKER) 12.5 seconds 11.9-14.2 (test code = 759) INR (BEAKER) (test 0.95 See_Comment [Automat ed message] code = 370) The system [employer] generated this result transmitted ref erence range: <=5.90. The reference range was not used to int erpret this result as normal/abnormal . RECOMMENDED COUMADIN/WARFARIN INR THERAPY RANGESSTANDARD DOSE: 2.0 - 3.0 Includes: PROPHYLAXIS for venous thrombosis, systemic embolization; TREATMENT for venous thrombosis and/or pulmonary embolus.HIGH RISK: Target INR is 2.5-3.5 for patients with mechanical heart valves.CBC W/PLT COUNT & AUTO [id number] 14:32:10 Test Item Value Reference Range Interpretation Comments WHITE BLOOD CELL COUNT (BEAKER) 7.7 K/ L 3.5-10.5 (test code = 775) RED BLOOD CELL COUNT (BEAKER) 4.88 M/ L 3.93-5.22 (test code = 761) HEMOGLOBIN (BEAKER) (test code = 13.8 GM/DL 11.2-15.7 410) HEMATOCRIT (BEAKER) (test code = 44.4 % 34.1-44.9 411) MEAN CORPUSCULAR VOLUME (BEAKER) 91 fL 79-95 (test code = 753) MEAN CORPUSCULAR HEMOGLOBIN 28.3 pg 25.6-32.2 (BEAKER) (test code = 751) MEAN CORPUSCULAR HEMOGLOBIN CONC 31.1 GM/DL 32.2-35.5 L (BEAKER) (test code = 752) RED CELL DISTRIBUTION WIDTH 12.9 % 11.7-14.4 (BEAKER) (test code = 412) PLATELET COUNT (BEAKER) (test 293 K/CU MM 150-450 code = 756) MEAN PLATELET VOLUME (BEAKER) 9.5 fL 9.4-12.3 (test code = 754) NUCLEATED RED BLOOD CELLS 0 /100 WBC 0-0 (BEAKER) (test code = 413) NEUTROPHILS RELATIVE PERCENT 60 % (BEAKER) (test code = 429) LYMPHOCYTES RELATIVE PERCENT 28 % (BEAKER) (test code = 430) MONOCYTES RELATIVE PERCENT 7 % (BEAKER) (test code = 431) EOSINOPHILS RELATIVE PERCENT 4 % (BEAKER) (test code = 432) BASOPHILS RELATIVE PERCENT 1 % (BEAKER) (test code = 437) NEUTROPHILS ABSOLUTE COUNT 4.58 K/ L 1.56-6.13 (BEAKER) (test code = 670) LYMPHOCYTES ABSOLUTE COUNT 2.15 K/ L 1.18-3.74 (BEAKER) (test code = 414) MONOCYTES ABSOLUTE COUNT (BEAKER) 0.57 K/ L 0.24-0.36 H (test code = 415) EOSINOPHILS ABSOLUTE COUNT 0.29 K/ L 0.04-0.36 (BEAKER) (test code = 416) BASOPHILS ABSOLUTE COUNT (BEAKER) 0.08 K/ L 0.01-0.08 (test code = 417) IMMATURE GRANULOCYTES-RELATIVE 0.30 % 0.00-1.00 PERCENT (BEAKER) (test code = 2801)
[2023-06-08] MEDS ORDERED: ONDANSETRON 4 MG/2 ML VIAL ONE (09:27)
[2023-06-08] MEDS ORDERED: NA CHLORIDE 0.9% 1,000 ML ONE ×2 (09:27→19:06)
[2023-06-08 09:46] LABS: Calcium Oxalate Crystals- Ur Few /HPF (None Seen); Specific Gravity 1.008 (1.005-1.030); Urine Bacteria <20 /HPF (<20); Urine Bilirubin NEGATIVE (Negative); Urine Blood Negative (Negative); Urine Clarity Turbid (Clear); Urine Color Light-Yellow (Yellow); Urine Glucose NEGATIVE (Negative); Urine Mucus Slight /HPF (None Seen); Urine Protein NEGATIVE (Negative); Urine RBC <5 /HPF (None Seen); Urine Urobilinogen Normal (Normal); Urine pH 7.5 (5.0-7.0)
[2023-06-08 09:51] LABS: Absolute Lymphocytes (CBC) 1.2 K/uL (0.7-4.9); Hematocrit 37.9 % (36.0-45.0); Lymphocytes % 14.4 % (15.3-44.8); MCV 88.3 fL (80-100); MPV 8.1 fL (7.6-11.3); Platelets 294 thou/uL (152-406); RBC Red Blood Cell Count 4.29 M/uL (3.86-4.86)
[2023-06-08 09:54] LABS: Albumin 3.7 g/dL (3.4-5.0); Bilirubin Total 0.9 mg/dL (0.2-1.0); Protein, Total 7.7 g/dL (6.4-8.2); Troponin High Sensitivity 3.9 pg/mL (<58.9)
--- NOTE | 2023-06-08 10:06 | RAD REPORT ---
EXAM DESCRIPTION: RAD - Chest Single View - 06/08/2023 9:31 am CLINICAL HISTORY: CHEST PAIN Chest pain. COMPARISON: Chest Single View dated 02/18/2022 FINDINGS: Portable technique limits examination quality. The lungs are grossly clear. The heart is normal in size. No displaced fractures. IMPRESSION: No acute intrathoracic process suspected.
--- NOTE | 2023-06-08 10:54 | RAD REPORT ---
EXAM DESCRIPTION: CTAbdomen Pelvis W Contrast - 06/08/2023 10:16 am CLINICAL HISTORY: Abdominal pain. ABD PAIN COMPARISON: Abdomen Pelvis W Contrast dated 02/18/2022 TECHNIQUE: Biphasic CT imaging of the abdomen and pelvis was performed with 100 ml non-ionic IV cont rast. All CT scans are performed using dose optimization technique as appropriate and may include automated exposure control or mA/KV adjustment according to patient size. FINDINGS: The lung bases are clear.Postsurgical changes about the stomach. The liver, spleen, pancreas, adrenal glands and kidneys are within normal limits. No bowel obstruction, free air, free fluid or abscess. Postsurgical changes are present about the sma ll bowel. Mild sigmoid diverticulosis coli without diverticulitis. The appendix is normal. No eviden ce of significant lymphadenopathy. No suspicious bony findings. IMPRESSION: No acute intra-abdominal or pelvic finding.
--- NOTE | 2023-06-08 11:00 | RAD REPORT ---
EXAM DESCRIPTION: US - Abdomen Exam Limited - 06/08/2023 10:36 am CLINICAL HISTORY: eval gallbladder;Abd pain COMPARISON: Abdomen Exam Limited dated 02/18/2022; Abdomen Pelvis W Contrast dated 06/08/2023 FINDINGS: The gallbladder demonstrates multiple shadowing gallstones. No pericholecystic fluid or ga llbladder wall thickening. The common bile duct is mildly prominent measuring 7 mm.. The liver demonstrates no findings of intrahepatic biliary dilatation. IMPRESSION: Extensive cholelithiasis. Mildly prominent common duct measuring 7 mm.
--- NOTE | 2023-06-08 11:15 | ER ---
Nurse's Notes [facility] Name: Gabrielle Felix Age: 52 yrs Sex: Female : 1970 Arrival Date: 06/08/2023 Time: 08:[address] Private MD: Diagnosis: Other cholelithiasis with obstruction Presentation: 06/08 09:06 Chief complaint: EMS states: epigastric pain radiating to chest. Coronavirus screen: [facility] Vaccine status: Patient reports being unvaccinated. Ebola Screen: No symptoms or risks identified at this time. Initial Sepsis Screen: Does the patient meet any 2 criteria? HR > 90 bpm. No. Patient's initial sepsis screen is negative. Does the patient have a suspected source of infection? No. Patient's initial sepsis screen is negative. Risk Assessment: Do you want to hurt yourself or someone else? Patient reports no desire to harm self or others. Onset of symptoms was June 08, 2023. 09:06 Method Of Arrival: EMS: [facility] 09:06 Acuity: JENNIFER 3 3 Triage Assessment: 09:07 General: Appears in no apparent distress. uncomfortable, Behavior is cooperative, eh3 appropriate for age. Pain: Complains of pain in epigastric area. Neuro: Level of Consciousness is awake, alert, obeys commands, Oriented to person, place, time, situation. Cardiovascular: Capillary refill < 3 seconds Patient's skin is warm and dry. Rhythm is sinus rhythm. Respiratory: Airway is patent Respiratory effort is even, unlabored, Respiratory pattern is regular, symmetrical. GI: Abdomen is round non-distended, Reports upper abdominal pain, cramping, epigastric pain, nausea. : No signs and/or symptoms were reported regarding the genitourinary system. Derm: Skin is pink, warm \T\ dry. Musculoskeletal: Circulation, motion, and sensation intact. 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 - Social history:: Smoking status: unknown. - Family history:: not pertinent. - Hospitalizations: : No recent hospitalization is reported. Screenin:08 [facility] ED Fall Risk Assessment (Adult) Score/Fall Risk Level 0 - 2 = Low Risk. Abuse eh3 screen: Denies threats or abuse. Denies injuries from another. Nutritional screening: No deficits noted. Tuberculosis screening: No symptoms or risk factors identified. Assessment: 09:08 Reassessment: No changes from previously documented assessment. See triage assessment. eh3 10:00 Reassessment: Patient appears in no apparent distress at this time. Patient and/or 3 family updated on plan of care and expected duration. Pain level reassessed. Patient is alert, oriented x 3, equal unlabored respirations, skin warm/dry/pink. 11:04 Reassessment: No changes from previously documented assessment. Patient and/or family ll1 updated on plan of care and expected duration. Pain level reassessed. 18:39 Reassessment: Failed attempt to call report to 2nd floor, no answer. 3 Vital Signs: 09:06 BP 106 / 85; Pulse 97; Resp 18; Temp 98.5(O); Pulse Ox 100% on R/A; Weight 58.06 kg; eh3 Height 4 ft. 11 in. ; 10:00 BP 111 / 72; Pulse 67; Resp 18; Pulse Ox 100% on R/A; eh3 13:00 BP 100 / 63; Pulse 84; Resp 16; Pulse Ox 99% on R/A; eh3 14:00 BP 109 / 76; Pulse 88; Resp 16; Pulse Ox 99% on R/A; eh3 09:06 Body Mass Index 25.85 (58.06 kg, 149.86 cm) 3 ED Course: 08:57 Patient arrived in ED. eb 08:58 Paul Swann MD is Attending Physician. rn 09:06 Kim Vaughan RN is Primary Nurse. 3 09:07 Triage completed. eh3 09:07 Arm band placed on. eh3 09:08 Patient has correct armband on for positive identification. Placed in gown. Bed in low eh3 position. Call light in reach. Side rails up X2. Provided Education on: use of call cormier, fall precautions. Client placed on continuous cardiac and pulse oximetry monitoring. NIBP monitoring applied. 09:08 Maintain EMS IV. Dressing intact. Good blood return noted. Site clean \T\ dry. Gauge \T\ eh 3 site: 20g RFA. 09:33 XRAY Chest (1 view) In Process Unspecified. EDMS 10:18 CT Abd/Pelvis - IV Contrast Only In Process Unspecified. EDMS 10:38 Abdomen Limited US In Process Unspecified. EDMS 11:14 Quinten Swann MD is Hospitalizing Provider. rn 13:19 Cholangiogram In Process Unspecified. EDMS 14:00 No provider procedures requiring assistance completed. Patient admitted, IV remains in eh3 place. Administered Medications: 09:15 Drug: NS 0.9% IV 1000 ml IV at 1 bolus Per protocol; 1000 mL bolus Route: IV; Rate: 1 eh3 bolus; Site: left forearm; 11:00 Follow up: IV Status: Completed infusion; IV Intake: 1000ml 3 09:15 Drug: Ondansetron IVP 4 mg IVP once; over 2 minutes Route: IVP; Site: left forearm; 3 11:00 Follow up: Response: No adverse reaction eh3 12:45 Drug: Ativan IVP 0.5 mg IVP once Route: IVP; Site: left antecubital; 3 13:30 Follow up: Response: No adverse reaction; Anxiety decreased eh3 Medication: 14:00 VIS not applicable for this client. eh3 Intake: 11:00 IV: 1000ml; Total: 1000ml. 3 Outcome: 11:14 Decision to Hospitalize by Provider. rn 14:00 Admitted to ER Hold. Please see [facility] for further documentation. 3 14:00 Condition: stable 14:00 Instructed on the need for admit, 19:24 Admitted to Med/surg accompanied by nurse, via wheelchair, room 220, Report called to [facility] bedside report received by KINGSLEY Marques 19:25 Patient left the ED. [facility] Signatures: Dispatcher [employer] EDMS Paul Swann MD MD rn Botello, Elizabeth eb Lewis, Lynsay, RN RN ll1 Kim Vaughan RN RN 3 Corrections: (The following items were deleted from the chart) 09:34 09:06 BP 106 / 85; Pulse 97bpm; Resp 18bpm; Pulse Ox 100% RA; Temp 98.5F Oral; [place] [id number] 09:35 09:06 Coronavirus screen: Vaccine status: Patient reports receiving the 2nd dose of the [facility] covid vaccine. [facility] 09:36 09:07 Immunization history: Adult Immunizations up to date, [place] [address] 20:01 19:24 Admitted to Med/surg accompanied by nurse, via wheelchair, room 220, [place] [id number]
--- NOTE | 2023-06-08 11:15 | EDPHYS ---
Physician Documentation [facility] Name: Gabrielle Felix Age: 52 yrs Sex: Female : 1970 Arrival Date: 06/08/2023 Time: 08:[address] Private MD: ED Physician Paul Swann HPI: 06/08 09:22 This 52 yrs old Female presents to ER via EMS with complaints of Epigastric Pain. rn 09:22 The patient presents with abdominal pain in the epigastric area. Onset: The rn symptoms/episode began/occurred this morning. The symptoms radiate to chest. Associated signs and symptoms: Pertinent negatives: blood in stools, fever, hematuria, shortness of breath, vomiting, vomiting blood. The symptoms are described as constant, crampy. Modifying factors: The symptoms are alleviated by nothing, the symptoms are aggravated by touching the area. Severity of pain: At its worst the pain was moderate in the emergency department the pain is unchanged. The patient has not experienced similar symptoms in the past. Patient reports epigastric pain that radiates to the chest, began this morning. No known gallbladder problems. Has had stomach bypass earlier in the year without complications. Reports since surgery he no longer has acid reflux. Denies any fever/cough/shortness of breath/vomiting/diarrhea. No blood in the stool.. 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 - Social history:: Smoking status: unknown. - Family history:: not pertinent. - Hospitalizations: : No recent hospitalization is reported. ROS: 09:22 Constitutional: Negative for fever, chills, and weight loss, Cardiovascular: Negative rn for palpitations, and edema, Respiratory: Negative for shortness of breath, cough, wheezing, and pleuritic chest pain, Abdomen/GI: Positive for epigastric abdominal pain Back: Negative for injury and pain, MS/Extremity: Negative for injury and deformity, Skin: Negative for injury, rash, and discoloration, Neuro: Negative for headache, weakness, numbness, tingling, and seizure, Exam: 09:22 ECG was reviewed by the Attending Physician. rn 09:22 Constitutional: This is a well developed, well nourished patient who is awake, alert, rn appears uncomfortable Head/Face: Normocephalic, atraumatic. Cardiovascular: Regular rate and rhythm. No pulse deficits. Respiratory: No increased work of breathing, no retractions or nasal flaring. Abdomen/GI: Soft, mild epigastric abd tenderness Skin: Warm, dry MS/ Extremity: Pulses equal, no cyanosis. Neuro: Awake and alert, GCS 15 Vital Signs: 09:06 BP 106 / 85; Pulse 97; Resp 18; Temp 98.5(O); Pulse Ox 100% on R/A; Weight 58.06 kg; 3 Height 4 ft. 11 in. ; 10:00 BP 111 / 72; Pulse 67; Resp 18; Pulse Ox 100% on R/A; 3 13:00 BP 100 / 63; Pulse 84; Resp 16; Pulse Ox 99% on R/A; [facility] 14:00 BP 109 / 76; Pulse 88; Resp 16; Pulse Ox 99% on R/A; [facility] 09:06 Body Mass Index 25.85 (58.06 kg, 149.86 cm) [facility] MDM: 08:58 Patient medically screened. rn 11:13 Differential diagnosis: bowel obstruction, cholecystitis, Cholelithiasis, gastritis, rn gastroesophageal reflux disease, non-specific abd pain, pancreatitis. Data reviewed: vital signs, nurses notes, lab test result(s), radiologic studies, CT scan, ultrasound, and as a result, I will admit patient. Consideration of Admission/Observation Patient was admitted/placed on observation. Escalation of care including admission/observation considered. Management of patient was discussed with the following: Hospitalist: Discussed case with hospitalist, will admit patient for GI consult. Counseling: I had a detailed discussion with the patient and/or guardian regarding the historical points, exam findings, and any diagnostic results supporting the discharge/admit diagnosis, lab results, radiology results, the need for further work-up and treatment in the hospital. Response to treatment: the patient's symptoms have mildly improved after treatment, and as a result, I will admit patient. ED course: Patient with extensive cholelithiasis, possible choledocholithiasis, will admit to hospitalist with GI consult. Dr. Bonilla is on-call and is also patient's personal GI doctor.. 06/08 09:09 Order name: CBC with Diff; Complete Time: 10: rn 06/08 09:09 Order name: CMP; Complete Time: 10: rn 06/08 09:09 Order name: Lipase; Complete Time: 10: rn 06/08 09:09 Order name: Urinalysis w/ reflexes; Complete Time: : rn 06/08 09:09 Order name: Troponin High Sensitivity; Complete Time: : rn 06/08 09:09 Order name: Flu; Complete Time: 10: rn 06/08 09:09 Order name: Abdomen Limited US; Complete Time: 11: rn 06/08 09:09 Order name: CT Abd/Pelvis - IV Contrast Only; Complete Time: 11: rn 06/08 09:09 Order name: XRAY Chest (1 view); Complete Time: 10: rn 06/08 12:00 Order name: Cholangiogram; Complete Time: 14:15 EDMS 06/08 09:09 Order name: EKG; Complete Time: 09: rn 06/08 09:09 Order name: IV Saline Lock; Complete Time: 09: rn 06/08 09:09 Order name: Labs collected and sent; Complete Time: 09:30 rn 06/08 09:09 Order name: EKG - Nurse/Tech; Complete Time: 09:21 rn EC:22 Rate is 76 beats/min. Rhythm is regular. QRS [place] is Normal. SD interval is normal. QRS rn interval is normal. QT interval is normal. No Q waves. T waves are Normal. No ST changes noted. Clinical impression: Normal ECG. Interpreted by me. Reviewed by me. Administered Medications: :15 Drug: NS 0.9% IV 1000 ml IV at 1 bolus Per protocol; 1000 mL bolus Route: IV; Rate: 1 eh3 bolus; Site: left forearm; 11:00 Follow up: IV Status: Completed infusion; IV Intake: 1000ml eh3 :15 Drug: Ondansetron IVP 4 mg IVP once; over 2 minutes Route: IVP; Site: left forearm; eh3 11:00 Follow up: Response: No adverse reaction eh3 12:45 Drug: Ativan IVP 0.5 mg IVP once Route: IVP; Site: left antecubital; eh3 13:30 Follow up: Response: No adverse reaction; Anxiety decreased eh3 Disposition Summary: 06/08/23 11:14 Hospitalization Ordered Notes: Hospitalization Status: Inpatient Admission rn Provider: Quinten Swann rn Condition: Stable rn Problem: new rn Symptoms: have improved rn Bed/Room Type: Standard rn Location: Telemetry/MedSurg (Inpatient)(06/08/23 18:25) eb Room Assignment: 220(06/08/23 18:25) eb Diagnosis - Other cholelithiasis with obstruction rn Forms: - Medication Reconciliation Form rn - SBAR form rn - Leadership Thank You Letter rn Signatures: Dispatcher [employer] EDMS Paul Swann MD MD rn Attema, Lee, RESTAURANT FRONT MANAGER-C RESTAURANT FRONT MANAGER-[facility] Tad Gould RN RN jl7 Haydee Kelley Erin, RN RN 3 Corrections: (The following items were deleted from the chart) 09:36 09:07 Immunization history: Adult Immunizations up to date, 3 3 16:00 11:14 Telemetry/MedSurg (Inpatient) ileana jl7 16:00 11:14 ileana faustin 18:25 16:00 [facility] ER HOLD jlMiguel eb 18: 16:00 ERHOLD- jlMiguel eb
--- NOTE | 2023-06-08 12:36 | P.HP ---
Certification for Inpatient Patient admitted to: Observation With expected LOS: <2 Midnights Patient will require the following post-hospital care: None Practitioner: I am a practitioner with admitting privileges, knowledge of patient current condition, hospital course, and medical plan of care. Services: Services provided to patient in accordance with Admission requirements found in Title 42 Section 412.3 of the Code of Federal Regulations Patient History Date of Service: 06/08/23 Reason for admission: Cholelithiasis, elevated LFTs History of Present Illness: 52-year-old female with history of rheumatoid arthritis presents emergency department chief complaint of upper abdominal pain. Her pain began this morning although she has had similar episodes in the last couple weeks. Pain did not seem to be related to eating. She was evaluated in the ER her labs are significant for potassium 3.0 AST 259 ALT 112 alk phos 228 abdominal ultrasound showed extensive cholelithiasis. Mildly dilated CBD at [address] abdomen pelvis with contrast was negative for acute findings chest x-ray also unremarkable. Case was discussed with general surgery, GI plans for MRCP followed by management by general surgery/GI. 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 - Family History Family History: Reviewed- Non-Contributory - Social History Smoking Status: Never smoker Alcohol use: No CD- Drugs: No Caffeine use: Yes Place of Residence: Home Review of Systems 10-point ROS is otherwise unremarkable Gastrointestinal: Abdominal Pain Physical Examination - Physical Exam General: Alert, In no apparent distress, Oriented x3 HEENT: Atraumatic, PERRLA Neck: Supple, No LAD Respiratory: Clear to auscultation bilaterally Cardiovascular: Regular rate/rhythm, Normal S1 S2 Gastrointestinal: Normal bowel sounds, Tenderness (Moderate epigastric tenderness) Musculoskeletal: No tenderness Integumentary: No rashes Neurological: Normal speech, Normal affect - Studies Laboratory Data (last 24 hrs) 06/08/23 06/08/23 09:15 09:15 WBC 8.30 Hgb 13.1 Hct 37.9 Plt Count 294 Sodium 144 Potassium 3.0 L BUN 10 Creatinine 0.79 Glucose 113 H Total Bilirubin 0.9 AST 259 H ALT 112 H Alkaline Phosphatase 228 H Lipase 32 Microbiology Data (last 24 hrs): 06/08/23 09:15 Nasopharnyx Influenza Type A Antigen Screen - Final 06/08/23 09:15 Nasopharnyx Influenza Type B Antigen Screen - Final Assessment and Plan - Plan Assessment: Extensive cholelithasis, abd pain, elevated LFTs-rule out choledocholithiasis Plan: Extensive cholelithasis, abd pain, elevated LFTs-rule out choledocholithiasis MRCP ordered and pending Consultations with GI and general surgery as needed pain medications and antiemetics Continue antibiotics DVT PPX:SCD Code status:Full Discharge Plan: Home Plan to discharge in: 24 Hours - Advance Directives Does patient have a Living Will: No Does patient have a Durable POA for Healthcare: No - Code Status/Comfort Care Code Status Assessed: Yes (Full code) Critical Care: No Time Spent Managing Pts Care (In Minutes): 55
[2023-06-08] MEDS ORDERED: LORazepam 2 MG/ML VIAL ONE (13:00)
--- NOTE | 2023-06-08 14:09 | RAD REPORT ---
EXAM DESCRIPTION: MRI - Cholangiogram - 06/08/2023 1:19 pm CLINICAL HISTORY: cholelithiasis, dilated cbd, elevated lft COMPARISON: Abdomen Exam Limited dated 06/08/2023; Abdomen Pelvis W Contrast dated 06/08/2023 TECHNIQUE: Multiplanar multisequence MRI of the abdomen, obtained without IV contrast, utilizing M PATTERN DRAFTER sequences. FINDINGS: The gallbladder is normally distended. Dependent lobulated hypointense structures may repr esent lobulated sludge without without small stones. No intrahepatic biliary ductal dilation. Common bile duct is normal in caliber, 6 millimeter. No filling defects to suggest choledocholithiasi s. Smooth tapering at the ampulla. Main pancreatic duct is not dilated. The visualized aspects of the liver, spleen, adrenal glands, pancreas, and kidneys are unremarkable. Visualized aspects of the bowel are unremarkable. No suspicious osseous lesions. Trace bilateral pleural effusions IMPRESSION: Lobulated dependent gallbladder sludge, with or without small stones. No intra or extrahepatic biliary ductal dilation. No other acute findings.
[2023-06-08 15:07] VITALS: BMI 25.8
[2023-06-08] MEDS ORDERED: INFLUENZA VACCINE (for 6+ mo) 0.5 ML DOSE IMVAC ONE (16:00)
[2023-06-08] MEDS: NA CHLORIDE 0.9% 1,000 ML IV SCH (16:18)
[2023-06-08] MEDS ORDERED: ONDANSETRON 4 MG/2 ML VIAL IV PRN (16:18)
[2023-06-08] MEDS: PIPER TAZO 3.375 GM in NA CHLORIDE 0.9% 100 ML IV SCH (17:00)
[2023-06-08] MEDS ORDERED: PIPERACIL/TAZO 3.375 GM VIAL IV ONE (19:07)
[2023-06-08] MEDS ORDERED: NA CHLORIDE 0.9% 100 ML ONE (19:07)
--- NOTE | 2023-06-08 20:07 | CON ---
Date of Consultation: 06/08/2023 Diagnosis: Acute cholecystitis, symptomatic cholelithiasis. History Of Present Illness: This is the case of a 52-year-old patient with history of rheumatoid art hritis, comes to us with epigastric right upper quadrant pain. She ate some food yesterday that has some cheese in it and today, she also ate some chicken fillet and then noticed to have epigastric rig ht upper quadrant pain radiating to the back. Came to the ER, diagnosed with extensive cholelithiasi s and also increased LFTs and a surgical consult was obtained for possible cholecystectomy. Patient had a laparoscopic Rikki-en-Y gastric bypass as early as last September. She is recovering from it with n o complication that patient can see at that moment. They did not remove the gallbladder. Patient reddy s had nausea and right upper quadrant abdominal pain. Allergies: INCLUDE ASPIRIN, CODEINE, MORPHINE, OXYCODONE. Medications: Reviewed. Social History: She does not smoke. She does drink alcohol. Family History: Noncontributory. Surgery: Rikki-en-Y gastric bypass last September. Review of Systems: 10 points are otherwise unremarkable, see above. Physical Examination: General: Patient is awake and alert. HEENT: Pupils are equal and reactive. Anicteric. Neck: Supple. Chest: Clear. Heart: S1, S2. Abdomen: Epigastric right upper quadrant tenderness with Posada sign positive. The rest of the abdo men is soft and depressible. Breasts: Deferred. Rectal: Deferred. Pelvis: Deferred. Extremities: Good capillary refill. Laboratory Data: Blood work shows WBC count of 8.3, hemoglobin of 13, platelets of 294. Potassium 3 .0, creatinine is 0.79. Total bilirubin of 0.9, AST 259, ALT 112, alkaline phosphate 228. Lipase 32 . CAT scan and abdominal ultrasound shows extensive cholelithiasis. MRCP, no evidence of common rey e duct stone. Assessment: This is a 52-year-old patient with increase of liver function tests, symptomatic choleli thiasis, acute cholecystitis with recent gastric bypass. We explained to the primary doctors that en doscopic retrograde cholangiopancreatography may not be able to be done due to the gastric bypass its elf. Fortunately, the MRCP shows no evidence of common stones, although it is not absolutely guarant eed, so we offered her laparoscopic possible open cholecystectomy with possible intraoperative cholan giogram with benefits, alternatives, and risks including, but not limited to infection, bleeding, dam age to adjacent structures, anesthesia complication, choledocholithiasis, bile leak, pancreatitis, CO , and even . She also understands this may not relieve symptoms, she might need more than one s urgical intervention, she understood. AUDREY/MICHAEL Voice ID: [id number] Report ID: [id number]
[2023-06-09] MEDS: PIPER TAZO 3.375 GM in NA CHLORIDE 0.9% 100 ML IV SCH ×3 (02:10→16:12)
[2023-06-09 03:15] LABS: Absolute Lymphocytes (CBC) 1.1 K/uL (0.7-4.9); Hematocrit 33.2 % (36.0-45.0); Lymphocytes % 19.1 % (15.3-44.8); MCV 89.3 fL (80-100); MPV 7.7 fL (7.6-11.3); Platelets 213 thou/uL (152-406); RBC Red Blood Cell Count 3.72 M/uL (3.86-4.86)
[2023-06-09 04:07] LABS: Bilirubin Total 0.9 mg/dL (0.2-1.0); Potassium 3.2 mEq/L (3.5-5.1); Protein, Total 6.4 g/dL (6.4-8.2)
[2023-06-09] MEDS: NA CHLORIDE 0.9% 1,000 ML IV SCH ×2 (05:05→17:48)
[2023-06-09] MEDS: KCL 20 MEQ/100 mL IVPB 20 MEQ/100 ML BAG IV SCH ×2 (07:14→09:00)
--- NOTE | 2023-06-09 09:36 | P.PN ---
Date of Service: 06/09/23 Subjective: Pain improved from yesterday but still persistent Denies nausea/vomiting ROS: 10 point ROS as noted above, otherwise negative Physical exam GEN: Alert, oriented, NAD HEENT: Normal conjunctiva, sclera anicteric CV: Regular rate and rhythm, no edema Pulm: Nonlabored respirations on room air ABD: Soft, moderate epigastric/right upper quadrant tenderness, nondistended MSK: No joint tenderness Integumentary: No rashes Neuro: Normal speech, normal affect Vitals reviewed Problem List Assessment: Extensive cholelithasis, abd pain, elevated LFTs-rule out choledocholithiasis Plan: Extensive cholelithasis, abd pain, elevated LFTs-rule out choledocholithiasis MRCP was negative for choledocholithiasis or obstructive findings LFTs trended up mildly Consultations with GI and general surgery Plan for cholecystectomy today Continue antibiotics and as needed pain medications VTE: SCDs until after surgery/clearance Code: Full Dispo: 24 to 48 hours Time Spent Managing Pts Care (In Minutes): 35
[2023-06-09] MEDS ORDERED: Ringers Lactate 1,000 ML IV ONE ×2 (09:50→11:31)
[2023-06-09] MEDS ORDERED: SCOPOLAMINE HYDROBROMIDE PATCH TD ONE (10:02)
[2023-06-09] MEDS ORDERED: propofoL 200 MG/20 ML VIAL IV ONE (10:53)
[2023-06-09] MEDS ORDERED: dexAMETHasone 4 MG/ML VIAL ONE (10:53)
[2023-06-09] MEDS ORDERED: LIDOCAINE 1% MPF 5 ML VIAL ONE (10:53)
[2023-06-09] MEDS ORDERED: MIDAZOLAM HCL 2 MG/2 ML INJ ONE (10:53)
[2023-06-09] MEDS ORDERED: FENTANYL CITR 100 MCG/2 ML ONE (10:53)
[2023-06-09] MEDS ORDERED: GLYCOPYRROLATE 0.2 MG/ML SYR ONE (10:53)
[2023-06-09] MEDS ORDERED: ROCURONIUM 50 MG/5 ML VIAL IV ONE (10:55)
--- NOTE | 2023-06-09 11:56 | P.BOP ---
Preoperative diagnosis: Acute cholecystitis, sympt. cholelithiasis, s/p homer-en-Y gastric bypass Postoperative diagnosis: same Primary procedure: Lap matias with intraop cholangiogram Commercial Art Instructor: Kay Jensen (Ladonna) Estimated blood loss: <10cc Specimen: gb Findings: multiple stone impacting cystic duct removed , mild dilated CBD, Anesthesia: General Complications: None Transferred to: Recovery Room Condition: Good
[2023-06-09] MEDS ORDERED: ONDANSETRON 4 MG/2 ML VIAL IV PRN (12:00)
[2023-06-09] MEDS ORDERED: HYDROMORPHONE HCL 1 MG/ML INJ ONE (12:58)
--- NOTE | 2023-06-09 14:10 | EKG ---
Test Date: 2023-06-08 Test Time: 10:19:48 Mma Fighter: BEBETO MEASUREMENT RESULTS: Intervals: Rate: 76 NE: 130 QRSD: 88 QT: 392 QTc: 441 [place]: P: 61 NE: 130 QRS: 72 T: 51 INTERPRETIVE STATEMENTS: Normal sinus rhythm Normal ECG No previous ECG available for comparison Electronically Signed On 06-09-23 14:07:15 PEDIATRIC GENETIC COUNSELOR by Kenneth Nelson
[2023-06-09] MEDS: MEPERIDINE HCL 25 MG/ML SYR IV PRN ×2 (16:12→20:47)
--- NOTE | 2023-06-09 20:57 | CON ---
Date of Consultation: 06/09/2023 Reason For Consultation: Midepigastric pain with acute cholecystitis and cholelithiasis. History Of Present Illness: Patient is a 52-year-old white female with history of rheumatoid arthrit is, gastric bypass surgery in September of this year, and tubal ligation. [facility]10 midepigastric pain radiating to chest. Patient states she has been having p ain over the past 2 weeks. She also reports some diarrhea, but she denies any nausea, vomiting, feve rs, chills, night sweats, hematemesis, coffee-ground emesis, melena, hematochezia. Past Medical History: 1.Significant for rheumatoid arthritis, which she says has resolved with weight loss from gastric by pass. 2.Gastric bypass surgery. 3.Tubal ligation. Social History: She is , 4 children. 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 No tobacco. No alcohol. Family History: Father is alive with diabetes. Mother of Sjogren's disease. Review of Systems: The patient had midepigastric pain with radiation to the chest, going into right and left chest and a lso diarrhea. She denies any fevers, chills, night sweats, nausea, vomiting, melena, hematochezia, h ematemesis, coffee-ground emesis, hematuria, dysuria, polydipsia, muscle aches, joint aches, backache s. Stating her rheumatoid arthritis has resolved with her weight loss of approximately 100 pounds ov er the past 8 months. Physical Examination: Vital Signs: The patient is 4 feet 11 inches, 128 pounds, BMI 25.8 kg/sq m. Temperature 97 degrees Fahrenheit, pulse 56, respirations 16, blood pressure 107/70, O2 saturation 100%. General: She is a well-nourished, well-developed female. HEENT: Normocephalic, atraumatic. Anicteric. Pupils equal, round, and reactive to light. Extraocu lar movements are intact. Oropharynx clear. Neck: Supple. No masses. Respiratory: Clear to auscultation bilaterally. Cardiac: Regular rate and rhythm. Gastrointestinal: Positive bowel sounds. Soft, nondistended. Mild postop tenderness because she reddy d laparoscopic cholecystectomy today. There is some pulsatile tenderness and mild guarding, but no p eritoneal or Posada sign. No rebound. Extremities: No clubbing, cyanosis, or edema. 2+ pulses. Neuro: Alert and oriented x3. Grossly nonfocal. 5/5 motor. Sensation is intact to light touch. Laboratory Data: The patient has a white count of 5.7 down from 8.3 yesterday; hemoglobin 11.4; kylie tocrit 33; MCV of 89; platelet count of 213; polys of 66%; lymphocytes 19%; monocytes 10%; eosinophil s 4%; basophils 1%. Patient has sodium of 142, potassium 3.3, chloride 111, bicarb 28, BUN of 5, cre atinine of 0.6, glucose 102, calcium 8.7, bilirubin of 0.9, AST of 677, ALT of 576, alkaline phosphat ase 261. Troponin I of 3.9, which is negative. Total protein 6.4, albumin 3.3, bilirubin is 0.9, gl obulin 3.4, lipase 21. UA showed trace ketones, trace yeast, less than 5 squamous epithelial cells, all else negative. Imaging: Ultrasound abdomen showed extensive cholelithiasis and mildly prominent common bile duct is [address] abdomen and pelvis revealed no acute finding. MRCP was negative. Impression: 1.Acute cholecystitis and cholelithiasis. Ultrasound reveals numerous gallstones in gallbladder. C T abdomen and pelvis is negative. MRCP is negative. The patient has midepigastric pain, 10/10, radi ating to chest for past 2 weeks. Note, had laparoscopic cholecystectomy today, now down to approxima tely 5/10. No nausea, vomiting, fevers, chills. She did have some mild diarrhea. 2.History of rheumatoid arthritis, gastric bypass on October 24, 2022, going from 206 pounds down to 1 28 pounds over the past 8 months and tubal ligation. Recommendations: 1.Continue IV fluids, IV antibiotics. 2.Continue p.r.n. pain medications, antiemetics. 3.Diet and discharge as per surgery. 4.Check stool studies with this history of diarrhea. Admission less than 24 hours ago. CRISTOBAL/MICHAEL Voice ID: [id number] Report ID: [id number]
--- NOTE | 2023-06-09 21:33 | RAD REPORT ---
EXAM DESCRIPTION: RAD - Cholangiogram Oper-Xray Or - 06/09/2023 9:23 pm CLINICAL HISTORY: LAP ANGELIQUE WITH IOC COMPARISON: None available. FINDINGS: Three Images were sent to PACS, documenting a fluoroscopically guided cholangiogram. No ra diologist was available for the procedure, nor will any image interpretation he provided. Please refe r to the procedural report for additional details. Fluoroscopy time: 0.5 Minutes. IMPRESSION: Documentation of fluoroscopy utilization as above.
[2023-06-10] MEDS: PIPER TAZO 3.375 GM in NA CHLORIDE 0.9% 100 ML IV SCH ×3 (00:39→16:54)
[2023-06-10] MEDS: NA CHLORIDE 0.9% 1,000 ML IV SCH ×3 (00:47→21:07)
[2023-06-10] MEDS: MEPERIDINE HCL 25 MG/ML SYR IV PRN ×5 (02:16→21:06)
[2023-06-10 08:29] LABS: Absolute Lymphocytes (CBC) 1.3 K/uL (0.7-4.9); Hematocrit 32.2 % (36.0-45.0); Lymphocytes % 17.4 % (15.3-44.8); MCV 90.4 fL (80-100); MPV 7.8 fL (7.6-11.3); Platelets 200 thou/uL (152-406); RBC Red Blood Cell Count 3.56 M/uL (3.86-4.86)
[2023-06-10 08:48] LABS: Albumin 2.7 g/dL (3.4-5.0); Bilirubin Total 0.7 mg/dL (0.2-1.0); Potassium 3.2 mEq/L (3.5-5.1); Protein, Total 6.3 g/dL (6.4-8.2)
--- NOTE | 2023-06-10 09:12 | P.PN ---
Subjective Date of Service: 06/10/23 Chief Complaint: MARITA pain, cholelithiasis, elevated LFTs, cholecystitis Subjective: Improving Review of Systems 10-point ROS is otherwise unremarkable Gastrointestinal: Abdominal Pain Physical Examination - Vital Signs Temperature: 98.3 F Blood Pressure: 102/62 Pulse: 85 Respirations: 16 Pulse Ox (%): 96 - Physical Exam General: Alert, In no apparent distress, Oriented x3, Cooperative HEENT: Atraumatic, Normocephalic, PERRLA, EOMI Neck: Supple Respiratory: Normal air movement Cardiovascular: Regular rate/rhythm Gastrointestinal: No rebound, No guarding, Tenderness Neurological: Normal speech, Normal strength at 5/5 x4 extr Assessment And Plan - Current Problems (Diagnosis) (1) Cholecystitis Current Visit: Yes Status: Acute (2) Cholelithiasis Current Visit: Yes Status: Acute (3) Epigastric abdominal pain Current Visit: Yes Status: Acute (4) Abnormal ultrasound Current Visit: Yes Status: Acute (5) Diarrhea Current Visit: Yes Status: Acute - Plan REC: 1) continue IVF and IV antibiotics 2) continue prn pain medications 3) await stool studies 4) diet and discharge as per surgery
[2023-06-10] MEDS ORDERED: TRAMADOL HCL 50 MG TAB PO PRN (09:20)
--- NOTE | 2023-06-10 09:20 | P.PN ---
Date of Service: 06/10/23 Subjective: Having epigastric/right shoulder pain after surgery No acute events overnight ROS: 10 point ROS as noted above, otherwise negative Physical exam GEN: Alert, oriented, NAD HEENT: Normal conjunctiva, sclera anicteric CV: Regular rate and rhythm, no edema Pulm: Nonlabored respirations on room air ABD: Soft, moderate epigastric/right upper quadrant tenderness, nondistended MSK: No joint tenderness Integumentary: No rashes Neuro: Normal speech, normal affect Vitals reviewed Problem List Assessment: Acute cholecystitis, extensive cholelithiasis laparoscopic cholecystectomy S/P 06/09 Mildly dilatated CBD with elevated LFTs Plan: Acute cholecystitis, extensive cholelithiasis laparoscopic cholecystectomy S/P 06/09 Mildly dilatated CBD with elevated LFTs Having significant epigastric pain/right shoulder pain LFTs improved from yesterday, intraoperative cholangiogram and MRCP negative for obstruction Continue IV antibiotics, as needed pain medications General surgery/GI following Possible discharge 24 hours VTE: SCDs until after surgery/clearance Code: Full Dispo: 24 Time Spent Managing Pts Care (In Minutes): 35 <Tyler Rey - Last Filed: 06/10/23 09:20> Patient seen and examined on rounds this morning. Plan of care discussed with ANALYSIS SPECIALIST Candido. Agree with plan as noted above with the following additions/corrections: Continues with right upper quadrant discomfort/tenderness Reports right shoulder pain since surgery Slightly improved when I saw her in the midmorning compared to earlier in the morning. Normal range of motion, no clicking Nontender at the shoulder joint itself Some mild tenderness in the supraclavicular region/along sternocleidomastoid suspect referred pain s/p laparoscopy, cholecystitis LFTs improving Patient states allergy to tramadol his headache, will trial tramadol later today <Quinten Swann - Last Filed: 06/10/23 17:09>
--- NOTE | 2023-06-10 19:25 | P.PN ---
Subjective Date of Service: 06/10/23 Chief Complaint: MARITA pain, cholelithiasis, elevated LFTs, cholecystitis Subjective: Tolerating diet, Ambulating, Improving Review of Systems Cardiovascular: Unremarkable Gastrointestinal: As per HPI Genitourinary: Unremarkable Physical Examination - Vital Signs Temperature: 97.4 F Blood Pressure: 120/69 Pulse: 77 Respirations: 17 Pulse Ox (%): 96 - Physical Exam General: Alert, In no apparent distress, Oriented x3, Cooperative HEENT: Normocephalic, PERRLA, EOMI, Sclerae nonicteric Neck: Supple Respiratory: Normal air movement Cardiovascular: Normal pulses Gastrointestinal: Normal bowel sounds, Soft and benign Musculoskeletal: No erythema Integumentary: No rashes, No breakdown Neurological: Normal speech Assessment And Plan - Plan advance diet F/u at office in one week with repeat LFT f/u with her gastroenterologyst Low fat diet Ambulate Incentice spirometry No heavy lifting
[2023-06-11] MEDS: PIPER TAZO 3.375 GM in NA CHLORIDE 0.9% 100 ML IV SCH (00:59)
[2023-06-11] MEDS: MEPERIDINE HCL 25 MG/ML SYR IV PRN (01:04)
[2023-06-11 02:44] VITALS: O2SAT 96
[2023-06-11 02:54] LABS: Hematocrit 30.3 % (36.0-45.0); MCV 90.5 fL (80-100); MPV 8.4 fL (7.6-11.3); Platelets 184 thou/uL (152-406); RBC Red Blood Cell Count 3.35 M/uL (3.86-4.86)
[2023-06-11 03:12] LABS: Albumin 2.6 g/dL (3.4-5.0); Bilirubin Total 0.6 mg/dL (0.2-1.0)
[2023-06-11] MEDS: NA CHLORIDE 0.9% 1,000 ML IV SCH (06:42)
[2023-06-11 08:27] VITALS: BP 116/65; TEMP 97.2
[2023-06-11] MEDS ORDERED: POTASSIUM CL SA 10 MEQ TAB PO ONE (09:00)
--- NOTE | 2023-06-11 09:05 | P.DS ---
Admission Date: 06/08/23 Discharge Date: 06/11/23 Reason for Admission: MARITA pain, cholelithiasis, elevated LFTs, cholecystitis Consultations: GI-Dr. Bonilla Surgery-Dr. Le Procedures: Laparoscopic cholecystectomy 06/09/2023 Brief History of Present Illness: 52-year-old female with history of rheumatoid arthritis presents emergency department chief complaint of upper abdominal pain. Her pain began this morning although she has had similar episodes in the last couple weeks. Pain did not seem to be related to eating. She was evaluated in the ER her labs are significant for potassium 3.0 AST 259 ALT 112 alk phos 228 abdominal ultrasound showed extensive cholelithiasis. Mildly dilated CBD at [address] abdomen pelvis with contrast was negative for acute findings chest x-ray also unremarkable. Case was discussed with general surgery, GI plans for MRCP followed by management by general surgery/GI. Hospital Course: Patient was admitted to the hospital for cholelithiasis, suspected cholecystitis with elevated liver enzymes. MRCP was performed which did not show any biliary obstruction or other abnormalities. She was evaluated by general surgery who performed laparoscopic cholecystectomy with intraoperative cholangiogram which again did not show any obstructive findings. LFTs have been improving since cholecystectomy/cholangiogram. She is passing gas/had a bowel movement and is cleared to follow-up with general surgery on 06/13/2023. She will be sent a prescription for Cipro 500 mg to take twice daily for 10 days as well as tramadol as needed for pain. Dr. Le will further monitor LFTs. Patient should also follow-up with her primary care doctor in 1 to 2 weeks. <Tyler Rey - Last Filed: 06/11/23 09:03> Admission Date: 06/08/23 Discharge Date: 06/11/23 <Quinten Swann - Last Filed: 06/11/23 20:41> Disposition: ROUTINE DISCHARGE Discharge Condition: GOOD Vital Signs/Physical Exam: Temp Pulse Resp BP Pulse Ox 97.2 F 65 17 116/65 96 06/11/23 08:00 06/11/23 08:00 06/11/23 08:00 06/11/23 08:00 06/11/23 08:00 General: Alert, In no apparent distress, Oriented x3 HEENT: Atraumatic, PERRLA Neck: Supple Respiratory: Normal air movement Cardiovascular: Regular rate/rhythm, Normal S1 S2 Gastrointestinal: No tenderness, No masses, Tenderness (Mild generalized abd tenderness) Musculoskeletal: No tenderness Integumentary: No rashes Neurological: Normal speech, Normal tone Laboratory Data at Discharge: WBC 7.70 thou/uL (4.3-10.9) 06/11/23 01:28 Hgb 10.3 g/dL (12.0-15.0) L 06/11/23 01:28 Hct 30.3 % (36.0-45.0) L 06/11/23 01:28 Plt Count 184 thou/uL (152-406) 06/11/23 01:28 Sodium Cancelled 06/11/23 15:00 Potassium Cancelled 06/11/23 15:00 BUN Cancelled 06/11/23 15:00 Creatinine Cancelled 06/11/23 15:00 Glucose Cancelled 06/11/23 15:00 Total Bilirubin 0.6 mg/dL (0.2-1.0) 06/11/23 01:28 AST 155 U/L (15-37) H 06/11/23 01:28 ALT 341 U/L (13-56) H 06/11/23 01:28 Alkaline Phosphatase 207 U/L (45-117) H 06/11/23 01:28 Lipase 12 U/L (13-75) L 06/10/23 08:12 <Tyler Rey - Last Filed: 06/11/23 09:03> Vital Signs/Physical Exam: Temp Pulse Resp BP Pulse Ox 97.2 F 65 17 116/65 96 06/11/23 08:00 06/11/23 08:00 06/11/23 08:00 06/11/23 08:00 06/11/23 08:00 Laboratory Data at Discharge: WBC 7.70 thou/uL (4.3-10.9) 06/11/23 01:28 Hgb 10.3 g/dL (12.0-15.0) L 06/11/23 01:28 Hct 30.3 % (36.0-45.0) L 06/11/23 01:28 Plt Count 184 thou/uL (152-406) 06/11/23 01:28 Sodium Cancelled 06/11/23 15:00 Potassium Cancelled 06/11/23 15:00 Potassium Cancelled 06/11/23 15:00 BUN Cancelled 06/11/23 15:00 Creatinine Cancelled 06/11/23 15:00 Glucose Cancelled 06/11/23 15:00 Total Bilirubin 0.6 mg/dL (0.2-1.0) 06/11/23 01:28 AST 155 U/L (15-37) H 06/11/23 01:28 ALT 341 U/L (13-56) H 06/11/23 01:28 Alkaline Phosphatase 207 U/L (45-117) H 06/11/23 01:28 Lipase 12 U/L (13-75) L 06/10/23 08:12 <Quinten Swann - Last Filed: 06/11/23 20:41> Diet: low fat Activity: Ad yanet Time spent managing pt's care (in minutes): 35 <Tyler Rey - Last Filed: 06/11/23 09:03> Physician Review: Patient Assessed, Agree with Above Assessment and Plan (Patient seen and examined on rounds this morning. Doing better this morning. tolerating diet. Ambulated to bathroom. Plan of care as noted above.) <Quinten Swann - Last Filed: 06/11/23 20:41> Home Medications: Ciprofloxacin HCl 500 mg PO BID #10 tab 06/11/23 traMADol HCL [Ultram*] 50 mg PO Q8H PRN #20 tab 06/11/23 New Medications: Ciprofloxacin HCl 500 mg PO BID #10 tab traMADol HCL [Ultram*] 50 mg PO Q8H PRN #20 tab PRN Reason: Pain Physician Discharge Instructions: Patient was admitted to the hospital for cholelithiasis, suspected cholecystitis with elevated liver enzymes. MRCP was performed which did not show any biliary obstruction or other abnormalities. She was evaluated by general surgery who performed laparoscopic cholecystectomy with intraoperative cholangiogram which again did not show any obstructive findings. LFTs have been improving since cholecystectomy/cholangiogram. She is passing gas/had a bowel movement and is cleared to follow-up with general surgery on 06/13/2023. Medications: Cipro 500 mg twice daily for 10 days tramadol as needed for pain. Follow up: PCP within [address] Le on Sunday. He will repeat bloodwork and monitor LFTS Followup: Taurus Le MD [ACTIVE - CAN ADMIT] - 2-3 Days OOT,OOT [Primary Care Provider] - 1-2 Weeks
== END 2023-06-11 12:00 | disposition home or self-care (01) ==
LOC: ER 08:49 → ERHOLD 12:09 → 2ND 19:10
PROVIDERS: ADMIT Hospitalist; ATTEND Hospitalist
PROC: BF10YZZ Fluoroscopy of Bile Ducts using Other Contrast (ICD-10-PCS; 2023-06-09)
PROC: 0FT44ZZ Resection of Gallbladder, Percutaneous Endoscopic Approach (ICD-10-PCS; principal; 2023-06-09 10:45)
DX: K80.12 Calculus of gallbladder with acute and chronic cholecystitis without obstruction (principal); M06.9 Rheumatoid arthritis, unspecified; R94.5 Abnormal results of liver function studies; R19.7 Diarrhea, unspecified; R10.13 Epigastric pain; Z23 Encounter for immunization; Z98.84 Bariatric surgery status; Z88.5 Allergy status to narcotic agent; Z88.0 Allergy status to penicillin; Z88.6 Allergy status to analgesic agent
CPT/HCPCS: 93005; 85025 ×3; 81001; 36415 ×2; 84132; 88304; 85027; 84484; 83690 ×3; 80053 ×4; 87804 ×2; 74177; 74300; 71045; 74181; 76705; 94010 ×2; 99285; 47563; Q9967 ×2; J3480; J2704; J1100; J2001; J2543 ×9; J2250; J3010; J2175 ×8; J1170; J2405; J7120 ×2; J7030 ×6; G0378

== ENCOUNTER 2024-11-16 19:36 | Emergency (ER) | payer BC ==
[2024-11-16 22:03] LABS: Absolute Eosinophils 0.2 K/uL (0-0.5); Absolute Lymphocytes (CBC) 1.6 K/uL (0.7-4.9); Absolute Monocytes 0.4 K/uL (0.1-1.3); Absolute Neutrophil 3.8 K/uL (1.8-8.0); Basophils % 0.8 % (0-1.3); Hematocrit 40.2 % (36.0-45.0); Hemoglobin 13.7 g/dL (12.0-15.0); MCH 29.8 pg (27.0-35.0); MCV 87.6 fL (80-100); MPV 7.4 fL (7.6-11.3); Monocytes % 6.6 % (3.3-12.3); Neutrophils % 62.6 % (41.7-73.7); Nucleated Red Blood Cells % 0.1 % (0-0); Platelets 250 thou/uL (152-406); RBC Red Blood Cell Count 4.59 M/uL (3.86-4.86); Red Cell Distribution Width 12.4 % (12.1-15.2)
[2024-11-16 22:05] LABS: Sqamous Epithelial <5 /HPF (None Seen); Urine Bacteria None Seen /HPF (<20); Urine Bilirubin NEGATIVE (Negative); Urine Blood Negative (Negative); Urine Clarity Clear (Clear); Urine Color Yellow (Yellow); Urine Culture Reflex Order NOT NEEDED; Urine Glucose NEGATIVE (Negative); Urine Ketones NEGATIVE (Negative); Urine Microscopic Reflex YN ORDER UMIC; Urine Mucus Slight /HPF (None Seen); Urine Nitrite NEGATIVE (Negative); Urine Protein NEGATIVE (Negative); Urine Urobilinogen Normal (Normal); Urine WBC <5 /HPF (<5); Urine pH 5.5 (5.0-7.0)
[2024-11-16 22:25] LABS: Albumin 3.5 g/dL (3.4-5.0); Albumin/Globulin Ratio 0.9 (1.1-1.8); Anion Gap 4.8 mEq/L (5.0-15.0); Bilirubin Total 0.3 mg/dL (0.2-1.0); Globulin 3.9 g/dL (2.3-3.5); Potassium 3.8 mEq/L (3.5-5.1); Protein, Total 7.4 g/dL (6.4-8.2)
[2024-11-16] MEDS ORDERED: PANTOPRAZOLE 40 MG INJ ONE (23:19)
[2024-11-16] MEDS ORDERED: DICYCLOMINE HCL 20 MG/2 ML AMP IM ONE (23:19)
[2024-11-16] MEDS ORDERED: ONDANSETRON 4 MG/2 ML VIAL ONE (23:19)
[2024-11-16] MEDS ORDERED: NA CHLORIDE 0.9% 50 ML ONE (23:20)
[2024-11-16] MEDS ORDERED: METOCLOPRAMIDE 10 MG/2mL INJ ONE (23:20)
[2024-11-16] MEDS ORDERED: NA CHLORIDE 0.9% 1,000 ML ONE (23:20)
[2024-11-16] MEDS ORDERED: FENTANYL CITR 100 MCG/2 ML ONE (23:20)
--- NOTE | 2024-11-16 23:53 | RAD REPORT ---
EXAM: CT Abdomen and Pelvis With Intravenous Contrast CLINICAL HISTORY: The patient is 53 years old and is Female; ABD PAIN TECHNIQUE: Axial computed tomography images of the abdomen and pelvis with intravenous contrast. Sagittal an d coronal reformatted images were created and reviewed. This CT exam was performed using one or more of the following dose reduction techniques: automated exposure control, adjustment of the mA a nd/or kV according to patient size, and/or use of iterative reconstruction technique. COMPARISON: CT June 08, 2023 FINDINGS: LUNG BASES: Unremarkable. No mass. No consolidation. ABDOMEN: LIVER: Unremarkable. No mass. GALLBLADDER AND BILE DUCTS: Surgical clips are present in the right upper quadrant, consistent wi th previous cholecystectomy. PANCREAS: No ductal dilation. No mass. SPLEEN: Unremarkable. ADRENALS: Unremarkable. No mass. KIDNEYS AND URETERS: A right intrarenal calcification is present. The kidneys enhance symmetrical ly and are without hydronephrosis or hydroureter. No obstructing calculus is seen. STOMACH AND BOWEL: Postsurgical change consistent with a gastric bypass is noted. The stomach is decompressed. The small bowel is also decompressed. Contrast is noted within the small bowel in the right abdomen. A moderate amount of stool is present throughout the colon. There is no mucosal thicke maciej or evidence of obstruction. PELVIS: APPENDIX: The appendix is normal in caliber without surrounding inflammation. BLADDER: The bladder is not well-distended. REPRODUCTIVE: Unremarkable as visualized. ABDOMEN and PELVIS: INTRAPERITONEAL SPACE: Unremarkable. No free air. No significant fluid collection. BONES/JOINTS: No acute fracture. SOFT TISSUES: Multiple surgical clips along the anterior abdominal wall suggesting prior surgical intervention is noted. VASCULATURE: Unremarkable. No abdominal aortic aneurysm. LYMPH NODES: Unremarkable. No enlarged lymph nodes. IMPRESSION: No acute findings on this contrasted CT of the abdomen and pelvis to explain the patient's symptoms . Electronically signed by: Miriam Thapa MD 11/16/2024 11:49 PM CDT RP Due to temporary technical issues with the PACS/Mayomi reporting system, reports are being belle d by the in-house radiologist without review as a courtesy to ensure prompt reporting the interpreting radiologist is fully responsible for the content of the report. Transcribed Date/Time: 11/16/2024 11:53 PM
--- NOTE | 2024-11-17 00:31 | ER ---
Nurse's Notes [facility] [place] Name: Gabrielle Felix Age: 53 yrs Sex: Female : 1970 Arrival Date: 11/16/2024 Time: 19:36 Bed 7 Private MD: Diagnosis: Postprandial abdominal pain,, generalized abdominal pain after food consumption Presentation: 11/16 20:01 Chief complaint: Patient states: UMBILICAL AREA PAIN THAT RADIATES TO LOWER br2 BACK....BEGAN SUNDAY,...CONSTANT/CRAMPS.....DENIES N/V/D/F. Coronavirus screen: Client denies travel out of the [place] in the last 14 days. Ebola Screen: Patient denies exposure to infectious person. Initial Sepsis Screen: Does the patient meet any 2 criteria? No. Patient's initial sepsis screen is negative. Does the patient have a suspected source of infection? No. Patient's initial sepsis screen is negative. Risk Assessment: Do you want to hurt yourself or someone else?. Onset of symptoms was November 11, 2024. 20:01 Method Of Arrival: Ambulatory br2 20:01 Acuity: JENNIFER 3 br2 Triage Assessment: 11/17 00:08 General: Appears in no apparent distress. Behavior is calm, cooperative. Pain: Unable kd3 to use pain scale. Patient is intubated. GI: No deficits noted. Historical: - Allergies: 11/16 20:05 Codeine; br2 20:05 Morphine; br2 20:05 Percodan; br2 20:05 tramadol; br2 20:05 PENICILLINS; br2 - PMHx: 20:10 Rheumatoid arthritis; br2 - PSHx: 20:05 Gastric Bypass; br2 20:06 Cholecystectomy; br2 - Immunization history:: Adult Immunizations not up to date. - Infectious Disease History:: Denies. - Family history:: not pertinent. - Social history:: Smoking status: Patient denies any tobacco usage or history of. Patient/guardian denies using alcohol, street drugs. Screenin:10 [facility] ED Fall Risk Assessment (Adult) History of falling in the last 3 months, br2 including since admission No falls in past 3 months (0 pts) Confusion or Disorientation No (0 pts) Intoxicated or Sedated No (0 pts) Impaired Gait No (0 pts) Mobility Assist Device Used No (0 pt) Altered Elimination No (0 pt) Score/Fall Risk Level 0 - 2 = Low Risk Oriented to surroundings. Abuse screen: Denies threats or abuse. Denies injuries from another. Nutritional screening: No deficits noted. 11/17 00:08 Tuberculosis screening: No symptoms or risk factors identified. kd3 Assessment: 11/16 23:08 General: Appears in no apparent distress. uncomfortable, Behavior is calm, cooperative. al5 Pain: Complains of pain in abdomen. Neuro: Level of Consciousness is awake, alert, obeys commands, Oriented to person, place, time, situation. Cardiovascular: Capillary refill < 3 seconds Patient's skin is warm and dry. Respiratory: Airway is patent Respiratory effort is even, unlabored, Respiratory pattern is regular, symmetrical. GI: Abdomen is flat, non-distended, Reports lower abdominal pain, upper abdominal pain. : No signs and/or symptoms were reported regarding the genitourinary system. EENT: No signs and/or symptoms were reported regarding the EENT system. Derm: Skin is intact, is healthy with good turgor, Skin is pink, warm \T\ dry. normal. Musculoskeletal: No signs and/or symptoms reported regarding the musculoskeletal system. 11/17 00:08 GI: Bowel sounds present X 4 quads. Abd is soft X 4 quads. kd3 01:07 Reassessment: Patient appears in no apparent distress at this time. Patient and/or al5 family updated on plan of care and expected duration. Pain level reassessed. Patient is alert, oriented x 3, equal unlabored respirations, skin warm/dry/pink. Patient states symptoms have improved. Vital Signs: 11/16 20:01 BP 132 / 80; Pulse 86; Resp 18 S; Temp 97.4; Pulse Ox 100% on R/A; Weight 58.06 kg; br2 Height 4 ft. 11 in. ; Pain 9/10; 23:48 BP 114 / 78; Pulse 79; Resp 18; Pulse Ox 96% on R/A; al5 11/17 00:00 BP 110 / 76; Pulse 72; Resp 14; Pulse Ox 97% on R/A; al5 01:00 BP 116 / 79; Pulse 69; Resp 15; Pulse Ox 97% on R/A; al5 11/16 20:01 Body Mass Index 25.85 (58.06 kg, 149.86 cm) br2 11/16 20:01 Pain Scale: Adult br2 Gilmar Coma Score: 22:31 Eye Response: spontaneous(4). Motor Response: obeys commands(6). Verbal Response: sp4 oriented(5). Total: 15. ED Course: 11/16 19:39 Patient arrived in ED. jj6 19:45 Fortunato Willis MD is Attending Physician. sp4 20:05 Triage completed. br2 20:10 Patient has correct armband on for positive identification. Provided Education on: PLAN br2 OF CARE. 22:58 CT Abd/Pelvis - PO and IV Contrast In Process Unspecified. EDMS 23:08 No provider procedures requiring assistance completed. al5 23:08 Inserted saline lock: 20 gauge in right antecubital area, using aseptic technique. al5 Blood collected. Flushed with 10 mL NS. 23:20 Monica Menendez, KINGSLEY is Primary Nurse. al5 11/17 00:09 Arm band placed on. kd3 00:29 Lucas Bonilla MD is Referral Physician. sp4 01:08 IV discontinued, intact, bleeding controlled, No redness/swelling at site. Pressure al5 dressing applied. Administered Medications: 11/16 23:34 Drug: Ondansetron IVP 4 mg IVP once; over 2 minutes Route: IVP; Site: right antecubital;vc1 11/17 01:05 Follow up: Response: No adverse reaction; Nausea is decreased al5 11/16 23:34 Drug: NS 0.9% IV 1000 ml IV at 1 bolus Per protocol; to be given as a bolus over 60 vc1 minutes Route: IV; Rate: 1 bolus; Site: right antecubital; 11/17 01:05 Follow up: Response: No adverse reaction; IV Status: Completed infusion; IV Intake: al5 1000ml 11/16 23:34 Drug: fentaNYL (PF) IVP 100 mcg IVP once Route: IVP; Site: right antecubital; vc1 11/17 01:04 Follow up: Response: No adverse reaction; Pain is decreased al5 11/16 23:34 Drug: metoCLOPramide IVP 10 mg IVP once; over 1 to 2 minutes Route: IVP; Site: right vc1 antecubital; 11/17 01:04 Follow up: Response: No adverse reaction; Nausea is decreased al5 11/16 23:34 Drug: Pantoprazole IVP 40 mg IVP once Route: IVP; Site: right antecubital; vc1 11/17 01:04 Follow up: Response: No adverse reaction al5 11/16 23:34 Drug: Dicyclomine IM 20 mg IM once Route: IM; Site: right gluteus; vc1 11/17 01:04 Follow up: Response: No adverse reaction al5 01:00 Not Given (Patient Refused; patient allergii): hydrocodone-acetaminophen5 mg-325 mg 2 al5 tabs PO once 01:00 Drug: Promethazine PO 25 mg PO once Route: PO; al5 01:04 Follow up: Response: No adverse reaction; Medication administered at discharge. al5 01:00 Drug: Acetaminophen PO 1000 mg PO once Route: PO; al5 01:04 Follow up: Response: No adverse reaction; Medication administered at discharge. al5 Medication: 11/16 20:10 VIS not applicable for this client. br2 Intake: 11/17 01:05 IV: 1000ml; Total: 1000ml. al5 Outcome: 00:31 Discharge ordered by . sp4 01:08 Discharged to home ambulatory, with significant other, al5 01:08 Condition: good 01:08 Discharge instructions given to patient, Instructed on discharge instructions, follow up and referral plans. medication usage, Demonstrated understanding of instructions, follow-up care, medications, Prescriptions given X 3, 01:08 Patient left the ED. al5 Signatures: Dispatcher [employer] EDMS Shelli Santos jj6 Zara Mendieta RN RN kd3 Sadie Arango RN RN vc1 Fortunato Willis MD MD sp4 Monica Menendez RN RN al5 Marisa Chu RN RN br2
--- NOTE | 2024-11-17 00:31 | EDPHYS ---
Physician Documentation [facility] Name: Gabrielle Felix Age: 53 yrs Sex: Female : 1970 Arrival Date: 11/16/2024 Time: 19:36 Bed 7 Private MD: ED Physician Fortunato Willis HPI: 11/16 19:45 This 53 yrs old Female presents to ER via Unassigned with complaints of sp4 Abdominal Pain, Abdominal Cramping. 11/17 22:28 53-year-old female presents with moderate to severe abdominal pain after meals sp4 worsening over the past 2 weeks. History of Rikki-en-Y gastric bypass. Historical: - Allergies: 11/16 20:05 Codeine; br2 20:05 Morphine; br2 20:05 Percodan; br2 20:05 tramadol; br2 20:05 PENICILLINS; br2 - PMHx: 20:10 Rheumatoid arthritis; br2 - PSHx: 20:05 Gastric Bypass; br2 20:06 Cholecystectomy; br2 - Immunization history:: Adult Immunizations not up to date. - Infectious Disease History:: Denies. - Family history:: not pertinent. - Social history:: Smoking status: Patient denies any tobacco usage or history of. Patient/guardian denies using alcohol, street drugs. ROS: 11/17 22:28 Constitutional: Negative for fever, chills, and weight loss, positive abdominal sp4 All other systems are negative, Exam: 22:31 Constitutional: This is a well developed, well nourished patient who is awake, alert, sp4 and in no acute distress. Head/Face: Normocephalic, atraumatic. Eyes: Pupils equal round and reactive to light, extra-ocular motions intact. Lids and lashes normal. Conjunctiva and sclera are not injected. Cornea within normal limits. Periorbital areas with no swelling, redness, or edema. ENT: Nares patent. No nasal discharge, no septal abnormalities noted. Tympanic membranes are normal and external auditory canals are clear. Oropharynx with no redness, swelling, or masses, exudates, or evidence of obstruction, uvula midline. Mucous membranes moist. Neck: Trachea midline, no thyromegaly or masses palpated, and no cervical lymphadenopathy. Supple, full range of motion without nuchal rigidity, or vertebral point tenderness. Chest/axilla: Normal chest wall appearance and motion. Nontender with no deformity. No lesions are appreciated. Cardiovascular: Regular rate and rhythm with a normal S1 and S2. No gallops, murmurs, or rubs. Normal PMI, no JVD. No pulse deficits. Respiratory: Lungs have equal breath sounds bilaterally, clear to auscultation and percussion. No rales, rhonchi or wheezes noted. No increased work of breathing, no retractions or nasal flaring. Abdomen/GI: Soft, with normal bowel sounds. No distension or tympany. No guarding or rebound. No evidence of tenderness throughout. Back: No spinal tenderness. No costovertebral tenderness. Skin: Warm, dry with normal turgor. Normal color with no rashes, no lesions, and no evidence of cellulitis. MS/ Extremity: Pulses equal, no cyanosis. Neurovascular intact. Full, normal range of motion. Neuro: Awake and alert, GCS 15, oriented to person, place, time, and situation. Cranial nerves II-XII grossly intact. Motor strength 5/5 in all extremities. Sensory grossly intact. Psych: Awake, alert, with orientation to person, place and time. Behavior, mood, and affect are within normal limits Vital Signs: 11/16 20:01 BP 132 / 80; Pulse 86; Resp 18 S; Temp 97.4; Pulse Ox 100% on R/A; Weight 58.06 kg; br2 Height 4 ft. 11 in. ; Pain 9/10; 23:48 BP 114 / 78; Pulse 79; Resp 18; Pulse Ox 96% on R/A; al5 11/17 00:00 BP 110 / 76; Pulse 72; Resp 14; Pulse Ox 97% on R/A; al5 01:00 BP 116 / 79; Pulse 69; Resp 15; Pulse Ox 97% on R/A; al5 11/16 20:01 Body Mass Index 25.85 (58.06 kg, 149.86 cm) br2 11/16 20:01 Pain Scale: Adult br2 Gilmar Coma Score: 22:31 Eye Response: spontaneous(4). Motor Response: obeys commands(6). Verbal Response: sp4 oriented(5). Total: 15. MDM: 11/16 23:05 Medical Screening Exam initiated sp4 11/17 22:31 Differential diagnosis: Pancreatitis, abdominal bowel obstruction, volvulus, gastric sp4 bypass complications. Data reviewed: vital signs, nurses notes, old medical records, radiologic studies, CT scan. Consideration of Admission/Observation Escalation of care including admission/observation considered. ED course: CT today is unremarkable. Patient stable for discharge home with symptomatic medications. Patient also is advised to see fisher terrapin for upper endoscopy.. 11/16 20:05 Order name: CBC with Diff; Complete Time: 22:30 sp4 11/16 20:05 Order name: CMP; Complete Time: 22:30 sp4 11/16 20:05 Order name: Lipase; Complete Time: 22:30 sp4 11/16 20:05 Order name: Urinalysis w/ reflexes; Complete Time: 22:30 sp4 11/16 20:17 Order name: CRP; Complete Time: 23:55 sp4 11/16 20:16 Order name: CT Abd/Pelvis - PO and IV Contrast sp4 11/16 20:05 Order name: IV Saline Lock; Complete Time: 23:15 sp4 11/16 20:05 Order name: Labs collected and sent; Complete Time: 23:15 sp4 11/16 20:16 Order name: NPO; Complete Time: 23:15 sp4 Administered Medications: 11/16 23:34 Drug: Ondansetron IVP 4 mg IVP once; over 2 minutes Route: IVP; Site: right antecubital;vc1 11/17 01:05 Follow up: Response: No adverse reaction; Nausea is decreased al5 11/16 23:34 Drug: NS 0.9% IV 1000 ml IV at 1 bolus Per protocol; to be given as a bolus over 60 vc1 minutes Route: IV; Rate: 1 bolus; Site: right antecubital; 11/17 01:05 Follow up: Response: No adverse reaction; IV Status: Completed infusion; IV Intake: al5 1000ml 11/16 23:34 Drug: fentaNYL (PF) IVP 100 mcg IVP once Route: IVP; Site: right antecubital; vc1 11/17 01:04 Follow up: Response: No adverse reaction; Pain is decreased al5 11/16 23:34 Drug: metoCLOPramide IVP 10 mg IVP once; over 1 to 2 minutes Route: IVP; Site: right vc1 antecubital; 11/17 01:04 Follow up: Response: No adverse reaction; Nausea is decreased al5 11/16 23:34 Drug: Pantoprazole IVP 40 mg IVP once Route: IVP; Site: right antecubital; vc1 11/17 01:04 Follow up: Response: No adverse reaction al5 11/16 23:34 Drug: Dicyclomine IM 20 mg IM once Route: IM; Site: right gluteus; vc1 11/17 01:04 Follow up: Response: No adverse reaction al5 01:00 Not Given (Patient Refused; patient allergii): hydrocodone-acetaminophen5 mg-325 mg 2 al5 tabs PO once 01:00 Drug: Promethazine PO 25 mg PO once Route: PO; al5 01:04 Follow up: Response: No adverse reaction; Medication administered at discharge. al5 01:00 Drug: Acetaminophen PO 1000 mg PO once Route: PO; al5 01:04 Follow up: Response: No adverse reaction; Medication administered at discharge. al5 Disposition: 22:32 Chart complete. sp4 Disposition Summary: 11/17/24 00:31 Discharge Ordered Notes: Location: Home sp4 Problem: new sp4 Symptoms: have improved sp4 Condition: Stable sp4 Diagnosis - Postprandial abdominal pain,, generalized abdominal pain after food consumption sp4 Followup: sp4 - With: Lucas Bonilla MD - When: 7 - 10 days - Reason: Recheck today's complaints Discharge Instructions: - Discharge Summary Sheet sp4 - Abdominal Pain, Adult, [id number] sp4 Forms: - Patient Portal Instructions sp4 Prescriptions: - Reglan 10 mg Oral tablet - take 1 tablet ORAL route every 8 hours PRN nausea; 30 tablet; Refills: 0, sp4 Product Selection Permitted - promethazine 25 mg Oral tablet - take 1 tablet ORAL route every 6 hours As needed PRN severe nausea; 30 tablet; sp4 Refills: 0, Product Selection Permitted - dicyclomine 20 mg Oral tablet - take 1 tablet ORAL route every 6 hours PRN abdominal pain; 60 tablet; Refills: sp4 0, Product Selection Permitted Signatures: [facility] Sadie Valadez RN RN vc1 Fortunato Willis MD MD sp4 Monica Menendez RN RN al5 Marisa Chu RN RN br2 Corrections: (The following items were deleted from the chart) 11/16 20:05 20:05 CBC+H.LAB.BRZ ordered. EDMS EDMS 20:05 20:05 COMPREHENSIVE METABOLIC PANEL+C.LAB.BRZ ordered. EDMS EDMS 20:05 20:05 LIPASE+C.LAB.BRZ ordered. EDMS EDMS 20:05 20:05 Urinalysis+U.LAB.BRZ ordered. EDMS EDMS 20:17 20:17 C-REACTIVE PROTEIN+C.LAB.BRZ ordered. EDMS EDMS
[2024-11-17] MEDS ORDERED: HYDROCODONE/APAP 5/325 MG TAB ONE (00:54)
[2024-11-17] MEDS ORDERED: PROMETHAZINE 25 MG TABLET ONE (00:54)
[2024-11-17] MEDS ORDERED: ACETAMINOPHEN 500 MG TAB ONE (00:59)
[2024-11-17 01:21] VITALS: TEMP 97.4
[2024-11-17 01:33] VITALS: O2SAT 97
[2024-11-17 01:34] VITALS: BP 116/79
== END 2024-11-17 01:08 | disposition home or self-care (01) ==
LOC: ER 19:36
DX: R10.84 Generalized abdominal pain (principal); Z98.84 Bariatric surgery status
CPT/HCPCS: 96361; 85025; 81001; 36415; 83690; 80053; 86140; 74177; 96375; 96372; 96374; 99284; Q9967; Q0169; J2765; J0500; J2470; J3010; J2405; J7030

== ENCOUNTER 2025-04-26 00:46 | Emergency (ER) | payer BC ==
[2025-04-26] MEDS ORDERED: FAMOTIDINE 20 MG/2 ML VIAL IV ONE (01:10)
[2025-04-26] MEDS ORDERED: KETOROLAC 30 MG/ML INJ ONE (01:10)
[2025-04-26] MEDS ORDERED: ONDANSETRON 4 MG/2 ML VIAL ONE (01:10)
[2025-04-26 01:12] LABS: Absolute Lymphocytes (CBC) 2.9 K/uL (0.7-4.9); Hematocrit 41.0 % (36.0-45.0); Hemoglobin 13.8 g/dL (12.0-15.0); MCH 29.7 pg (27.0-35.0); MCHC 33.7 g/dL (32.0-36.0); MCV 88.2 fL (80-100); MPV 7.4 fL (7.6-11.3); Nucleated RBC Absolute Count 0.0 (0-0); Nucleated Red Blood Cells % 0.0 % (0-0); RBC Red Blood Cell Count 4.65 M/uL (3.86-4.86); White Blood Count 7.00 thou/uL (4.3-10.9)
[2025-04-26] MEDS ORDERED: LORazepam 2 MG/ML VIAL ONE (01:14)
[2025-04-26] MEDS ORDERED: NA CHLORIDE 0.9% 2,000 ML ONE (01:19)
[2025-04-26] MEDS ORDERED: FENTANYL CITR 100 MCG/2 ML ONE ×2 (01:19→05:00)
[2025-04-26 01:32] LABS: ALT/SGPT 36 U/L (13-56); AST/SGOT 25 U/L (15-37); Albumin 3.7 g/dL (3.4-5.0); Albumin/Globulin Ratio 1.0 (1.1-1.8); Alkaline Phosphatase 114 U/L (45-117); Anion Gap 9.6 mEq/L (5.0-15.0); BUN Blood Urea Nitrogen 18 mg/dL (7-18); C-Reactive Protein < 2.90 mg/L (<3.00); Globulin 3.8 g/dL (2.3-3.5); Glucose Level 123 mg/dL (74-106); Lipase 91 U/L (13-75); Potassium 3.6 mEq/L (3.5-5.1)
[2025-04-26 03:22] LABS: Sqamous Epithelial <5 /HPF (None Seen); Urine Culture Reflex Order NOT NEEDED; Urine Microscopic Reflex YN ORDER UMIC
--- NOTE | 2025-04-26 05:12 | RAD REPORT ---
EXAM DESCRIPTION: Abdomen Pelvis W Contrast CLINICAL HISTORY: ABD PAIN COMPARISON: 04/07/2025 TECHNIQUE: CT of the abdomen and pelvis performed following the administration of IV contrast. No ora l contrast. This exam was performed according to our departmental dose-optimization program, which includes automated exposure control, adjustment of the mA and/or kV according to patient size and/or use of iterative reconstruction technique. FINDINGS: Lung Bases: Mild bilateral dependent atelectasis. Abdomen: Liver: The liver has normal contour and density. No suspicious mass. Gallbladder: Surgically absent. Mild biliary dilatation may be due to postcholecystectomy state. Spleen, Pancreas, and Adrenal Glands: The spleen, pancreas, and adrenal glands are unremarkable. Kidneys: Obstructing 6 mm calculus in the proximal right ureter. Wmjs-pi-louawxdy right hydronephro sis. No left hydronephrosis. Slightly diminished/delayed enhancement of the right kidney relative to the left. No suspicious mass. Vasculature: The aorta and IVC have normal caliber and position. The portal vein is patent. The pro ximal visceral and renal arteries are patent. Stomach: Postsurgical changes related to prior gastric bypass. Pelvis: Bowel: No bowel obstruction. Appendix: Normal appendix. Bladder: Urinary bladder is unremarkable. Reproductive: No suspicious mass. Other: No free intraperitoneal air. Postsurgical changes along the anterior abdominal wall. No free fluid or lymphadenopathy. Bones: No destructive bone lesions identified. IMPRESSION: Obstructing 6 mm calculus in the proximal right ureter with [id number]-ey-aeacoddy right hydronephrosis. Electronically signed by: Alla Whaley MD 04/26/2025 05:04 AM CDT RP Due to temporary technical issues with the PACS/Inkvite reporting system, reports are being belle d by the in-house radiologist without review as a courtesy to ensure prompt reporting the interpreting radiologist is fully responsible for the content of the report. Transcribed Date/Time: 04/26/2025 5:11 AM
--- NOTE | 2025-04-26 05:41 | ER ---
Nurse's Notes [facility] Name: Gabrielle Felix Age: 54 yrs Sex: Female : 1970 Arrival Date: 04/26/2025 Time: 00:46 Bed 6 Private MD: Diagnosis: Acute obstructing ureteral renal stone, acute right hydronephrosis Presentation: 04/26 00:50 Chief complaint: Patient states: RIGHT FLANK PAIN RADIATES TO PELVIS. WAS SLEEPING WHEN ha1 PAIN WOKE HER UP. NAUSEA AND VOMITING. 00:50 Coronavirus screen: Client denies travel out of the [place] in the last 14 days. Ebola ha1 Screen: No symptoms or risks identified at this time. Initial Sepsis Screen: Does the patient meet any 2 criteria? No. Patient's initial sepsis screen is negative. Does the patient have a suspected source of infection? No. Patient's initial sepsis screen is negative. Risk Assessment: Do you want to hurt yourself or someone else? Patient reports no desire to harm self or others. Onset of symptoms was April 26, 2025. 00:50 Method Of Arrival: Wheelchair ha1 00:50 Acuity: JENNIFER 3 ha1 Triage Assessment: 00:58 General: Appears uncomfortable, Behavior is cooperative. Pain: Complains of pain in ha1 back Pain radiates to pelvis Pain currently is 10 out of 10 on a pain scale. 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 - Infectious Disease History:: Denies. - Social history:: Smoking status: Patient denies any tobacco usage or history of. - Family history:: not pertinent. Screenin:20 [facility] ED Fall Risk Assessment (Adult) History of falling in the last 3 months, bm8 including since admission No falls in past 3 months (0 pts) Confusion or Disorientation No (0 pts) Intoxicated or Sedated No (0 pts) Impaired Gait No (0 pts) Mobility Assist Device Used No (0 pt) Altered Elimination No (0 pt) Score/Fall Risk Level 0 - 2 = Low Risk Oriented to surroundings, Maintained a safe environment, Educated pt \T\ family on fall prevention, incl call for assistance when getting out of bed, Assessed \T\ reinforced patient's understanding of fall precautions, Hourly rounding (assess needs \T\ fall precautionary measures) done, Used ambulatory aids as needed (educated on \T\ assisted with), Used gait belt as appropriate. Abuse screen: Denies threats or abuse. Nutritional screening: No deficits noted. Tuberculosis screening: No symptoms or risk factors identified. Assessment: 01:37 Reassessment: pt placed on 2l nc for O2 support. cc6 02:20 Reassessment: Patient appears in no apparent distress at this time. Patient and/or bm8 family updated on plan of care and expected duration. Pain level reassessed. pt is resting with eyes closed breathing is even unlabored with symmmtrical rise and fall of chest. NAD at this time. daughter at bedside Patient denies pain at this time. Patient states feeling better. Patient states symptoms have improved. GI: No signs and/or symptoms were reported involving the gastrointestinal system. 03:26 Reassessment: Patient appears in no apparent distress at this time. Patient and/or bm8 family updated on plan of care and expected duration. Pain level reassessed. Patient is alert, oriented x 3, equal unlabored respirations, skin warm/dry/pink. Patient denies pain at this time. Patient states feeling better. Patient states symptoms have improved. 04:53 Reassessment: Patient appears in no apparent distress at this time. Patient and/or bm8 family updated on plan of care and expected duration. Pain level reassessed. Patient is alert, oriented x 3, equal unlabored respirations, skin warm/dry/pink. pt reports that pain is back is currently an 8/10, provider notified and awaiting new orders. Pain: Pain currently is 8 out of 10 on a pain scale. 06:29 Reassessment: Patient appears in no apparent distress at this time. Patient and/or bm8 family updated on plan of care and expected duration. Pain level reassessed. Patient is alert, oriented x 3, equal unlabored respirations, skin warm/dry/pink. Patient denies pain at this time. Patient states feeling better. Patient states symptoms have improved. Vital Signs: 00:50 BP 117 / 96; Pulse 92; Resp 18 S; Temp 97.6; Pulse Ox 100% on R/A; Weight 58.97 kg; ha1 Height 4 ft. 11 in. ; Pain 10/10; 02:20 BP 118 / 67; Pulse 84; Resp 17; Temp 97.6; Pulse Ox 100% on 2 lpm NC; Pain 0/10; bm8 03:26 BP 108 / 66; Pulse 80; Resp 20; Temp 97.8; Pulse Ox 100% on 2 lpm NC; Pain 0/10; bm8 04:53 BP 124 / 79; Pulse 78; Resp 16; Temp 97.8; Pulse Ox 100% on 2 lpm NC; Pain 8/10; bm8 06:29 BP 125 / 90; Pulse 77; Resp 15; Temp 97.6; Pulse Ox 100% ; Pain 0/10; bm8 00:50 Body Mass Index 26.26 (58.97 kg, 149.86 cm) ha1 00:50 Pain Scale: Adult ha1 02:20 Pain Scale: Adult bm8 03:26 Pain Scale: Adult bm8 04:53 Pain Scale: Adult bm8 06:29 Pain Scale: Adult bm8 Gilmar Coma Score: 02:20 Eye Response: spontaneous(4). Motor Response: obeys commands(6). Verbal Response: bm8 oriented(5). Total: 15. 03:26 Eye Response: spontaneous(4). Motor Response: obeys commands(6). Verbal Response: bm8 oriented(5). Total: 15. 04:53 Eye Response: spontaneous(4). Motor Response: obeys commands(6). Verbal Response: bm8 oriented(5). Total: 15. 06:29 Eye Response: spontaneous(4). Motor Response: obeys commands(6). Verbal Response: bm8 oriented(5). Total: 15. 04/27 00:19 Eye Response: spontaneous(4). Motor Response: obeys commands(6). Verbal Response: sp4 oriented(5). Total: 15. ED Course: 04/26 00:47 Patient arrived in ED. im 00:52 Gladys Farley FNP-C is PHCP. kb 00:52 Fortunato Willis MD is Attending Physician. kb 00:55 Fortunato Willis MD is Attending Physician. sp4 00:58 Triage completed. ha1 01:00 Inserted saline lock: 20 gauge in left antecubital area, using aseptic technique. Blood ha1 collected. Flushed with 10 mL NS. 01:07 CBC with Diff Sent. ha1 01:07 CMP Sent. ha1 01:07 Lipase Sent. ha1 01:14 Zara Mendieta, KINGSLEY is Primary Nurse. kd3 02:06 CT Abd/Pelvis - IV Contrast Only In Process Unspecified. EDMS 02:20 No provider procedures requiring assistance completed. bm8 02:20 Patient has correct armband on for positive identification. Bed in low position. Call bm8 light in reach. Side rails up X 1. Client placed on continuous cardiac and pulse oximetry monitoring. NIBP monitoring applied. Pulse ox on. NIBP on. Door closed. Noise minimized. Lights dimmed. Warm blanket given. Pillow given. Verbal reassurance given. Head of bed lowered. 05:16 Initiated transfer with Varsha Pruitt at [facility]. rv1 06:31 Patient transferred, IV remains in place. bm8 06:31 Provided Education on: need for transfer. bm8 06:33 Arm band placed on right wrist. bm8 Administered Medications: 01:08 Drug: Famotidine IVP 20 mg IVP once; dilute with 10 mL 0.9% NaCl; give over 2 minutes ha1 Route: IVP; Site: left antecubital; 03:27 Follow up: Response: No adverse reaction bm8 01:12 Drug: Ondansetron IVP 4 mg IVP once; over 2 minutes Route: IVP; Site: left antecubital; ha1 03:28 Follow up: Response: No adverse reaction bm8 01:14 Drug: TORadol - Ketorolac IVP 15 mg IVP once Route: IVP; Site: left antecubital; ha1 03:28 Follow up: Response: No adverse reaction bm8 01:18 Drug: Ativan IVP 2 mg IVP once Route: IVP; Site: left antecubital; ha1 03:27 Follow up: Response: No adverse reaction bm8 01:20 Drug: NS 0.9% IV 1000 ml IV at 125 ml/hr once; to be given at 125 ml/hour Route: IV; ha1 Rate: 125 ml/hr; Site: left antecubital; 06:33 Follow up: Response: No adverse reaction; IV Status: Completed infusion bm8 01:20 Drug: NS 0.9% IV 1000 ml IV at 1000 ml once; to be given as a bolus over 60 minutes ha1 Route: IV; Rate: 1000 ml; Site: left antecubital; 03:27 Follow up: Response: No adverse reaction; IV Status: Completed infusion bm8 01:22 Drug: fentaNYL (PF) IVP 25 mcg IVP once Route: IVP; Site: left antecubital; ha1 03:27 Follow up: Response: No adverse reaction bm8 05:05 Drug: fentaNYL (PF) IVP 50 mcg IVP once Route: IVP; Site: left antecubital; bm8 06:30 Follow up: Response: No adverse reaction bm8 Medication: 02:20 VIS not applicable for this client. bm8 Outcome: 05:40 ER care complete, transfer ordered by sp4 06:31 Transferred by ground EMS to [facility], Transfer form completed. bm8 X-rays sent w/ patient. 06:31 Condition: stable 06:31 Instructed on follow up and referral plans. the need for transfer, Demonstrated understanding of instructions, follow-up care, medications, 06:33 Patient left the ED. bm8 Signatures: Dispatcher [employer] EDMS Gladys Farley, DIRECTOR OF INDUSTRIAL RELATIONS-C DIRECTOR OF INDUSTRIAL RELATIONS-Zara Doty RN RN kd3 Verenice Pak RN RN 1 Valerie Galarza 1 Fortunato Willis MD MD sp4 Oma Moreno Brad RN RN bm8 Vonda Hillman RN RN cc6 Corrections: (The following items were deleted from the chart) 00:59 00:50 BP 117 / 96; Pulse 92bpm; Resp 18bpm; Spontaneous; Pulse Ox 100% RA; Temp 19F; ha1 58.97 kg; Height 4 ft. 11 in.; BMI: 26.2; Pain 10/10, Adult; ha1 05:06 05:05 fentaNYL (PF) IVP 50 mcg IVP in left forearm bm8 bm8
--- NOTE | 2025-04-26 05:41 | EDPHYS ---
Physician Documentation [facility] Name: Gabrielle Felix Age: 54 yrs Sex: Female : 1970 Arrival Date: 04/26/2025 Time: 00:46 Bed 6 Private MD: ED Physician Fortunato Willis HPI: 04/26 00:55 This 54 yrs old Female presents to ER via Unassigned with complaints of sp4 Epigastric Pain, Hip Pain, Low Back Pain, Pelvic Pain, Nausea, Abdominal Pain. 04/27 00:19 Acute moderate to severe right flank pain and moderate to severe anxiety. 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 - Infectious Disease History:: Denies. - Social history:: Smoking status: Patient denies any tobacco usage or history of. - Family history:: not pertinent. ROS: 04/27 00:19 Constitutional: Negative for fever, chills, and weight loss, provide severe flank pain, sp4 moderate to severe anxiety All other systems are negative, Exam: 00:19 Constitutional: This is a well developed, well nourished patient who is awake, alert, sp4 moderate to severe anxiety attack on exam but paresthesias of arms and legs Head/Face: Normocephalic, atraumatic. Eyes: Pupils equal round and reactive to light, extra-ocular motions intact. Lids and lashes normal. Conjunctiva and sclera are not injected. Cornea within normal limits. Periorbital areas with no swelling, redness, or edema. ENT: Nares patent. No nasal discharge, no septal abnormalities noted. Tympanic membranes are normal and external auditory canals are clear. Oropharynx with no redness, swelling, or masses, exudates, or evidence of obstruction, uvula midline. Mucous membranes moist. Neck: Trachea midline, no thyromegaly or masses palpated, and no cervical lymphadenopathy. Supple, full range of motion without nuchal rigidity, or vertebral point tenderness. Chest/axilla: Normal chest wall appearance and motion. Nontender with no deformity. No lesions are appreciated. Cardiovascular: Regular rate and rhythm with a normal S1 and S2. No gallops, murmurs, or rubs. No pulse deficits. Respiratory: Lungs have equal breath sounds bilaterally, clear to auscultation and percussion. No rales, rhonchi or wheezes noted. No increased work of breathing, no retractions or nasal flaring. Abdomen/GI: Soft, with normal bowel sounds. No distension or tympany. No guarding or rebound. No evidence of tenderness throughout. Back: No spinal tenderness. No costovertebral tenderness. Skin: Warm, dry with normal turgor. Normal color with no rashes, no lesions, and no evidence of cellulitis. MS/ Extremity: Pulses equal, no cyanosis. Neurovascular intact. Full, normal range of motion. Neuro: Awake and alert, GCS 15, oriented to person, place, time, and situation. Cranial nerves II-XII grossly intact. Motor strength 5/5 in all extremities. Sensory grossly intact. Psych: Awake, alert, with orientation to person, place and time. Behavior, mood, and affect are within normal limits Vital Signs: 04/26 00:50 BP 117 / 96; Pulse 92; Resp 18 S; Temp 97.6; Pulse Ox 100% on R/A; Weight 58.97 kg; ha1 Height 4 ft. 11 in. ; Pain 10/10; 02:20 BP 118 / 67; Pulse 84; Resp 17; Temp 97.6; Pulse Ox 100% on 2 lpm NC; Pain 0/10; bm8 03:26 BP 108 / 66; Pulse 80; Resp 20; Temp 97.8; Pulse Ox 100% on 2 lpm NC; Pain 0/10; bm8 04:53 BP 124 / 79; Pulse 78; Resp 16; Temp 97.8; Pulse Ox 100% on 2 lpm NC; Pain 8/10; bm8 06:29 BP 125 / 90; Pulse 77; Resp 15; Temp 97.6; Pulse Ox 100% ; Pain 0/10; bm8 00:50 Body Mass Index 26.26 (58.97 kg, 149.86 cm) ha1 00:50 Pain Scale: Adult ha1 02:20 Pain Scale: Adult bm8 03:26 Pain Scale: Adult bm8 04:53 Pain Scale: Adult bm8 06:29 Pain Scale: Adult bm8 Hitchita Coma Score: 02:20 Eye Response: spontaneous(4). Motor Response: obeys commands(6). Verbal Response: bm8 oriented(5). Total: 15. 03:26 Eye Response: spontaneous(4). Motor Response: obeys commands(6). Verbal Response: bm8 oriented(5). Total: 15. 04:53 Eye Response: spontaneous(4). Motor Response: obeys commands(6). Verbal Response: bm8 oriented(5). Total: 15. 06:29 Eye Response: spontaneous(4). Motor Response: obeys commands(6). Verbal Response: bm8 oriented(5). Total: 15. 04/27 00:19 Eye Response: spontaneous(4). Motor Response: obeys commands(6). Verbal Response: sp4 oriented(5). Total: 15. MDM: 04/26 00:52 Medical Screening Exam initiated kb 04:55 Medical Screening Exam initiated sp4 05:13 ED course: FINDINGS: Lung Bases: Mild bilateral dependent atelectasis. Abdomen: Liver: sp4 The liver has normal contour and density. No suspicious mass. Gallbladder: Surgically absent. Mild biliary dilatation may be due to postcholecystectomy state. Spleen, Pancreas, and Adrenal Glands: The spleen, pancreas, and adrenal glands are unremarkable. Kidneys: Obstructing 6 mm calculus in the proximal right ureter. [id number] right hydronephrosis. No left hydronephrosis. Slightly diminished/delayed enhancement of the right kidney relative to the left. No suspicious mass. Vasculature: The aorta and IVC have normal caliber and position. The portal vein is patent. The proximal visceral and renal arteries are patent. Stomach: Postsurgical changes related to prior gastric bypass. Pelvis: Bowel: No bowel obstruction. Appendix: Normal appendix. Bladder: Urinary bladder is unremarkable. Reproductive: No suspicious mass. Other: No free intraperitoneal air. Postsurgical changes along the anterior abdominal wall. No free fluid or lymphadenopathy. Bones: No destructive bone lesions identified. IMPRESSION: Obstructing 6 mm calculus in the proximal right ureter with [id number] right hydronephrosis. . 05:38 ED course: CT revealed - IMPRESSION: Obstructing 6 mm calculus in the proximal right sp4 ureter with [id number] right hydronephrosis. Patient warrants transfer for management of obstructing Ureteral Calculus . 04/27 00:21 Differential diagnosis: bursitis, arthritis, strain, Intra-abdominal pain. Data sp4 reviewed: vital signs, nurses notes, lab test result(s), radiologic studies, CT scan. Consideration of Admission/Observation Escalation of care including admission/observation considered. Management of patient was discussed with the following: Photo Finish Photographer: Discussed with urology at [facility].. ED course: Patient stable to transfer to the [facility] to be seen by urologist on emergent basis. 04/26 00:56 Order name: CT Abd/Pelvis - IV Contrast Only sp4 04/26 00:56 Order name: CBC with Diff; Complete Time: 04:56 sp4 04/26 00:56 Order name: CMP; Complete Time: 04:56 sp4 04/26 00:56 Order name: Lipase; Complete Time: 04:56 sp4 04/26 00:56 Order name: UA Rfx Leopoldo Cult if indicated; Complete Time: 04:56 sp4 04/26 00:57 Order name: CRP; Complete Time: 04:56 sp4 04/26 00:56 Order name: IV Saline Lock; Complete Time: 01:07 sp4 04/26 00:56 Order name: Labs collected and sent; Complete Time: 01:07 sp4 Administered Medications: 04/26 01:08 Drug: Famotidine IVP 20 mg IVP once; dilute with 10 mL 0.9% NaCl; give over 2 minutes ha1 Route: IVP; Site: left antecubital; 03:27 Follow up: Response: No adverse reaction bm8 01:12 Drug: Ondansetron IVP 4 mg IVP once; over 2 minutes Route: IVP; Site: left antecubital; ha1 03:28 Follow up: Response: No adverse reaction bm8 01:14 Drug: TORadol - Ketorolac IVP 15 mg IVP once Route: IVP; Site: left antecubital; ha1 03:28 Follow up: Response: No adverse reaction bm8 01:18 Drug: Ativan IVP 2 mg IVP once Route: IVP; Site: left antecubital; ha1 03:27 Follow up: Response: No adverse reaction bm8 01:20 Drug: NS 0.9% IV 1000 ml IV at 125 ml/hr once; to be given at 125 ml/hour Route: IV; ha1 Rate: 125 ml/hr; Site: left antecubital; 06:33 Follow up: Response: No adverse reaction; IV Status: Completed infusion bm8 01:20 Drug: NS 0.9% IV 1000 ml IV at 1000 ml once; to be given as a bolus over 60 minutes ha1 Route: IV; Rate: 1000 ml; Site: left antecubital; 03:27 Follow up: Response: No adverse reaction; IV Status: Completed infusion bm8 01:22 Drug: fentaNYL (PF) IVP 25 mcg IVP once Route: IVP; Site: left antecubital; ha1 03:27 Follow up: Response: No adverse reaction bm8 05:05 Drug: fentaNYL (PF) IVP 50 mcg IVP once Route: IVP; Site: left antecubital; bm8 06:30 Follow up: Response: No adverse reaction bm8 Disposition Summary: 04/26/25 05:40 Transfer Ordered Notes: Transfer Location: [facility] sp4 Reason: Higher level of care sp4 Condition: Stable sp4 Problem: new sp4 Symptoms: have improved sp4 Accepting Physician: Bryant Dobbs's attending . (04/26/25 06:33) bm8 Diagnosis - Acute obstructing ureteral renal stone, acute right hydronephrosis sp4 Forms: - Medication Reconciliation Form sp4 - SBAR form sp4 Signatures: Dispatcher [employer] EDGladys Kelley, DISTRIBUTION SUPERVISOR-C DISTRIBUTION SUPERVISOR-Verenice Shi RN RN ha1 Fortunato Willis MD MD sp4 Aditya Hair RN RN bm8 Corrections: (The following items were deleted from the chart) 00:57 00:57 C-REACTIVE PROTEIN+C.LAB.BRZ ordered. EDME EDMS 06:33 05:[address] [facility] attending . sp4 bm8
[2025-04-26 06:38] VITALS: O2SAT 100
[2025-04-26 06:45] VITALS: BP 125/90; TEMP 97.6
== END 2025-04-26 06:33 | disposition short-term general hospital (02) ==
LOC: ER 00:46
DX: N13.2 Hydronephrosis with renal and ureteral calculous obstruction (principal)
CPT/HCPCS: 96361; 85025; 81001; 36415; 83690; 80053; 86140; 74177; 96375; 96374; 99285; Q9967; J3010 ×2; J2405; J7030

== ENCOUNTER 2025-05-27 09:03 | Emergency (ER) | payer BC ==
[2025-05-27] MEDS ORDERED: MORPHINE 2 MG/ML SYR ONE ×2 (10:31→11:18)
[2025-05-27] MEDS ORDERED: NA CHLORIDE 0.9% 1,000 ML ONE (10:31)
[2025-05-27 10:46] LABS: Absolute Lymphocytes (CBC) 0.4 K/uL (0.7-4.9); Hematocrit 36.4 % (36.0-45.0); Hemoglobin 12.6 g/dL (12.0-15.0); MCH 30.1 pg (27.0-35.0); MCHC 34.5 g/dL (32.0-36.0); MCV 87.2 fL (80-100); MPV 7.1 fL (7.6-11.3); Nucleated RBC Absolute Count 0.0 (0-0); Nucleated Red Blood Cells % 0.1 % (0-0); RBC Red Blood Cell Count 4.17 M/uL (3.86-4.86); White Blood Count 5.40 thou/uL (4.3-10.9)
[2025-05-27 11:06] LABS: ALT/SGPT 34.0 U/L (13-56); AST/SGOT 38.0 U/L (15-37); Albumin 3.5 g/dL (3.4-5.0); Albumin/Globulin Ratio 0.9 (1.1-1.8); Alkaline Phosphatase 114.0 U/L (45-117); Anion Gap 9.8 mEq/L (5.0-15.0); BUN Blood Urea Nitrogen 13.0 mg/dL (7-18); Globulin 3.7 g/dL (2.3-3.5); Glucose Level 91.0 mg/dL (74-106); Lipase 28.0 U/L (13-75); Potassium 3.8 mEq/L (3.5-5.1)
--- NOTE | 2025-05-27 11:54 | RAD REPORT ---
EXAMINATION: CT ABDOMEN AND PELVIS WITH CONTRAST CLINICAL INDICATION: ABD PAIN TECHNIQUE: CT abdomen and pelvis was performed, after the administration of IV contrast, as per [facility] protocol. Axial, sagittal and coronal reconstructions were obtained. One or more of the following dose reduction techniques were used: Automated exposure control, adjustment of the mA and k V according to patient size, and iterative reconstruction. Unless otherwise specified, incidental findings do not require dedicated imaging follow-up. COMPARISON: No prior exam. FINDINGS: LOWER CHEST: The visualized lung bases are clear. LIVER: Normal in size and contour. No focal lesion. Cholecystectomy clips. SPLEEN: Normal size. No focal lesion. PANCREAS: No mass, ductal dilation, or bianca-pancreatic fluid. ADRENALS: Normal; no mass. KIDNEYS: Normal size and contour. No hydronephrosis. GASTROINTESTINAL TRACT: No evidence of free air, significant intra-abdominal free fluid, bowel obstru ction or abscess. Postsurgical changes about the stomach and small intestine compatible with bypass. APPENDIX: Normal appendix. LYMPH NODES: No lymphadenopathy. MUSCULOSKELETAL: No acute or suspicious osseous abnormality. IMPRESSION: No acute or concerning abnormalities seen in the abdomen or pelvis.
[2025-05-27] MEDS ORDERED: DICYCLOMINE HCL 20 MG/2 ML AMP IM ONE (12:27)
[2025-05-27] MEDS ORDERED: MAGNES/ALUMIN/SIMET 30ML UCUP ONE (12:27)
[2025-05-27] MEDS ORDERED: LIDOCAINE VISCOUS 2% 10ML ORAL SOLN ONE (12:27)
--- NOTE | 2025-05-27 12:30 | ER ---
Nurse's Notes [facility] Name: Gabrielle Felix Age: 54 yrs Sex: Female : 1970 Arrival Date: 05/27/2025 Time: 09:03 Bed 16 Private MD: Diagnosis: Abdominal pain, Generalized Presentation: 05/27 09:33 Chief complaint: EMS states: Pt reports upper abdominal cramping and spasms since 0745 jb4 with N/V. Pt was given 25mcg of fentanyl and 4mg of zofran via 20g tot he LAC. Coronavirus screen: At this time, the client does not indicate any symptoms associated with coronavirus-19. Ebola Screen: No symptoms or risks identified at this time. Initial Sepsis Screen: Does the patient meet any 2 criteria? No. Patient's initial sepsis screen is negative. Does the patient have a suspected source of infection? No. Patient's initial sepsis screen is negative. Risk Assessment: Do you want to hurt yourself or someone else? Patient reports no desire to harm self or others. Onset of symptoms was May 27, 2025. Transition of care: patient was not received from another setting of care. 09:33 Method Of Arrival: EMS: [facility] jb4 09:33 Acuity: JENNIFER 3 jb4 Triage Assessment: 09:35 General: Appears in no apparent distress. uncomfortable, Behavior is calm, cooperative, jb4 appropriate for age. Pain: Complains of pain in abdomen Pain does not radiate. Pain currently is 7 out of 10 on a pain scale. Quality of pain is described as crampy, Pain began 2 hours ago. Neuro: Level of Consciousness is awake, alert, obeys commands, Oriented to person, place, time, situation. Cardiovascular: Patient's skin is warm and dry. Respiratory: Airway is patent Respiratory effort is even, unlabored, Respiratory pattern is regular, symmetrical. GI: Abdomen is flat, non-distended, Reports upper abdominal pain, cramping, nausea, vomiting. Derm: Skin is intact, Skin is pink, warm \T\ dry. Musculoskeletal: Circulation, motion, and sensation intact. Range of motion: intact in all extremities. Historical: - Allergies: 09:35 Codeine; jb4 09:35 miscellaneous food allergies; jb4 09:35 Morphine; jb4 09:35 PENICILLINS; jb4 09:35 Percodan; jb4 09:35 tramadol; jb4 09:35 Egg, Milk, beef, Bann[place], garlic, black pepper; jb4 - PMHx: 09:35 Rheumatoid Arthritis; Kidney stone; jb4 - PSHx: 09:35 Cholecystectomy; Gastric Bypass; ureter stent (Gastric Bypass); jb4 - Immunization history:: Adult Immunizations. - Infectious Disease History:: Denies. - Social history:: Smoking status: Patient denies any tobacco usage or history of. Screenin:43 [facility] ED Fall Risk Assessment (Adult) History of falling in the last 3 months, jb4 including since admission No falls in past 3 months (0 pts) Confusion or Disorientation Yes (5 pts) Intoxicated or Sedated No (0 pts) Impaired Gait No (0 pts) Mobility Assist Device Used No (0 pt) Altered Elimination No (0 pt) Score/Fall Risk Level 0 - 2 = Low Risk Oriented to surroundings, Maintained a safe environment. Abuse screen: Denies threats or abuse. Nutritional screening: No deficits noted. Tuberculosis screening: No symptoms or risk factors identified. Assessment: 09:42 Reassessment: see triage note. jb4 10:46 Reassessment: Patient appears in no apparent distress at this time. Patient and/or jb4 family updated on plan of care and expected duration. Pain level reassessed. Patient is alert, oriented x 3, equal unlabored respirations, skin warm/dry/pink. Pt refusing urine test, CT notified. 12:14 Reassessment: Patient appears in no apparent distress at this time. Patient and/or jb4 family updated on plan of care and expected duration. Pain level reassessed. Patient is alert, oriented x 3, equal unlabored respirations, skin warm/dry/pink. 12:58 Reassessment: Patient appears in no apparent distress at this time. Patient and/or jb4 family updated on plan of care and expected duration. Pain level reassessed. Patient is alert, oriented x 3, equal unlabored respirations, skin warm/dry/pink. Vital Signs: 09:35 BP 121 / 86; Pulse 93; Resp 16; Pulse Ox 99% on R/A; Weight 58.97 kg (R); Height 4 ft. jb4 11 in. (R); Pain 7/10; 10:47 BP 118 / 86; Pulse 92; Resp 16; Pulse Ox 97% on R/A; jb4 12:58 BP 123 / 90; Pulse 90; Resp 16; Pulse Ox 98% on R/A; jb4 09:35 Body Mass Index 26.26 (58.97 kg, 149.86 cm) jb4 09:35 Pain Scale: Adult jb4 ED Course: 09:32 Patient arrived in ED. jb4 09:34 Triage completed. jb4 09:35 Arm band placed on right wrist. jb4 09:36 Fco Russo FNP-C is PHCP. dr5 09:36 Yonas Navarrete DO is Attending Physician. dr5 09:43 Patient has correct armband on for positive identification. Bed in low position. Call jb4 light in reach. Side rails up X 1. Provided Education on: plan of care. 09:43 No provider procedures requiring assistance completed. jb4 10:36 CBC with Diff Sent. jb4 10:37 CMP Sent. jb4 10:37 Lipase Sent. jb4 11:33 CT Abd/Pelvis - IV Contrast Only In Process Unspecified. EDMS 12:14 Yovani Espinoza, RN is Primary Nurse. jb4 12:30 Yonas Navarrete DO is Referral Physician. dr5 12:58 IV discontinued, intact, bleeding controlled, No redness/swelling at site. Pressure jb4 dressing applied. Administered Medications: 10:45 Drug: morphine IVP or IV 4 mg IVP once over 4 mins Route: IVP; Infused Over: 4 mins; jb4 Site: left antecubital; 12:36 Follow up: Response: No adverse reaction; Marked relief of symptoms; Pain is decreased jb4 10:45 Drug: NS 0.9% IV 1000 ml IV at 1 bolus Per protocol; to be given as a bolus over 60 jb4 minutes Route: IV; Rate: 1 bolus; Site: left antecubital; 12:36 Follow up: Response: No adverse reaction; IV Status: Completed infusion; IV Intake: jb4 600ml 11:50 Drug: morphine IVP or IV 2 mg IVP once over 4 mins Route: IVP; Infused Over: 4 mins; jb4 Site: left antecubital; 12:35 Follow up: Response: No adverse reaction; Marked relief of symptoms; Pain is decreased jb4 12:35 Drug: GI Cocktail without - (Maalox PO 30 ml, Lidocaine Mucous Membrane 2 % 15 jb4 ml) PO once Route: PO; 12:37 Follow up: Response: Medication administered at discharge. jb4 12:35 Drug: Dicyclomine IM 20 mg IM once Route: IM; Site: left gluteus; jb4 12:37 Follow up: Response: Medication administered at discharge. jb4 12:37 Not Given (Physician Discretion): ondansetron 4 mg IVP once; over 2 minutes jb4 Medication: 12:58 VIS not applicable for this client. jb4 Intake: 12:36 IV: 600ml; Total: 600ml. jb4 Outcome: 12:30 Discharge ordered by . dr5 12:58 Discharged to home ambulatory, jb4 12:58 Condition: stable 12:58 Discharge instructions given to patient, Instructed on discharge instructions, follow up and referral plans. Demonstrated understanding of instructions, follow-up care, medications, Prescriptions given X 2, 12:58 Patient left the ED. jb4 Signatures: Dispatcher [employer] Yovani Gasca RN RN jb4 Fco Russo, DIRECTOR INSTRUMENTATION-C DIRECTOR INSTRUMENTATION-[id number]
--- NOTE | 2025-05-27 12:30 | EDPHYS ---
Physician Documentation [facility] Name: Gabrielle Felix Age: 54 yrs Sex: Female : 1970 Arrival Date: 05/27/2025 Time: 09:03 Bed 16 Private MD: ED Physician Yonas Navarrete HPI: 05/27 11:41 This 54 yrs old Female presents to ER via EMS with complaints of Abdominal dr5 Cramping. 11:41 Patient is a 53-year-old female with history of RA and kidney stones coming in with dr5 severe epigastric abdominal pain that radiates to left flank has been going on since 0 745 this morning. Patient reports multiple episodes of nausea and vomiting. Patient states that she has recently seen urologist for a 6 mm kidney stone in which stents were placed.. Historical: - Allergies: 09:35 Codeine; jb4 09:35 miscellaneous food allergies; jb4 09:35 Morphine; jb4 09:35 PENICILLINS; jb4 09:35 Percodan; jb4 09:35 tramadol; jb4 09:35 Egg, Milk, beef, [place], garlic, black pepper; jb4 - PMHx: 09:35 Rheumatoid Arthritis; Kidney stone; jb4 - PSHx: 09:35 Cholecystectomy; Gastric Bypass; ureter stent (Gastric Bypass); jb4 - Immunization history:: Adult Immunizations. - Infectious Disease History:: Denies. - Social history:: Smoking status: Patient denies any tobacco usage or history of. ROS: 11:41 Constitutional: as per hpi dr5 Exam: 11:41 Constitutional: This is a well developed, well nourished patient who is awake, alert, dr5 and in no acute distress. Head/Face: Normocephalic, atraumatic. ENT: Nares patent. No nasal discharge, no septal abnormalities noted. Tympanic membranes are normal and external auditory canals are clear. Oropharynx with no redness, swelling, or masses, exudates, or evidence of obstruction, uvula midline. Mucous membranes moist. Neck: Trachea midline, no thyromegaly or masses palpated, and no cervical lymphadenopathy. Supple, full range of motion without nuchal rigidity, or vertebral point tenderness. No Meningismus. Chest/axilla: Normal chest wall appearance and motion. Nontender with no deformity. No lesions are appreciated. Cardiovascular: Regular rate and rhythm with a normal S1 and S2. Normal PMI, no JVD. No pulse deficits. Respiratory: Lungs have equal breath sounds bilaterally, clear to auscultation. No rales, rhonchi or wheezes noted. No increased work of breathing, no retractions or nasal flaring. Back: No spinal tenderness. No costovertebral tenderness. Full range of motion. Skin: Warm, dry with normal turgor. Normal color with no rashes, no lesions, and no evidence of cellulitis. MS/ Extremity: Pulses equal, no cyanosis. Neurovascular intact. Full, normal range of motion. Neuro: Awake and alert, GCS 15, oriented to person, place, time, and situation. Cranial nerves II-XII grossly intact. Motor strength 5/5 in all extremities. Sensory grossly intact. Cerebellar exam normal. Normal gait. 11:41 Abdomen/GI: Inspection: abdomen appears normal, Bowel sounds: normal, active, Palpation: moderate abdominal tenderness, in the epigastric area, Vital Signs: 09:35 BP 121 / 86; Pulse 93; Resp 16; Pulse Ox 99% on R/A; Weight 58.97 kg (R); Height 4 ft. jb4 11 in. (R); Pain 7/10; 10:47 BP 118 / 86; Pulse 92; Resp 16; Pulse Ox 97% on R/A; jb4 12:58 BP 123 / 90; Pulse 90; Resp 16; Pulse Ox 98% on R/A; jb4 09:35 Body Mass Index 26.26 (58.97 kg, 149.86 cm) jb4 09:35 Pain Scale: Adult jb4 MDM: 09:36 Medical Screening Exam initiated dr5 12:31 Differential diagnosis: Pancreatitis, kidney stone, electrolyte abnormality, dr5 dehydration, abdominal spasms, anemia. Data reviewed: vital signs, nurses notes. Data reviewed: lab test result(s), CBC, white blood cell count, hemoglobin, hematocrit, platelets, electrolytes, sodium, potassium, chloride, serum bicarbonate, BUN, creatinine, serum glucose, radiologic studies, CT scan. Consideration of Admission/Observation Escalation of care including admission/observation considered. Escalation considered patient found abnormality on CT scan. I considered the following discharge prescriptions or medication management in the emergency department I discussed and recommended Over The Counter medications, Medications were administered in the Emergency Department. See MAR. Historians other than the Patient: Friend: Friend at bedside. Care significantly affected by the following chronic conditions: RA, kidney stones. Care significantly affected by the following Social Determinants of Health: Poor access to healthcare and/or lack of insurance, Poor access to transportation, Problems related to employment. 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 Medication response: Zofran and fentanyl -mild relief.. Response to treatment: the patient's symptoms have markedly improved after treatment. Special discussion: I discussed with the patient/guardian in detail that at this point there is no indication for admission to the hospital. It is understood, however, that if the symptoms persist or worsen the patient needs to return immediately for re-evaluation. Based on the history and exam findings, there is no indication for further emergent testing or inpatient evaluation. I discussed with the patient/guardian the need to see the drying room operator for further evaluation of the symptoms. ED course: Patient was given fentanyl and morphine with mild relief. Will trial patient on Bentyl as well as GI cocktail. Recommended patient follow-up with GI doctor for further management. All question answered. All labs and CT scan were discussed with patient as well as printed and given to her to take with her to primary care doctor. All question answered. Strict ER precautions given. 05/27 10:04 Order name: CBC with Diff; Complete Time: 11:02 dr5 05/27 10:04 Order name: CMP; Complete Time: 11:18 dr5 05/27 10:04 Order name: Lipase; Complete Time: 11:18 dr5 05/27 10:05 Order name: CT Abd/Pelvis - IV Contrast Only; Complete Time: 11:55 dr5 05/27 10:04 Order name: IV Saline Lock; Complete Time: 10:30 dr5 05/27 10:04 Order name: Labs collected and sent; Complete Time: 10:36 dr5 Administered Medications: 10:45 Drug: morphine IVP or IV 4 mg IVP once over 4 mins Route: IVP; Infused Over: 4 mins; jb4 Site: left antecubital; 12:36 Follow up: Response: No adverse reaction; Marked relief of symptoms; Pain is decreased jb4 10:45 Drug: NS 0.9% IV 1000 ml IV at 1 bolus Per protocol; to be given as a bolus over 60 jb4 minutes Route: IV; Rate: 1 bolus; Site: left antecubital; 12:36 Follow up: Response: No adverse reaction; IV Status: Completed infusion; IV Intake: jb4 600ml 11:50 Drug: morphine IVP or IV 2 mg IVP once over 4 mins Route: IVP; Infused Over: 4 mins; jb4 Site: left antecubital; 12:35 Follow up: Response: No adverse reaction; Marked relief of symptoms; Pain is decreased jb4 12:35 Drug: GI Cocktail without - (Maalox PO 30 ml, Lidocaine Mucous Membrane 2 % 15 jb4 ml) PO once Route: PO; 12:37 Follow up: Response: Medication administered at discharge. jb4 12:35 Drug: Dicyclomine IM 20 mg IM once Route: IM; Site: left gluteus; jb4 12:37 Follow up: Response: Medication administered at discharge. jb4 12:37 Not Given (Physician Discretion): ondansetron 4 mg IVP once; over 2 minutes jb4 Disposition: 16:49 I was immediately available on-site in the Emergency Department for consultation in the ms3 care of the patient. Disposition Summary: 05/27/25 12:30 Discharge Ordered Notes: Location: Home dr5 Condition: Stable dr5 Diagnosis - Abdominal pain, Generalized dr5 Followup: dr5 - With: Emergency Department - When: As needed - Reason: Worsening of condition Followup: dr5 - With: Private Physician - When: 1 - 2 days - Reason: Recheck today's complaints, Continuance of care, Re-evaluation by your physician Discharge Instructions: - Discharge Summary Sheet dr5 - Abdominal Pain, Adult dr5 Forms: - Work release form jb4 - Medication Reconciliation Form dr5 - Patient Portal Instructions dr5 - Leadership Thank You Letter dr5 Prescriptions: - dicyclomine 20 mg Oral tablet - take 1 tablet ORAL route 2 times per day As needed; 40 tablet; Refills: 0, dr5 Product Selection Permitted - Zofran 4 mg Oral Tablet - take 1 tablet ORAL route every 12 hours As needed; 20 tablet; Refills: 0, dr5 Product Selection Permitted Signatures: Dispatcher [employer] Yovani Gasca, KINGSLEY RN jb4 Yonas Navarrete DO DO ms3 Fco Russo, LEXI-C VITICULTURE TEACHER-Cdr5
[2025-05-27 13:04] VITALS: BP 123/90; O2SAT 98
== END 2025-05-27 12:58 | disposition home or self-care (01) ==
LOC: ER 09:03
DX: R10.84 Generalized abdominal pain (principal); Z87.442 Personal history of urinary calculi
CPT/HCPCS: 96361; 85025; 36415; 83690; 80053; 74177; 96372; 96374; 99284; Q9967; J0500; J2270 ×2; J7030